=== PATIENT | female | born 1940 | race Hispanic/Latino ===

== ENCOUNTER 2018-09-29 07:53 | Outpatient (CLI) | payer MEDICARE | END 2018-09-29 07:54 | disposition home or self-care (01) | LOC: WOUND 07:53 ==

== ENCOUNTER 2018-10-05 10:15 | Outpatient (CLI) | payer MEDICARE ==
[2018-10-05] MEDS ORDERED: XYLOCAINE TOPICAL 4% TP ONE (10:18)
[2018-10-05] MEDS ORDERED: SILVER NITRATE TP ONE (10:19)
[2018-10-05] MEDS ORDERED: AD OINTMENT TP PRN (10:25)
== END 2018-10-05 10:16 | disposition home or self-care (01) ==
LOC: WOUND 10:15
PROVIDERS: ATTEND Surgery
DX: I70.238 Atherosclerosis of native arteries of right leg with ulceration of other part of lower leg (principal); L97.213 Non-pressure chronic ulcer of right calf with necrosis of muscle; I73.89 Other specified peripheral vascular diseases
CPT/HCPCS: A6250

== ENCOUNTER 2018-10-12 10:36 | Outpatient (CLI) | payer MEDICARE | END 2018-10-12 10:37 | disposition home or self-care (01) | LOC: WOUND 10:36 | CPT/HCPCS: A6250 ==

== ENCOUNTER 2018-10-14 21:00 | Inpatient (IN) | payer MEDICARE ==
[2018-10-14] MEDS ORDERED: NACL 0.9% 1000 ML 1,000 ML IV ONE (21:22)
[2018-10-14 22:13] LABS: Basophils % (Auto) 0.4 % (0.0-1.8); Eosinophils # (Auto) 0.1 K/mm3 (0.0-0.4); Eosinophils % (Auto) 0.6 % (0.0-4.3); Hematocrit 33.1 % (30.3-42.9); Hemoglobin 10.8 gm/dl (10.1-14.3); Lymphocytes # (Auto) 3.3 K/mm3 (1.2-5.4); Lymphocytes % (Auto) 38.6 % (13.4-35.0); Mean Corpuscular HGB Conc 33 % (30-34); Mean Corpuscular Volume 86 fl (79-97); Monocytes # (Auto) 0.7 K/mm3 (0.0-0.8); Monocytes % (Auto) 8.1 % (0.0-7.3); Platelet Count 487 K/mm3 (140-440); Red Blood Count 3.83 M/mm3 (3.65-5.03); Red Cell Distribution Width 17.4 % (13.2-15.2)
[2018-10-14 22:22] LABS: INR 0.99 (0.87-1.13)
[2018-10-14 22:23] LABS: Partial Thromboplastin Time 28.9 Sec. (24.2-36.6)
--- NOTE | 2018-10-14 22:34 | Emergency Department Report ---
ED GI Bleed HPI - General Chief complaint: GI Bleed Stated complaint: INTERNAL BLEEDING BLOOD IN STOOL Time Seen by Provider: 10/14/18 22:31 Source: patient Mode of arrival: Ambulatory Limitations: No Limitations - History of Present Illness Initial comments: Patient is a 77-year-old female that presents emergency room with complaints of weakness and melena. Patient states she's had melena for 2 weeks but for the last 24 hours should been feeling weak. Patient states she's been taking liquids for a DVT diagnosed in August 2018. Patient has not stopped taking L cause even though she's had melena. Patient has not seen her primary for this problem. Patient denies chest pain shortness of breath. MD complaint: melena -: Sudden, week(s) Radiation: none Quality: painless Consistency: constant Improves with: none Worsens with: none Context: blood thinners Associated Symptoms: malaise, weakness. denies: abdominal pain, nausea, vomiting, epistaxis, fever/chills, headaches, loss of appetite, easy bruising, rash, other bleeding, shortness of breath, syncope - Related Data Home Medications Medication Instructions Recorded Confirmed Last Taken Apixaban [Eliquis] 5 mg PO BID 07/06/18 07/06/18 07/06/18 06:00 5mg HYDROcodone/ACETAMINOPHEN 1 tab PO Q4H PRN 07/06/18 07/06/18 07/06/18 07:00 [Hydrocodone-Acetamin 10-325 mg] 1 tab Levothyroxine Sodium [Synthroid] 88 mcg PO DAILY 07/06/18 07/06/18 07/05/18 88mcg Lisinopril [Zestril TAB] 10 mg PO DAILY 07/06/18 07/06/18 07/05/18 10mg Metoprolol [Lopressor TAB] 25 mg PO DAILY 07/06/18 07/06/18 07/06/18 25mg Oxycodone HCl 10 mg PO Q6H PRN 07/06/18 07/06/18 06/28/18 10mg Previous Rx's Medication Instructions Recorded Last Taken Type ALBUTEROL NEB's [Proventil 0.083% 2.5 mg IH Q4HRT PRN nebu 08/04/18 Unknown Rx NEBS] ALBUTEROL NEB's [Proventil 0.083% 2.5 mg IH TIDRT nebu 08/04/18 Unknown Rx NEBS] ALPRAZolam [Xanax TAB] 0.25 mg PO QPM PRN #21 tablet 08/04/18 Unknown Rx Acetaminophen with Codeine 1 each PO Q6HR PRN #30 tablet 08/04/18 Unknown Rx [Tylenol with Codeine #3 Tablet] Amiodarone [Cordarone 200 MG TAB] 200 mg PO DAILY #30 tablet 08/04/18 Unknown Rx Apixaban [Eliquis] 10 mg PO Q12HR #7 tab.ds.pk 08/04/18 Unknown Rx Budesonide [Pulmicort Respules] 0.5 mg IH Q12HRT #60 nebu 08/04/18 Unknown Rx DULoxetine [Cymbalta] 60 mg PO QDAY #30 capsule 08/04/18 Unknown Rx Gabapentin [Neurontin] 100 mg PO Q8HR #90 capsule 08/04/18 Unknown Rx Multivitamin Tab [Multiple Vitamin 1 each PO QDAY tablet 08/04/18 Unknown Rx TAB (Theragran)] Pantoprazole [Protonix TAB] 40 mg PO BID #60 tablet 08/04/18 Unknown Rx Sucralfate [Carafate] 1 gm PO ACHS #1200 ml 08/04/18 Unknown Rx dilTIAZem [Cardizem] 60 mg PO TID #90 tablet 08/04/18 Unknown Rx Allergies Allergy/AdvReac Type Severity Reaction Status Date / Time No Known Allergies Allergy Verified 10/14/18 21:18 ED Review of Systems ROS: Stated complaint: INTERNAL BLEEDING BLOOD IN STOOL Other details as noted in HPI Constitutional: malaise, weakness. denies: chills, fever Eyes: denies: eye pain, eye discharge, vision change ENT: denies: ear pain, throat pain Respiratory: denies: cough, shortness of breath, wheezing Cardiovascular: denies: chest pain, palpitations Endocrine: no symptoms reported Gastrointestinal: denies: abdominal pain, nausea, diarrhea Genitourinary: denies: urgency, dysuria, discharge Musculoskeletal: denies: back pain, joint swelling, arthralgia Skin: denies: rash, lesions Neurological: denies: headache, paresthesias Psychiatric: denies: anxiety, depression Hematological/Lymphatic: denies: easy bleeding, easy bruising ED Past Medical Hx - Past Medical History Previous Medical History?: Yes Hx Hypertension: Yes Hx Deep Vein Thrombosis: Yes Hx GERD: No Hx Asthma: No - Surgical History Past Surgical History?: Yes Hx Pacemaker: No Hx Internal Defibrillator: No Hx Cholecystectomy: Yes - Social History Smoking Status: Never Smoker Substance Use Type: None - Medications Home Medications: Home Medications Medication Instructions Recorded Confirmed Last Taken Type Apixaban [Eliquis] 5 mg PO BID 07/06/18 07/06/18 07/06/18 06:00 History 5mg HYDROcodone/ACETAMINOPHEN 1 tab PO Q4H PRN 07/06/18 07/06/18 07/06/18 07:00 Hi story [Hydrocodone-Acetamin 10-325 mg] 1 tab Levothyroxine Sodium [Synthroid] 88 mcg PO DAILY 07/06/18 07/06/18 07/05/18 History 88mcg Lisinopril [Zestril TAB] 10 mg PO DAILY 07/06/18 07/06/18 07/05/18 History 10mg Metoprolol [Lopressor TAB] 25 mg PO DAILY 07/06/18 07/06/18 07/06/18 History 25mg Oxycodone HCl 10 mg PO Q6H PRN 07/06/18 07/06/18 06/28/18 History 10mg ALBUTEROL NEB's [Proventil 0.083% 2.5 mg IH Q4HRT PRN nebu 08/04/18 Unknown Rx NEBS] ALBUTEROL NEB's [Proventil 0.083% 2.5 mg IH TIDRT nebu 08/04/18 Unknown Rx NEBS] ALPRAZolam [Xanax TAB] 0.25 mg PO QPM PRN #21 tablet 08/04/18 Unknown Rx Acetaminophen with Codeine 1 each PO Q6HR PRN #30 tablet 08/04/18 Unknown Rx [Tylenol with Codeine #3 Tablet] Amiodarone [Cordarone 200 MG TAB] 200 mg PO DAILY #30 tablet 08/04/18 Unknown Rx Apixaban [Eliquis] 10 mg PO Q12HR #7 tab.ds.pk 08/04/18 Unknown Rx Budesonide [Pulmicort Respules] 0.5 mg IH Q12HRT #60 nebu 08/04/18 Unknown Rx DULoxetine [Cymbalta] 60 mg PO QDAY #30 capsule 08/04/18 Unknown Rx Gabapentin [Neurontin] 100 mg PO Q8HR #90 capsule 08/04/18 Unknown Rx Multivitamin Tab [Multiple Vitamin 1 each PO QDAY tablet 08/04/18 Unknown Rx TAB (Theragran)] Pantoprazole [Protonix TAB] 40 mg PO BID #60 tablet 08/04/18 Unknown Rx Sucralfate [Carafate] 1 gm PO ACHS #1200 ml 08/04/18 Unknown Rx dilTIAZem [Cardizem] 60 mg PO TID #90 tablet 08/04/18 Unknown Rx ED Physical Exam - General Limitations: No Limitations General appearance: alert, in no apparent distress - Head Head exam: Present: atraumatic, normocephalic - Eye Eye exam: Present: normal appearance, other (scleral pallor noted) - ENT ENT exam: Present: mucous membranes moist - Neck Neck exam: Present: normal inspection - Respiratory Respiratory exam: Present: normal lung sounds bilaterally. Absent: respiratory distress - Cardiovascular Cardiovascular Exam: Present: regular rate, normal rhythm. Absent: systolic murmur, diastolic murmur, rubs, gallop - GI/Abdominal GI/Abdominal exam: Present: soft, normal bowel sounds - Rectal Rectal exam: Present: heme (+) stool, black stool, hemorrhoids - Extremities Exam Extremities exam: Present: normal inspection - Back Exam Back exam: Present: normal inspection - Neurological Exam Neurological exam: Present: alert, oriented X3 - Psychiatric Psychiatric exam: Present: normal affect, normal mood - Skin Skin exam: Present: warm, dry, intact, normal color. Absent: rash ED Course Vital Signs 10/14/18 10/14/18 10/14/18 21:18 22:34 22:40 Temperature 97.4 F L Pulse Rate 86 79 Respiratory 16 23 Rate Blood Pressure 117/56 153/46 O2 Sat by Pulse 100 100 100 Oximetry 10/14/18 10/14/18 10/14/18 22:51 23:00 23:11 Temperature Pulse Rate 76 83 83 Respiratory 16 17 18 Rate Blood Pressure 140/60 153/46 O2 Sat by Pulse 100 100 97 Oximetry 10/14/18 10/14/18 10/15/18 23:20 23:43 00:05 Temperature Pulse Rate 113 H 87 Respiratory 16 19 26 H Rate Blood Pressure 140/69 140/69 O2 Sat by Pulse 100 100 Oximetry 10/15/18 10/15/18 10/15/18 00:11 00:21 00:31 Temperature Pulse Rate 84 85 86 Respiratory 17 19 18 Rate Blood Pressure 140/69 140/69 140/60 O2 Sat by Pulse 96 99 97 Oximetry 10/15/18 10/15/18 10/15/18 00:41 00:51 01:00 Temperature Pulse Rate 89 89 90 Respiratory 18 20 20 Rate Blood Pressure 140/69 140/69 140/69 O2 Sat by Pulse 96 96 97 Oximetry 10/15/18 10/15/18 10/15/18 01:10 01:20 01:30 Temperature Pulse Rate 85 87 88 Respiratory 18 21 15 Rate Blood Pressure O2 Sat by Pulse 97 96 100 Oximetry 10/15/18 10/15/18 10/15/18 01:40 01:50 02:00 Temperature Pulse Rate 89 90 90 Respiratory 16 19 19 Rate Blood Pressure 158/64 158/64 158/64 O2 Sat by Pulse 97 98 98 Oximetry 10/15/18 02:10 Temperature Pulse Rate 89 Respiratory 19 Rate Blood Pressure 158/64 O2 Sat by Pulse 98 Oximetry - Reevaluation(s) Reevaluation #1: Initial evaluation. Patient will require a guaiac. Patient agrees to have a rectal exam done. 10/14/18 22:34 Guaiac positive. Nurse in room for entire rectal exam 10/14/18 22:45 - Consultations Consultation #1: GI consult. Dr. Pearson wantmahesh patient admitted to the hospitalist service 10/14/18 22:48 Consultation #2: Hospitalist consultation for admission. Hospitalist to admit patient and assume care of patient. 10/14/18 22:48 ED Medical Decision Making - Lab Data Result diagrams: 10/15/18 03:02 10/15/18 03:02 - Medical Decision Making Patient 77-year-old female that presents emergency room with complaints of dark stool and weakness. Patient found to have a GI bleed. Guaiac positive. Patient will be admitted to the hospitalist service for further treatment. GI has been consulted and agrees with admission. - Differential Diagnosis GI bleed.anticoagulation therapy. melena Critical Care Time: Yes Critical care attestation.: If time is entered above; I have spent that time in minutes in the direct care of this critically ill patient, excluding procedure time. Critical Care Time: 35 minutes ED Disposition Clinical Impression: Melena, Anticoagulant effect, On anticoagulant therapy, Malaise and fatigue GI bleed Qualifiers: GI bleed type/associated pathology: melena Qualified Code(s): K92.1 - Melena Disposition: OP ADMIT IP TO THIS HOSP Is pt being admited?: Yes Does the pt Need Aspirin: No Condition: Critical Time of Disposition: 22:47
[2018-10-14 22:44] LABS: Alanine Aminotransferase 7 units/L (7-56); Albumin 3.8 g/dL (3.9-5); BUN/Creatinine Ratio 14; Blood Urea Nitrogen 13 mg/dL (7-17); Calcium 8.8 mg/dL (8.4-10.2); Hemolysis Index 3
--- NOTE | 2018-10-14 23:12 | History and Physical Report ---
History of Present Illness Date of examination: 10/14/18 History of present illness: 77-year-old woman history of hypertension, A. fib, DVT on eliquis, hypothyroidism, GERD, PAD comes emergency room because she's been experiencing melena 2 weeks. She had 3-4 episodes a day, also complaining of generalized weakness. No NSAID use, iron therapy. She states she is also had abdominal pain close to 2 weeks now, started after the melena, intermittent, lasting up to an hour, intensity 5/10, no radiation. She's been taking Pepto-Bismol for the pain Review of systems Constitutional: no weight loss, chills, fever Ears, eyes, nose, mouth and throat: no nasal congestion, no nasal discharge, no sinus pressure, no vision change, no red eye. Neck: No neck pain or rigidity. Cardiovascular: no palpitations, chest pain Respiratory: no cough, shortness of breath Gastrointestinal: no hematochezia, +abdominal pain Genitourinary : no frequency , no hematuria Musculoskeletal: no joint swelling or muscle ache Integumentary: no rash, no pruritis Neurological: no parathesias, no focal weakness Endocrine: no cold or heat intolerance, no polyuria or polydipsia Hematologic/Lymphatic: no easy bruising, no easy bleeding, no gland swelling Allergic/Immunologic: no urticaria, no angioedema. PAST MEDICAL HISTORY: hypertension, A. fib, DVT on eliquis, hypothyroidism, GERD, PAD PAST SURGICAL HISTORY: Cholecystectomy, fasciotomy SOCIAL HISTORY: Denies alcohol, drugs, smokes half pack a day FAMILY HISTORY: Hypertension Medications and Allergies Allergies Allergy/AdvReac Type Severity Reaction Status Date / Time No Known Allergies Allergy Verified 10/14/18 21:18 Home Medications Medication Instructions Recorded Confirmed Last Taken Type Apixaban [Eliquis] 5 mg PO BID 07/06/18 07/06/18 07/06/18 06:00 History 5mg HYDROcodone/ACETAMINOPHEN 1 tab PO Q4H PRN 07/06/18 07/06/18 07/06/18 07:00 History [Hydrocodone-Acetamin 10-325 mg] 1 tab Levothyroxine Sodium [Synthroid] 88 mcg PO DAILY 07/06/18 07/06/18 07/05/18 History 88mcg Lisinopril [Zestril TAB] 10 mg PO DAILY 07/06/18 07/06/18 07/05/18 History 10mg Metoprolol [Lopressor TAB] 25 mg PO DAILY 07/06/18 07/06/18 07/06/18 History 25mg Oxycodone HCl 10 mg PO Q6H PRN 07/06/18 07/06/18 06/28/18 History 10mg ALBUTEROL NEB's [Proventil 0.083% 2.5 mg IH Q4HRT PRN nebu 08/04/18 Unknown Rx NEBS] ALBUTEROL NEB's [Proventil 0.083% 2.5 mg IH TIDRT nebu 08/04/18 Unknown Rx NEBS] ALPRAZolam [Xanax TAB] 0.25 mg PO QPM PRN #21 tablet 08/04/18 Unknown Rx Acetaminophen with Codeine 1 each PO Q6HR PRN #30 tablet 08/04/18 Unknown Rx [Tylenol with Codeine #3 Tablet] Amiodarone [Cordarone 200 MG TAB] 200 mg PO DAILY #30 tablet 08/04/18 Unknown Rx Apixaban [Eliquis] 10 mg PO Q12HR #7 tab.ds.pk 08/04/18 Unknown Rx Budesonide [Pulmicort Respules] 0.5 mg IH Q12HRT #60 nebu 08/04/18 Unknown Rx DULoxetine [Cymbalta] 60 mg PO QDAY #30 capsule 08/04/18 Unknown Rx Gabapentin [Neurontin] 100 mg PO Q8HR #90 capsule 08/04/18 Unknown Rx Multivitamin Tab [Multiple Vitamin 1 each PO QDAY tablet 08/04/18 Unknown Rx TAB (Theragran)] Pantoprazole [Protonix TAB] 40 mg PO BID #60 tablet 08/04/18 Unknown Rx Sucralfate [Carafate] 1 gm PO ACHS #1200 ml 08/04/18 Unknown Rx dilTIAZem [Cardizem] 60 mg PO TID #90 tablet 08/04/18 Unknown Rx Active Meds: Active Medications Sodium Chloride (Nacl 0.9% 1000 Ml) 1,000 mls @ 250 mls/hr IV ONCE ONE Stop: 10/15/18 01:21 Exam - Physical Exam Narrative exam: General Apperance: The patient lying in bed, breathing comfortable HEENT: Normocephalic, atraumatic. Pupils equally round and reactive to light, EOMI, no sclericterus or JVD or thyromegaly or nodule. , no carotid bruit, mucous membranes moist, no exudate or erythema Heart: S1-S2, regular is rhythm Lungs: Clear to auscultation bilaterally, breathing comfortable Abdomen: Positive bowel sounds, soft, nontender, nondistended, no organomegaly Extremities: No edema cyanosis clubbing Skin: no rash, nodule, warm and dry Neuro: cranial nerves 2-12 intact, speech is fluent, motor/sensory intact - Constitutional Vitals: Temp Pulse Resp BP Pulse Ox 97.4 F L 86 16 117/56 100 10/14/18 21:18 10/14/18 21:18 10/14/18 21:18 10/14/18 21:18 10/14/18 21:18 Results - Labs CBC & Chem 7: 10/14/18 21:47 10/14/18 21:47 Labs: Abnormal lab results 10/14/18 10/14/18 Range/Units 21:47 21:47 RDW 17.4 H (13.2-15.2) % Plt Count 487 H (140-440) K/mm3 Lymph % (Auto) 38.6 H (13.4-35.0) % [place] % (Auto) 8.1 H (0.0-7.3) % Sodium 129 L (137-145) mmol/L Chloride 95.4 L (98-107) mmol/L Albumin 3.8 L (3.9-5) g/dL Assessment and Plan Assessment GI bleed/melena Abdominal pain hypertension A. fib DVT hypothyroidism GERD PAD Plan Admit to medicine Start Protonix, check serial hemoglobin consultation GI, GI aware of the patient Hold eliquis, check CT of the abdomen Start IV morphine, IV fluid Continue appropriate outpatient medications DVT prophylaxis
[2018-10-14] MEDS ORDERED: DILAUDID IV ONE (23:20)
[2018-10-14] MEDS ORDERED: SODIUM CHLORIDE FLUSH SYRINGE 10 ML IV PRN (23:43)
[2018-10-14] MEDS ORDERED: TYLENOL PO PRN (23:43)
[2018-10-14] MEDS ORDERED: MORPHINE IV PRN (23:43)
[2018-10-14] MEDS ORDERED: ZOFRAN IV PRN (23:43)
[2018-10-14] MEDS ORDERED: PROTONIX IV NR (23:59)
[2018-10-15 00:18] LABS: Hematocrit 28.4 % (30.3-42.9); Hemoglobin 9.2 gm/dl (10.1-14.3)
--- NOTE | 2018-10-15 00:35 | Cat Scan Report ---
FINAL REPORT PROCEDURE: CT ABDOMEN PELVIS WO CON TECHNIQUE: Computerized axial tomography of the abdomen and pelvis was performed without intravenous contrast. This study is performed without intravascular contrast material and its sensitivity for ab dominal and pelvic pathology, including neoplasms, inflammation, abscess, free fluid, thrombosis, art erial dissection and infarction, is reduced compared with a contrast enhanced study. HISTORY: abd pain COMPARISON: No prior studies are available for comparison. FINDINGS: Visualized lower thorax: No significant abnormality. Liver: Normal size and attenuation. Spleen: Normal size and attenuation. Gallbladder and biliary system: The gallbladder is absent. No dilatation of the biliary ductal system .. Pancreas: Normal. Adrenals: Normal. Kidneys: Slight extrarenal pelvis in both collecting systems. No renal masses or stones.. GI tract: The stomach is normal. Small bowel has a normal caliber. No obstruction is seen. The cecum, appendix and colon are normal.. Lymph nodes and mesentery: Normal. Vasculature: Moderate atherosclerosis of the aorta and branching vessels.. Bladder: Normal. Reproductive organs: Normal. Peritoneum: No free fluid. Musculoskeletal structures: Moderate degenerative changes of the spine. There has been previous right hip arthroplasty. There is been previous fracture of the right pelvic bone.. Other: None. IMPRESSION: There is no evidence of intestinal or urinary tract obstruction. No ileus or enteritis. The appendix is normal. Previous cholecystectomy..
[2018-10-15 03:12] LABS: Basophils % (Auto) 0.5 % (0.0-1.8); Eosinophils # (Auto) 0.1 K/mm3 (0.0-0.4); Eosinophils % (Auto) 1.2 % (0.0-4.3); Hematocrit 29.4 % (30.3-42.9); Hemoglobin 9.7 gm/dl (10.1-14.3); Lymphocytes # (Auto) 3.1 K/mm3 (1.2-5.4); Lymphocytes % (Auto) 40.5 % (13.4-35.0); Mean Corpuscular HGB Conc 33 % (30-34); Mean Corpuscular Volume 87 fl (79-97); Monocytes # (Auto) 0.7 K/mm3 (0.0-0.8); Monocytes % (Auto) 9.5 % (0.0-7.3); Platelet Count 424 K/mm3 (140-440); Red Cell Distribution Width 17.3 % (13.2-15.2)
[2018-10-15 03:27] LABS: BUN/Creatinine Ratio 16; Blood Urea Nitrogen 11 mg/dL (7-17); Calcium 8.3 mg/dL (8.4-10.2); Hemolysis Index 5
[2018-10-15] MEDS: SYNTHROID PO SCH (05:09)
[2018-10-15] MEDS: NEURONTIN PO SCH ×3 (05:09→21:29)
[2018-10-15] MEDS: MORPHINE IV PRN ×4 (05:09→21:29)
[2018-10-15] MEDS: NACL 0.45% 1000 ML 1,000 ML IV SCH ×2 (05:10→15:16)
[2018-10-15 08:24] LABS: Hematocrit 28.3 % (30.3-42.9); Hemoglobin 9.3 gm/dl (10.1-14.3)
[2018-10-15] MEDS: PULMICORT IH SCH ×2 (08:32→19:30)
[2018-10-15] MEDS: CYMBALTA PO SCH (09:22)
[2018-10-15] MEDS: CORDARONE PO SCH (09:22)
[2018-10-15] MEDS: PROTONIX IV SCH (09:22)
[2018-10-15] MEDS: SODIUM CHLORIDE FLUSH SYRINGE 10 ML IV SCH ×2 (09:23→21:29)
[2018-10-15] MEDS ORDERED: SYNTHROID PO SCH (10:00)
[2018-10-15 12:49] LABS: Hematocrit 28.7 % (30.3-42.9); Hemoglobin 9.4 gm/dl (10.1-14.3)
--- NOTE | 2018-10-15 15:57 | Gastroenterology Consultation ---
History of Present Illness - Reason for Consult Consult date: 10/15/18 melena Requesting physician: LAN GARCIA III - History of Present Illness Ms Ashraf is a 77 yo wf who presents with black/dark stools x 2 weeks. Pt with h/o lower extremity blood clots, on anticoagulation; she has had black stools for a couple weeks. she has had generalized abd discomfort for which she has been taking peptobismol. She denies n/v, hematemesis, or brpbr. She was previously taking ibuprofen but not takes tylenol and denies other nsaid's. Mild anemia on admission that has been stable on repeat checks. vital signs also stable on admission. Past History Past Medical History: atrial fib, hypertension, other (DVT) Past Surgical History: cholecystectomy, Other (fasciotomy) Social history: smoking Family history: no significant family history Medications and Allergies Allergies Allergy/AdvReac Type Severity Reaction Status Date / Time No Known Allergies Allergy Verified 10/14/18 21:18 Home Medications Medication Instructions Recorded Confirmed Last Taken Type Apixaban [Eliquis] 5 mg PO BID 07/06/18 07/06/18 07/06/18 06:00 History 5mg HYDROcodone/ACETAMINOPHEN 1 tab PO Q4H PRN 07/06/18 07/06/18 07/06/18 07:00 History [Hydrocodone-Acetamin 10-325 mg] 1 tab Levothyroxine Sodium [Synthroid] 88 mcg PO DAILY 07/06/18 07/06/18 07/05/18 History 88mcg Lisinopril [Zestril TAB] 10 mg PO DAILY 07/06/18 07/06/18 07/05/18 History 10mg Metoprolol [Lopressor TAB] 25 mg PO DAILY 07/06/18 07/06/18 07/06/18 History 25mg Oxycodone HCl 10 mg PO Q6H PRN 07/06/18 07/06/18 06/28/18 History 10mg ALBUTEROL NEB's [Proventil 0.083% 2.5 mg IH Q4HRT PRN nebu 08/04/18 Unknown Rx NEBS] ALBUTEROL NEB's [Proventil 0.083% 2.5 mg IH TIDRT nebu 08/04/18 Unknown Rx NEBS] ALPRAZolam [Xanax TAB] 0.25 mg PO QPM PRN #21 tablet 08/04/18 Unknown Rx Acetaminophen with Codeine 1 each PO Q6HR PRN #30 tablet 08/04/18 Unknown Rx [Tylenol with Codeine #3 Tablet] Amiodarone [Cordarone 200 MG TAB] 200 mg PO DAILY #30 tablet 08/04/18 Unknown Rx Apixaban [Eliquis] 10 mg PO Q12HR #7 tab.ds.pk 08/04/18 Unknown Rx Budesonide [Pulmicort Respules] 0.5 mg IH Q12HRT #60 nebu 08/04/18 Unknown Rx DULoxetine [Cymbalta] 60 mg PO QDAY #30 capsule 08/04/18 Unknown Rx Gabapentin [Neurontin] 100 mg PO Q8HR #90 capsule 08/04/18 Unknown Rx Multivitamin Tab [Multiple Vitamin 1 each PO QDAY tablet 08/04/18 Unknown Rx TAB (Theragran)] Pantoprazole [Protonix TAB] 40 mg PO BID #60 tablet 08/04/18 Unknown Rx Sucralfate [Carafate] 1 gm PO ACHS #1200 ml 08/04/18 Unknown Rx dilTIAZem [Cardizem] 60 mg PO TID #90 tablet 08/04/18 Unknown Rx Active Meds: Active Medications Acetaminophen (Tylenol) 650 mg PO Q4H PRN PRN Reason: Pain MILD(1-3)/Fever >100.5/GONZALES Alprazolam (Xanax) 0.25 mg PO QPM PRN PRN Reason: Anxiety Amiodarone HCl (Cordarone) 200 mg PO DAILY [facility] Last Admin: 10/15/18 09:22 Dose: 200 mg Documented by: Budesonide (Pulmicort) 0.5 mg IH Q12HRT [facility] Last Admin: 10/15/18 08:32 Dose: 0.5 mg Documented by: Duloxetine HCl (Cymbalta) 60 mg PO QDAY [facility] Last Admin: 10/15/18 09:22 Dose: 60 mg Documented by: Gabapentin (Neurontin) 100 mg PO Q8HR [facility] Last Admin: 10/15/18 13:09 Dose: 100 mg Documented by: Sodium Chloride (Nacl 0.45% 1000 Ml) 1,000 mls @ 75 mls/hr IV DIRECT [facility] Last Admin: 10/15/18 15:16 Dose: 75 mls/hr Documented by: Levothyroxine Sodium (Synthroid) 88 mcg PO DAILY@0600 [facility] Last Admin: 10/15/18 05:09 Dose: 88 mcg Documented by: Morphine Sulfate (Morphine) 2 mg IV Q4H PRN PRN Reason: Pain, Moderate (4-6) Ondansetron HCl (Zofran) 4 mg IV Q4H PRN PRN Reason: Nausea And Vomiting Last Admin: 10/15/18 05:24 Dose: 4 mg Documented by: Pantoprazole Sodium (Protonix) 40 mg IV DAILY [facility] Last Admin: 10/15/18 09:22 Dose: 40 mg Documented by: Sodium Chloride (Sodium Chloride Flush Syringe 10 Ml) 10 ml IV BID [facility] Last Admin: 10/15/18 09:23 Dose: 10 ml Documented by: Sodium Chloride (Sodium Chloride Flush Syringe 10 Ml) 10 ml IV PRN PRN PRN Reason: LINE FLUSH Review of Systems - Review of Systems All systems: negative (per HPI) Exam - Constitutional Vital Signs: Temp Pulse Resp BP Pulse Ox 98.5 F 89 20 145/56 95 10/15/18 07:37 10/15/18 11:36 10/15/18 10:00 10/15/18 07:37 10/15/18 10:00 General appearance: no acute distress, well-nourished - EENT Eyes: PERRL, EOM intact - Neck Neck: supple, normal ROM - Respiratory Respiratory effort: normal Respiratory: bilateral: CTA - Cardiovascular Rhythm: regular Heart Sounds: Present: S1 & S2 Extremities: No edema - Gastrointestinal General gastrointestinal: Present: soft, tender (mild generalized ttp), non- distended, normal bowel sounds - Integumentary Integumentary: Present: clear, warm - Musculoskeletal Musculoskeletal: deferred - Neurologic Neurological: alert and oriented x3 - Psychiatric Psychiatric: appropriate mood/affect - Labs CBC & Chem 7: 10/15/18 12:30 10/15/18 03:02 Lab Results: Laboratory Results - last 24 hr 10/14/18 10/14/18 10/14/18 21:47 21:47 21:47 WBC 8.5 RBC 3.83 Hgb 10.8 Hct 33.1 MCV 86 MCH 28 MCHC 33 RDW 17.4 H Plt Count 487 H Lymph % (Auto) 38.6 H [place] % (Auto) 8.1 H Eos % (Auto) 0.6 Baso % (Auto) 0.4 Lymph # 3.3 [place] # 0.7 Eos # 0.1 Baso # 0.0 Seg Neutrophils % 52.3 Seg Neutrophils # 4.4 PT 13.5 INR 0.99 APTT 28.9 Sodium 129 L Potassium 4.4 Chloride 95.4 L Carbon Dioxide 22 Anion Gap 16 BUN 13 Creatinine 0.9 Estimated GFR > 60 BUN/Creatinine Ratio 14 Glucose 82 Calcium 8.8 Total Bilirubin < 0.20 AST 12 ALT 7 Alkaline Phosphatase 69 Total Protein 6.6 Albumin 3.8 L Albumin/Globulin Ratio 1.4 Lipase 59 Blood Type Antibody Screen 10/14/18 10/15/18 10/15/18 21:47 00:10 03:02 WBC 7.7 RBC 3.40 L Hgb 9.2 L 9.7 L Hct 28.4 L 29.4 L MCV 87 MCH 28 MCHC 33 RDW 17.3 H Plt Count 424 Lymph % (Auto) 40.5 H [place] % (Auto) 9.5 H Eos % (Auto) 1.2 Baso % (Auto) 0.5 Lymph # 3.1 [place] # 0.7 Eos # 0.1 Baso # 0.0 Seg Neutrophils % 48.3 Seg Neutrophils # 3.7 PT INR APTT Sodium Potassium Chloride Carbon Dioxide Anion Gap BUN Creatinine Estimated GFR BUN/Creatinine Ratio Glucose Calcium Total Bilirubin AST ALT Alkaline Phosphatase Total Protein Albumin Albumin/Globulin Ratio Lipase Blood Type A POSITIVE Antibody Screen Negative 10/15/18 10/15/18 10/15/18 03:02 07:41 12:30 WBC RBC Hgb 9.3 L 9.4 L Hct 28.3 L 28.7 L MCV MCH MCHC RDW Plt Count Lymph % (Auto) [place] % (Auto) Eos % (Auto) Baso % (Auto) Lymph # [place] # Eos # Baso # Seg Neutrophils % Seg Neutrophils # PT INR APTT Sodium 129 L Potassium 4.6 Chloride 97.4 L Carbon Dioxide 22 Anion Gap 14 BUN 11 Creatinine 0.7 Estimated GFR > 60 BUN/Creatinine Ratio 16 Glucose 93 Calcium 8.3 L Total Bilirubin AST ALT Alkaline Phosphatase Total Protein Albumin Albumin/Globulin Ratio Lipase Blood Type Antibody Screen Assessment and Plan 1. Anemia/? GI bleed - pt with reports of black stools; possibly from peptobismol, but should rule out upper gi source of bleeding with EGD. -will plan for egd tomorrow. okay for clears today. cont PPI. NPO at midnight -further recommendations following procedure.
--- NOTE | 2018-10-15 16:13 | Progress Note ---
Assessment and Plan - Patient Problems (1) GI bleed Current Visit: Yes Status: Acute Qualifiers: GI bleed type/associated pathology: melena Qualified Code(s): K92.1 - Melena Plan to address problem: Patient is currently being evaluated workup for melanotic stool. Has EGD plan per gastroenterology. No further episodes. Anticoagulant currently on hold. Patient hemoglobin and hematocrit has remained stable throughout hospital stay. (2) Melena Current Visit: Yes Status: Acute (3) Paroxysmal atrial fibrillation with RVR Current Visit: No Status: Acute Plan to address problem: Patient actually in sinus rhythm at this particular time. Currently anticoagulation on hold. For possible GI blood loss anemia (4) HTN (hypertension) Current Visit: No Status: Chronic Plan to address problem: Patient continues to have optimal control with metoprolol and lisinopril and continue present medical management. History Interval history: Patient is a 77-year-old female with a history of hypertension, hypothyroidism presents with a 3 day history of what appeared to be melanotic stools. Patient was also taking Pepto-Bismol. Stools were associated with some midepigastric abdominal pain. Present patient's pain is optimally controlled with 1 mg of morphine. No further episodes of bleeding or bloody stools. Hospitalist Physical - Constitutional Vitals: Temp Pulse Resp BP Pulse Ox 98.5 F 89 20 145/56 95 10/15/18 07:37 10/15/18 11:36 10/15/18 10:00 10/15/18 07:37 10/15/18 10:00 General appearance: Present: no acute distress - EENT Eyes: Present: PERRL, EOM intact ENT: hearing intact, clear oral mucosa, dentition normal - Neck Neck: Present: supple, normal ROM - Respiratory Respiratory effort: normal Respiratory: bilateral: CTA - Cardiovascular Rhythm: regular - Extremities Extremities: no ischemia, pulses intact, pulses symmetrical, No edema, normal temperature Peripheral Pulses: within normal limits - Abdominal General gastrointestinal: soft, non-tender, non-distended, normal bowel sounds - Integumentary Integumentary: Present: clear, warm, dry - Psychiatric Psychiatric: appropriate mood/affect - Neurologic Neurologic: CNII-XII intact Results - Labs CBC & Chem 7: 10/15/18 12:30 10/15/18 03:02 Labs: Laboratory Last Values WBC 7.7 K/mm3 (4.5-11.0) 10/15/18 03:02 RBC 3.40 M/mm3 (3.65-5.03) L 10/15/18 03:02 Hgb 9.4 gm/dl (10.1-14.3) L 10/15/18 12:30 Hct 28.7 % (30.3-42.9) L 10/15/18 12:30 MCV 87 fl (79-97) 10/15/18 03:02 MCH 28 pg (28-32) 10/15/18 03:02 MCHC 33 % (30-34) 10/15/18 03:02 RDW 17.3 % (13.2-15.2) H 10/15/18 03:02 Plt Count 424 K/mm3 (140-440) 10/15/18 03:02 Lymph % (Auto) 40.5 % (13.4-35.0) H 10/15/18 03:02 [place] % (Auto) 9.5 % (0.0-7.3) H 10/15/18 03:02 Eos % (Auto) 1.2 % (0.0-4.3) 10/15/18 03:02 Baso % (Auto) 0.5 % (0.0-1.8) 10/15/18 03:02 Lymph # 3.1 K/mm3 (1.2-5.4) 10/15/18 03:02 [place] # 0.7 K/mm3 (0.0-0.8) 10/15/18 03:02 Eos # 0.1 K/mm3 (0.0-0.4) 10/15/18 03:02 Baso # 0.0 K/mm3 (0.0-0.1) 10/15/18 03:02 Seg Neutrophils % 48.3 % (40.0-70.0) 10/15/18 03:02 Seg Neutrophils # 3.7 K/mm3 (1.8-7.7) 10/15/18 03:02 PT 13.5 Sec. (12.2-14.9) 10/14/18 21:47 INR 0.99 (0.87-1.13) 10/14/18 21:47 APTT 28.9 Sec. (24.2-36.6) 10/14/18 21:47 Sodium 129 mmol/L (137-145) L 10/15/18 03:02 Potassium 4.6 mmol/L (3.6-5.0) 10/15/18 03:02 Chloride 97.4 mmol/L (98-107) L 10/15/18 03:02 Carbon Dioxide 22 mmol/L (22-30) 10/15/18 03:02 Anion Gap 14 mmol/L 10/15/18 03:02 BUN 11 mg/dL (7-17) 10/15/18 03:02 Creatinine 0.7 mg/dL (0.7-1.2) 10/15/18 03:02 Estimated GFR > 60 ml/min 10/15/18 03:02 BUN/Creatinine Ratio 16 % 10/15/18 03:02 Glucose 93 mg/dL (65-100) 10/15/18 03:02 Calcium 8.3 mg/dL (8.4-10.2) L 10/15/18 03:02 Total Bilirubin < 0.20 mg/dL (0.1-1.2) 10/14/18 21:47 AST 12 units/L (5-40) 10/14/18 21:47 ALT 7 units/L (7-56) 10/14/18 21:47 Alkaline Phosphatase 69 units/L (35-129) 10/14/18 21:47 Total Protein 6.6 g/dL (6.3-8.2) 10/14/18 21:47 Albumin 3.8 g/dL (3.9-5) L 10/14/18 21:47 Albumin/Globulin Ratio 1.4 % 10/14/18 21:47 Lipase 59 units/L (13-60) 10/14/18 21:47 Blood Type A POSITIVE 10/14/18 21:47 Antibody Screen Negative 10/14/18 21:47
[2018-10-15] MEDS ORDERED: MORPHINE IV PRN (17:00)
[2018-10-16] MEDS: XANAX PO PRN ×2 (00:53→21:56)
[2018-10-16] MEDS: MORPHINE IV PRN ×5 (03:56→23:26)
[2018-10-16] MEDS: NACL 0.45% 1000 ML 1,000 ML IV SCH (03:59)
[2018-10-16] MEDS: SYNTHROID PO SCH (06:24)
[2018-10-16] MEDS: NEURONTIN PO SCH ×3 (06:24→21:56)
--- NOTE | 2018-10-16 06:39 | Progress Note ---
Assessment and Plan Assessment and plan: Patient is a 77-year-old female with a history of hypertension, hypothyroidism presents with a 3 day history of what appeared to be melanotic stools. Patient was also taking Pepto-Bismol. Stools were associated with some midepigastric abdominal pain. Present patient's pain is optimally controlled with 1 mg of morphine. No further episodes of bleeding or bloody stools. Patient is on anticoagulation due to DVT diagnosed in Aug 2018. (1) GI bleed Current Visit: Yes Status: Acute Qualifiers: GI bleed type/associated pathology: melena Qualified Code(s): K92.1 - Melena Plan to address problem: Patient is currently being evaluated workup for melanotic stool. Has EGD plan per gastroenterology today. No further episodes. Anticoagulant currently on hold. Patient hemoglobin and hematocrit has remained stable throughout hospital stay. Baseline hgb, stays around 9-10. Patient has had prolonged hx of anemia and is on High dose PPI outpatient. (2) Melena Current Visit: Yes Status: Acute Guaiac positive Per ED note. (3) Paroxysmal atrial fibrillation with RVR Current Visit: No Status: Acute Plan to address problem: Patient actually in sinus rhythm at this particular time. Currently anticoagulation on hold. For possible GI blood loss anemia (4) HTN (hypertension) Current Visit: No Status: Chronic Plan to address problem: Patient continues to have optimal control with metoprolol and lisinopril and continue present medical management. (5) Hyponatremia- Stable. DVT/GI prophy Plan of care discussed in detail with the patient History Interval history: Patient is a 77-year-old female with a history of hypertension, hypothyroidism presents with a 3 day history of what appeared to be melanotic stools. Patient was also taking Pepto-Bismol. Stools were associated with some midepigastric abdominal pain. Present patient's pain is optimally controlled with 1 mg of morphine. No further episodes of bleeding or bloody stools. Hospitalist Physical - Physical exam Narrative exam: VITAL SIGNS: Reviewed. GENERAL: The patient appeared well nourished and normally developed. Vital signs as documented. HEAD: No signs of head trauma. EYES: Pupils are equal. Extraocular motions intact. EARS: Hearing grossly intact. MOUTH: Oropharynx is normal. NECK: No adenopathy, no JVD. CHEST: Chest with clear breath sounds bilaterally. No wheezes, rales, or rhonchi. CARDIAC: Regular rate and rhythm. S1 and S2, without murmurs, gallops, or rubs. VASCULAR: No Edema. Peripheral pulses normal and equal in all extremities. ABDOMEN: Soft, without detectable tenderness. No sign of distention. No rebound or guarding, and no masses palpated. Bowel Sounds normal. MUSCULOSKELETAL: Good range of motion of all major joints. Extremities without clubbing, cyanosis or edema. NEUROLOGIC EXAM: Alert and oriented x 3. No focal sensory or strength deficits. Speech normal. Follows commands. PSYCHIATRIC: Mood normal. SKIN: No rash or lesions. - Constitutional Vitals: Temp Pulse Resp BP Pulse Ox 98.2 F 78 20 130/56 90 10/16/18 04:40 10/16/18 04:40 10/16/18 04:40 10/16/18 04:40 10/16/18 04:40 General appearance: Present: no acute distress Results - Labs CBC & Chem 7: 10/17/18 04:21 10/15/18 03:02 Labs: Laboratory Last Values WBC 7.7 K/mm3 (4.5-11.0) 10/15/18 03:02 RBC 3.40 M/mm3 (3.65-5.03) L 10/15/18 03:02 Hgb 9.4 gm/dl (10.1-14.3) L 10/15/18 12:30 Hct 28.7 % (30.3-42.9) L 10/15/18 12:30 MCV 87 fl (79-97) 10/15/18 03:02 MCH 28 pg (28-32) 10/15/18 03:02 MCHC 33 % (30-34) 10/15/18 03:02 RDW 17.3 % (13.2-15.2) H 10/15/18 03:02 Plt Count 424 K/mm3 (140-440) 10/15/18 03:02 Lymph % (Auto) 40.5 % (13.4-35.0) H 10/15/18 03:02 [place] % (Auto) 9.5 % (0.0-7.3) H 10/15/18 03:02 Eos % (Auto) 1.2 % (0.0-4.3) 10/15/18 03:02 Baso % (Auto) 0.5 % (0.0-1.8) 10/15/18 03:02 Lymph # 3.1 K/mm3 (1.2-5.4) 10/15/18 03:02 [place] # 0.7 K/mm3 (0.0-0.8) 10/15/18 03:02 Eos # 0.1 K/mm3 (0.0-0.4) 10/15/18 03:02 Baso # 0.0 K/mm3 (0.0-0.1) 10/15/18 03:02 Seg Neutrophils % 48.3 % (40.0-70.0) 10/15/18 03:02 Seg Neutrophils # 3.7 K/mm3 (1.8-7.7) 10/15/18 03:02 PT 13.5 Sec. (12.2-14.9) 10/14/18 21:47 INR 0.99 (0.87-1.13) 10/14/18 21:47 APTT 28.9 Sec. (24.2-36.6) 10/14/18 21:47 Sodium 129 mmol/L (137-145) L 10/15/18 03:02 Potassium 4.6 mmol/L (3.6-5.0) 10/15/18 03:02 Chloride 97.4 mmol/L (98-107) L 10/15/18 03:02 Carbon Dioxide 22 mmol/L (22-30) 10/15/18 03:02 Anion Gap 14 mmol/L 10/15/18 03:02 BUN 11 mg/dL (7-17) 10/15/18 03:02 Creatinine 0.7 mg/dL (0.7-1.2) 10/15/18 03:02 Estimated GFR > 60 ml/min 10/15/18 03:02 BUN/Creatinine Ratio 16 % 10/15/18 03:02 Glucose 93 mg/dL (65-100) 10/15/18 03:02 Calcium 8.3 mg/dL (8.4-10.2) L 10/15/18 03:02 Total Bilirubin < 0.20 mg/dL (0.1-1.2) 10/14/18 21:47 AST 12 units/L (5-40) 10/14/18 21:47 ALT 7 units/L (7-56) 10/14/18 21:47 Alkaline Phosphatase 69 units/L (35-129) 10/14/18 21:47 Total Protein 6.6 g/dL (6.3-8.2) 10/14/18 21:47 Albumin 3.8 g/dL (3.9-5) L 10/14/18 21:47 Albumin/Globulin Ratio 1.4 % 10/14/18 21:47 Lipase 59 units/L (13-60) 10/14/18 21:47 Blood Type A POSITIVE 10/14/18 21:47 Antibody Screen Negative 10/14/18 21:47
[2018-10-16] MEDS: PULMICORT IH SCH ×2 (07:15→20:52)
[2018-10-16 07:51] LABS: Basophils % (Auto) 0.3 % (0.0-1.8); Eosinophils # (Auto) 0.1 K/mm3 (0.0-0.4); Eosinophils % (Auto) 1.1 % (0.0-4.3); Hematocrit 28.2 % (30.3-42.9); Hemoglobin 9.2 gm/dl (10.1-14.3); Lymphocytes # (Auto) 2.5 K/mm3 (1.2-5.4); Lymphocytes % (Auto) 35.2 % (13.4-35.0); Mean Corpuscular HGB Conc 33 % (30-34); Mean Corpuscular Volume 87 fl (79-97); Monocytes # (Auto) 0.6 K/mm3 (0.0-0.8); Monocytes % (Auto) 8.1 % (0.0-7.3); Platelet Count 406 K/mm3 (140-440); Red Blood Count 3.24 M/mm3 (3.65-5.03); Red Cell Distribution Width 16.9 % (13.2-15.2)
[2018-10-16] MEDS: PROTONIX IV SCH (09:22)
[2018-10-16] MEDS: SODIUM CHLORIDE FLUSH SYRINGE 10 ML IV SCH ×2 (09:23→21:58)
[2018-10-16] MEDS ORDERED: NACL 0.9% 1000 ML 1,000 ML ONE (09:56)
[2018-10-16] MEDS ORDERED: WATER FOR IRRIG STERILE ONE (10:05)
[2018-10-16] MEDS ORDERED: WATER FOR IRRIG STERILE IR ONE (10:06)
--- NOTE | 2018-10-16 11:07 | Anesthesia Consultation ---
Anesthesia Consult and Med Hx Date of service: 10/16/18 - Airway Anesthetic Teeth Evaluation: Partials ROM Head & Neck: Adequate Mental/Hyoid Distance: Adequate Mallampati Class: Class III Intubation Access Assessment: Possibly Difficult - Pulmonary Exam CTA: Yes - Cardiac Exam Cardiac Exam: RRR - Pre-Operative Health Status ASA Pre-Surgery Classification: ASA3 Proposed Anesthetic Plan: MAC - Pulmonary Hx Smoking: Yes (former) Hx Respiratory Symptoms: No COPD: Yes (no recent inhaler use) Home Oxygen Therapy: No - Cardiovascular System Hx Hypertension: Yes Hx Heart Attack/AMI: No Hx Percutaneous Transluminal Coronary Angioplasty (PTCA): No Hx Cardia Arrhythmia: Yes (a-fib (apparent sinus rhythm on tele in pre-proceure area)) Hx Pacemaker: No - Central Nervous System Hx Seizures: No CVA: No - Gastrointestinal Hx Gastroesophageal Reflux Disease: Yes - Endocrine Hx Renal Disease: No Hx Liver Disease: No Hx Non-Insulin Dependent Diabetes: No Hx Hypothyroidism: Yes - Hematic Hx Anemia: Yes - Additional Comments Anesthesia Medical History Comments: Hx DVT on Eliquis, held since admission on 10/14/18. No hx anesthetic complications.
--- NOTE | 2018-10-16 11:07 | Anesthesia Day of Surgery ---
Anesthesia Day of Surgery - Day of Surgery Patient Examined: Yes Patient H&P Reviewed: Yes Patient is NPO: Yes
[2018-10-16] MEDS ORDERED: DIPRIVAN 10 MG/ML IV ONE (12:01)
--- NOTE | 2018-10-16 12:15 | Operative Report ---
Operative Report Operative Report: Esophagogastroduodenoscopy Procedure Report with Biopsies Date of procedure: 10/16/2018 Endoscopist: Memo Pearson Pre-op diagnosis/indication: Melena/GI bleed Post-op diagnosis: small gastric ulcer in antrum; large cratered ulcer in pyloric channel MEDICATIONS: MAC COMPLICATIONS: No immediate complications ESTIMATED BLOOD LOSS: minimal DESCRIPTION OF PROCEDURE: After consent was obtained, the patient was placed in the left lateral decubitis position. The upper fujinon endoscope was passed with direct vision through the mouth and advanced to the 2nd portion of the duodenum without difficulty. The mucosal views were good. The patient tolerated the procedure well. The patient's vital signs were monitored continuously throughout the procedure. FINDINGS: The esophagus appeared normal. There was a small, clean based ulcer in the antrum of the stomach. There was inflamed and erythematous mucosa in the antrum of the stomach. Biopsies were obtained from the stomach to rule out H pylori. There was a large (~2 x 2 cm) cratered ulcer beyond the pyloric channel/proximal portion of duodenal bulb. There was a dark heme spot, but no high risk bleeding lesions amenable to treatment. Biopsies were taken from the edge of the ulcer to rule out dysplasia/malignancy. The rest of the duodenum appeared normal and bile was seen through the visualized portion of the duodenum. IMPRESSION: 1. Large pyloric channel/proximal duodenal bulb ulcer without high risk bleeding stigmata. Borders biopsied to rule out dysplasia/malignancy. 2. Clean based gastric ulcer. 3. Gastritis. Biopsied to rule out H pylori. RECOMMENDATIONS: -follow up pathology -PPI BID (po dosing) -will restart full liquid diet today and advance as tolerated -avoid nsaid's -consider repeat EGD in 2 months to assess for healing. patient can be discharged tomorrow from gi stand point if no further signs of bleeding, tolerating po, and labs are stable.
[2018-10-16] MEDS: CYMBALTA PO SCH (13:30)
[2018-10-16] MEDS: CORDARONE PO SCH (13:30)
[2018-10-16] MEDS: NACL 0.9% 1000 ML 1,000 ML IV SCH (13:31)
[2018-10-17 05:52] LABS: Hematocrit 25.3 % (30.3-42.9); Hemoglobin 8.3 gm/dl (10.1-14.3)
[2018-10-17] MEDS: SYNTHROID PO SCH (05:52)
[2018-10-17] MEDS: NEURONTIN PO SCH ×2 (05:52→15:03)
[2018-10-17] MEDS: PULMICORT IH SCH (07:43)
[2018-10-17] MEDS: CORDARONE PO SCH (09:13)
[2018-10-17] MEDS: PROTONIX IV SCH (09:13)
[2018-10-17] MEDS: CYMBALTA PO SCH (09:13)
[2018-10-17] MEDS: SODIUM CHLORIDE FLUSH SYRINGE 10 ML IV SCH (09:13)
[2018-10-17] MEDS: MORPHINE IV PRN ×2 (09:19→15:03)
[2018-10-17] MEDS: NACL 0.9% 1000 ML 1,000 ML IV SCH (09:20)
[2018-10-17 09:30] VITALS: BP 187/67
--- NOTE | 2018-10-17 10:21 | Gastroenterology Progress Note ---
Assessment and Plan 1. Peptic ulcer disease (pyloric channel and gastric ulcer) - no high risk bleeding stigmata but large, cratered distal pyloric channel. Biopsies were obtained to rule out h pylori and malignancy. f/u pathology results -cont PPI BID dosing -avoid nsaid medications -advance diet as tolerated will s/o, please call as needed or with questions. follow-up in GI clinic in 1 month Subjective Date of service: 10/17/18 Principal diagnosis: UGI bleed Interval history: pt seen and examined. denies further gi bleeding episodes. no abd pain. adeel ating po Objective - Constitutional Vitals: Temp Pulse Resp BP Pulse Ox 97.9 F 83 18 187/67 98 10/17/18 07:49 10/17/18 08:20 10/17/18 08:20 10/17/18 07:49 10/17/18 08:02 General appearance: no acute distress - Neck Neck: supple - Respiratory Respiratory effort: normal Respiratory: bilateral: CTA - Cardiovascular Rhythm: regular Heart Sounds: Present: S1 & S2 - Extremities Extremities: No edema - Gastrointestinal General gastrointestinal: Present: soft, non-tender, non-distended - Neurologic Neurological: alert and oriented x3 - Psychiatric Psychiatric: appropriate mood/affect - Labs CBC & Chem 7: 10/17/18 04:21 10/15/18 03:02 Labs: Laboratory Results - last 24 hr 10/17/18 04:21 Hgb 8.3 L Hct 25.3 L
--- NOTE | 2018-10-17 14:04 | Discharge Summary ---
Providers - Providers Date of Admission: 10/14/18 23:22 Attending physician: RADHA DEMPSEY MD 10/14/18 23:19 Consult to Physician [CONS] Routine Comment: Consulting Provider: VIRGINIA BLANCHARD Physician Instructions: Reason For Exam: melena 10/15/18 06:32 Consult to Wound/ET Nurse [CONS] Urgent Reason For Exam: wound eval Primary care physician: ARIN BOLES Hospitalization Reason for admission: GI BLEED Condition: Stable Hospital course: Patient is a 77-year-old female with a history of hypertension, hypothyroidism presents with a 3 day history of what appeared to be melanotic stools. Patient was also taking Pepto-Bismol. Stools were associated with some midepigastric abdominal pain. Present patient's pain is optimally controlled with 1 mg of morphine. No further episodes of bleeding or bloody stools. Patient is on anticoagulation due to DVT diagnosed in Aug 2018. Patient proceeded to have an endoscopy which revealed peptic ulcer disease with no high risk bleeding stigmata large cratered distal pyloric channel was noted. Biopsies were done to rule out H. pylori patient was recommended to stay off NSAIDs and also to continue PPI twice a day dosing until seen by GI outpatient. Hemoglobin stayed relatively stable patient can restart on anticoagulation for that noted DVT but will recommend discontinuing within the 3 months arlene as recommended. Discharge diagnosis Peptic ulcer disease (pyloric channel and gastric ulcer) - GI bleed Paroxysmal atrial fibrillation with RVR HTN (hypertension) Hyponatremia Disposition: TO HOME OR SELFCARE Time spent for discharge: 35 mins Core Measure Documentation - Palliative Care Palliative Care/ Comfort Measures: Not Applicable - Core Measures Any of the following diagnoses?: none Exam - Physical Exam Narrative exam: VITAL SIGNS: Reviewed. GENERAL: The patient appeared well nourished and normally developed. Vital signs as documented. HEAD: No signs of head trauma. EYES: Pupils are equal. Extraocular motions intact. EARS: Hearing grossly intact. MOUTH: Oropharynx is normal. NECK: No adenopathy, no JVD. CHEST: Chest with clear breath sounds bilaterally. No wheezes, rales, or r honchi. CARDIAC: Regular rate and rhythm. S1 and S2, without murmurs, gallops, or rubs. VASCULAR: No Edema. Peripheral pulses normal and equal in all extremities. ABDOMEN: Soft, without detectable tenderness. No sign of distention. No rebound or guarding, and no masses palpated. Bowel Sounds normal. MUSCULOSKELETAL: Good range of motion of all major joints. Extremities without clubbing, cyanosis or edema. NEUROLOGIC EXAM: Alert and oriented x 3. No focal sensory or strength deficits. Speech normal. Follows commands. PSYCHIATRIC: Mood normal. SKIN: No rash or lesions. - Constitutional Vitals: Temp Pulse Resp BP Pulse Ox 97.9 F 77 18 187/67 97 10/17/18 07:49 10/17/18 12:00 10/17/18 10:00 10/17/18 07:49 10/17/18 10:00 Plan Activity: advance as tolerated, fall precautions Diet: regular Special Instructions: record daily BP diary Follow up with: VIRGINIA BLANCHARD MD [Staff Physician] - 7 Days WAYNE GONZALEZ MD [Staff Physician] - 3-5 Days Prescriptions: Pantoprazole [Protonix TAB] 40 mg PO BID #60 tablet
[2018-10-17] MEDS ORDERED: PROTONIX PO SCH (22:00)
== END 2018-10-17 15:55 | disposition home health service (06) | DRG 378 ==
LOC: ED 21:00 → 4A 23:22
PROVIDERS: ADMIT Internal Medicine; ATTEND Internal Medicine
PROC: 0DB78ZX Excision of Stomach, Pylorus, Via Natural or Artificial Opening Endoscopic, Diagnostic (ICD-10-PCS; principal; 2018-10-16)
PROC: 0DB98ZX Excision of Duodenum, Via Natural or Artificial Opening Endoscopic, Diagnostic (ICD-10-PCS; 2018-10-16)
DX: K25.4 Chronic or unspecified gastric ulcer with hemorrhage (principal); E87.1 Hypo-osmolality and hyponatremia; K29.71 Gastritis, unspecified, with bleeding; K26.4 Chronic or unspecified duodenal ulcer with hemorrhage; I73.9 Peripheral vascular disease, unspecified; J44.9 Chronic obstructive pulmonary disease, unspecified; I10 Essential (primary) hypertension; K21.9 Gastro-esophageal reflux disease without esophagitis; E03.9 Hypothyroidism, unspecified; I48.0 Paroxysmal atrial fibrillation; K25.9 Gastric ulcer, unspecified as acute or chronic, without hemorrhage or perforation; K44.9 Diaphragmatic hernia without obstruction or gangrene; Z86.718 Personal history of other venous thrombosis and embolism; Z79.01 Long term (current) use of anticoagulants; Z90.49 Acquired absence of other specified parts of digestive tract; Z82.49 Family history of ischemic heart disease and other diseases of the circulatory system; Z79.899 Other long term (current) drug therapy
CPT/HCPCS: 36415; 74176; 80048; 80053; 83690; 85014; 85018; 85025; 85610; 85730; 86850; 86900; 86901; 88305; 88342; 93005; 93010; 94640; 96361; 96374; G0378; C9113; J1170; J2270; J2405; J2704; J7030

== ENCOUNTER 2018-10-19 10:31 | Outpatient (CLI) | payer MEDICARE ==
[2018-10-19] MEDS ORDERED: SILVER NITRATE TP ONE (11:52)
[2018-10-19] MEDS ORDERED: XYLOCAINE TOPICAL 4% TP ONE (11:55)
== END 2018-10-19 10:32 | disposition home or self-care (01) ==
LOC: WOUND 10:31
PROVIDERS: ATTEND Surgery
DX: I70.232 Atherosclerosis of native arteries of right leg with ulceration of calf (principal); L97.213 Non-pressure chronic ulcer of right calf with necrosis of muscle; I73.89 Other specified peripheral vascular diseases

== ENCOUNTER 2018-11-02 11:11 | Outpatient (CLI) | payer MEDICARE | END 2018-11-02 11:12 | disposition home or self-care (01) | LOC: WOUND 11:11 ==

== ENCOUNTER 2018-11-17 11:01 | Outpatient (CLI) | payer MEDICARE | END 2018-11-17 11:02 | disposition home or self-care (01) | LOC: WOUND 11:01 | PROVIDERS: ATTEND Surgery | DX: I70.232 Atherosclerosis of native arteries of right leg with ulceration of calf (principal); L97.213 Non-pressure chronic ulcer of right calf with necrosis of muscle; M79.A21 Nontraumatic compartment syndrome of right lower extremity; I73.89 Other specified peripheral vascular diseases ==

== ENCOUNTER 2018-12-05 13:04 | Outpatient (CLI) | payer MEDICARE | END 2018-12-05 13:05 | disposition home or self-care (01) | LOC: WOUND 13:04 | PROVIDERS: ATTEND Surgery | DX: I70.232 Atherosclerosis of native arteries of right leg with ulceration of calf (principal); L97.213 Non-pressure chronic ulcer of right calf with necrosis of muscle; M79.A21 Nontraumatic compartment syndrome of right lower extremity; I73.89 Other specified peripheral vascular diseases; L84 Corns and callosities ==

== ENCOUNTER 2019-01-02 12:59 | Outpatient (CLI) | payer MEDICARE ==
[2019-01-02] MEDS ORDERED: XYLOCAINE TOPICAL 4% TP ONE (13:03)
== END 2019-01-02 13:00 | disposition home or self-care (01) ==
LOC: WOUND 12:59
PROVIDERS: ATTEND Surgery
DX: T81.89XD Other complications of procedures, not elsewhere classified, subsequent encounter (principal); I70.238 Atherosclerosis of native arteries of right leg with ulceration of other part of lower leg; L97.213 Non-pressure chronic ulcer of right calf with necrosis of muscle; L84 Corns and callosities; I73.89 Other specified peripheral vascular diseases; M79.A21 Nontraumatic compartment syndrome of right lower extremity; Y83.8 Other surgical procedures as the cause of abnormal reaction of the patient, or of later complication, without mention of misadventure at the time of the procedure

== ENCOUNTER 2019-01-23 13:03 | Outpatient (CLI) | payer MEDICARE ==
[2019-01-23] MEDS ORDERED: XYLOCAINE TOPICAL 4% TP ONE (13:10)
[2019-01-23] MEDS ORDERED: SILVER NITRATE TP ONE (13:10)
== END 2019-01-23 13:04 | disposition home or self-care (01) ==
LOC: WOUND 13:03
PROVIDERS: ATTEND Surgery
DX: T81.89XD Other complications of procedures, not elsewhere classified, subsequent encounter (principal); I70.232 Atherosclerosis of native arteries of right leg with ulceration of calf; L97.213 Non-pressure chronic ulcer of right calf with necrosis of muscle; L84 Corns and callosities; I73.89 Other specified peripheral vascular diseases; M79.A21 Nontraumatic compartment syndrome of right lower extremity; Y83.8 Other surgical procedures as the cause of abnormal reaction of the patient, or of later complication, without mention of misadventure at the time of the procedure

== ENCOUNTER 2019-02-06 12:55 | Outpatient (CLI) | payer MEDICARE | END 2019-02-06 12:56 | disposition home or self-care (01) | LOC: WOUND 12:55 | PROVIDERS: ATTEND Surgery | DX: I70.238 Atherosclerosis of native arteries of right leg with ulceration of other part of lower leg (principal); L97.213 Non-pressure chronic ulcer of right calf with necrosis of muscle; I73.89 Other specified peripheral vascular diseases; M79.A21 Nontraumatic compartment syndrome of right lower extremity ==

== ENCOUNTER 2019-02-27 11:01 | Outpatient (CLI) | payer MEDICARE ==
[2019-02-27] MEDS ORDERED: XYLOCAINE TOPICAL 4% TP ONE (12:00)
== END 2019-02-27 11:02 | disposition home or self-care (01) ==
LOC: WOUND 11:01
PROVIDERS: ATTEND Surgery
DX: I70.238 Atherosclerosis of native arteries of right leg with ulceration of other part of lower leg (principal); L97.213 Non-pressure chronic ulcer of right calf with necrosis of muscle; I73.89 Other specified peripheral vascular diseases; M79.A21 Nontraumatic compartment syndrome of right lower extremity
CPT/HCPCS: 99214; G0463

== ENCOUNTER 2019-02-27 12:22 | Inpatient (IN) | payer MEDICARE ==
--- NOTE | 2019-02-27 12:31 | Emergency Department Report ---
Blank Doc - Documentation Documentation: This is a 78-year-old female that presents with right leg pain. Was sent by PCP to r/o DVT. This initial assessment/diagnostic orders/clinical plan/treatment(s) is/are subject to change based on patient's health status, clinical progression and re- assessment by fellow clinical providers in the ED. Further treatment and workup at subsequent clinical providers discretion. Patient/guardians urged not to elope from the ED as their condition may be serious if not clinically assessed and managed. Initial orders include: 1- Patient sent to [facility] for further evaluation and treatment 2- Doppler test 3- labs
[2019-02-27 13:04] LABS: Basophils % (Auto) 0.3 % (0.0-1.8); Eosinophils # (Auto) 0.1 K/mm3 (0.0-0.4); Eosinophils % (Auto) 0.8 % (0.0-4.3); Hematocrit 31.4 % (30.3-42.9); Hemoglobin 10.8 gm/dl (10.1-14.3); Lymphocytes # (Auto) 2.7 K/mm3 (1.2-5.4); Lymphocytes % (Auto) 30.6 % (13.4-35.0); Mean Corpuscular HGB Conc 35 % (30-34); Mean Corpuscular Volume 94 fl (79-97); Monocytes % (Auto) 11.5 % (0.0-7.3); Platelet Count 357 K/mm3 (140-440); Red Blood Count 3.35 M/mm3 (3.65-5.03); Red Cell Distribution Width 15.3 % (13.2-15.2)
[2019-02-27 13:34] LABS: Calcium 9.6 mg/dL (8.4-10.2)
[2019-02-27] MEDS ORDERED: KIONEX PO ONE (13:47)
--- NOTE | 2019-02-27 13:53 | Emergency Department Report ---
HPI - General Chief Complaint: Extremity Problem,Nontraumatic Time Seen by Provider: 02/27/19 12:30 - HPI HPI: 78-year-old female presents to the emergency department, sent in by Dr Dover at the wound care clinic, with concern for some arterial insufficiency to her right leg. The patient has a history of vascular surgery to the right lower extremity in June of last year, by Dr Parra, secondary to some acute DVTs. She was following up with the wound care clinic today secondary to a chronic distal right leg ulcerated wound that she has. The physician at the wound care clinic had concern for the foot and leg having some swelling, increased redness, feeling that it was cold to touch, and difficulty feeling any palpable pulses. The patient was therefore sent in for further evaluation. She also has a past medical history of hypertension, GI ulcer and has a history of previous cholecystectomy. ED Past Medical Hx - Past Medical History Previous Medical History?: Yes Hx Hypertension: Yes Hx Heart Attack/AMI: No Hx Deep Vein Thrombosis: Yes Hx GERD: No Hx Liver Disease: No Hx Renal Disease: No Hx Seizures: No Hx Asthma: No Hx COPD: Yes (no recent inhaler use) - Surgical History Hx Pacemaker: No Hx Internal Defibrillator: No Hx Cholecystectomy: Yes - Social History Smoking Status: Current Every Day Smoker Substance Use Type: None - Medications Home Medications: Home Medications Medication Instructions Recorded Confirmed Last Taken Type Apixaban [Eliquis] 5 mg PO BID 07/06/18 02/27/19 07/06/18 06:00 History 5mg Levothyroxine Sodium [Synthroid] 88 mcg PO DAILY 07/06/18 02/27/19 07/05/18 History 88mcg Lisinopril [Zestril TAB] 10 mg PO DAILY 07/06/18 02/27/19 07/05/18 History 10mg Metoprolol [Lopressor TAB] 25 mg PO BID 07/06/18 02/27/19 07/06/18 History 25mg Gabapentin [Neurontin] 100 mg PO Q8HR #90 capsule 08/04/18 02/27/19 Unknown Rx Amitriptyline [Elavil] 10 mg PO DAILY 02/27/19 02/27/19 Unknown History Omeprazole 40 mg PO BID 02/27/19 02/27/19 Unknown History Pantoprazole [Protonix] 40 mg PO DAILY 02/27/19 02/27/19 Unknown History Spironolactone [Aldactone] 25 mg PO BID 02/27/19 02/27/19 Unknown History traMADol [Ultram] 50 mg PO Q6HR PRN 02/27/19 02/27/19 Unknown History ED Review of Systems ROS: Stated complaint: ULTRA SOUND ORDERED Other details as noted in HPI Comment: All other systems reviewed and negative Constitutional: denies: chills, fever Eyes: denies: eye pain, vision change ENT: denies: ear pain, throat pain Respiratory: denies: cough, shortness of breath Cardiovascular: denies: chest pain, palpitations Gastrointestinal: denies: abdominal pain, vomiting Genitourinary: denies: dysuria, discharge Musculoskeletal: myalgia Skin: lesions, change in color Neurological: denies: headache, weakness Physical Exam - Physical Exam Vital Signs: Vital Signs 02/27/19 12:30 Temperature 98.5 F Pulse Rate 59 L Respiratory 18 Rate Blood Pressure 118/80 O2 Sat by Pulse 97 Oximetry Physical Exam: GENERAL: The patient is well-developed well-nourished. HENT: Normocephalic. Atraumatic. Patient has moist mucous membranes. EYES: Extraocular motions are intact. NECK: Supple. Trachea is midline. CHEST/LUNGS: Clear to auscultation. There is no respiratory distress noted. HEART/CARDIOVASCULAR: Regular. There is no tachycardia. There is no murmur. ABDOMEN: Abdomen is soft, nontender. Patient has normal bowel sounds. There is no abdominal distention. SKIN: There is a stage III ulcerated wound to the right distal anterior tib-fib. There is some erythema and mottling around the wound. The distal right lower extremity is cool to touch. NEURO: The patient is awake, alert, and oriented. The patient is cooperative. The patient has no focal neurologic deficits. The patient has normal speech. MUSCULOSKELETAL: There is some tenderness to palpation to the distal right lower extremity. No palpable dorsalis pedis pulse. There is no limitation range of motion. ED Course Vital Signs 02/27/19 12:30 Temperature 98.5 F Pulse Rate 59 L Respiratory 18 Rate Blood Pressure 118/80 O2 Sat by Pulse 97 Oximetry - Consultations Consultation #1: I spoke to Jacob Bird, the PA for [facility], about this patient's presentation and imaging results. He is aware of the patient's pending admission. They will see the patient as a consult. 02/27/19 20:05 ED Medical Decision Making - Lab Data Result diagrams: 02/27/19 12:39 02/27/19 12:39 - Radiology Data Radiology results: report reviewed PROCEDURE: VL VENOUS DUPLEX LE RT TECHNIQUE: Grayscale, color flow and spectral waveform images were obtained of right lower extremity. HISTORY: right leg pain COMPARISON: None FINDINGS: There is no deep venous thrombosis seen in the right lower extremity. Flow is demonstrated by color flow and spectral waveform imaging. There is appropriate wall compression and augmentation. There is also no evidence of superficial venous. IMPRESSION: There is no evidence for DVT in right lower extremity. This document is electronically signed by Tiff Mathur MD., February 27 2019 04:17:37 PM ET Transcribed By: CHAPINCITO Dictated By: TIFF MATHUR MD Electronically Authenticated By: TIFF MATHUR MD Signed Date/Time: 02/27/19 1519 PROCEDURE: VL ARTERIAL DUPLEX LE RT TECHNIQUE: Arterial duplex Doppler right lower extremity performed. Grayscale, color flow and spectral waveform imaging. HISTORY: RLE pain COMPARISON: None FINDINGS: There is triphasic flow seen in right common femoral artery. There is biphasic flow in the mid superficial femoral artery. There is elevated flow velocity in proximal superficial femoral artery measured up to 237 cm/s. This may indicate stenosis although stenosis cannot directly visualized. Distal superficial femoral artery and proximal popliteal artery are patent with monophasic flow. There is occlusion of the distal popliteal artery with thrombus. There is partial occlusion of the right posterior tibial artery and occlusion of the anterior tibial artery. Peroneal artery not visualized. IMPRESSION: Thrombus occluding mid to distal popliteal artery and anterior tibial artery. Partial occlusion of right posterior tibial artery. Elevated flow velocity in proximal right superficial femoral artery could indicate area of stenosis. This document is electronically signed by Tiff Mathur MD., February 27 2019 04:40:26 PM ET Transcribed By: CHAPINCITO Dictated By: TIFF MATHUR MD Electronically Authenticated By: TIFF MATHUR MD Signed Date/Time: 02/27/19 1542 - Medical Decision Making This patient was sent in from the Wound Care clinic for evaluation of her right lower extremity which appears normal to touch, mottled and there was concern for arterial insufficiency. The patient had a right lower extremity arterial Doppler that does show a thrombus versus occlusion of the distal popliteal artery as well as an occlusion of the posterior tibial artery. The patient's labs show some hyponatremia, renal insufficiency, hyperkalemia. Vascular surgery was contacted and will see the patient as a consult. The patient was already on Eliquis but was switched to Heparin. Patient was accepted for admission by the hospitalist, Dr. Flowers. - Differential Diagnosis arterial thrombus vs occlusion, cellulitis, venous stasis Critical Care Time: No Critical care attestation.: If time is entered above; I have spent that time in minutes in the direct care of this critically ill patient, excluding procedure time. ED Disposition Clinical Impression: Peripheral artery disease, Arterial occlusive disease, Hyponatremia syndrome, Renal insufficiency, Hyperkalemia Disposition: OP ADMIT IP TO THIS HOSP Is pt being admited?: Yes Condition: Serious Time of Disposition: 20:10
[2019-02-27] MEDS ORDERED: OXYCODONE HCL 10 MG PO PRN (15:05)
--- NOTE | 2019-02-27 15:05 | History and Physical Report ---
History of Present Illness Chief complaint: My leg hurts, and my doctor told me to come in History of present illness: 78 YO Female with HTN, COPD, DVT, Atrial Fib on Therapeutic anticoagulation, Hypothyroidism, GERD, PAD, Nicotine Dependence presents to ED for evaluation. Pt states that she has experienced pain and tenderness to her right leg over the past 1 week. Pt acknowledges rest pain. Pt was seen and evaluated in the wound clinic today and was found to have chronic non healing right leg ulcer as well as increased redness, swelling, and pain to her right foot. Pt was also found to have a cold foot with diminished pulses. Pt instructed to seek further care at [facility]. Pt transported to [facility] via private vehicle. Pt seen and evaluated in ED and found to have RLE Ischemia, as well as ARF. Pt admitted to surgical floor. Vascular surgery consulted in ED. Pt initiated on Heparin drip. Past History Past Medical History: atrial fib, COPD, DVT, GERD, hypertension, hypothyroidism, PVD Past Surgical History: cholecystectomy, Other Social history: , smoking. denies: alcohol abuse, prescription drug abuse Family history: hypertension Medications and Allergies Allergies Allergy/AdvReac Type Severity Reaction Status Date / Time No Known Allergies Allergy Verified 10/14/18 21:18 Home Medications Medication Instructions Recorded Confirmed Last Taken Type Apixaban [Eliquis] 5 mg PO BID 07/06/18 02/27/19 07/06/18 06:00 History 5mg Levothyroxine Sodium [Synthroid] 88 mcg PO DAILY 07/06/18 02/27/19 07/05/18 History 88mcg Lisinopril [Zestril TAB] 10 mg PO DAILY 07/06/18 02/27/19 07/05/18 History 10mg Metoprolol [Lopressor TAB] 25 mg PO BID 07/06/18 02/27/19 07/06/18 History 25mg Gabapentin [Neurontin] 100 mg PO Q8HR #90 capsule 08/04/18 02/27/19 Unknown Rx Amitriptyline [Elavil] 10 mg PO DAILY 02/27/19 02/27/19 Unknown History Omeprazole 40 mg PO BID 02/27/19 02/27/19 Unknown History Pantoprazole [Protonix] 40 mg PO DAILY 02/27/19 02/27/19 Unknown History Spironolactone [Aldactone] 25 mg PO BID 02/27/19 02/27/19 Unknown History traMADol [Ultram] 50 mg PO Q6HR PRN 02/27/19 02/27/19 Unknown History Review of Systems Constitutional: no weight loss, no weight gain Ears, nose, mouth and throat: no ear pain, no ear discharge, no decreased hearing, no nose pain, no nasal congestion, no sinus pressure Breasts: no change in shape, no swelling, no mass Cardiovascular: no chest pain, no orthopnea, no palpitations, no rapid/irregular heart beat Respiratory: no cough, no cough with sputum, no excessive sputum, no dyspnea on exertion Gastrointestinal: no abdominal pain, no nausea, no vomiting, no diarrhea, no change in bowel habits, no melena, no loss of appetite Genitourinary Female: no dysmenorrhea, no flank pain, no menorrhagia, no dysuria, no urinary frequency, no urgency Rectal: no pain, no incontinence, no bleeding Musculoskeletal: no neck stiffness, no neck pain, no shooting arm pain, no arm numbness/tingling, no low back pain, no shooting leg pain Integumentary: no rash, no redness, no wounds, no jaundice, no boils Neurological: no transient paralysis, no paralysis, no weakness, no parathesias, no tingling Psychiatric: no anxiety, no memory loss, no sleep disturbances, no insomnia, no hypersomnia, no change in appetite, no change in libido, no disorientation Endocrine: no cold intolerance, no heat intolerance, no polyphagia, no excessive thirst, no polyuria, no nocturia, no excessive sweating, no flushing Hematologic/Lymphatic: no easy bruising, no easy bleeding Allergic/Immunologic: no urticaria, no allergic rhinitis Exam - Constitutional Vitals: Temp Pulse Resp BP Pulse Ox 97.9 F 80 21 118/80 97 02/27/19 14:58 02/27/19 14:48 02/27/19 14:48 02/27/19 12:30 02/27/19 12:30 General appearance: Present: mild distress - EENT Eyes: Present: PERRL ENT: hearing intact, clear oral mucosa - Neck Neck: Present: supple, normal ROM - Respiratory Respiratory effort: normal Respiratory: bilateral: CTA - Cardiovascular Heart Sounds: Present: S1 & S2. Absent: rub, click - Extremities Extremity abnormal: cyanosis, erythema, cold, pulses diminished, tenderness, other (RLE: pulse 1+) Peripheral Pulses: within normal limits - Abdominal General gastrointestinal: Present: soft, non-tender, non-distended, normal bowel sounds Female genitourinary: Present: normal - Integumentary Integumentary: Present: clear, warm, dry - Musculoskeletal Musculoskeletal: gait normal, strength equal bilaterally - Psychiatric Psychiatric: appropriate mood/affect, intact judgment & insight - Neurologic Neurologic: CNII-XII intact, moves all extremities Results - Labs CBC & Chem 7: 02/28/19 04:33 02/28/19 04:33 Labs: Abnormal lab results 02/27/19 02/27/19 Range/Units 12:39 12:39 RBC 3.35 L (3.65-5.03) M/mm3 MCHC 35 H (30-34) % RDW 15.3 H (13.2-15.2) % [place] % (Auto) 11.5 H (0.0-7.3) % [place] # 1.0 H (0.0-0.8) K/mm3 Sodium 129 L (137-145) mmol/L Potassium 5.7 H (3.6-5.0) mmol/L Chloride 91.8 L (98-107) mmol/L Carbon Dioxide 20 L (22-30) mmol/L BUN 24 H (7-17) mg/dL Creatinine 1.6 H (0.7-1.2) mg/dL Glucose 103 H (65-100) mg/dL Assessment and Plan - Patient Problems (1) Arterial occlusive disease Current Visit: Yes Status: Acute Plan to address problem: Vascular surgery consulted, Angiogram, therapeutic anticoagulation, Pending surgical intervention (2) COPD (chronic obstructive pulmonary disease) Current Visit: Yes Status: Acute Qualifiers: Chronic bronchitis type: mixed simple and mucopurulent Plan to address problem: Supplemental oxygen, nebulizer therapy, NIPPV as clinically indicated, early ambulation, smoking cessation, risk factor reduction. (3) Peripheral artery disease Current Visit: Yes Status: Acute Plan to address problem: Vascular surgery consulted, Angiogram with runoffs as per vascular surgery team, Pending surgical intervention. (4) Acute renal failure Current Visit: No Status: Acute Qualifiers: Acute renal failure type: with acute tubular necrosis Qualified Code(s): N17.0 - Acute kidney failure with tubular necrosis Plan to address problem: IVF resuscitation, monitor uop q shift, bmp to monitor serum creatnine, repeat bmp in am, (5) Paroxysmal atrial fibrillation with RVR Current Visit: No Status: Acute Plan to address problem: Rate control, remote telemetry, therapeutic anticoagulation, supportive care (6) DVT prophylaxis Current Visit: Yes Status: Acute (7) Nicotine dependence Current Visit: Yes Status: Acute Qualifiers: Nicotine product type: cigarettes Plan to address problem: smoking cessation counseling, supportive care. (8) HTN (hypertension) Current Visit: Yes Status: Acute Qualifiers: Hypertension type: essential hypertension Qualified Code(s): I10 - Essential (primary) hypertension Plan to address problem: Monitor bp q shift, continue medical management (9) GERD (gastroesophageal reflux disease) Current Visit: Yes Status: Acute Qualifiers: Esophagitis presence: without esophagitis Qualified Code(s): K21.9 - Gastro -esophageal reflux disease without esophagitis Plan to address problem: ppi therrapy, supportive care. (10) DVT prophylaxis Current Visit: Yes Status: Acute Plan to address problem: SCD to BLE while in bed, therapeutic heparin
--- NOTE | 2019-02-27 15:19 | Vascular Lab Report ---
PROCEDURE: VL VENOUS DUPLEX LE RT TECHNIQUE: Grayscale, color flow and spectral waveform images were obtained of right lower extremity . HISTORY: right leg pain COMPARISON: None FINDINGS: There is no deep venous thrombosis seen in the right lower extremity. Flow is demonstrated by color flow and spectral waveform imaging. There is appropriate wall compression and augmentation. There is also no evidence of superficial venous. IMPRESSION: There is no evidence for DVT in right lower extremity. This document is electronically signed by Tiff Mathur MD., February 27 2019 04:17:37 PM ET
--- NOTE | 2019-02-27 15:42 | Vascular Lab Report ---
PROCEDURE: VL ARTERIAL DUPLEX LE RT TECHNIQUE: Arterial duplex Doppler right lower extremity performed. Grayscale, color flow and spectr al waveform imaging. HISTORY: RLE pain COMPARISON: None FINDINGS: There is triphasic flow seen in right common femoral artery. There is biphasic flow in the mid superf icial femoral artery. There is elevated flow velocity in proximal superficial femoral artery measured up to 237 cm/s. This may indicate stenosis although stenosis cannot directly visualized. Distal superficial femoral artery and proximal popliteal artery are patent with monophasic flow. Ther e is occlusion of the distal popliteal artery with thrombus. There is partial occlusion of the right posterior tibial artery and occlusion of the anterior tibial artery. Peroneal artery not visualized. IMPRESSION: Thrombus occluding mid to distal popliteal artery and anterior tibial artery. Partial occlusion of ri ght posterior tibial artery. Elevated flow velocity in proximal right superficial femoral artery could indicate area of stenosis. This document is electronically signed by Tiff Mathur MD., February 27 2019 04:40:26 PM ET
[2019-02-27] MEDS ORDERED: KIONEX ONE (16:24)
[2019-02-27] MEDS: NORCO 10/325 PO PRN (16:30)
[2019-02-27] MEDS: CARAFATE PO SCH ×2 (16:30→22:22)
[2019-02-27] MEDS ORDERED: SODIUM CHLORIDE FLUSH SYRINGE 10 ML IV PRN (19:09)
[2019-02-27] MEDS ORDERED: TYLENOL PO PRN (19:09)
[2019-02-27] MEDS ORDERED: ZOFRAN IV PRN (19:09)
[2019-02-27] MEDS ORDERED: PROVENTIL IH PRN (19:09)
[2019-02-27 19:59] LABS: Hematocrit 30.9 % (30.3-42.9); Hemoglobin 10.5 gm/dl (10.1-14.3)
[2019-02-27] MEDS ORDERED: HEPARIN/ 0.45% NACL-25,000 UNIT/500 ML 25,000 UNIT/500 ML BAG ONE (19:59)
[2019-02-27] MEDS ORDERED: NACL 0.45% IV SCH (20:00)
[2019-02-27 20:01] LABS: INR 1.04 (0.87-1.13)
[2019-02-27 20:02] LABS: Partial Thromboplastin Time 31.9 Sec. (24.2-36.6)
[2019-02-27] MEDS: HEPARIN/ 0.45% NACL-25,000 UNIT/500 ML 25,000 UNIT/500 ML BAG IV SCH (20:45)
[2019-02-27] MEDS: CARDIZEM PO SCH (21:00)
[2019-02-27] MEDS ORDERED: NON-FORMULARY (Omeprazole [Omeprazole] 40 MG) PO SCH (22:00)
[2019-02-27] MEDS ORDERED: PROTONIX PO SCH (22:00)
[2019-02-27] MEDS ORDERED: CARDIZEM ONE (22:13)
[2019-02-27] MEDS ORDERED: CARAFATE ONE (22:13)
[2019-02-27] MEDS ORDERED: MORPHINE ONE (22:14)
[2019-02-27] MEDS: MORPHINE IV PRN (22:15)
[2019-02-27] MEDS: PROVENTIL IH SCH (22:35)
[2019-02-27] MEDS: PULMICORT IH SCH (22:35)
[2019-02-27] MEDS: NEURONTIN PO SCH (23:37)
[2019-02-27] MEDS: XANAX PO PRN (23:37)
[2019-02-28] MEDS: NORCO 10/325 PO PRN (01:33)
[2019-02-28] MEDS: ALDACTONE PO SCH ×3 (01:35→22:00)
[2019-02-28] MEDS: SODIUM CHLORIDE FLUSH SYRINGE 10 ML IV SCH ×2 (01:36→10:27)
[2019-02-28 04:57] LABS: Hematocrit 30.1 % (30.3-42.9); Hemoglobin 10.3 gm/dl (10.1-14.3); Mean Corpuscular HGB Conc 34 % (30-34); Mean Corpuscular Volume 93 fl (79-97); Platelet Count 318 K/mm3 (140-440); Red Blood Count 3.25 M/mm3 (3.65-5.03); Red Cell Distribution Width 15.2 % (13.2-15.2)
[2019-02-28 05:21] LABS: Alanine Aminotransferase 5 units/L (7-56); Albumin 3.4 g/dL (3.9-5); BUN/Creatinine Ratio 31; Blood Urea Nitrogen 22 mg/dL (7-17); Calcium 8.9 mg/dL (8.4-10.2); Hemolysis Index 1
[2019-02-28] MEDS: MORPHINE IV PRN ×2 (05:26→17:46)
[2019-02-28] MEDS: NEURONTIN PO SCH ×3 (05:26→21:40)
[2019-02-28] MEDS: SYNTHROID PO SCH (05:26)
[2019-02-28] MEDS: CARAFATE PO SCH ×4 (07:30→21:39)
[2019-02-28] MEDS ORDERED: ZESTRIL PO SCH (10:00)
[2019-02-28] MEDS: THERAGRAN Tab PO SCH (10:09)
[2019-02-28] MEDS: CYMBALTA PO SCH (10:10)
[2019-02-28] MEDS: ELAVIL PO SCH (10:10)
[2019-02-28] MEDS: PROVENTIL IH SCH ×3 (10:11→19:48)
[2019-02-28] MEDS: PULMICORT IH SCH ×2 (10:11→19:48)
[2019-02-28] MEDS: PROTONIX PO SCH (10:23)
[2019-02-28] MEDS: ZESTRIL PO SCH (10:23)
[2019-02-28] MEDS: LOPRESSOR PO SCH (10:23)
[2019-02-28] MEDS: CARDIZEM PO SCH ×2 (10:24→13:08)
[2019-02-28] MEDS: CORDARONE PO SCH (10:24)
--- NOTE | 2019-02-28 12:11 | Consultation ---
<TIARA ASTORGA - Last Filed: 02/28/19 11:58> History of Present Illness - Reason for Consult Consult date: 02/28/19 Ischemic RLE Requesting physician: KIM LONG - History of Present Illness This pt is a 78yo female that was admitted via the ER on 02/27/19 due to discoloration to her RLE with concerns of acute ischemia. The pt has a h/o PAD s/p multiple interventions in the past. She had an ischemic RLE in Jun 2018. She was percutaneously revascularized, but subsequently required a 4 compartment fasciotomy. She has residual non-healing wounds for which she is managed in the outpt wound care clinic at [facility]. She followed up for a regularly scheduled appt yesterday. She was noted to have a significantly ruborous right foot. It was recommended she go to the ER for further evaluation. The pt complied. An arterial and venous duplex were completed. The venous duplex was negative, but the arterial duplex revealed: Thrombus occluding mid to distal popliteal artery and anterior tibial artery. Partial occlusion of right posterior tibial artery. Elevated flow velocity in proximal right superficial femoral artery could indicate area of stenosis. A vascular surgery consult was requested to further evaluate. The pt c/o an acute onset of discomfort to her right foot starting ~1 week ago. It was uncomfortable with mild numbness, but she did not seek medical attention at that time. She was previously on Eliquis due to A-fib, but this "was stopped" in Sep-Oct 2018 following a GI bleed. She denies taking Aspirin or Plavix as an outpt at this time. She does complain of dark stools earlier today, but no gautam blood. Past History Past Medical History: atrial fib, COPD, DVT, GERD (h/o Gastric ulcer with GI bleed), hypertension, hypothyroidism, PVD Past Surgical History: cholecystectomy, Other (EGD, Arterial embolization due to a GI bleed, Jetstream atherectomy, 4 compartment fasciotomy, Fluoroscopical assisted open embolectomy) Social history: , smoking. denies: alcohol abuse, prescription drug abuse Family history: hypertension Medications and Allergies Allergies Allergy/AdvReac Type Severity Reaction Status Date / Time No Known Allergies Allergy Verified 10/14/18 21:18 Home Medications Medication Instructions Recorded Confirmed Last Taken Type Apixaban [Eliquis] 5 mg PO BID 07/06/18 02/27/19 07/06/18 06:00 History 5mg Levothyroxine Sodium [Synthroid] 88 mcg PO DAILY 07/06/18 02/27/19 07/05/18 History 88mcg Lisinopril [Zestril TAB] 10 mg PO DAILY 07/06/18 02/27/19 07/05/18 History 10mg Metoprolol [Lopressor TAB] 25 mg PO BID 07/06/18 02/27/19 07/06/18 History 25mg Gabapentin [Neurontin] 100 mg PO Q8HR #90 capsule 08/04/18 02/27/19 Unknown Rx Amitriptyline [Elavil] 10 mg PO DAILY 02/27/19 02/27/19 Unknown History Omeprazole 40 mg PO BID 02/27/19 02/27/19 Unknown History Pantoprazole [Protonix] 40 mg PO DAILY 02/27/19 02/27/19 Unknown History Spironolactone [Aldactone] 25 mg PO BID 02/27/19 02/27/19 Unknown History traMADol [Ultram] 50 mg PO Q6HR PRN 02/27/19 02/27/19 Unknown History Active Meds: Active Medications Acetaminophen (Tylenol) 650 mg PO Q4H PRN PRN Reason: Pain MILD(1-3)/Fever >100.5/GONZALES Acetaminophen/Codeine Phosphate (Tylenol #3) 1 tab PO Q6HR PRN PRN Reason: Pain, Moderate (4-6) Acetaminophen/Hydrocodone Bitart ([place] 10/325) 1 each PO Q4H PRN PRN Reason: Pain, Moderate (4-6) Last Admin: 02/28/19 01:33 Dose: 1 each Documented by: Albuterol (Proventil) 2.5 mg IH TIDRT LKEVER Last Admin: 02/28/19 10:11 Dose: 2.5 mg Documented by: Albuterol (Proventil) 2.5 mg IH Q4HRT PRN PRN Reason: Shortness Of Breath Alprazolam (Xanax) 0.25 mg PO QPM PRN PRN Reason: Anxiety Last Admin: 02/27/19 23:37 Dose: 0.25 mg Documented by: Amiodarone HCl (Cordarone) 200 mg PO DAILY [facility] Last Admin: 02/28/19 10:24 Dose: 200 mg Documented by: Amitriptyline HCl (Elavil) 10 mg PO DAILY [facility] Last Admin: 02/28/19 10:10 Dose: Not Given Documented by: Budesonide (Pulmicort) 0.5 mg IH Q12HRT [facility] Last Admin: 02/28/19 10:11 Dose: 0.5 mg Documented by: Diltiazem HCl (Cardizem) 60 mg PO TID [facility] Last Admin: 02/28/19 10:24 Dose: 60 mg Documented by: Duloxetine HCl (Cymbalta) 60 mg PO QDAY [facility] Last Admin: 02/28/19 10:10 Dose: Not Given Documented by: Gabapentin (Neurontin) 100 mg PO Q8HR [facility] Last Admin: 02/28/19 05:26 Dose: 100 mg Documented by: Hydromorphone HCl (Dilaudid) 0.5 mg IV Q3H PRN PRN Reason: Pain , Severe (7-10) Sodium Chloride (Nacl 0.45% 1000 Ml) 3,000 mls @ 100 mls/hr IV DIRECT [facility] Heparin Sodium/Sodium Chloride (Heparin/ 0.45% Nacl-25,000 Unit/500 Ml) 25,000 unit in 500 mls @ 16 mls/hr IV TITR [facility]; Protocol Last Titration: 02/28/19 05:34 Dose: 950 units/hr, 19 mls/hr Documented by: Levothyroxine Sodium (Synthroid) 88 mcg PO DAILY@0600 [facility] Last Admin: 02/28/19 05:26 Dose: 88 mcg Documented by: Lisinopril (Zestril) 10 mg PO QDAY [facility] Last Admin: 02/28/19 10:23 Dose: 10 mg Documented by: Metoprolol Tartrate (Lopressor) 25 mg PO DAILY [facility] Last Admin: 02/28/19 10:23 Dose: 25 mg Documented by: Morphine Sulfate (Morphine) 2 mg IV Q4H PRN PRN Reason: Pain, Moderate (4-6) Stop: 02/28/19 23:59 Last Admin: 02/28/19 05:26 Dose: 2 mg Documented by: Multivitamins (Theragran Tab) 1 each PO QDAY [facility] Last Admin: 02/28/19 10:09 Dose: Not Given Documented by: Ondansetron HCl (Zofran) 4 mg IV Q8H PRN PRN Reason: Nausea And Vomiting Pantoprazole Sodium (Protonix) 40 mg PO DAILY [facility] Last Admin: 02/28/19 10:23 Dose: 40 mg Documented by: Sodium Chloride (Sodium Chloride Flush Syringe 10 Ml) 10 ml IV BID [facility] Last Admin: 02/28/19 10:27 Dose: Not Given Documented by: Sodium Chloride (Sodium Chloride Flush Syringe 10 Ml) 10 ml IV PRN PRN PRN Reason: LINE FLUSH Spironolactone (Aldactone) 25 mg PO BID [facility] Last Admin: 02/28/19 10:23 Dose: 25 mg Documented by: Sucralfate (Carafate) 1 gm PO ACHS [facility] Last Admin: 02/28/19 07:30 Dose: Not Given Documented by: Review of Systems All systems: negative Exam - Constitutional Vitals: Temp Pulse Resp BP Pulse Ox 98.1 F 67 16 148/94 97 02/28/19 07:20 02/28/19 08:00 02/28/19 08:00 02/28/19 07:20 02/28/19 10:00 General appearance: Present: no acute distress - EENT Eyes: Present: EOM intact ENT: hearing intact - Neck Neck: Present: supple - Respiratory Respiratory effort: normal - Extremities Extremities: abnormal (non-palpable pedal pulses, Right foot was warm but with significant rubor, she has a lateral ulceration to the distal calf from the previous fasciotomy wound base is pink) - Psychiatric Psychiatric: appropriate mood/affect, cooperative - Neurologic Neurologic: other (right foot numbness, with difficulty moving toes, but she can dorsiflex her foot) Results - Labs CBC & Chem 7: 02/28/19 04:33 02/28/19 04:33 Labs: Abnormal lab results 02/27/19 02/27/19 02/28/19 Range/Units 12:39 12:39 03:57 RBC 3.35 L (3.65-5.03) M/mm3 Hct (30.3-42.9) % MCHC 35 H (30-34) % RDW 15.3 H (13.2-15.2) % [place] % (Auto) 11.5 H (0.0-7.3) % [place] # 1.0 H (0.0-0.8) K/mm3 Heparin Anti-Xa Level < 0.10 L (0.3-0.7) U.I./ml Sodium 129 L (137-145) mmol/L Potassium 5.7 H (3.6-5.0) mmol/L Chloride 91.8 L (98-107) mmol/L Carbon Dioxide 20 L (22-30) mmol/L BUN 24 H (7-17) mg/dL Creatinine 1.6 H (0.7-1.2) mg/dL Glucose 103 H (65-100) mg/dL ALT (7-56) units/L Albumin (3.9-5) g/dL 02/28/19 02/28/19 Range/Units 04:33 04:33 RBC 3.25 L (3.65-5.03) M/mm3 Hct 30.1 L (30.3-42.9) % MCHC (30-34) % RDW (13.2-15.2) % [place] % (Auto) (0.0-7.3) % [place] # (0.0-0.8) K/mm3 Heparin Anti-Xa Level (0.3-0.7) U.I./ml Sodium 132 L (137-145) mmol/L Potassium (3.6-5.0) mmol/L Chloride (98-107) mmol/L Carbon Dioxide (22-30) mmol/L BUN 22 H (7-17) mg/dL Creatinine (0.7-1.2) mg/dL Glucose 111 H (65-100) mg/dL ALT 5 L (7-56) units/L Albumin 3.4 L (3.9-5) g/dL Arterial Duplex: FINDINGS: There is triphasic flow seen in right common femoral artery. There is biphasic flow in the mid superficial femoral artery. There is elevated flow velocity in proximal superficial femoral artery measured up to 237 cm/s. This may indicate stenosis although stenosis cannot directly visualized. Distal superficial femoral artery and proximal popliteal artery are patent with monophasic flow. There is occlusion of the distal popliteal artery with thrombus. There is partial occlusion of the right posterior tibial artery and occlusion of the anterior tibial artery. Peroneal artery not visualized. IMPRESSION: Thrombus occluding mid to distal popliteal artery and anterior tibial artery. Partial occlusion of right posterior tibial artery. Elevated flow velocity in proximal right superficial femoral artery could indicate area of stenosis. Assessment and Plan This pt presented to the ER with an ischemic right foot. Her symptoms started approximately 1 week ago. She has underlying A-fib and is currently off anticoagulation. She does not take anti-platelet medications as an outpt. She was hydrated due to mild renal insufficiency, and a CTA was ordered. The images have been reviewed. She appears to have a significant SFA stenosis and occlusion of the pop artery. She has very little tibial flow primarily through her peroneal artery proximally. She is currently on anticoagulation with a Heparin drip. Her hemoglobin is ~10. She reports darkened stools. She will need to be monitored for progressive anemia concerning for a recurrent GI bleed. Repeat H/H is ordered for tomorrow morning. We will make her NPO after midnight for possible arterial intervention tomorrow. - Patient Problems (1) Ischemia of right lower extremity Current Visit: No Status: Acute (2) Peripheral artery disease Current Visit: Yes Status: Acute (3) History of GI bleed Current Visit: Yes Status: Acute (4) COPD (chronic obstructive pulmonary disease) Current Visit: Yes Status: Acute Qualifiers: Chronic bronchitis type: mixed simple and mucopurulent (5) GERD (gastroesophageal reflux disease) Current Visit: Yes Status: Acute Qualifiers: Esophagitis presence: without esophagitis Qualified Code(s): K21.9 - Gastro-esophageal reflux disease without esophagitis (6) HTN (hypertension) Current Visit: Yes Status: Acute Qualifiers: Hypertension type: essential hypertension Qualified Code(s): I10 - Essential (primary) hypertension (7) Nicotine dependence Current Visit: Yes Status: Acute Qualifiers: Nicotine product type: cigarettes <SHIRAZ PERRY - Last Filed: 02/28/19 13:35> Medications and Allergies Active Meds: Active Medications Acetaminophen (Tylenol) 650 mg PO Q4H PRN PRN Reason: Pain MILD(1-3)/Fever >100.5/GONZALES Acetaminophen/Codeine Phosphate (Tylenol #3) 1 tab PO Q6HR PRN PRN Reason: Pain, Moderate (4-6) Acetaminophen/Hydrocodone Bitart ([place] 10/325) 1 each PO Q4H PRN PRN Reason: Pain, Moderate (4-6) Last Admin: 02/28/19 01:33 Dose: 1 each Documented by: Albuterol (Proventil) 2.5 mg IH TIDRT [facility] Last Admin: 02/28/19 10:11 Dose: 2.5 mg Documented by: Albuterol (Proventil) 2.5 mg IH Q4HRT PRN PRN Reason: Shortness Of Breath Alprazolam (Xanax) 0.25 mg PO QPM PRN PRN Reason: Anxiety Last Admin: 02/27/19 23:37 Dose: 0.25 mg Documented by: Amiodarone HCl (Cordarone) 200 mg PO DAILY [facility] Last Admin: 02/28/19 10:24 Dose: 200 mg Documented by: Amitriptyline HCl (Elavil) 10 mg PO DAILY [facility] Last Admin: 02/28/19 10:10 Dose: Not Given Documented by: Budesonide (Pulmicort) 0.5 mg IH Q12HRT [facility] Last Admin: 02/28/19 10:11 Dose: 0.5 mg Documented by: Diltiazem HCl (Cardizem) 60 mg PO TID [facility] Last Admin: 02/28/19 13:08 Dose: Not Given Documented by: Duloxetine HCl (Cymbalta) 60 mg PO QDAY [facility] Last Admin: 02/28/19 10:10 Dose: Not Given Documented by: Gabapentin (Neurontin) 100 mg PO Q8HR [facility] Last Admin: 02/28/19 13:14 Dose: Not Given Documented by: Hydromorphone HCl (Dilaudid) 0.5 mg IV Q3H PRN PRN Reason: Pain , Severe (7-10) Last Admin: 02/28/19 12:45 Dose: 0.5 mg Documented by: Sodium Chloride (Nacl 0.45% 1000 Ml) 3,000 mls @ 100 mls/hr IV DIRECT [facility] Heparin Sodium/Sodium Chloride (Heparin/ 0.45% Nacl-25,000 Unit/500 Ml) 25,000 unit in 500 mls @ 16 mls/hr IV TITR [facility]; Protocol Last Titration: 02/28/19 05:34 Dose: 950 units/hr, 19 mls/hr Documented by: Levothyroxine Sodium (Synthroid) 88 mcg PO DAILY@0600 [facility] Last Admin: 02/28/19 05:26 Dose: 88 mcg Documented by: Lisinopril (Zestril) 10 mg PO QDAY [facility] Last Admin: 02/28/19 10:23 Dose: 10 mg Documented by: Metoprolol Tartrate (Lopressor) 25 mg PO DAILY [facility] Last Admin: 02/28/19 10:23 Dose: 25 mg Documented by: Morphine Sulfate (Morphine) 2 mg IV Q4H PRN PRN Reason: Pain, Moderate (4-6) Stop: 02/28/19 23:59 Last Admin: 02/28/19 05:26 Dose: 2 mg Documented by: Multivitamins (Theragran Tab) 1 each PO QDAY [facility] Last Admin: 02/28/19 10:09 Dose: Not Given Documented by: Ondansetron HCl (Zofran) 4 mg IV Q8H PRN PRN Reason: Nausea And Vomiting Pantoprazole Sodium (Protonix) 40 mg PO DAILY [facility] Last Admin: 02/28/19 10:23 Dose: 40 mg Documented by: Sodium Chloride (Sodium Chloride Flush Syringe 10 Ml) 10 ml IV BID [facility] Last Admin: 02/28/19 10:27 Dose: Not Given Documented by: Sodium Chloride (Sodium Chloride Flush Syringe 10 Ml) 10 ml IV PRN PRN PRN Reason: LINE FLUSH Spironolactone (Aldactone) 25 mg PO BID [facility] Last Admin: 02/28/19 10:23 Dose: 25 mg Documented by: Sucralfate (Carafate) 1 gm PO ACHS [facility] Last Admin: 02/28/19 13:08 Dose: Not Given Documented by: Exam - Constitutional Vitals: Temp Pulse Resp BP Pulse Ox 98.0 F 88 20 122/54 92 02/28/19 11:50 02/28/19 11:50 02/28/19 12:45 02/28/19 11:50 02/28/19 11:50 Results - Labs CBC & Chem 7: 02/28/19 04:33 02/28/19 04:33 Labs: Abnormal lab results 02/27/19 02/28/19 02/28/19 Range/Units 12:39 03:57 04:33 RBC (3.65-5.03) M/mm3 Hct (30.3-42.9) % Heparin Anti-Xa Level < 0.10 L (0.3-0.7) U.I./ml Sodium 129 L 132 L (137-145) mmol/L Potassium 5.7 H (3.6-5.0) mmol/L Chloride 91.8 L (98-107) mmol/L Carbon Dioxide 20 L (22-30) mmol/L BUN 24 H 22 H (7-17) mg/dL Creatinine 1.6 H (0.7-1.2) mg/dL Glucose 103 H 111 H (65-100) mg/dL ALT 5 L (7-56) units/L Albumin 3.4 L (3.9-5) g/dL 02/28/19 Range/Units 04:33 RBC 3.25 L (3.65-5.03) M/mm3 Hct 30.1 L (30.3-42.9) % Heparin Anti-Xa Level (0.3-0.7) U.I./ml Sodium (137-145) mmol/L Potassium (3.6-5.0) mmol/L Chloride (98-107) mmol/L Carbon Dioxide (22-30) mmol/L BUN (7-17) mg/dL Creatinine (0.7-1.2) mg/dL Glucose (65-100) mg/dL ALT (7-56) units/L Albumin (3.9-5) g/dL Assessment and Plan May need intervention again in the right leg. Possible SFA intervention and/or popliteal artery. High risk for limb loss given the poor tibial artery outflow in the right leg.
[2019-02-28] MEDS: DILAUDID IV PRN ×2 (12:45→21:40)
--- NOTE | 2019-02-28 14:13 | Cat Scan Report ---
PROCEDURE: CT ANGIO ABD/FEMORAL ABD AORTA TECHNIQUE: Computerized axial tomographic angiography of the aortoiliac system with bilateral lower extremity runoff was performed after the IV injection of nonionic iodinated contrast including image processing.The image data was postprocessed using 2-dimensional multiplanar reformatted (MPR) and 3-d imensional (MIP and/or volume rendered) techniques. CT DOSE LENGTH PRODUCT: 1340.4 mGycm HISTORY: RLE ischemia COMPARISONS: CT angiogram of the abdomen and pelvis with runoff performed on 10/21/2018 . FINDINGS: Abdominal aorta : Extensive atheromatous plaques and calcifications. No significant aneurysm or disse ction. . Celiac artery/Superior mesenteric artery: Common origin between the celiac axis and superior mesente tania artery, which is mildly dilated, measuring up to 1.2 cm in diameter. There is heavy atheromatous plaque and calcification without significant stenosis. The left gastric artery originates off of the aorta above the common celiac and superior mesenteric origin. LEFT renal artery: Atherosclerotic plaque at the origin without significant stenosis . RIGHT renal artery: Atherosclerotic plaque at the origin without significant stenosis . Inferior mesenteric artery: Atherosclerotic plaque and calcification without significant stenosis . Common iliac arteries: Atherosclerotic plaque and calcification without significant stenosis . External iliac arteries: Scattered atherosclerotic plaque and calcification without significant sten osis. RIGHT lower extremity: Femoral arteries: Atherosclerotic plaque and calcification at the origin of the right common femoral artery without significant stenosis. Intimal thickening and plaque at the origin of the superficial f emoral artery, which narrows the lumen, causing approximately 65-70% stenosis. Scattered atherosclero tic plaque and calcification along the course of the superficial femoral artery . Popliteal arteries: Occlusion of the distal popliteal artery, just above the trifurcation, which is new since the previous study. Trifurcation vessels: There is reconstitution of flow in the peroneal artery to the level of the ank le, with flow to the dorsalis pedis and posterior tibial artery at the level of the foot . There is n o opacification of the anterior and posterior tibial arteries at the level of the calf. LEFT lower extremity: Femoral arteries: Atheromatous calcification and plaque at the origin of the left common femoral monique ry without significant stenosis. Scattered atheromatous plaque and calcification of the superficial f emoral artery with 50-60% stenosis at the adductor canal, similar in appearance to the previous study . Popliteal arteries: Normal . Trifurcation vessels: The trifurcation appears patent. There are multiple calcifications within the vessels of the calf, which demonstrate intermittent flow to the level of the ankle and foot. The dors hayley pedis and posterior tibial arteries appear patent at the level of the ankle and foot . Abdominal and pelvic viscera: Normal liver, spleen, pancreas, adrenal glands, and bilateral kidneys. There are postsurgical changes from prior cholecystectomy. No evidence of bowel obstruction . Bladde r and uterus are normal in appearance. Other: Old fractures of the right hemipelvis. Postsurgical changes involving the right femur includi ng a right hip prosthesis and intramedullary dale, which obscures portions of the soft tissues of the right thigh. Again seen is soft tissue thickening of the right lower calf, ankle, and foot, slightly increased since the previous study with associated overlying dressings over the anterolateral lower l eg . IMPRESSION: Occlusion of the distal right popliteal artery, just above the trifurcation, new since the previous s tudy. Reconstitution of flow of the right peroneal artery via collaterals with patent flow into the r ight dorsalis pedis and posterior tibial artery at the level of the ankle and foot. 65-70% stenosis of the proximal right superficial femoral artery, increased since the previous study. 50-60% stenosis of the left superficial femoral artery at the level of the abductor canal, similar in appearance the previous study. Redemonstration of atherosclerotic disease of the calf vessels of the left lower extremity, with sylvester nt flow to the level of the ankle and foot. Diffuse atherosclerotic disease of the abdominal aorta and its branches without significant stenosis, aneurysm, or dissection. Redemonstration of common origin between the celiac axis and the superior m esenteric artery with the left gastric artery originating directly from the abdominal aorta. Soft tissue thickening of the right anterolateral lower leg and foot, slightly increased since the pr evious study with associated dressings over an area of ulceration. . This document is electronically signed by Zaynab Gannon MD., February 28 2019 02:11:35 PM ET
--- NOTE | 2019-02-28 16:42 | Progress Note ---
Assessment and Plan Assessment and plan: Patient is a 78 yo woman with a history of HTN, COPD, DVT, Atrial Fib on Therapeutic anticoagulation but stopped in Oct 2018 due to GI bleed, Hypothyroidism, GERD, chronic non healing right lower leg ulcer with PAD and Nicotine Dependence who presents with right leg pains even at rest. She follows up for a regularly scheduled wound care appt and was seen and told to go to the ED. She was found to have ARF with CR of 1.6 and concerns of acute limb ischemia. So, Vascular surgery consulted in ED and patient started on IV Heparin drip. -Arterial occlusive disease Current Visit: Yes Status: Acute Plan to address problem: Vascular surgery consulted, Angiogram, therapeutic anticoagulation, Pending surgical intervention -COPD (chronic obstructive pulmonary disease) Current Visit: Yes Status: Acute Qualifiers: Chronic bronchitis type: mixed simple and mucopurulent Plan to address problem: Supplemental oxygen, nebulizer therapy, NIPPV as clinically indicated, early ambulation, smoking cessation, risk factor reduction. -Peripheral artery disease Current Visit: Yes Status: Acute Plan to address problem: Vascular surgery consulted, Angiogram with runoffs as per vascular surgery team, Pending surgical intervention. -Acute renal failure Current Visit: No Status: Acute Qualifiers: Acute renal failure type: with acute tubular necrosis Qualified Code(s): N17.0 - Acute kidney failure with tubular necrosis Plan to address problem: IVF resuscitation, monitor uop q shift, bmp to monitor serum Creatnine, repeat bmp in am, -Paroxysmal atrial fibrillation with RVR Current Visit: No Status: Acute Plan to address problem: Rate control, remote telemetry, therapeutic anticoagulation, supportive care -DVT prophylaxis Current Visit: Yes Status: Acute -Nicotine dependence Current Visit: Yes Status: Acute Qualifiers: Nicotine product type: cigarettes Plan to address problem: smoking cessation counseling, supportive care. -HTN (hypertension) Current Visit: Yes Status: Acute Qualifiers: Hypertension type: essential hypertension Qualified Code(s): I10 - Essential (primary) hypertension Plan to address problem: Monitor bp q shift, continue medical management -GERD (gastroesophageal reflux disease) Current Visit: Yes Status: Acute Qualifiers: Esophagitis presence: without esophagitis Qualified Code(s): K21.9 - Gastro-esophageal reflux disease without esophagitis Plan to address problem: ppi therrapy, supportive care. -DVT prophylaxis Current Visit: Yes Status: Acute Plan to address problem: SCD to BLE while in bed, therapeutic heparin going for PAD intervention tomorrow. History Interval history: Patient was seen and examined. Follow-up on current diagnosis PAD. No overnight events reported to me. Patient denies any chest pain, shortness breath, nausea/vomiting or severe headaches. Imaging, nursing note, chart, labs and old chart reviewed. Discussed with patient. Hospitalist Physical - Physical exam Narrative exam: Gen: WDWN, NAD, Awake, Alert, Orientated HEENT: NCAT, EOMI, PERRL, OP Clear Neck: supple, no adenopathy, no thyromegaly, no JVD CVS/Heart: RRR, normal S1S2, pulses abnormal right foot Chest/Lungs: CTA B, Symmetrical chest exddfpansion, good air entry bilaterally GI/Abdomen: soft, NTND, good bowel sounds, no guarding or rebound /Bladder: no suprapubic tenderness, no CVA or paraspinal tenderness Extermity/Skin: no c/c/e, no obvious rash MSK: FROM x 4 Neuro: CN 2-12 grossly intact, no new focal deficits Psych: calm - Constitutional Vitals: Temp Pulse Resp BP Pulse Ox 98.0 F 80 18 122/54 92 02/28/19 11:50 02/28/19 14:00 02/28/19 14:00 02/28/19 11:50 02/28/19 11:50 General appearance: Present: no acute distress Results - Labs CBC & Chem 7: 02/28/19 04:33 02/28/19 04:33 Labs: Laboratory Last Values WBC 7.1 K/mm3 (4.5-11.0) 02/28/19 04:33 RBC 3.25 M/mm3 (3.65-5.03) L 02/28/19 04:33 Hgb 10.3 gm/dl (10.1-14.3) 02/28/19 04:33 Hct 30.1 % (30.3-42.9) L 02/28/19 04:33 MCV 93 fl (79-97) 02/28/19 04:33 MCH 32 pg (28-32) 02/28/19 04:33 MCHC 34 % (30-34) 02/28/19 04:33 RDW 15.2 % (13.2-15.2) 02/28/19 04:33 Plt Count 318 K/mm3 (140-440) 02/28/19 04:33 Lymph % (Auto) 30.6 % (13.4-35.0) 02/27/19 12:39 [place] % (Auto) 11.5 % (0.0-7.3) H 02/27/19 12:39 Eos % (Auto) 0.8 % (0.0-4.3) 02/27/19 12:39 Baso % (Auto) 0.3 % (0.0-1.8) 02/27/19 12:39 Lymph # 2.7 K/mm3 (1.2-5.4) 02/27/19 12:39 [place] # 1.0 K/mm3 (0.0-0.8) H 02/27/19 12:39 Eos # 0.1 K/mm3 (0.0-0.4) 02/27/19 12:39 Baso # 0.0 K/mm3 (0.0-0.1) 02/27/19 12:39 Seg Neutrophils % 56.8 % (40.0-70.0) 02/27/19 12:39 Seg Neutrophils # 5.1 K/mm3 (1.8-7.7) 02/27/19 12:39 PT 14.2 Sec. (12.2-14.9) 02/27/19 19:28 INR 1.04 (0.87-1.13) 02/27/19 19:28 APTT 31.9 Sec. (24.2-36.6) 02/27/19 19:28 Heparin Anti-Xa Level < 0.10 U.I./ml (0.3-0.7) L 02/28/19 13:11 Sodium 132 mmol/L (137-145) L 02/28/19 04:33 Potassium 4.4 mmol/L (3.6-5.0) D 02/28/19 04:33 Chloride 98.3 mmol/L (98-107) 02/28/19 04:33 Carbon Dioxide 24 mmol/L (22-30) 02/28/19 04:33 14 mmol/L 02/28/19 04:33 BUN 22 mg/dL (7-17) H 02/28/19 04:33 0.7 mg/dL (0.7-1.2) D 02/28/19 04:33 Estimated GFR > 60 ml/min 02/28/19 04:33 31 % 02/28/19 04:33 Glucose 111 mg/dL (65-100) H 02/28/19 04:33 Calcium 8.9 mg/dL (8.4-10.2) 02/28/19 04:33 0.30 mg/dL (0.1-1.2) 02/28/19 04:33 AST 10 units/L (5-40) 02/28/19 04:33 ALT 5 units/L (7-56) L 02/28/19 04:33 77 units/L (35-129) 02/28/19 04:33 6.4 g/dL (6.3-8.2) 02/28/19 04:33 3.4 g/dL (3.9-5) L 02/28/19 04:33 1.1 % 02/28/19 04:33 Active Medications - Current Medications Current Medications: Generic Name Dose Route Start Last Admin Trade Name Freq PRN Reason Stop Dose Admin Acetaminophen 650 mg 02/27/19 19:09 Tylenol PO Q4H PRN Pain MILD(1-3)/Fever >100.5/GONZALES Acetaminophen/Codeine Phosphate 1 tab 02/27/19 15:05 Tylenol #3 PO Q6HR PRN Pain, Moderate (4-6) Acetaminophen/Hydrocodone Bitart 1 each 02/27/19 15:05 02/28/19 01:33 [place] 10/325 PO 1 each Q4H PRN Administration Pain, Moderate (4-6) Albuterol 2.5 mg 02/27/19 20:00 02/28/19 15:03 Proventil IH 2.5 mg TIDRT KLEVER Administration Albuterol 2.5 mg 02/27/19 19:09 Proventil IH Q4HRT PRN Shortness Of Breath Alprazolam 0.25 mg 02/27/19 15:05 02/27/19 23:37 Xanax PO 0.25 mg QPM PRN Administration Anxiety Amiodarone HCl 200 mg 02/28/19 10:00 02/28/19 10:24 Cordarone PO 200 mg DAILY K[facility]VER Administration Amitriptyline HCl 10 mg 02/28/19 10:00 02/28/19 10:10 Elavil PO Not Given DAILY [facility] Budesonide 0.5 mg 02/27/19 20:00 02/28/19 10:11 Pulmicort IH 0.5 mg Q12HRT KLEVER Administration Diltiazem HCl 60 mg 02/27/19 20:00 02/28/19 13:08 Cardizem PO Not Given TID [facility] Duloxetine HCl 60 mg 02/28/19 10:00 02/28/19 10:10 Cymbalta PO Not Given QDAY [facility] Gabapentin 100 mg 02/27/19 22:00 02/28/19 13:14 Neurontin PO Not Given Q8HR [facility] Hydromorphone HCl 0.5 mg 02/27/19 20:50 02/28/19 12:45 Dilaudid IV 0.5 mg Q3H PRN Administration Pain , Severe (7-10) Sodium Chloride 3,000 mls @ 100 mls/hr 02/27/19 20:00 Nacl 0.45% 1000 Ml IV DIRECT KLEVER Heparin Sodium/Sodium Chloride 25,000 unit in 500 mls @ 16 mls/hr 02/27/19 20:00 02/28/19 16:08 Heparin/ 0.45% Nacl-25,000 Unit/500 Ml IV 1,100 units/hr TITR KLEVER 22 mls/hr Titration Protocol 800 UNITS/HR Levothyroxine Sodium 88 mcg 02/28/19 06:00 02/28/19 05:26 Synthroid PO 88 mcg DAILY@0600 [facility] Administration Lisinopril 10 mg 02/28/19 10:00 02/28/19 10:23 Zestril PO 10 mg QDAY [facility] Administration Metoprolol Tartrate 25 mg 02/28/19 10:00 02/28/19 10:23 Lopressor PO 25 mg DAILY [facility] Administration Morphine Sulfate 2 mg 02/27/19 20:50 02/28/19 05:26 Morphine IV 02/28/19 23:59 2 mg Q4H PRN Administration Pain, Moderate (4-6) Multivitamins 1 each 02/28/19 10:00 02/28/19 10:09 Theragran Tab PO Not Given QDAY [facility] Ondansetron HCl 4 mg 02/27/19 19:09 Zofran IV Q8H PRN Nausea And Vomiting Pantoprazole Sodium 40 mg 02/28/19 10:00 02/28/19 10:23 Protonix PO 40 mg DAILY [facility] Administration Sodium Chloride 10 ml 02/27/19 22:00 02/28/19 10:27 Sodium Chloride Flush Syringe 10 Ml IV Not Given BID KLEVER Sodium Chloride 10 ml 02/27/19 19:09 Sodium Chloride Flush Syringe 10 Ml IV PRN PRN LINE FLUSH Spironolactone 25 mg 02/27/19 22:00 02/28/19 10:23 Aldactone PO 25 mg BID [facility]VER Administration Sucralfate 1 gm 02/27/19 16:30 02/28/19 13:08 Carafate PO Not Given ACHS [facility]
[2019-03-01] MEDS: CARDIZEM PO SCH ×4 (01:32→22:23)
[2019-03-01] MEDS: HEPARIN/ 0.45% NACL-25,000 UNIT/500 ML 25,000 UNIT/500 ML BAG IV SCH (01:33)
[2019-03-01] MEDS: XANAX PO PRN ×2 (01:33→22:30)
[2019-03-01] MEDS: DILAUDID IV PRN (02:47)
[2019-03-01] MEDS: SODIUM CHLORIDE FLUSH SYRINGE 10 ML IV SCH ×3 (05:34→22:24)
[2019-03-01] MEDS: SYNTHROID PO SCH ×2 (05:40→09:28)
[2019-03-01] MEDS: NEURONTIN PO SCH ×4 (05:40→22:24)
[2019-03-01] MEDS: CARAFATE PO SCH ×4 (07:36→22:24)
[2019-03-01] MEDS: PROVENTIL IH SCH ×3 (09:11→21:22)
[2019-03-01] MEDS: PULMICORT IH SCH ×2 (09:11→21:22)
[2019-03-01] MEDS: NORCO 10/325 PO PRN ×2 (09:27→16:00)
[2019-03-01] MEDS: LOPRESSOR PO SCH (09:30)
[2019-03-01] MEDS: PROTONIX PO SCH (09:33)
[2019-03-01] MEDS: ELAVIL PO SCH (09:35)
[2019-03-01] MEDS: CORDARONE PO SCH (09:36)
[2019-03-01] MEDS: CYMBALTA PO SCH (10:38)
[2019-03-01] MEDS: ALDACTONE PO SCH ×2 (10:38→22:23)
[2019-03-01] MEDS: THERAGRAN Tab PO SCH (10:39)
[2019-03-01 13:13] LABS: Hematocrit 31.8 % (30.3-42.9); Hemoglobin 10.8 gm/dl (10.1-14.3)
--- NOTE | 2019-03-01 15:31 | Progress Note ---
Assessment and Plan Assessment and plan: Patient is a 78 yo woman with a history of HTN, COPD, DVT, Atrial Fib on Therapeutic anticoagulation but stopped in Oct 2018 due to GI bleed, Hypothyroidism, GERD, chronic non healing right lower leg ulcer with PAD and Nicotine Dependence who presents with right leg pains even at rest. She follows up for a regularly scheduled wound care appt and was seen and told to go to the ED. She was found to have ARF with CR of 1.6 and concerns of acute limb ischemia. So, Vascular surgery consulted in ED and patient started on IV Heparin drip. -Arterial occlusive disease Current Visit: Yes Status: Acute Plan to address problem: Vascular surgery consulted, Angiogram, therapeutic anticoagulation, Pending surgical intervention -COPD (chronic obstructive pulmonary disease) Current Visit: Yes Status: Acute Qualifiers: Chronic bronchitis type: mixed simple and mucopurulent Plan to address problem: Supplemental oxygen, nebulizer therapy, NIPPV as clinically indicated, early ambulation, smoking cessation, risk factor reduction. -Peripheral artery disease Current Visit: Yes Status: Acute Plan to address problem: Vascular surgery consulted, Angiogram with runoffs as per vascular surgery team, Pending surgical intervention. -Acute renal failure Current Visit: No Status: Acute Qualifiers: Acute renal failure type: with acute tubular necrosis Qualified Code(s): N17.0 - Acute kidney failure with tubular necrosis Plan to address problem: IVF resuscitation, monitor uop q shift, bmp to monitor serum Creatnine, repeat bmp in am, -Paroxysmal atrial fibrillation with RVR Current Visit: No Status: Acute Plan to address problem: Rate control, remote telemetry, therapeutic anticoagulation, supportive care -DVT prophylaxis Current Visit: Yes Status: Acute -Nicotine dependence Current Visit: Yes Status: Acute Qualifiers: Nicotine product type: cigarettes Plan to address problem: smoking cessation counseling, supportive care. -HTN (hypertension) Current Visit: Yes Status: Acute Qualifiers: Hypertension type: essential hypertension Qualified Code(s): I10 - Essential (primary) hypertension Plan to address problem: Monitor bp q shift, continue medical management -GERD (gastroesophageal reflux disease) Current Visit: Yes Status: Acute Qualifiers: Esophagitis presence: without esophagitis Qualified Code(s): K21.9 - Gastro-esophageal reflux disease without esophagitis Plan to address problem: ppi therrapy, supportive care. -DVT prophylaxis Current Visit: Yes Status: Acute Plan to address problem: SCD to BLE while in bed, therapeutic heparin going for PAD intervention pending, h/h stable History Interval history: Patient was seen and examined. Follow-up on current diagnosis PAD. No overnight events reported to me. Patient denies any chest pain, shortness breath, nausea/vomiting or severe headaches. Imaging, nursing note, chart, labs and old chart reviewed. Discussed with patient. Hospitalist Physical - Physical exam Narrative exam: Gen: WDWN, NAD, Awake, Alert, Orientated HEENT: NCAT, EOMI, PERRL, OP Clear Neck: supple, no adenopathy, no thyromegaly, no JVD CVS/Heart: RRR, normal S1S2, pulses abnormal right foot Chest/Lungs: CTA B, Symmetrical chest exddfpansion, good air entry bilaterally GI/Abdomen: soft, NTND, good bowel sounds, no guarding or rebound /Bladder: no suprapubic tenderness, no CVA or paraspinal tenderness Extermity/Skin: no c/c/e, no obvious rash MSK: FROM x 4 Neuro: CN 2-12 grossly intact, no new focal deficits Psych: calm - Constitutional Vitals: Temp Pulse Resp BP Pulse Ox 97.5 F L 50 L 16 156/68 91 03/01/19 06:55 03/01/19 14:15 03/01/19 14:15 03/01/19 06:55 03/01/19 09:00 General appearance: Present: no acute distress Results - Labs CBC & Chem 7: 03/01/19 09:25 02/28/19 04:33 Labs: Laboratory Last Values WBC 7.1 K/mm3 (4.5-11.0) 02/28/19 04:33 RBC 3.25 M/mm3 (3.65-5.03) L 02/28/19 04:33 Hgb 10.8 gm/dl (10.1-14.3) 03/01/19 09:25 Hct 31.8 % (30.3-42.9) 03/01/19 09:25 MCV 93 fl (79-97) 02/28/19 04:33 MCH 32 pg (28-32) 02/28/19 04:33 MCHC 34 % (30-34) 02/28/19 04:33 RDW 15.2 % (13.2-15.2) 02/28/19 04:33 Plt Count 348 K/mm3 (140-440) 03/01/19 09:25 Lymph % (Auto) 30.6 % (13.4-35.0) 02/27/19 12:39 [place] % (Auto) 11.5 % (0.0-7.3) H 02/27/19 12:39 Eos % (Auto) 0.8 % (0.0-4.3) 02/27/19 12:39 Baso % (Auto) 0.3 % (0.0-1.8) 02/27/19 12:39 Lymph # 2.7 K/mm3 (1.2-5.4) 02/27/19 12:39 [place] # 1.0 K/mm3 (0.0-0.8) H 02/27/19 12:39 Eos # 0.1 K/mm3 (0.0-0.4) 02/27/19 12:39 Baso # 0.0 K/mm3 (0.0-0.1) 02/27/19 12:39 Seg Neutrophils % 56.8 % (40.0-70.0) 02/27/19 12:39 Seg Neutrophils # 5.1 K/mm3 (1.8-7.7) 02/27/19 12:39 PT 14.2 Sec. (12.2-14.9) 02/27/19 19:28 INR 1.04 (0.87-1.13) 02/27/19 19:28 APTT 31.9 Sec. (24.2-36.6) 02/27/19 19:28 Heparin Anti-Xa Level 0.29 U.I./ml (0.3-0.7) L 03/01/19 09:25 Sodium 132 mmol/L (137-145) L 02/28/19 04:33 Potassium 4.4 mmol/L (3.6-5.0) D 02/28/19 04:33 Chloride 98.3 mmol/L (98-107) 02/28/19 04:33 Carbon Dioxide 24 mmol/L (22-30) 02/28/19 04:33 14 mmol/L 02/28/19 04:33 BUN 22 mg/dL (7-17) H 02/28/19 04:33 0.7 mg/dL (0.7-1.2) D 02/28/19 04:33 Estimated GFR > 60 ml/min 02/28/19 04:33 31 % 02/28/19 04:33 Glucose 111 mg/dL (65-100) H 02/28/19 04:33 Calcium 8.9 mg/dL (8.4-10.2) 02/28/19 04:33 0.30 mg/dL (0.1-1.2) 02/28/19 04:33 AST 10 units/L (5-40) 02/28/19 04:33 ALT 5 units/L (7-56) L 02/28/19 04:33 77 units/L (35-129) 02/28/19 04:33 6.4 g/dL (6.3-8.2) 02/28/19 04:33 3.4 g/dL (3.9-5) L 02/28/19 04:33 1.1 % 02/28/19 04:33 Active Medications - Current Medications Current Medications: Generic Name Dose Route Start Last Admin Trade Name Freq PRN Reason Stop Dose Admin Acetaminophen 650 mg 02/27/19 19:09 Tylenol PO Q4H PRN Pain MILD(1-3)/Fever >100.5/GONZALES Acetaminophen/Codeine Phosphate 1 tab 02/27/19 15:05 Tylenol #3 PO Q6HR PRN Pain, Moderate (4-6) Acetaminophen/Hydrocodone Bitart 1 each 02/27/19 15:05 03/01/19 09:27 [place] 10/325 PO 1 each Q4H PRN Administration Pain, Moderate (4-6) Albuterol 2.5 mg 02/27/19 20:00 03/01/19 14:07 Proventil IH 2.5 mg TIDRT [facility] Administration Albuterol 2.5 mg 02/27/19 19:09 Proventil IH Q4HRT PRN Shortness Of Breath Alprazolam 0.25 mg 02/27/19 15:05 03/01/19 01:33 Xanax PO 0.25 mg QPM PRN Administration Anxiety Amiodarone HCl 200 mg 02/28/19 10:00 03/01/19 09:36 Cordarone PO 200 mg DAILY [facility] Administration Amitriptyline HCl 10 mg 02/28/19 10:00 03/01/19 09:35 Elavil PO 10 mg DAILY [facility] Administration Budesonide 0.5 mg 02/27/19 20:00 03/01/19 09:11 Pulmicort IH 0.5 mg Q12HRT [facility] Administration Diltiazem HCl 60 mg 02/27/19 20:00 03/01/19 09:32 Cardizem PO 60 mg TID [facility] Administration Duloxetine HCl 60 mg 02/28/19 10:00 02/28/19 10:10 Cymbalta PO Not Given QDAY [facility] Gabapentin 100 mg 02/27/19 22:00 03/01/19 09:27 Neurontin PO 100 mg Q8HR [facility] Administration Sodium Chloride 3,000 mls @ 100 mls/hr 02/27/19 20:00 Nacl 0.45% 1000 Ml IV DIRECT K[facility]RE Heparin Sodium/Sodium Chloride 25,000 unit in 500 mls @ 16 mls/hr 02/27/19 20:00 03/01/19 01:33 Heparin/ 0.45% Nacl-25,000 Unit/500 Ml IV 1,150 units/hr TITR [facility]LEVER 23 mls/hr Administration Protocol 800 UNITS/HR Levothyroxine Sodium 88 mcg 02/28/19 06:00 03/01/19 09:28 Synthroid PO 88 mcg DAILY@0600 [facility] Administration Lisinopril 10 mg 02/28/19 10:00 02/28/19 10:23 Zestril PO 10 mg QDAY [facility] Administration Metoprolol Tartrate 25 mg 02/28/19 10:00 03/01/19 09:30 Lopressor PO 25 mg DAILY [facility] Administration Multivitamins 1 each 02/28/19 10:00 02/28/19 10:09 Theragran Tab PO Not Given QDAY [facility] Ondansetron HCl 4 mg 02/27/19 19:09 Zofran IV Q8H PRN Nausea And Vomiting Pantoprazole Sodium 40 mg 02/28/19 10:00 03/01/19 09:33 Protonix PO 40 mg DAILY [facility] Administration Sodium Chloride 10 ml 02/27/19 22:00 03/01/19 05:34 Sodium Chloride Flush Syringe 10 Ml IV 10 ml BID [facility]LEVER Administration Sodium Chloride 10 ml 02/27/19 19:09 Sodium Chloride Flush Syringe 10 Ml IV PRN PRN LINE FLUSH Spironolactone 25 mg 02/27/19 22:00 02/28/19 22:00 Aldactone PO Not Given BID [facility] Sucralfate 1 gm 02/27/19 16:30 02/28/19 21:39 Carafate PO 1 gm ACHS KLEVER Administration
[2019-03-01] MEDS: ZESTRIL PO SCH (17:41)
[2019-03-01] MEDS ORDERED: NACL 0.9% 1000 ML 1,000 ML ONE (17:56)
[2019-03-01] MEDS ORDERED: HEPARIN/NS 5000 UNIT/500ML(CATH LAB) 1,500 ML IR ONE (18:05)
[2019-03-01] MEDS ORDERED: ANCEF/STERILE WATER 2 GM/20 ML 2 GM/20 ML SYRINGE IV ONE (18:06)
[2019-03-01] MEDS ORDERED: BENADRYL ONE (18:06)
[2019-03-01] MEDS ORDERED: XYLOCAINE 2% INFILTRATI ONE (18:06)
[2019-03-01] MEDS ORDERED: HEPARIN 10,000 UNITS/10 ML ONE (18:40)
[2019-03-01] MEDS: SUBLIMAZE ONE ×6 (18:48→19:29)
[2019-03-01] MEDS: VERSED ONE ×6 (18:48→19:28)
[2019-03-01] MEDS ORDERED: HEPARIN/NS 5000 UNIT/500ML(CATH LAB) 500 ML IR ONE (19:08)
[2019-03-01] MEDS ORDERED: WATER FOR INJ Sterile (PF) 0 ML ONE (19:08)
--- NOTE | 2019-03-01 19:51 | Post Operative Note ---
Pre-op diagnosis: PVD with rest pain Post-op diagnosis: same Findings: Occluded below knee popliteal artery with intermittent opacification of a 1 mm peroneal artery which terminated in the distal calf. No named blood vessels below the proximal calf. Unable to recannulate the popliteal artery or successfully revascularized the right leg. No blood vessels or bypassable. Limb loss is inevitable Procedure: Insertion of catheter distal right popliteal artery with single leg runoff. Previous CT angiography did not adequately delineate the severity of the tibial disease plus requiring repeat angiography. Unsuccessful attempt at revascularization was terminated due to lack of progress. Anesthesia: other (moderate sedation [id number] total sedation time 44 minutes) Surgeon: SANTIAGO BURNETT Estimated blood loss: minimal Pathology: none Condition: stable Disposition: floor
[2019-03-01] MEDS: TYLENOL #3 PO PRN (22:30)
[2019-03-02] MEDS: NORCO 10/325 PO PRN ×4 (02:42→22:55)
[2019-03-02 05:22] LABS: Hematocrit 29.9 % (30.3-42.9); Hemoglobin 10.1 gm/dl (10.1-14.3); Mean Corpuscular HGB Conc 34 % (30-34); Mean Corpuscular Volume 94 fl (79-97); Platelet Count 328 K/mm3 (140-440); Red Blood Count 3.18 M/mm3 (3.65-5.03)
[2019-03-02] MEDS: NEURONTIN PO SCH ×3 (05:27→21:39)
[2019-03-02] MEDS: SYNTHROID PO SCH (05:27)
[2019-03-02] MEDS: HEPARIN/ 0.45% NACL-25,000 UNIT/500 ML 25,000 UNIT/500 ML BAG IV SCH (05:29)
[2019-03-02 05:44] LABS: BUN/Creatinine Ratio 16; Blood Urea Nitrogen 14 mg/dL (7-17); Calcium 9.4 mg/dL (8.4-10.2); Hemolysis Index 2
[2019-03-02] MEDS: TYLENOL #3 PO PRN (06:47)
[2019-03-02] MEDS: ZESTRIL PO SCH (10:15)
[2019-03-02] MEDS: CORDARONE PO SCH (10:24)
[2019-03-02] MEDS: THERAGRAN Tab PO SCH (10:24)
[2019-03-02] MEDS: CARDIZEM PO SCH ×3 (10:25→21:43)
[2019-03-02] MEDS: CYMBALTA PO SCH (10:26)
[2019-03-02] MEDS: ELAVIL PO SCH (10:26)
[2019-03-02] MEDS: ALDACTONE PO SCH ×2 (10:26→21:42)
[2019-03-02] MEDS: PROTONIX PO SCH (10:26)
[2019-03-02] MEDS: LOPRESSOR PO SCH (10:27)
[2019-03-02] MEDS: SODIUM CHLORIDE FLUSH SYRINGE 10 ML IV SCH ×2 (10:28→21:43)
[2019-03-02] MEDS: CARAFATE PO SCH ×4 (10:28→21:39)
--- NOTE | 2019-03-02 11:15 | Operative Report ---
Operative Report Operative Report: Date of procedure: 03/01/2019 Pre-operative diagnosis: Peripheral vascular disease with resting ischemia right leg Post-operative diagnosis: Same Procedure name(s): Insertion of catheter right popliteal artery from left groin approach #2 single leg runoff with new views of the tibial arteries not previously present on prior angiogram #3 ultrasound guided cannulation left common femoral artery Surgeon: Jordon Parra MD [employer]: None Anesthesia: Moderate sedation EBL: Minimal Specimen(s): None Complications: None Findings: Chronically occluded popliteal artery with reconstitution of heavily diseased 1 mm peroneal artery with limited runoff into the foot. Previous posterior tibial artery not visualized. Unable to successfully cross the occluded popliteal artery into the tibioperoneal trunk. Limb loss a foregone conclusion Procedure: Patient in the supine position after adequate levels of moderate sedation was obtained both groins were prepped and draped in standard sterile technique. Ultrasound identified a patent left common femoral vein and using ultrasound guidance through anesthetized skin micropuncture needle was successfully advanced into the common femoral artery avoiding several areas of calcific plaque formation. Mark wire and sheath were advanced and I upsized to a 5 [place] introducer. Using advantage wire and catheter access was obtained to the contralateral iliac system advance the rim catheter into the distal external iliac artery on the right. Patient maintained under anticoagulation using intravenous heparin. Contrast was injected down the right leg which showed several areas of modest stenosis in the superficial femoral but these were more proximal and were not considered flow-limiting lesions. At the level of the knee joint the pop to artery catheter would not advance further and contrast was injected showing an abrupt occlusion of the popliteal artery just above the joint. Collateral formation around the joint was sparse there was faint opacification of the tibioperoneal trunk both the proximal posterior tibial and peroneal artery. The posterior tibial artery occluded and the peroneal artery appeared intermittently distally down the leg as a 1 mm blood vessel at most. I exchange catheters and placed a sheath up and over into the right leg and then using a V 18 wire and guide catheter traversed the occluded popliteal segment to within 1 or 2 cm of the tibioperoneal trunk. This point however the wire went subintimal and I was never able to cannulate the more distal tibial vessels. Contrast did extravasate some distal small perforation but there was no hematoma. Multiple attempts at redirecting the wire was undertaken but were considered unsuccessful. I also did not feel that the artery was particularly bypassable with the outlook of any significant patency especially in the face of the patient's continued tobacco use. At this point the procedure was terminated by removing all guidewires and catheters. Hemostasis was obtained in the left groin using counterpressure. Patient was returned to the recovery area in stable condition.
--- NOTE | 2019-03-02 11:55 | Progress Note ---
Assessment and Plan Acute on chronic limb ischemia She continues to complain of significant right lower extremity discomfort and has poor non-healing wound to the right lateral lower leg. Attempt at revascularization was unsuccessful. A right BKA is her best option for pain control since revascularization was unsuccessful. Discussed all in detail with her. Risks of nonoperative treatment discussed including higher limb amputation, infection, continued pain, . She would like to think about the surgery and leg amputation and is not ready to consent at this time. Subjective Date of service: 03/02/19 Interval history: Awake alert continued complaints of pain right lower extremity. Objective - Constitutional Vitals: Vital Signs - 12hr 03/02/19 01:57 Temperature 97.9 F Pulse Rate 63 Respiratory 18 Rate Blood Pressure 123/48 O2 Sat by Pulse 90 Oximetry General appearance: Present: no acute distress, well-nourished - EENT ENT: hearing intact, clear oral mucosa - Neck Neck: supple, normal ROM - Respiratory Respiratory effort: other (nonlabored at rest) Extremity abnormal: other (Ischemic changes present right lower extremity. Foot cool to touch. Wound present right lateral lower leg, dressing dry intact. Left lower extremity nonpalpable pedal pulses warm to touch) - Integumentary Integumentary: warm, dry, normal turgor - Neurologic Neurologic: no focal deficits - Psychiatric Psychiatric: intact judgment & insight, cooperative - Labs CBC & Chem 7: 03/02/19 04:30 03/02/19 04:30 Labs: Abnormal lab results 03/01/19 03/02/19 03/02/19 Range/Units 09:25 04:30 04:30 RBC 3.18 L (3.65-5.03) M/mm3 Hct 29.9 L (30.3-42.9) % Heparin Anti-Xa Level 0.29 L (0.3-0.7) U.I./ml Sodium 135 L (137-145) mmol/L Glucose 112 H (65-100) mg/dL Medications & Allergies - Medications Allergies/Adverse Reactions: Allergies No Known Allergies Allergy (Verified 10/14/18 21:18) Home Medications: Home Medications Medication Instructions Recorded Confirmed Last Taken Type Apixaban [Eliquis] 5 mg PO BID 07/06/18 02/27/19 07/06/18 06:00 History 5mg Levothyroxine Sodium [Synthroid] 88 mcg PO DAILY 07/06/18 02/27/19 07/05/18 History 88mcg Lisinopril [Zestril TAB] 10 mg PO DAILY 07/06/18 02/27/19 07/05/18 History 10mg Metoprolol [Lopressor TAB] 25 mg PO BID 07/06/18 02/27/19 07/06/18 History 25mg Gabapentin [Neurontin] 100 mg PO Q8HR #90 capsule 08/04/18 02/27/19 Unknown Rx Amitriptyline [Elavil] 10 mg PO DAILY 02/27/19 02/27/19 Unknown History Omeprazole 40 mg PO BID 02/27/19 02/27/19 Unknown History Pantoprazole [Protonix] 40 mg PO DAILY 02/27/19 02/27/19 Unknown History Spironolactone [Aldactone] 25 mg PO BID 02/27/19 02/27/19 Unknown History traMADol [Ultram] 50 mg PO Q6HR PRN 02/27/19 02/27/19 Unknown History Active Medications: Generic Name Dose Route Start Last Admin Trade Name Freq PRN Reason Stop Dose Admin Acetaminophen 650 mg 02/27/19 19:09 Tylenol PO Q4H PRN Pain MILD(1-3)/Fever >100.5/GONZALES Acetaminophen/Codeine Phosphate 1 tab 02/27/19 15:05 03/02/19 06:47 Tylenol #3 PO 1 tab Q6HR PRN Administration Pain, Moderate (4-6) Acetaminophen/Hydrocodone Bitart 1 each 02/27/19 15:05 03/02/19 10:24 [place] 10/325 PO 1 each Q4H PRN Administration Pain, Moderate (4-6) Albuterol 2.5 mg 02/27/19 20:00 03/01/19 21:22 Proventil IH Not Given TIDRT KLEVER Albuterol 2.5 mg 02/27/19 19:09 Proventil IH Q4HRT PRN Shortness Of Breath Alprazolam 0.25 mg 02/27/19 15:05 03/01/19 22:30 Xanax PO 0.25 mg QPM PRN Administration Anxiety Amiodarone HCl 200 mg 02/28/19 10:00 03/02/19 10:24 Cordarone PO 200 mg DAILY KLEVER Administration Amitriptyline HCl 10 mg 02/28/19 10:00 03/02/19 10:26 Elavil PO 10 mg DAILY KLEVER Administration Budesonide 0.5 mg 02/27/19 20:00 03/01/19 21:22 Pulmicort IH Not Given Q12HRT KLEVER Diltiazem HCl 60 mg 02/27/19 20:00 03/02/19 10:25 Cardizem PO 60 mg TID KLEVER Administration Duloxetine HCl 60 mg 02/28/19 10:00 03/02/19 10:26 Cymbalta PO 60 mg QDAY KLEVER Administration Gabapentin 100 mg 02/27/19 22:00 03/02/19 05:27 Neurontin PO 100 mg Q8HR KLEVER Administration Sodium Chloride 3,000 mls @ 100 mls/hr 02/27/19 20:00 Nacl 0.45% 1000 Ml IV DIRECT KLEVER Heparin Sodium/Sodium Chloride 25,000 unit in 500 mls @ 16 mls/hr 02/27/19 20:00 03/02/19 05:29 Heparin/ 0.45% Nacl-25,000 Unit/500 Ml IV 1,200 units/hr TITR KLEVER 24 mls/hr Administration Protocol 800 UNITS/HR Levothyroxine Sodium 88 mcg 02/28/19 06:00 03/02/19 05:27 Synthroid PO 88 mcg DAILY@0600 KLEVER Administration Lisinopril 10 mg 02/28/19 10:00 03/01/19 17:41 Zestril PO Not Given QDAY [facility] Metoprolol Tartrate 25 mg 02/28/19 10:00 03/02/19 10:27 Lopressor PO 25 mg DAILY KLEVER Administration Multivitamins 1 each 02/28/19 10:00 03/02/19 10:24 Theragran Tab PO 1 each QDAY KLEVER Administration Ondansetron HCl 4 mg 02/27/19 19:09 Zofran IV Q8H PRN Nausea And Vomiting Pantoprazole Sodium 40 mg 02/28/19 10:00 03/02/19 10:26 Protonix PO 40 mg DAILY KLEVER Administration Sodium Chloride 10 ml 02/27/19 22:00 03/02/19 10:28 Sodium Chloride Flush Syringe 10 Ml IV 10 ml BID KLEVER Administration Sodium Chloride 10 ml 02/27/19 19:09 Sodium Chloride Flush Syringe 10 Ml IV PRN PRN LINE FLUSH Spironolactone 25 mg 02/27/19 22:00 03/02/19 10:26 Aldactone PO 25 mg BID KLEVER Administration Sucralfate 1 gm 02/27/19 16:30 03/02/19 10:28 Carafate PO 1 gm ACHS KLEVER Administration
[2019-03-02] MEDS: PULMICORT IH SCH ×2 (14:58→19:41)
[2019-03-02] MEDS: PROVENTIL IH SCH ×3 (15:00→19:41)
--- NOTE | 2019-03-02 16:11 | Progress Note ---
Assessment and Plan Assessment and plan: Patient is a 78 yo woman with a history of HTN, COPD, DVT, Atrial Fib on Therapeutic anticoagulation but stopped a/c in Oct 2018 due to GI bleed, Hypothyroidism, GERD, chronic non healing right lower leg ulcer with PAD and Nicotine Dependence who presented with right leg pains even at rest. She follows up for a regularly scheduled wound care appt and was seen and told to go to the ED. She was found to have ARF with CR of 1.6 and concerns of acute limb ischemia. So, Vascular surgery consulted in ED and patient started on IV Heparin drip. Date of procedure: 03/01/2019 Pre-operative diagnosis: Peripheral vascular disease with resting ischemia right leg Post-operative diagnosis: Same Procedure name(s): Insertion of catheter right popliteal artery from left groin approach #2 single leg runoff with new views of the tibial arteries not previously present on prior angiogram #3 ultrasound guided cannulation left common femoral artery She continues to complain of significant right lower extremity discomfort and has poor non-healing wound to the right lateral lower leg. Attempt at revascularization was unsuccessful. A right BKA is her best option for pain control since revascularization was unsuccessful. Discussed all in detail with her. Risks of nonoperative treatment discussed including higher limb amputation, infection, continued pain, . She would like to think about the surgery and leg amputation and is not ready to consent at this time. -Peripheral Arterial occlusive disease, right leg rest pains s/p unsuccessful revascularization on 03/01/19: Vascular Surgeon recommended amputation, pt will consider -Ischemic Right leg: treat with IV heparin drip with close monitoring of h/h and plt counts/cbc -COPD (chronic obstructive pulmonary disease): Supplemental oxygen, nebulizer therapy, NIPPV as clinically indicated, early ambulation, smoking cessation, risk factor reduction. -Acute renal failure, ATN, poa: resolved, monitor bmp closely -Paroxysmal atrial fibrillation with RVR: Rate control, remote telemetry, therapeutic anticoagulation, supportive care -DVT prophylaxis: on iv heparin drip -Nicotine dependence: smoking cessation counseling, supportive care. -HTN (hypertension): Monitor bp q shift, continue medical management -GERD (gastroesophageal reflux disease): ppi therrapy, supportive care. History Interval history: Patient was seen and examined. Follow-up on current diagnosis PAD, still with right leg pains. No overnight events reported to me. Patient denies any chest pain, shortness breath, nausea/vomiting or severe headaches. Imaging, nursing note, chart, labs and old chart reviewed. Discussed with patient. Hospitalist Physical - Physical exam Narrative exam: Gen: WDWN, NAD, Awake, Alert, Orientated HEENT: NCAT, EOMI, PERRL, OP Clear Neck: supple, no adenopathy, no thyromegaly, no JVD CVS/Heart: RRR, normal S1S2, pulses abnormal right foot Chest/Lungs: CTA B, Symmetrical chest exddfpansion, good air entry bilaterally GI/Abdomen: soft, NTND, good bowel sounds, no guarding or rebound /Bladder: no suprapubic tenderness, no CVA or paraspinal tenderness Extermity/Skin: Ischemic changes present right lower extremity. Foot cool to touch. Wound present right lateral lower leg, dressing dry intact. Left lower extremity nonpalpable pedal pulses warm to touch MSK: FROM x 4 Neuro: CN 2-12 grossly intact, no new focal deficits Psych: calm - Constitutional Vitals: Temp Pulse Resp BP Pulse Ox 97.9 F 54 L 17 123/48 98 03/02/19 01:57 03/02/19 15:09 03/02/19 15:09 03/02/19 01:57 03/02/19 15:06 General appearance: Present: no acute distress, well-nourished Results - Labs CBC & Chem 7: 03/02/19 04:30 03/02/19 04:30 Labs: Laboratory Last Values WBC 6.0 K/mm3 (4.5-11.0) 03/02/19 04:30 RBC 3.18 M/mm3 (3.65-5.03) L 03/02/19 04:30 Hgb 10.1 gm/dl (10.1-14.3) 03/02/19 04:30 Hct 29.9 % (30.3-42.9) L 03/02/19 04:30 MCV 94 fl (79-97) 03/02/19 04:30 MCH 32 pg (28-32) 03/02/19 04:30 MCHC 34 % (30-34) 03/02/19 04:30 RDW 15.0 % (13.2-15.2) 03/02/19 04:30 Plt Count 328 K/mm3 (140-440) 03/02/19 04:30 Lymph % (Auto) 30.6 % (13.4-35.0) 02/27/19 12:39 [place] % (Auto) 11.5 % (0.0-7.3) H 02/27/19 12:39 Eos % (Auto) 0.8 % (0.0-4.3) 02/27/19 12:39 Baso % (Auto) 0.3 % (0.0-1.8) 02/27/19 12:39 Lymph # 2.7 K/mm3 (1.2-5.4) 02/27/19 12:39 [place] # 1.0 K/mm3 (0.0-0.8) H 02/27/19 12:39 Eos # 0.1 K/mm3 (0.0-0.4) 02/27/19 12:39 Baso # 0.0 K/mm3 (0.0-0.1) 02/27/19 12:39 Seg Neutrophils % 56.8 % (40.0-70.0) 02/27/19 12:39 Seg Neutrophils # 5.1 K/mm3 (1.8-7.7) 02/27/19 12:39 PT 14.2 Sec. (12.2-14.9) 02/27/19 19:28 INR 1.04 (0.87-1.13) 02/27/19 19:28 APTT 31.9 Sec. (24.2-36.6) 02/27/19 19:28 Heparin Anti-Xa Level 0.29 U.I./ml (0.3-0.7) L 03/01/19 09:25 Sodium 135 mmol/L (137-145) L 03/02/19 04:30 Potassium 4.2 mmol/L (3.6-5.0) 03/02/19 04:30 Chloride 99.3 mmol/L (98-107) 03/02/19 04:30 Carbon Dioxide 25 mmol/L (22-30) 03/02/19 04:30 15 mmol/L 03/02/19 04:30 BUN 14 mg/dL (7-17) 03/02/19 04:30 0.9 mg/dL (0.7-1.2) 03/02/19 04:30 Estimated GFR > 60 ml/min 03/02/19 04:30 16 % 03/02/19 04:30 Glucose 112 mg/dL (65-100) H 03/02/19 04:30 Calcium 9.4 mg/dL (8.4-10.2) 03/02/19 04:30 0.30 mg/dL (0.1-1.2) 02/28/19 04:33 AST 10 units/L (5-40) 02/28/19 04:33 ALT 5 units/L (7-56) L 02/28/19 04:33 77 units/L (35-129) 02/28/19 04:33 6.4 g/dL (6.3-8.2) 02/28/19 04:33 3.4 g/dL (3.9-5) L 02/28/19 04:33 1.1 % 02/28/19 04:33 Active Medications - Current Medications Current Medications: Generic Name Dose Route Start Last Admin Trade Name Freq PRN Reason Stop Dose Admin Acetaminophen 650 mg 02/27/19 19:09 Tylenol PO Q4H PRN Pain MILD(1-3)/Fever >100.5/GONZALES Acetaminophen/Codeine Phosphate 1 tab 02/27/19 15:05 03/02/19 06:47 Tylenol #3 PO 1 tab Q6HR PRN Administration Pain, Moderate (4-6) Acetaminophen/Hydrocodone Bitart 1 each 02/27/19 15:05 03/02/19 15:54 [place] 10/325 PO 1 each Q4H PRN Administration Pain, Moderate (4-6) Albuterol 2.5 mg 02/27/19 20:00 03/02/19 15:00 Proventil IH 2.5 mg TIDRT KLEVER Administration Albuterol 2.5 mg 02/27/19 19:09 Proventil IH Q4HRT PRN Shortness Of Breath Alprazolam 0.25 mg 02/27/19 15:05 03/01/19 22:30 Xanax PO 0.25 mg QPM PRN Administration Anxiety Amiodarone HCl 200 mg 02/28/19 10:00 03/02/19 10:24 Cordarone PO 200 mg DAILY KLEVER Administration Amitriptyline HCl 10 mg 02/28/19 10:00 03/02/19 10:26 Elavil PO 10 mg DAILY KLEVER Administration Budesonide 0.5 mg 02/27/19 20:00 03/02/19 14:58 Pulmicort IH Not Given Q12HRT KLEVER Diltiazem HCl 60 mg 02/27/19 20:00 03/02/19 15:58 Cardizem PO 60 mg TID KLEVER Administration Duloxetine HCl 60 mg 02/28/19 10:00 03/02/19 10:26 Cymbalta PO 60 mg QDAY KLEVER Administration Gabapentin 100 mg 02/27/19 22:00 03/02/19 15:55 Neurontin PO 100 mg Q8HR KLEVER Administration Sodium Chloride 3,000 mls @ 100 mls/hr 02/27/19 20:00 Nacl 0.45% 1000 Ml IV DIRECT KLEVER Heparin Sodium/Sodium Chloride 25,000 unit in 500 mls @ 16 mls/hr 02/27/19 20:00 03/02/19 05:29 Heparin/ 0.45% Nacl-25,000 Unit/500 Ml IV 1,200 units/hr TITR KLEVER 24 mls/hr Administration Protocol 800 UNITS/HR Levothyroxine Sodium 88 mcg 02/28/19 06:00 03/02/19 05:27 Synthroid PO 88 mcg DAILY@0600 KLEVER Administration Lisinopril 10 mg 02/28/19 10:00 03/01/19 17:41 Zestril PO Not Given QDAY [facility] Metoprolol Tartrate 25 mg 02/28/19 10:00 03/02/19 10:27 Lopressor PO 25 mg DAILY KLEVER Administration Multivitamins 1 each 02/28/19 10:00 03/02/19 10:24 Theragran Tab PO 1 each QDAY [facility] Administration Ondansetron HCl 4 mg 02/27/19 19:09 Zofran IV Q8H PRN Nausea And Vomiting Pantoprazole Sodium 40 mg 02/28/19 10:00 03/02/19 10:26 Protonix PO 40 mg DAILY KLEVER Administration Sodium Chloride 10 ml 02/27/19 22:00 03/02/19 10:28 Sodium Chloride Flush Syringe 10 Ml IV 10 ml BID KLEVER Administration Sodium Chloride 10 ml 02/27/19 19:09 Sodium Chloride Flush Syringe 10 Ml IV PRN PRN LINE FLUSH Spironolactone 25 mg 02/27/19 22:00 03/02/19 10:26 Aldactone PO 25 mg BID KLEVER Administration Sucralfate 1 gm 02/27/19 16:30 03/02/19 13:00 Carafate PO 1 gm ACHS KLEVER Administration
[2019-03-02] MEDS: XANAX PO PRN (21:39)
[2019-03-03] MEDS: NORCO 10/325 PO PRN ×5 (03:30→21:34)
[2019-03-03] MEDS: HEPARIN/ 0.45% NACL-25,000 UNIT/500 ML 25,000 UNIT/500 ML BAG IV SCH (04:15)
[2019-03-03] MEDS: SYNTHROID PO SCH (05:24)
[2019-03-03] MEDS: NEURONTIN PO SCH ×3 (05:24→21:30)
[2019-03-03 06:09] LABS: Hematocrit 28.8 % (30.3-42.9); Hemoglobin 9.6 gm/dl (10.1-14.3); Mean Corpuscular HGB Conc 33 % (30-34); Mean Corpuscular Volume 94 fl (79-97); Platelet Count 294 K/mm3 (140-440); Red Blood Count 3.07 M/mm3 (3.65-5.03); Red Cell Distribution Width 15.1 % (13.2-15.2)
[2019-03-03 06:24] LABS: Calcium 8.6 mg/dL (8.4-10.2)
[2019-03-03] MEDS: PULMICORT IH SCH ×2 (07:59→19:11)
[2019-03-03] MEDS: PROVENTIL IH SCH ×3 (07:59→19:11)
[2019-03-03] MEDS: CARAFATE PO SCH ×4 (08:18→21:30)
[2019-03-03] MEDS: PROTONIX PO SCH (09:32)
[2019-03-03] MEDS: CARDIZEM PO SCH ×3 (09:32→21:30)
[2019-03-03] MEDS: ELAVIL PO SCH (09:32)
[2019-03-03] MEDS: LOPRESSOR PO SCH (09:32)
[2019-03-03] MEDS: ZESTRIL PO SCH (09:32)
[2019-03-03] MEDS: THERAGRAN Tab PO SCH (09:32)
[2019-03-03] MEDS: CYMBALTA PO SCH (09:32)
[2019-03-03] MEDS: CORDARONE PO SCH (09:33)
[2019-03-03] MEDS: ALDACTONE PO SCH ×2 (09:33→21:30)
[2019-03-03] MEDS: SODIUM CHLORIDE FLUSH SYRINGE 10 ML IV SCH ×2 (09:34→21:36)
--- NOTE | 2019-03-03 10:58 | Progress Note ---
Assessment and Plan This pt presented with an ischemic right lower ext. Unfortunately, this is a recurrent issue, and attempts at revascularization were unsuccessful. I had a very long conversation with the pt discussing her options: 1. Amputation - given her arterial supply we would attempt a BKA. This is not garenteed to heal, but would make learning to ambulate with an artificial limb much easier. If this did not heal it would result in the need for an AKA. 2. Attempts at pain control, and discharge. Her leg would likely further deteriorate. She certainly is at risk of wound infection, sepsis, and potentially . Pain control would likely become less and less effective (with prolonged narcotic use). Poor pain control could result in her becoming less ambulatory, and subsequently bedridden. This would result in further deconditioning. Making rehab much more difficult should she later decide to proceed with an amputation. I answered all questions. I left giving her time to consider her options. I later followed up. She has decided to proceed with an amputation. I will review the schedule for early next week. - Patient Problems (1) Ischemia of right lower extremity Current Visit: No Status: Acute (2) Peripheral artery disease Current Visit: Yes Status: Acute (3) History of GI bleed Current Visit: Yes Status: Acute (4) COPD (chronic obstructive pulmonary disease) Current Visit: Yes Status: Acute Qualifiers: Chronic bronchitis type: mixed simple and mucopurulent (5) GERD (gastroesophageal reflux disease) Current Visit: Yes Status: Acute Qualifiers: Esophagitis presence: without esophagitis Qualified Code(s): K21.9 - Gastro-esophageal reflux disease without esophagitis (6) HTN (hypertension) Current Visit: Yes Status: Acute Qualifiers: Hypertension type: essential hypertension Qualified Code(s): I10 - Essential (primary) hypertension (7) Nicotine dependence Current Visit: Yes Status: Acute Qualifiers: Nicotine product type: cigarettes Subjective Date of service: 03/03/19 Interval history: Pt awake and alert. She's without new complaint at present. Objective - Constitutional Vitals: Vital Signs - 12hr 03/02/19 03/02/19 03/02/19 22:55 23:51 23:55 Temperature 98.0 F Pulse Rate 58 L Pulse Rate [ Throughout] Respiratory 17 18 17 Rate Respiratory Rate [ Throughout] Blood Pressure 125/51 O2 Sat by Pulse 90 Oximetry 03/03/19 03/03/19 03/03/19 03:30 04:16 04:30 Temperature 97.5 F L Pulse Rate 61 Pulse Rate [ Throughout] Respiratory 17 20 17 Rate Respiratory Rate [ Throughout] Blood Pressure 136/45 O2 Sat by Pulse 92 Oximetry 03/03/19 03/03/19 03/03/19 07:56 07:59 08:02 Temperature 98.5 F Pulse Rate 60 Pulse Rate [ 61 Throughout] Respiratory 18 Rate Respiratory 18 Rate [ Throughout] Blood Pressure 133/41 O2 Sat by Pulse 95 99 Oximetry 03/03/19 08:10 Temperature Pulse Rate Pulse Rate [ 66 Throughout] Respiratory Rate Respiratory 16 Rate [ Throughout] Blood Pressure O2 Sat by Pulse Oximetry General appearance: Present: no acute distress - EENT Eyes: EOM intact ENT: hearing intact - Respiratory Respiratory effort: normal Extremity abnormal: other (ischemic rubor to the right foot. Non-healing wound to the distal right calf.) - Neurologic Neurologic: no focal deficits - Psychiatric Psychiatric: appropriate mood/affect, intact judgment & insight, cooperative - Labs CBC & Chem 7: 03/03/19 05:38 03/03/19 05:38 Labs: Abnormal lab results 03/03/19 03/03/19 Range/Units 05:38 05:38 RBC 3.07 L (3.65-5.03) M/mm3 Hgb 9.6 L (10.1-14.3) gm/dl Hct 28.8 L (30.3-42.9) % Sodium 132 L (137-145) mmol/L Chloride 96.5 L (98-107) mmol/L Glucose 105 H (65-100) mg/dL Medications & Allergies - Medications Allergies/Adverse Reactions: Allergies No Known Allergies Allergy (Verified 10/14/18 21:18) Home Medications: Home Medications Medication Instructions Recorded Confirmed Last Taken Type Apixaban [Eliquis] 5 mg PO BID 07/06/18 02/27/19 07/06/18 06:00 History 5mg Levothyroxine Sodium [Synthroid] 88 mcg PO DAILY 07/06/18 02/27/19 07/05/18 History 88mcg Lisinopril [Zestril TAB] 10 mg PO DAILY 07/06/18 02/27/19 07/05/18 History 10mg Metoprolol [Lopressor TAB] 25 mg PO BID 07/06/18 02/27/19 07/06/18 History 25mg Gabapentin [Neurontin] 100 mg PO Q8HR #90 capsule 08/04/18 02/27/19 Unknown Rx Amitriptyline [Elavil] 10 mg PO DAILY 02/27/19 02/27/19 Unknown History Omeprazole 40 mg PO BID 02/27/19 02/27/19 Unknown History Pantoprazole [Protonix] 40 mg PO DAILY 02/27/19 02/27/19 Unknown History Spironolactone [Aldactone] 25 mg PO BID 02/27/19 02/27/19 Unknown History traMADol [Ultram] 50 mg PO Q6HR PRN 02/27/19 02/27/19 Unknown History Active Medications: Generic Name Dose Route Start Last Admin Trade Name Freq PRN Reason Stop Dose Admin Acetaminophen 650 mg 02/27/19 19:09 Tylenol PO Q4H PRN Pain MILD(1-3)/Fever >100.5/GONZALES Acetaminophen/Codeine Phosphate 1 tab 02/27/19 15:05 03/02/19 06:47 Tylenol #3 PO 1 tab Q6HR PRN Administration Pain, Moderate (4-6) Acetaminophen/Hydrocodone Bitart 1 each 02/27/19 15:05 03/03/19 08:18 [place] 10/325 PO 1 each Q4H PRN Administration Pain, Moderate (4-6) Albuterol 2.5 mg 02/27/19 20:00 03/03/19 07:59 Proventil IH 2.5 mg TIDRT KLEVER Administration Albuterol 2.5 mg 02/27/19 19:09 Proventil IH Q4HRT PRN Shortness Of Breath Alprazolam 0.25 mg 02/27/19 15:05 03/02/19 21:39 Xanax PO 0.25 mg QPM PRN Administration Anxiety Amiodarone HCl 200 mg 02/28/19 10:00 03/03/19 09:33 Cordarone PO 200 mg DAILY KLEVER Administration Amitriptyline HCl 10 mg 02/28/19 10:00 03/03/19 09:32 Elavil PO 10 mg DAILY KLEVER Administration Budesonide 0.5 mg 02/27/19 20:00 03/03/19 07:59 Pulmicort IH 0.5 mg Q12HRT KLEVER Administration Diltiazem HCl 60 mg 02/27/19 20:00 03/03/19 09:32 Cardizem PO 60 mg TID KLEVER Administration Duloxetine HCl 60 mg 02/28/19 10:00 03/03/19 09:32 Cymbalta PO 60 mg QDAY KLEVER Administration Gabapentin 100 mg 02/27/19 22:00 03/03/19 05:24 Neurontin PO 100 mg Q8HR KLEVER Administration Sodium Chloride 3,000 mls @ 100 mls/hr 02/27/19 20:00 Nacl 0.45% 1000 Ml IV DIRECT KLEVER Heparin Sodium/Sodium Chloride 25,000 unit in 500 mls @ 16 mls/hr 02/27/19 20:00 03/03/19 04:15 Heparin/ 0.45% Nacl-25,000 Unit/500 Ml IV 1,200 units/hr TITR KLEVER 24 mls/hr Administration Protocol 800 UNITS/HR Levothyroxine Sodium 88 mcg 02/28/19 06:00 03/03/19 05:24 Synthroid PO 88 mcg DAILY@0600 KLEVER Administration Lisinopril 10 mg 02/28/19 10:00 03/03/19 09:32 Zestril PO 10 mg QDAY KLEVER Administration Metoprolol Tartrate 25 mg 02/28/19 10:00 03/03/19 09:32 Lopressor PO 25 mg DAILY KLEVER Administration Multivitamins 1 each 02/28/19 10:00 03/03/19 09:32 Theragran Tab PO 1 each QDAY KLEVER Administration Ondansetron HCl 4 mg 02/27/19 19:09 Zofran IV Q8H PRN Nausea And Vomiting Pantoprazole Sodium 40 mg 02/28/19 10:00 03/03/19 09:32 Protonix PO 40 mg DAILY KLEVER Administration Sodium Chloride 10 ml 02/27/19 22:00 03/03/19 09:34 Sodium Chloride Flush Syringe 10 Ml IV 10 ml BID KLEVER Administration Sodium Chloride 10 ml 02/27/19 19:09 Sodium Chloride Flush Syringe 10 Ml IV PRN PRN LINE FLUSH Spironolactone 25 mg 02/27/19 22:00 03/03/19 09:33 Aldactone PO 25 mg BID KLEVER Administration Sucralfate 1 gm 02/27/19 16:30 03/03/19 08:18 Carafate PO 1 gm ACHS KLEVER Administration
--- NOTE | 2019-03-03 14:15 | Progress Note ---
Assessment and Plan Assessment and plan: Patient is a 78 yo woman with a history of HTN, COPD, DVT, Atrial Fib on Therapeutic anticoagulation but stopped a/c in Oct 2018 due to GI bleed, Hypothyroidism, GERD, chronic non healing right lower leg ulcer with PAD and Nicotine Dependence who presented with right leg pains even at rest. She follows up for a regularly scheduled wound care appt and was seen and told to go to the ED. She was found to have ARF with CR of 1.6 and concerns of acute limb ischemia. So, Vascular surgery consulted in ED and patient started on IV Heparin drip. Date of procedure: 03/01/2019 Pre-operative diagnosis: Peripheral vascular disease with resting ischemia right leg Post-operative diagnosis: Same Procedure name(s): Insertion of catheter right popliteal artery from left groin approach #2 single leg runoff with new views of the tibial arteries not previously present on prior angiogram #3 ultrasound guided cannulation left common femoral artery She continues to complain of significant right lower extremity discomfort and has poor non-healing wound to the right lateral lower leg. Attempt at revascularization was unsuccessful. A right BKA is her best option for pain control since revascularization was unsuccessful. Discussed all in detail with her. Risks of nonoperative treatment discussed including higher limb amputation, infection, continued pain, . She would like to think about the surgery and leg amputation and is not ready to consent at this time. -Peripheral Arterial occlusive disease, right leg rest pains s/p unsuccessful revascularization on 03/01/19: Vascular Surgeon recommended amputation, pt will consider -Ischemic Right leg: treat with IV heparin drip with close monitoring of h/h and plt counts/cbc -COPD (chronic obstructive pulmonary disease): Supplemental oxygen, nebulizer therapy, NIPPV as clinically indicated, early ambulation, smoking cessation, risk factor reduction. -Acute renal failure, ATN, poa: resolved, monitor bmp closely -Paroxysmal atrial fibrillation with RVR: Rate control, remote telemetry, th erapeutic anticoagulation, supportive care -DVT prophylaxis: on iv heparin drip -Nicotine dependence: smoking cessation counseling, supportive care. -HTN (hypertension): Monitor bp q shift, continue medical management -GERD (gastroesophageal reflux disease): ppi therapy, supportive care. Disposition: continue inpatient care, iv heparin drip, anticipated Right leg BKA on Wednesday, d/w Vascular History Interval history: Patient was seen and examined. Follow-up on current diagnosis PAD, still with right leg pains. No overnight events reported to me. Patient denies any chest pain, shortness breath, nausea/vomiting or severe headaches. Imaging, nursing note, chart, labs and old chart reviewed. Discussed with patient. Hospitalist Physical - Physical exam Narrative exam: Gen: WDWN, NAD, Awake, Alert, Orientated HEENT: NCAT, EOMI, PERRL, OP Clear Neck: supple, no adenopathy, no thyromegaly, no JVD CVS/Heart: RRR, normal S1S2, pulses abnormal right foot Chest/Lungs: CTA B, Symmetrical chest expansion, good air entry bilaterally GI/Abdomen: soft, NTND, good bowel sounds, no guarding or rebound /Bladder: no suprapubic tenderness, no CVA or paraspinal tenderness Breast: left breast has hardened implant Extermity/Skin: Ischemic changes present right lower extremity. Foot cool to touch. Wound present right lateral lower leg, dressing dry intact. Left lower extremity nonpalpable pedal pulses warm to touch MSK: FROM x 4 Neuro: CN 2-12 grossly intact, no new focal deficits Psych: calm - Constitutional Vitals: Temp Pulse Resp BP Pulse Ox 97.8 F 64 16 133/46 92 03/03/19 12:15 03/03/19 14:01 03/03/19 14:01 03/03/19 12:15 03/03/19 12:15 General appearance: Present: no acute distress Results - Labs CBC & Chem 7: 03/03/19 05:38 03/03/19 05:38 Labs: Laboratory Last Values WBC 7.0 K/mm3 (4.5-11.0) 03/03/19 05:38 RBC 3.07 M/mm3 (3.65-5.03) L 03/03/19 05:38 Hgb 9.6 gm/dl (10.1-14.3) L 03/03/19 05:38 Hct 28.8 % (30.3-42.9) L 03/03/19 05:38 MCV 94 fl (79-97) 03/03/19 05:38 MCH 31 pg (28-32) 03/03/19 05:38 MCHC 33 % (30-34) 03/03/19 05:38 RDW 15.1 % (13.2-15.2) 03/03/19 05:38 Plt Count 294 K/mm3 (140-440) 03/03/19 05:38 Lymph % (Auto) 30.6 % (13.4-35.0) 02/27/19 12:39 [place] % (Auto) 11.5 % (0.0-7.3) H 02/27/19 12:39 Eos % (Auto) 0.8 % (0.0-4.3) 02/27/19 12:39 Baso % (Auto) 0.3 % (0.0-1.8) 02/27/19 12:39 Lymph # 2.7 K/mm3 (1.2-5.4) 02/27/19 12:39 [place] # 1.0 K/mm3 (0.0-0.8) H 02/27/19 12:39 Eos # 0.1 K/mm3 (0.0-0.4) 02/27/19 12:39 Baso # 0.0 K/mm3 (0.0-0.1) 02/27/19 12:39 Seg Neutrophils % 56.8 % (40.0-70.0) 02/27/19 12:39 Seg Neutrophils # 5.1 K/mm3 (1.8-7.7) 02/27/19 12:39 PT 14.2 Sec. (12.2-14.9) 02/27/19 19:28 INR 1.04 (0.87-1.13) 02/27/19 19:28 APTT 31.9 Sec. (24.2-36.6) 02/27/19 19:28 Heparin Anti-Xa Level 0.32 U.I./ml (0.3-0.7) 03/02/19 17:10 Sodium 132 mmol/L (137-145) L 03/03/19 05:38 Potassium 4.6 mmol/L (3.6-5.0) 03/03/19 05:38 Chloride 96.5 mmol/L (98-107) L 03/03/19 05:38 Carbon Dioxide 24 mmol/L (22-30) 03/03/19 05:38 16 mmol/L 03/03/19 05:38 BUN 16 mg/dL (7-17) 03/03/19 05:38 1.1 mg/dL (0.7-1.2) 03/03/19 05:38 Estimated GFR 48 ml/min 03/03/19 05:38 15 % 03/03/19 05:38 Glucose 105 mg/dL (65-100) H 03/03/19 05:38 POC Glucose 98 (70-105) 03/03/19 08:03 Calcium 8.6 mg/dL (8.4-10.2) 03/03/19 05:38 0.30 mg/dL (0.1-1.2) 02/28/19 04:33 AST 10 units/L (5-40) 02/28/19 04:33 ALT 5 units/L (7-56) L 02/28/19 04:33 77 units/L (35-129) 02/28/19 04:33 6.4 g/dL (6.3-8.2) 02/28/19 04:33 3.4 g/dL (3.9-5) L 02/28/19 04:33 1.1 % 02/28/19 04:33 Active Medications - Current Medications Current Medications: Generic Name Dose Route Start Last Admin Trade Name Freq PRN Reason Stop Dose Admin Acetaminophen 650 mg 02/27/19 19:09 Tylenol PO Q4H PRN Pain MILD(1-3)/Fever >100.5/GONZALES Acetaminophen/Codeine Phosphate 1 tab 02/27/19 15:05 03/02/19 06:47 Tylenol #3 PO 1 tab Q6HR PRN Administration Pain, Moderate (4-6) Acetaminophen/Hydrocodone Bitart 1 each 02/27/19 15:05 03/03/19 11:49 [place] 10/325 PO 1 each Q4H PRN Administration Pain, Moderate (4-6) Albuterol 2.5 mg 02/27/19 20:00 03/03/19 13:52 Proventil IH 2.5 mg TIDRT KLEVER Administration Albuterol 2.5 mg 02/27/19 19:09 Proventil IH Q4HRT PRN Shortness Of Breath Alprazolam 0.25 mg 02/27/19 15:05 03/02/19 21:39 Xanax PO 0.25 mg QPM PRN Administration Anxiety Amiodarone HCl 200 mg 02/28/19 10:00 03/03/19 09:33 Cordarone PO 200 mg DAILY KLEVER Administration Amitriptyline HCl 10 mg 02/28/19 10:00 03/03/19 09:32 Elavil PO 10 mg DAILY KLEVER Administration Budesonide 0.5 mg 02/27/19 20:00 03/03/19 07:59 Pulmicort IH 0.5 mg Q12HRT KLEVER Administration Diltiazem HCl 60 mg 02/27/19 20:00 03/03/19 09:32 Cardizem PO 60 mg TID KLEVER Administration Duloxetine HCl 60 mg 02/28/19 10:00 03/03/19 09:32 Cymbalta PO 60 mg QDAY KLEVER Administration Gabapentin 100 mg 02/27/19 22:00 03/03/19 05:24 Neurontin PO 100 mg Q8HR KLEVER Administration Sodium Chloride 3,000 mls @ 100 mls/hr 02/27/19 20:00 Nacl 0.45% 1000 Ml IV DIRECT KLEVER Heparin Sodium/Sodium Chloride 25,000 unit in 500 mls @ 16 mls/hr 02/27/19 20:00 03/03/19 04:15 Heparin/ 0.45% Nacl-25,000 Unit/500 Ml IV 1,200 units/hr TITR KLEVER 24 mls/hr Administration Protocol 800 UNITS/HR Levothyroxine Sodium 88 mcg 02/28/19 06:00 03/03/19 05:24 Synthroid PO 88 mcg DAILY@0600 KLEVER Administration Lisinopril 10 mg 02/28/19 10:00 03/03/19 09:32 Zestril PO 10 mg QDAY KLEVER Administration Metoprolol Tartrate 25 mg 02/28/19 10:00 03/03/19 09:32 Lopressor PO 25 mg DAILY KLEVER Administration Multivitamins 1 each 02/28/19 10:00 03/03/19 09:32 Theragran Tab PO 1 each QDAY KLEVER Administration Ondansetron HCl 4 mg 02/27/19 19:09 Zofran IV Q8H PRN Nausea And Vomiting Pantoprazole Sodium 40 mg 02/28/19 10:00 03/03/19 09:32 Protonix PO 40 mg DAILY KLEVER Administration Sodium Chloride 10 ml 02/27/19 22:00 03/03/19 09:34 Sodium Chloride Flush Syringe 10 Ml IV 10 ml BID KLEVER Administration Sodium Chloride 10 ml 02/27/19 19:09 Sodium Chloride Flush Syringe 10 Ml IV PRN PRN LINE FLUSH Spironolactone 25 mg 02/27/19 22:00 03/03/19 09:33 Aldactone PO 25 mg BID KLEVER Administration Sucralfate 1 gm 02/27/19 16:30 03/03/19 11:43 Carafate PO 1 gm ACHS KLEVER Administration
[2019-03-03] MEDS: XANAX PO PRN (21:33)
[2019-03-04] MEDS: TYLENOL #3 PO PRN ×2 (01:17→22:59)
[2019-03-04] MEDS: HEPARIN/ 0.45% NACL-25,000 UNIT/500 ML 25,000 UNIT/500 ML BAG IV SCH (01:18)
[2019-03-04] MEDS: NORCO 10/325 PO PRN ×4 (05:15→19:46)
[2019-03-04] MEDS: NEURONTIN PO SCH ×3 (05:16→22:31)
[2019-03-04] MEDS: SYNTHROID PO SCH (05:16)
[2019-03-04] MEDS: CARDIZEM PO SCH ×3 (09:20→19:55)
[2019-03-04] MEDS: CORDARONE PO SCH (09:22)
[2019-03-04] MEDS: PROTONIX PO SCH (09:22)
[2019-03-04] MEDS: ZESTRIL PO SCH (09:22)
[2019-03-04] MEDS: LOPRESSOR PO SCH (09:22)
[2019-03-04] MEDS: ALDACTONE PO SCH ×2 (09:22→22:00)
[2019-03-04] MEDS: ELAVIL PO SCH (09:22)
[2019-03-04] MEDS: THERAGRAN Tab PO SCH (09:22)
[2019-03-04] MEDS: CARAFATE PO SCH ×4 (09:22→22:31)
[2019-03-04] MEDS: CYMBALTA PO SCH (09:22)
[2019-03-04] MEDS: SODIUM CHLORIDE FLUSH SYRINGE 10 ML IV SCH ×2 (09:26→22:00)
[2019-03-04] MEDS: PROVENTIL IH SCH ×3 (10:26→21:25)
[2019-03-04] MEDS: PULMICORT IH SCH ×2 (10:26→21:25)
--- NOTE | 2019-03-04 13:06 | Progress Note ---
Assessment and Plan Assessment and plan: Patient is a 78 yo woman with a history of HTN, COPD, DVT, Atrial Fib on Therapeutic anticoagulation but stopped a/c in Oct 2018 due to GI bleed, Hypothyroidism, GERD, chronic non healing right lower leg ulcer with PAD and Nicotine Dependence who presented with right leg pains even at rest. She follows up for a regularly scheduled wound care appt and was seen and told to go to the ED. She was found to have ARF with CR of 1.6 and concerns of acute limb ischemia. So, Vascular surgery consulted in ED and patient started on IV Heparin drip. Date of procedure: 03/01/2019 Pre-operative diagnosis: Peripheral vascular disease with resting ischemia right leg Post-operative diagnosis: Same Procedure name(s): Insertion of catheter right popliteal artery from left groin approach #2 single leg runoff with new views of the tibial arteries not previously present on prior angiogram #3 ultrasound guided cannulation left common femoral artery She continues to complain of significant right lower extremity discomfort and has poor non-healing wound to the right lateral lower leg. Attempt at revascularization was unsuccessful. A right BKA is her best option for pain control since revascularization was unsuccessful. Discussed all in detail with her. Risks of nonoperative treatment discussed including higher limb amputation, infection, continued pain, . She would like to think about the surgery and leg amputation and is not ready to consent at this time. -Peripheral Arterial occlusive disease, right leg rest pains s/p unsuccessful revascularization on 03/01/19: Vascular Surgeon recommended amputation, pt will consider -Ischemic Right leg: treat with IV heparin drip with close monitoring of h/h and plt counts/cbc -COPD (chronic obstructive pulmonary disease): Supplemental oxygen, nebulizer therapy, NIPPV as clinically indicated, early ambulation, smoking cessation, risk factor reduction. -Acute renal failure, ATN, poa: resolved, monitor bmp closely -Paroxysmal atrial fibrillation with RVR: Rate control, remote telemetry, th erapeutic anticoagulation, supportive care -DVT prophylaxis: on iv heparin drip -Nicotine dependence: smoking cessation counseling, supportive care. -HTN (hypertension): Monitor bp q shift, continue medical management -GERD (gastroesophageal reflux disease): ppi therapy, supportive care. Disposition: continue inpatient care, iv heparin drip, anticipated Right leg BKA on Wednesday, d/w Vascular History Interval history: Patient was seen and examined. Follow-up on current diagnosis PAD, still with right leg pains. No overnight events reported to me. Patient denies any chest pain, shortness breath, nausea/vomiting or severe headaches. Imaging, nursing no te, chart, labs and old chart reviewed. Discussed with patient. Hospitalist Physical - Physical exam Narrative exam: Gen: WDWN, NAD, Awake, Alert, Orientated HEENT: NCAT, EOMI, PERRL, OP Clear Neck: supple, no adenopathy, no thyromegaly, no JVD CVS/Heart: RRR, normal S1S2, pulses abnormal right foot Chest/Lungs: CTA B, Symmetrical chest expansion, good air entry bilaterally GI/Abdomen: soft, NTND, good bowel sounds, no guarding or rebound /Bladder: no suprapubic tenderness, no CVA or paraspinal tenderness Breast: left breast has hardened implant Extermity/Skin: Ischemic changes present right lower extremity. Foot cool to touch. Wound present right lateral lower leg, dressing dry intact. Left lower extremity nonpalpable pedal pulses warm to touch MSK: FROM x 4 Neuro: CN 2-12 grossly intact, no new focal deficits Psych: calm - Constitutional Vitals: Temp Pulse Resp BP Pulse Ox 97.7 F 49 L 14 111/38 91 03/04/19 08:00 03/04/19 10:35 03/04/19 10:35 03/04/19 12:11 03/04/19 08:00 General appearance: Present: no acute distress Results - Labs CBC & Chem 7: 03/03/19 05:38 03/03/19 05:38 Labs: Laboratory Last Values WBC 7.0 K/mm3 (4.5-11.0) 03/03/19 05:38 RBC 3.07 M/mm3 (3.65-5.03) L 03/03/19 05:38 Hgb 9.6 gm/dl (10.1-14.3) L 03/03/19 05:38 Hct 28.8 % (30.3-42.9) L 03/03/19 05:38 MCV 94 fl (79-97) 03/03/19 05:38 MCH 31 pg (28-32) 03/03/19 05:38 MCHC 33 % (30-34) 03/03/19 05:38 RDW 15.1 % (13.2-15.2) 03/03/19 05:38 Plt Count 294 K/mm3 (140-440) 03/03/19 05:38 Lymph % (Auto) 30.6 % (13.4-35.0) 02/27/19 12:39 [place] % (Auto) 11.5 % (0.0-7.3) H 02/27/19 12:39 Eos % (Auto) 0.8 % (0.0-4.3) 02/27/19 12:39 Baso % (Auto) 0.3 % (0.0-1.8) 02/27/19 12:39 Lymph # 2.7 K/mm3 (1.2-5.4) 02/27/19 12:39 [place] # 1.0 K/mm3 (0.0-0.8) H 02/27/19 12:39 Eos # 0.1 K/mm3 (0.0-0.4) 02/27/19 12:39 Baso # 0.0 K/mm3 (0.0-0.1) 02/27/19 12:39 Seg Neutrophils % 56.8 % (40.0-70.0) 02/27/19 12:39 Seg Neutrophils # 5.1 K/mm3 (1.8-7.7) 02/27/19 12:39 PT 14.2 Sec. (12.2-14.9) 02/27/19 19:28 INR 1.04 (0.87-1.13) 02/27/19 19:28 APTT 31.9 Sec. (24.2-36.6) 02/27/19 19:28 Heparin Anti-Xa Level 0.31 U.I./ml (0.3-0.7) 03/03/19 17:32 Sodium 132 mmol/L (137-145) L 03/03/19 05:38 Potassium 4.6 mmol/L (3.6-5.0) 03/03/19 05:38 Chloride 96.5 mmol/L (98-107) L 03/03/19 05:38 Carbon Dioxide 24 mmol/L (22-30) 03/03/19 05:38 16 mmol/L 03/03/19 05:38 BUN 16 mg/dL (7-17) 03/03/19 05:38 1.1 mg/dL (0.7-1.2) 03/03/19 05:38 Estimated GFR 48 ml/min 03/03/19 05:38 15 % 03/03/19 05:38 Glucose 105 mg/dL (65-100) H 03/03/19 05:38 POC Glucose 98 (70-105) 03/03/19 08:03 Calcium 8.6 mg/dL (8.4-10.2) 03/03/19 05:38 0.30 mg/dL (0.1-1.2) 02/28/19 04:33 AST 10 units/L (5-40) 02/28/19 04:33 ALT 5 units/L (7-56) L 02/28/19 04:33 77 units/L (35-129) 02/28/19 04:33 6.4 g/dL (6.3-8.2) 02/28/19 04:33 3.4 g/dL (3.9-5) L 02/28/19 04:33 1.1 % 02/28/19 04:33 Active Medications - Current Medications Current Medications: Generic Name Dose Route Start Last Admin Trade Name Freq PRN Reason Stop Dose Admin Acetaminophen 650 mg 02/27/19 19:09 Tylenol PO Q4H PRN Pain MILD(1-3)/Fever >100.5/GONZALES Acetaminophen/Codeine Phosphate 1 tab 02/27/19 15:05 03/04/19 01:17 Tylenol #3 PO 1 tab Q6HR PRN Administration Pain, Moderate (4-6) Acetaminophen/Hydrocodone Bitart 1 each 02/27/19 15:05 03/04/19 09:21 [place] 10/325 PO 1 each Q4H PRN Administration Pain, Moderate (4-6) Albuterol 2.5 mg 02/27/19 20:00 03/04/19 10:26 Proventil IH 2.5 mg TIDRT KLEVER Administration Albuterol 2.5 mg 02/27/19 19:09 Proventil IH Q4HRT PRN Shortness Of Breath Alprazolam 0.25 mg 02/27/19 15:05 03/03/19 21:33 Xanax PO 0.25 mg QPM PRN Administration Anxiety Amiodarone HCl 200 mg 02/28/19 10:00 03/04/19 09:22 Cordarone PO 200 mg DAILY KLEVER Administration Amitriptyline HCl 10 mg 02/28/19 10:00 03/04/19 09:22 Elavil PO 10 mg DAILY KLEVER Administration Budesonide 0.5 mg 02/27/19 20:00 03/04/19 10:26 Pulmicort IH 0.5 mg Q12HRT KLEVER Administration Diltiazem HCl 60 mg 02/27/19 20:00 03/04/19 09:20 Cardizem PO 60 mg TID KLEVER Administration Duloxetine HCl 60 mg 02/28/19 10:00 03/04/19 09:22 Cymbalta PO 60 mg QDAY KLEVER Administration Gabapentin 100 mg 02/27/19 22:00 03/04/19 05:16 Neurontin PO 100 mg Q8HR KLEVER Administration Sodium Chloride 3,000 mls @ 100 mls/hr 02/27/19 20:00 Nacl 0.45% 1000 Ml IV DIRECT KLEVER Heparin Sodium/Sodium Chloride 25,000 unit in 500 mls @ 16 mls/hr 02/27/19 20:00 03/04/19 01:18 Heparin/ 0.45% Nacl-25,000 Unit/500 Ml IV 1,200 units/hr TITR KLEVER 24 mls/hr Administration Protocol 800 UNITS/HR Levothyroxine Sodium 88 mcg 02/28/19 06:00 03/04/19 05:16 Synthroid PO 88 mcg DAILY@0600 KLEVER Administration Lisinopril 10 mg 02/28/19 10:00 03/04/19 09:22 Zestril PO 10 mg QDAY KLEVER Administration Metoprolol Tartrate 25 mg 02/28/19 10:00 03/04/19 09:22 Lopressor PO 25 mg DAILY KLEVER Administration Multivitamins 1 each 02/28/19 10:00 03/04/19 09:22 Theragran Tab PO 1 each QDAY KLEVER Administration Ondansetron HCl 4 mg 02/27/19 19:09 Zofran IV Q8H PRN Nausea And Vomiting Pantoprazole Sodium 40 mg 02/28/19 10:00 03/04/19 09:22 Protonix PO 40 mg DAILY KLEVER Administration Sodium Chloride 10 ml 02/27/19 22:00 03/04/19 09:26 Sodium Chloride Flush Syringe 10 Ml IV 10 ml BID KLEVER Administration Sodium Chloride 10 ml 02/27/19 19:09 Sodium Chloride Flush Syringe 10 Ml IV PRN PRN LINE FLUSH Spironolactone 25 mg 02/27/19 22:00 03/04/19 09:22 Aldactone PO 25 mg BID KLEVER Administration Sucralfate 1 gm 02/27/19 16:30 03/04/19 12:33 Carafate PO 1 gm ACHS KLEVER Administration
[2019-03-04] MEDS: XANAX PO PRN (22:31)
[2019-03-05] MEDS: NORCO 10/325 PO PRN ×3 (01:50→16:32)
[2019-03-05 04:50] LABS: Hematocrit 28.8 % (30.3-42.9); Hemoglobin 9.8 gm/dl (10.1-14.3)
[2019-03-05] MEDS: TYLENOL #3 PO PRN ×2 (05:17→13:23)
[2019-03-05] MEDS: SYNTHROID PO SCH (06:34)
[2019-03-05] MEDS: NEURONTIN PO SCH ×3 (06:34→21:56)
[2019-03-05] MEDS: CYMBALTA PO SCH (09:23)
[2019-03-05] MEDS: CARAFATE PO SCH ×4 (09:23→21:56)
[2019-03-05] MEDS: ALDACTONE PO SCH ×2 (09:23→22:43)
[2019-03-05] MEDS: THERAGRAN Tab PO SCH (09:23)
[2019-03-05] MEDS: CORDARONE PO SCH (09:24)
[2019-03-05] MEDS: LOPRESSOR PO SCH (09:24)
[2019-03-05] MEDS: PROTONIX PO SCH (09:24)
[2019-03-05] MEDS: ZESTRIL PO SCH (09:26)
[2019-03-05] MEDS: ELAVIL PO SCH (09:26)
[2019-03-05] MEDS: SODIUM CHLORIDE FLUSH SYRINGE 10 ML IV SCH ×2 (09:27→21:44)
[2019-03-05] MEDS: CARDIZEM PO SCH ×3 (09:41→22:41)
[2019-03-05] MEDS: PULMICORT IH SCH ×2 (11:07→20:06)
[2019-03-05] MEDS: PROVENTIL IH SCH (11:07)
--- NOTE | 2019-03-05 12:00 | Progress Note ---
Assessment and Plan Assessment and plan: Patient is a 78 yo woman with a history of HTN, COPD, DVT, Atrial Fib on Therapeutic anticoagulation but stopped a/c in Oct 2018 due to GI bleed, Hypothyroidism, GERD, chronic non healing right lower leg ulcer with PAD and Nicotine Dependence who presented with right leg pains even at rest. She follows up for a regularly scheduled wound care appt and was seen and told to go to the ED. She was found to have ARF with CR of 1.6 and concerns of acute limb ischemia. So, Vascular surgery consulted in ED and patient started on IV Heparin drip. Date of procedure: 03/01/2019 Pre-operative diagnosis: Peripheral vascular disease with resting ischemia right leg Post-operative diagnosis: Same Procedure name(s): Insertion of catheter right popliteal artery from left groin approach #2 single leg runoff with new views of the tibial arteries not previously present on prior angiogram #3 ultrasound guided cannulation left common femoral artery She continues to complain of significant right lower extremity discomfort and has poor non-healing wound to the right lateral lower leg. Attempt at revascularization was unsuccessful. A right BKA is her best option for pain control since revascularization was unsuccessful. Discussed all in detail with her. Risks of nonoperative treatment discussed including higher limb amputation, infection, continued pain, . She would like to think about the surgery and leg amputation and is not ready to consent at this time. -Peripheral Arterial occlusive disease, right leg rest pains s/p unsuccessful revascularization on 03/01/19: Vascular Surgeon recommended amputation, pt will consider -Ischemic Right leg: treat with IV heparin drip with close monitoring of h/h and plt counts/cbc -COPD (chronic obstructive pulmonary disease): Supplemental oxygen, nebulizer therapy, NIPPV as clinically indicated, early ambulation, smoking cessation, risk factor reduction. -Acute renal failure, ATN, poa: resolved, monitor bmp closely -Paroxysmal atrial fibrillation with RVR: Rate control, remote telemetry, th erapeutic anticoagulation, supportive care -DVT prophylaxis: on iv heparin drip -Nicotine dependence: smoking cessation counseling, supportive care. -HTN (hypertension): Monitor bp q shift, continue medical management -GERD (gastroesophageal reflux disease): ppi therapy, supportive care. Disposition: continue inpatient care, iv heparin drip, anticipated Right leg BKA on Wednesday, d/w Vascular History Interval history: Patient was seen and examined. Follow-up on current diagnosis PAD, still with right leg pains. No overnight events reported to me. Patient denies any chest pain, shortness breath, nausea/vomiting or severe headaches. Imaging, nursing no te, chart, labs and old chart reviewed. Discussed with patient. Hospitalist Physical - Physical exam Narrative exam: Gen: WDWN, NAD, Awake, Alert, Orientated HEENT: NCAT, EOMI, PERRL, OP Clear Neck: supple, no adenopathy, no thyromegaly, no JVD CVS/Heart: RRR, normal S1S2, pulses abnormal right foot Chest/Lungs: CTA B, Symmetrical chest expansion, good air entry bilaterally GI/Abdomen: soft, NTND, good bowel sounds, no guarding or rebound /Bladder: no suprapubic tenderness, no CVA or paraspinal tenderness Breast: left breast has hardened implant Extermity/Skin: Ischemic changes present right lower extremity. Foot cool to touch. Wound present right lateral lower leg, dressing dry intact. Left lower extremity nonpalpable pedal pulses warm to touch MSK: FROM x 4 Neuro: CN 2-12 grossly intact, no new focal deficits Psych: calm - Constitutional Vitals: Temp Pulse Resp BP Pulse Ox 98.5 F 94 H 15 125/62 96 03/05/19 08:30 03/05/19 11:14 03/05/19 11:14 03/05/19 08:30 03/05/19 10:00 General appearance: Present: no acute distress Results - Labs CBC & Chem 7: 03/05/19 04:36 03/03/19 05:38 Labs: Laboratory Last Values WBC 7.0 K/mm3 (4.5-11.0) 03/03/19 05:38 RBC 3.07 M/mm3 (3.65-5.03) L 03/03/19 05:38 Hgb 9.8 gm/dl (10.1-14.3) L 03/05/19 04:36 Hct 28.8 % (30.3-42.9) L 03/05/19 04:36 MCV 94 fl (79-97) 03/03/19 05:38 MCH 31 pg (28-32) 03/03/19 05:38 MCHC 33 % (30-34) 03/03/19 05:38 RDW 15.1 % (13.2-15.2) 03/03/19 05:38 Plt Count 293 K/mm3 (140-440) 03/05/19 04:36 Lymph % (Auto) 30.6 % (13.4-35.0) 02/27/19 12:39 [place] % (Auto) 11.5 % (0.0-7.3) H 02/27/19 12:39 Eos % (Auto) 0.8 % (0.0-4.3) 02/27/19 12:39 Baso % (Auto) 0.3 % (0.0-1.8) 02/27/19 12:39 Lymph # 2.7 K/mm3 (1.2-5.4) 02/27/19 12:39 [place] # 1.0 K/mm3 (0.0-0.8) H 02/27/19 12:39 Eos # 0.1 K/mm3 (0.0-0.4) 02/27/19 12:39 Baso # 0.0 K/mm3 (0.0-0.1) 02/27/19 12:39 Seg Neutrophils % 56.8 % (40.0-70.0) 02/27/19 12:39 Seg Neutrophils # 5.1 K/mm3 (1.8-7.7) 02/27/19 12:39 PT 14.2 Sec. (12.2-14.9) 02/27/19 19:28 INR 1.04 (0.87-1.13) 02/27/19 19:28 APTT 31.9 Sec. (24.2-36.6) 02/27/19 19:28 Heparin Anti-Xa Level 0.38 U.I./ml (0.3-0.7) 03/05/19 08:44 Sodium 132 mmol/L (137-145) L 03/03/19 05:38 Potassium 4.6 mmol/L (3.6-5.0) 03/03/19 05:38 Chloride 96.5 mmol/L (98-107) L 03/03/19 05:38 Carbon Dioxide 24 mmol/L (22-30) 03/03/19 05:38 16 mmol/L 03/03/19 05:38 BUN 16 mg/dL (7-17) 03/03/19 05:38 1.1 mg/dL (0.7-1.2) 03/03/19 05:38 Estimated GFR 48 ml/min 03/03/19 05:38 15 % 03/03/19 05:38 Glucose 105 mg/dL (65-100) H 03/03/19 05:38 POC Glucose 98 (70-105) 03/03/19 08:03 Calcium 8.6 mg/dL (8.4-10.2) 03/03/19 05:38 0.30 mg/dL (0.1-1.2) 02/28/19 04:33 AST 10 units/L (5-40) 02/28/19 04:33 ALT 5 units/L (7-56) L 02/28/19 04:33 77 units/L (35-129) 02/28/19 04:33 6.4 g/dL (6.3-8.2) 02/28/19 04:33 3.4 g/dL (3.9-5) L 02/28/19 04:33 1.1 % 02/28/19 04:33 Active Medications - Current Medications Current Medications: Generic Name Dose Route Start Last Admin Trade Name Freq PRN Reason Stop Dose Admin Acetaminophen 650 mg 02/27/19 19:09 Tylenol PO Q4H PRN Pain MILD(1-3)/Fever >100.5/GONZALES Acetaminophen/Codeine Phosphate 1 tab 02/27/19 15:05 03/05/19 05:17 Tylenol #3 PO 1 tab Q6HR PRN Administration Pain, Moderate (4-6) Acetaminophen/Hydrocodone Bitart 1 each 02/27/19 15:05 03/05/19 09:32 Jal 10/325 PO 1 each Q4H PRN Administration Pain, Moderate (4-6) Albuterol 2.5 mg 02/27/19 19:09 Proventil IH Q4HRT PRN Shortness Of Breath Alprazolam 0.25 mg 02/27/19 15:05 03/04/19 22:31 Xanax PO 0.25 mg QPM PRN Administration Anxiety Amiodarone HCl 200 mg 02/28/19 10:00 03/05/19 09:24 Cordarone PO 200 mg DAILY KLEVER Administration Amitriptyline HCl 10 mg 02/28/19 10:00 03/05/19 09:26 Elavil PO 10 mg DAILY KLEVER Administration Arformoterol Tartrate 15 mcg 03/05/19 20:00 Brovana Nebu IH Q12HRT KLEVER Budesonide 0.5 mg 02/27/19 20:00 03/05/19 11:07 Pulmicort IH 0.5 mg Q12HRT KLEVER Administration Diltiazem HCl 60 mg 02/27/19 20:00 03/05/19 09:41 Cardizem PO Not Given TID KLEVER Duloxetine HCl 60 mg 02/28/19 10:00 03/05/19 09:23 Cymbalta PO 60 mg QDAY KLEVER Administration Gabapentin 100 mg 02/27/19 22:00 03/05/19 06:34 Neurontin PO 100 mg Q8HR KLEVER Administration Sodium Chloride 3,000 mls @ 100 mls/hr 02/27/19 20:00 Nacl 0.45% 1000 Ml IV DIRECT KLEVER Heparin Sodium/Sodium Chloride 25,000 unit in 500 mls @ 16 mls/hr 02/27/19 20:00 03/05/19 01:57 Heparin/ 0.45% Nacl-25,000 Unit/500 Ml IV Infused TITR KLEVER Titration Protocol 800 UNITS/HR Levothyroxine Sodium 88 mcg 02/28/19 06:00 03/05/19 06:34 Synthroid PO 88 mcg DAILY@0600 KLEVER Administration Lisinopril 10 mg 02/28/19 10:00 03/05/19 09:26 Zestril PO 10 mg QDAY KLEVER Administration Metoprolol Tartrate 25 mg 02/28/19 10:00 03/05/19 09:24 Lopressor PO 25 mg DAILY KLEVER Administration Multivitamins 1 each 02/28/19 10:00 03/05/19 09:23 Theragran Tab PO 1 each QDAY KLEVER Administration Ondansetron HCl 4 mg 02/27/19 19:09 Zofran IV Q8H PRN Nausea And Vomiting Pantoprazole Sodium 40 mg 02/28/19 10:00 03/05/19 09:24 Protonix PO 40 mg DAILY KLEVER Administration Sodium Chloride 10 ml 02/27/19 22:00 03/05/19 09:27 Sodium Chloride Flush Syringe 10 Ml IV 10 ml BID KLEVER Administration Sodium Chloride 10 ml 02/27/19 19:09 Sodium Chloride Flush Syringe 10 Ml IV PRN PRN LINE FLUSH Spironolactone 25 mg 02/27/19 22:00 03/05/19 09:23 Aldactone PO 25 mg BID KLEVER Administration Sucralfate 1 gm 02/27/19 16:30 03/05/19 09:23 Carafate PO 1 gm ACHS KLEVER Administration
[2019-03-05] MEDS: HEPARIN/ 0.45% NACL-25,000 UNIT/500 ML 25,000 UNIT/500 ML BAG IV SCH (16:31)
[2019-03-05] MEDS: BROVANA NEBU IH SCH (20:06)
[2019-03-05 23:21] LABS: Basophils % (Auto) 0.2 % (0.0-1.8); Eosinophils # (Auto) 0.1 K/mm3 (0.0-0.4); Eosinophils % (Auto) 1.1 % (0.0-4.3); Hematocrit 28.8 % (30.3-42.9); Hemoglobin 9.8 gm/dl (10.1-14.3); Lymphocytes # (Auto) 1.9 K/mm3 (1.2-5.4); Lymphocytes % (Auto) 29.6 % (13.4-35.0); Mean Corpuscular HGB Conc 34 % (30-34); Mean Corpuscular Volume 95 fl (79-97); Monocytes # (Auto) 0.7 K/mm3 (0.0-0.8); Platelet Count 325 K/mm3 (140-440); Red Blood Count 3.04 M/mm3 (3.65-5.03); Red Cell Distribution Width 15.4 % (13.2-15.2)
[2019-03-06] MEDS: NORCO 10/325 PO PRN ×2 (02:29→06:59)
[2019-03-06] MEDS: SYNTHROID PO SCH (05:28)
[2019-03-06] MEDS: NEURONTIN PO SCH ×3 (05:29→21:49)
[2019-03-06] MEDS: PULMICORT IH SCH ×2 (08:24→20:33)
[2019-03-06] MEDS: BROVANA NEBU IH SCH ×2 (08:24→20:33)
[2019-03-06] MEDS: CARAFATE PO SCH ×4 (08:40→21:50)
[2019-03-06] MEDS: CARDIZEM PO SCH ×3 (08:48→21:49)
[2019-03-06] MEDS: TYLENOL #3 PO PRN (09:52)
[2019-03-06] MEDS: CYMBALTA PO SCH (10:59)
[2019-03-06] MEDS: CORDARONE PO SCH (10:59)
[2019-03-06] MEDS: ELAVIL PO SCH (10:59)
[2019-03-06] MEDS: LOPRESSOR PO SCH (10:59)
[2019-03-06] MEDS: ALDACTONE PO SCH ×2 (11:04→21:49)
[2019-03-06] MEDS: PROTONIX PO SCH (11:05)
[2019-03-06] MEDS: SODIUM CHLORIDE FLUSH SYRINGE 10 ML IV SCH (11:05)
[2019-03-06] MEDS: THERAGRAN Tab PO SCH (11:06)
[2019-03-06] MEDS: ZESTRIL PO SCH (11:06)
--- NOTE | 2019-03-06 12:33 | Progress Note ---
Assessment and Plan Assessment and plan: Patient is a 78 yo woman with a history of HTN, COPD, DVT, Atrial Fib on Therapeutic anticoagulation but stopped a/c in Oct 2018 due to GI bleed, Hypothyroidism, GERD, chronic non healing right lower leg ulcer with PAD and Nicotine Dependence who presented with right leg pains even at rest. She follows up for a regularly scheduled wound care appt and was seen and told to go to the ED. She was found to have ARF with CR of 1.6 and concerns of acute limb ischemia. So, Vascular surgery consulted in ED and patient started on IV Heparin drip. Date of procedure: 03/01/2019 Pre-operative diagnosis: Peripheral vascular disease with resting ischemia right leg Post-operative diagnosis: Same Procedure name(s): Insertion of catheter right popliteal artery from left groin approach #2 single leg runoff with new views of the tibial arteries not previously present on prior angiogram #3 ultrasound guided cannulation left common femoral artery She continues to complain of significant right lower extremity discomfort and has poor non-healing wound to the right lateral lower leg. Attempt at revascularization was unsuccessful. A right BKA is her best option for pain control since revascularization was unsuccessful. Discussed all in detail with her. Risks of nonoperative treatment discussed including higher limb amputation, infection, continued pain, . She would like to think about the surgery and leg amputation and is not ready to consent at this time. -Peripheral Arterial occlusive disease, right leg rest pains s/p unsuccessful revascularization on 03/01/19: Vascular Surgeon recommended amputation, pt will consider -Ischemic Right leg: treat with IV heparin drip with close monitoring of h/h and plt counts/cbc -COPD (chronic obstructive pulmonary disease): Supplemental oxygen, nebulizer therapy, NIPPV as clinically indicated, early ambulation, smoking cessation, risk factor reduction. -Acute renal failure, ATN, poa: resolved, monitor bmp closely -Paroxysmal atrial fibrillation with RVR: Rate control, remote telemetry, erapeutic anticoagulation, supportive care -DVT prophylaxis: on iv heparin drip -Nicotine dependence: smoking cessation counseling, supportive care. -HTN (hypertension): Monitor bp q shift, continue medical management -GERD (gastroesophageal reflux disease): ppi therapy, supportive care. Disposition: continue inpatient care, iv heparin drip, anticipated Right leg BKA on Wednesday, d/w Vascular on Wednesday ?Amputation today History Interval history: Patient was seen and examined. Follow-up on current diagnosis PAD, still with right leg pains. No overnight events reported to me. Patient denies any chest pain, shortness breath, nausea/vomiting or severe headaches. Imaging, nursing note, chart, labs and old chart reviewed. Discussed with patient. Hospitalist Physical - Physical exam Narrative exam: Gen: WDWN, NAD, Awake, Alert, Orientated HEENT: NCAT, EOMI, PERRL, OP Clear Neck: supple, no adenopathy, no thyromegaly, no JVD CVS/Heart: RRR, normal S1S2, pulses abnormal right foot Chest/Lungs: CTA B, Symmetrical chest expansion, good air entry bilaterally GI/Abdomen: soft, NTND, good bowel sounds, no guarding or rebound /Bladder: no suprapubic tenderness, no CVA or paraspinal tenderness Breast: left breast has hardened implant Extermity/Skin: Ischemic changes present right lower extremity. Foot cool to touch. Wound present right lateral lower leg, dressing dry intact. Left lower extremity nonpalpable pedal pulses warm to touch MSK: FROM x 4 Neuro: CN 2-12 grossly intact, no new focal deficits Psych: calm - Constitutional Vitals: Temp Pulse Resp BP Pulse Ox 98.3 F 87 16 189/83 96 03/06/19 12:16 03/06/19 12:16 03/06/19 12:16 03/06/19 12:16 03/06/19 12:16 General appearance: Present: no acute distress Results - Labs CBC & Chem 7: 03/05/19 22:57 03/03/19 05:38 Labs: Laboratory Last Values WBC 6.5 K/mm3 (4.5-11.0) 03/05/19 22:57 RBC 3.04 M/mm3 (3.65-5.03) L 03/05/19 22:57 Hgb 9.8 gm/dl (10.1-14.3) L 03/05/19 22:57 Hct 28.8 % (30.3-42.9) L 03/05/19 22:57 MCV 95 fl (79-97) 03/05/19 22:57 MCH 32 pg (28-32) 03/05/19 22:57 MCHC 34 % (30-34) 03/05/19 22:57 RDW 15.4 % (13.2-15.2) H 03/05/19 22:57 Plt Count 325 K/mm3 (140-440) 03/05/19 22:57 Lymph % (Auto) 29.6 % (13.4-35.0) 03/05/19 22:57 [place] % (Auto) 11.0 % (0.0-7.3) H 03/05/19 22:57 Eos % (Auto) 1.1 % (0.0-4.3) 03/05/19 22:57 Baso % (Auto) 0.2 % (0.0-1.8) 03/05/19 22:57 Lymph # 1.9 K/mm3 (1.2-5.4) 03/05/19 22:57 [place] # 0.7 K/mm3 (0.0-0.8) 03/05/19 22:57 Eos # 0.1 K/mm3 (0.0-0.4) 03/05/19 22:57 Baso # 0.0 K/mm3 (0.0-0.1) 03/05/19 22:57 Seg Neutrophils % 58.1 % (40.0-70.0) 03/05/19 22:57 Seg Neutrophils # 3.7 K/mm3 (1.8-7.7) 03/05/19 22:57 PT 14.2 Sec. (12.2-14.9) 02/27/19 19:28 INR 1.04 (0.87-1.13) 02/27/19 19:28 APTT 31.9 Sec. (24.2-36.6) 02/27/19 19:28 Heparin Anti-Xa Level 0.27 U.I./ml (0.3-0.7) L 03/06/19 09:56 Sodium 132 mmol/L (137-145) L 03/03/19 05:38 Potassium 4.6 mmol/L (3.6-5.0) 03/03/19 05:38 Chloride 96.5 mmol/L (98-107) L 03/03/19 05:38 Carbon Dioxide 24 mmol/L (22-30) 03/03/19 05:38 16 mmol/L 03/03/19 05:38 BUN 16 mg/dL (7-17) 03/03/19 05:38 1.1 mg/dL (0.7-1.2) 03/03/19 05:38 Estimated GFR 48 ml/min 03/03/19 05:38 15 % 03/03/19 05:38 Glucose 105 mg/dL (65-100) H 03/03/19 05:38 POC Glucose 98 (70-105) 03/03/19 08:03 Lactic Acid 0.90 mmol/L (0.7-2.0) 03/05/19 22:57 Calcium 8.6 mg/dL (8.4-10.2) 03/03/19 05:38 0.30 mg/dL (0.1-1.2) 02/28/19 04:33 AST 10 units/L (5-40) 02/28/19 04:33 ALT 5 units/L (7-56) L 02/28/19 04:33 77 units/L (35-129) 02/28/19 04:33 6.4 g/dL (6.3-8.2) 02/28/19 04:33 3.4 g/dL (3.9-5) L 02/28/19 04:33 1.1 % 02/28/19 04:33 Active Medications - Current Medications Current Medications: Generic Name Dose Route Start Last Admin Trade Name Freq PRN Reason Stop Dose Admin Acetaminophen 650 mg 02/27/19 19:09 03/05/19 23:08 Tylenol PO 650 mg Q4H PRN Administration Pain MILD(1-3)/Fever >100.5/GONZALES Acetaminophen/Codeine Phosphate 1 tab 02/27/19 15:05 03/06/19 09:52 Tylenol #3 PO 1 tab Q6HR PRN Administration Pain, Moderate (4-6) Acetaminophen/Hydrocodone Bitart 1 each 02/27/19 15:05 03/06/19 06:59 [place] 10/325 PO 1 each Q4H PRN Administration Pain, Moderate (4-6) Albuterol 2.5 mg 02/27/19 19:09 Proventil IH Q4HRT PRN Shortness Of Breath Alprazolam 0.25 mg 02/27/19 15:05 03/04/19 22:31 Xanax PO 0.25 mg QPM PRN Administration Anxiety Amiodarone HCl 200 mg 02/28/19 10:00 03/06/19 10:59 Cordarone PO 200 mg DAILY KLEVER Administration Amitriptyline HCl 10 mg 02/28/19 10:00 03/06/19 10:59 Elavil PO 10 mg DAILY KLEVER Administration Arformoterol Tartrate 15 mcg 03/05/19 20:00 03/06/19 08:24 Brovana Nebu IH 15 mcg Q12HRT KLEVER Administration Budesonide 0.5 mg 02/27/19 20:00 03/06/19 08:24 Pulmicort IH 0.5 mg Q12HRT KLEVER Administration Diltiazem HCl 60 mg 02/27/19 20:00 03/06/19 08:48 Cardizem PO Not Given TID KLEVER Duloxetine HCl 60 mg 02/28/19 10:00 03/06/19 10:59 Cymbalta PO 60 mg QDAY KLEVER Administration Gabapentin 100 mg 02/27/19 22:00 03/06/19 05:29 Neurontin PO 100 mg Q8HR KLEVER Administration Sodium Chloride 3,000 mls @ 100 mls/hr 02/27/19 20:00 Nacl 0.45% 1000 Ml IV DIRECT KLEVER Heparin Sodium/Sodium Chloride 25,000 unit in 500 mls @ 16 mls/hr 02/27/19 20:00 03/05/19 16:31 Heparin/ 0.45% Nacl-25,000 Unit/500 Ml IV 1,300 units/hr TITR KLEVER 26 mls/hr Administration Protocol 800 UNITS/HR Levothyroxine Sodium 88 mcg 02/28/19 06:00 03/06/19 05:28 Synthroid PO 88 mcg DAILY@0600 KLEVER Administration Lisinopril 10 mg 02/28/19 10:00 03/06/19 11:06 Zestril PO Not Given QDAY KLEVER Metoprolol Tartrate 25 mg 02/28/19 10:00 03/06/19 10:59 Lopressor PO 25 mg DAILY KLEVER Administration Multivitamins 1 each 02/28/19 10:00 03/06/19 11:06 Theragran Tab PO 1 each QDAY KLEVER Administration Ondansetron HCl 4 mg 02/27/19 19:09 Zofran IV Q8H PRN Nausea And Vomiting Pantoprazole Sodium 40 mg 02/28/19 10:00 03/06/19 11:05 Protonix PO Not Given DAILY KLEVER Sodium Chloride 10 ml 02/27/19 22:00 03/06/19 11:05 Sodium Chloride Flush Syringe 10 Ml IV 10 ml BID KLEVER Administration Sodium Chloride 10 ml 02/27/19 19:09 Sodium Chloride Flush Syringe 10 Ml IV PRN PRN LINE FLUSH Spironolactone 25 mg 02/27/19 22:00 03/06/19 11:04 Aldactone PO Not Given BID KLEVER Sucralfate 1 gm 02/27/19 16:30 03/06/19 11:08 Carafate PO Not Given ACHS KLEVER
--- NOTE | 2019-03-06 12:39 | Event Note ---
Date: 03/06/19 Discussed situation w patient in holding area. She continues to have unrelenting pain in the right leg. Discussed the risks and benefits of amputation below the knee. Patient agrees to proceed.
[2019-03-06] MEDS ORDERED: SUBLIMAZE IV ONE (12:50)
[2019-03-06] MEDS ORDERED: ANCEF/STERILE WATER 2 GM/20 ML IV NR (12:53)
--- NOTE | 2019-03-06 12:57 | Anesthesia Consultation ---
Anesthesia Consult and Med Hx Date of service: 03/06/19 - Airway Anesthetic Teeth Evaluation: Poor ROM Head & Neck: Adequate Mental/Hyoid Distance: Adequate Mallampati Class: Class III Intubation Access Assessment: Possibly Difficult - Pulmonary Exam CTA: Yes - Cardiac Exam Cardiac Exam: RRR - Pre-Operative Health Status ASA Pre-Surgery Classification: ASA3 Proposed Anesthetic Plan: General - Pulmonary Hx Smoking: Yes (current smoker 1/2 PPD) Hx Asthma: No COPD: Yes Home Oxygen Therapy: No ([place] while inpatient) Hx Sleep Apnea: No - Cardiovascular System Hx Hypertension: Yes Hx Coronary Artery Disease: No Hx Heart Attack/AMI: No (>4mets exercise tolerance previously now limited by leg pain) Hx Angina: No Hx Percutaneous Transluminal Coronary Angioplasty (PTCA): No Hx Cardia Arrhythmia: Yes (a-fib) Hx Pacemaker: No Hx Internal Defibrillator: No Hx Peripheral Vascular Disease: Yes (PAD with unsuccessful revascularization procedure) - Central Nervous System CVA: No Hx Psychiatric Problems: No - Gastrointestinal Hx Gastroesophageal Reflux Disease: Yes (controlled) - Endocrine Hx Renal Disease: No Hx Liver Disease: No Hx Insulin Dependent Diabetes: No Hx Non-Insulin Dependent Diabetes: No Hx Thyroid Disease: No - Hematic Hx Anemia: Yes - Other Systems Hx Alcohol Use: No Hx Substance Use: No Hx Obesity: No - Additional Comments Anesthesia Medical History Comments: No hx anesthetic complications.
--- NOTE | 2019-03-06 12:57 | Anesthesia Day of Surgery ---
Anesthesia Day of Surgery - Day of Surgery Patient Examined: Yes Patient H&P Reviewed: Yes Patient is NPO: Yes Beta Blockers: Yes
[2019-03-06] MEDS ORDERED: LACTATED RINGERS 1,000 ML ONE (12:59)
[2019-03-06] MEDS: LACTATED RINGERS 1,000 ML IV SCH ×2 (13:00→20:15)
[2019-03-06] MEDS ORDERED: MARCAINE 0.5% INFILTRATI ONE ×2 (13:10→14:12)
[2019-03-06] MEDS ORDERED: XYLOCAINE CARDIAC IV ONE (13:55)
[2019-03-06] MEDS ORDERED: NACL 0.9% IR ONE (14:12)
[2019-03-06] MEDS ORDERED: SUBLIMAZE ONE (14:16)
[2019-03-06] MEDS ORDERED: DIPRIVAN 10 MG/ML IV ONE (14:17)
[2019-03-06] MEDS ORDERED: ZOFRAN ONE (14:56)
[2019-03-06] MEDS ORDERED: ROBINUL ONE (14:56)
[2019-03-06] MEDS ORDERED: NEO SYNEPHRINE/NS Syringe(OR USE) IV ONE (14:56)
[2019-03-06] MEDS ORDERED: DECADRON ONE (14:56)
[2019-03-06] MEDS ORDERED: BREVIBLOC IV ONE (14:56)
[2019-03-06] MEDS ORDERED: NARCAN 0.4 MG/1 ML IV PRN (15:56)
[2019-03-06] MEDS: DILAUDID IV PRN ×2 (15:57→16:10)
[2019-03-06] MEDS ORDERED: MORPHINE PCA 30MG/30ML IV SCH (16:00)
[2019-03-06] MEDS ORDERED: NACL 0.9% 1000 ML 1,000 ML IV SCH (16:00)
--- NOTE | 2019-03-06 16:02 | Operative Report ---
Operative Report Operative Report: Right below Knee Amputation Date of procedure: 03/06/2019 Pre-operative diagnosis: Ischemic rest pain and ulceration right lower extremity Post-operative diagnosis: Same Procedure name(s): Right below knee amputation Surgeon: Carson Molina MD, FSVS [employer] Attendant: BEBE Lyon and Lainey Mcconnell NP Anesthesia: Gen. with local supplementation EBL: Less than Than 100 mL Operative indication: Patient is a 78-year-old woman with severe peripheral arterial disease. She has rest pain and ischemia and nonhealing ulcers. She has constant pain in the right lower extremity. She has no reconstruction options involving the right lower extremity as she has no tibial artery runoff. Findings: Viable tissue at the margins. Procedure: She was placed on the table in supine position and given appropriate anesthesia. The area over the right leg was prepped with ChloraPrep solution and draped in the usual sterile fashion. The leg was exsanguinated using an Esmarch bandage. The tourniquet was inflated to 250 mmHg. An incision was made over the anterior quiroz of the right lower extremity. This was placed approximately one hand's breath below the tibial tubercle. Dissection was carried out circumferentially creating a posterior flap for closure. The tissue responded to stimulation with the Bovie. All soft tissue was divided. The fibula was divided proximally. The tibia was divided with an anterior bevel. The lower portion of the leg was then removed from the field. A rasp was used to smooth the bone edges. The wound was irrigated with saline solution. The tourniquet was deflated. Meticulous hemostasis was obtained by using suture ligation of bleeding points. The sciatic nerve was identified and suture ligated proximally. Closure was done in an anterior posterior fashion using interrupted 2-0 Vicryl. Skin madelin were used to close the skin. Sponge, needle, and instrument counts were reported as correct. The patient tolerated the procedure well. Sterile dressings and a knee immobilizer were placed at the end of the case. She was taken from the operating room to the recovery room in stable condition.
[2019-03-06] MEDS ORDERED: APRESOLINE IV ONE (16:15)
[2019-03-06] MEDS ORDERED: APRESOLINE IV PRN (16:19)
--- NOTE | 2019-03-06 17:56 | Post Anesthesia Evaluation ---
- Post Anesthesia Evaluation Patient Participated: Yes Airway Patent: Yes Stable Respiratory Function: Yes Nausea/Vomiting: No Temp > 96.8F: Yes Pain Manageable: Yes Adequeate Hydration: Yes Anesthesia Complications: No
[2019-03-07] MEDS: XANAX PO PRN (01:22)
[2019-03-07] MEDS: TYLENOL #3 PO PRN (01:23)
[2019-03-07] MEDS ORDERED: NITROSTAT SL ONE (03:26)
[2019-03-07] MEDS: SODIUM CHLORIDE FLUSH SYRINGE 10 ML IV SCH ×2 (04:19→11:42)
[2019-03-07 04:22] LABS: Hematocrit 30.6 % (30.3-42.9); Hemoglobin 10.3 gm/dl (10.1-14.3)
[2019-03-07] MEDS ORDERED: MORPHINE IV ONE (04:37)
[2019-03-07 04:47] LABS: BUN/Creatinine Ratio 21; Blood Urea Nitrogen 15 mg/dL (7-17); Calcium 9.8 mg/dL (8.4-10.2); Hemolysis Index 2
[2019-03-07 04:49] LABS: Creatine Kinase MB 9.5 ng/mL (0.0-4.0)
[2019-03-07] MEDS: NEURONTIN PO SCH ×2 (05:36→16:43)
[2019-03-07] MEDS: SYNTHROID PO SCH (05:36)
[2019-03-07] MEDS: LACTATED RINGERS 1,000 ML IV SCH (07:31)
[2019-03-07] MEDS: PULMICORT IH SCH ×2 (09:26→20:15)
[2019-03-07] MEDS: BROVANA NEBU IH SCH ×2 (09:27→20:15)
[2019-03-07] MEDS: CARAFATE PO SCH ×3 (09:34→17:42)
[2019-03-07] MEDS: ZESTRIL PO SCH (09:34)
[2019-03-07] MEDS: LOPRESSOR PO SCH (09:34)
[2019-03-07] MEDS: THERAGRAN Tab PO SCH (09:34)
[2019-03-07] MEDS: PROTONIX PO SCH (09:35)
[2019-03-07] MEDS: ALDACTONE PO SCH (09:35)
[2019-03-07] MEDS: NORCO 10/325 PO PRN ×2 (09:35→18:43)
[2019-03-07] MEDS: CARDIZEM PO SCH ×2 (09:41→14:47)
[2019-03-07] MEDS: CORDARONE PO SCH (09:41)
[2019-03-07] MEDS: ELAVIL PO SCH (09:41)
--- NOTE | 2019-03-07 10:23 | Progress Note ---
Assessment and Plan Pt s/p RLE BKA POD 1. C/o CP earlier today. Improved spontaneously, but worse with inspiration. 1st set of Troponins negative EKG pending She has c/o cough which started prior to surgery. Will check a CXR. Encouraged pt to use oral analgesics as primary pain control. 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 Will check wounds in the next 24-48 hrs. If CP deemed to be non-cardiac in origin then encouraged pt to increase ac tivity. PT/OT consulted. Discussed plans for post-hospital rehab with pt. She understands and agrees. - Patient Problems (1) Ischemia of right lower extremity Current Visit: No Status: Acute (2) Peripheral artery disease Current Visit: Yes Status: Acute (3) History of GI bleed Current Visit: Yes Status: Acute (4) COPD (chronic obstructive pulmonary disease) Current Visit: Yes Status: Acute Qualifiers: Chronic bronchitis type: mixed simple and mucopurulent (5) GERD (gastroesophageal reflux disease) Current Visit: Yes Status: Acute Qualifiers: Esophagitis presence: without esophagitis Qualified Code(s): K21.9 - Gastro-esophageal reflux disease without esophagitis (6) HTN (hypertension) Current Visit: Yes Status: Acute Qualifiers: Hypertension type: essential hypertension Qualified Code(s): I10 - Essential (primary) hypertension (7) Nicotine dependence Current Visit: Yes Status: Acute Qualifiers: Nicotine product type: cigarettes Subjective Date of service: 03/07/19 Interval history: Pt is awake and alert. She c/o mild to moderate incisional discomfort. Improved with analgesics. C/o chest pain earlier this am. Worse with deep inspiration. Improved spontaneously prior to sublingual nitroglycerin. O/w without complaint at this time. Objective - Constitutional Vitals: Vital Signs - 12hr 03/06/19 03/07/19 03/07/19 22:44 00:44 01:52 Temperature 98 F Pulse Rate 95 H Pulse Rate [ Anterior Bilateral Upper Lobe] Pulse Rate [ Throughout] Respiratory 17 17 18 Rate Respiratory Rate [Anterior Bilateral Upper Lobe] Respiratory Rate [ Throughout] Blood Pressure Blood Pressure 157/69 [Right] O2 Sat by Pulse 92 Oximetry 03/07/19 03/07/19 03/07/19 02:44 04:16 04:22 Temperature 98.4 F Pulse Rate 96 H 96 H Pulse Rate [ Anterior Bilateral Upper Lobe] Pulse Rate [ Throughout] Respiratory 18 18 Rate Respiratory Rate [Anterior Bilateral Upper Lobe] Respiratory Rate [ Throughout] Blood Pressure 164/70 Blood Pressure 164/70 [Right] O2 Sat by Pulse 100 Oximetry 03/07/19 03/07/19 03/07/19 04:44 06:44 09:28 Temperature Pulse Rate Pulse Rate [ Anterior Bilateral Upper Lobe] Pulse Rate [ Throughout] Respiratory 18 18 Rate Respiratory Rate [Anterior Bilateral Upper Lobe] Respiratory Rate [ Throughout] Blood Pressure Blood Pressure [Right] O2 Sat by Pulse 98 Oximetry 03/07/19 09:29 Temperature Pulse Rate Pulse Rate [ 58 L Anterior Bilateral Upper Lobe] Pulse Rate [ 64 Throughout] Respiratory Rate Respiratory 18 Rate [Anterior Bilateral Upper Lobe] Respiratory 18 Rate [ Throughout] Blood Pressure Blood Pressure [Right] O2 Sat by Pulse Oximetry General appearance: Present: no acute distress - EENT Eyes: EOM intact ENT: hearing intact - Neck Neck: supple - Respiratory Respiratory effort: normal (at rest on 2.5liters per min of supplemental oxygen by NC) Extremities: abnormal (RLE knee immobilizer in place, bandages CDI) - Neurologic Neurologic: no focal deficits - Labs CBC & Chem 7: 03/07/19 04:09 03/07/19 04:09 Labs: Abnormal lab results 03/06/19 03/07/19 03/07/19 Range/Units 09:56 04:09 04:09 Heparin Anti-Xa Level 0.27 L (0.3-0.7) U.I./ml Sodium 133 L (137-145) mmol/L Chloride 97.3 L (98-107) mmol/L Glucose 166 H (65-100) mg/dL Total Creatine Kinase 615 H (30-135) units/L CK-MB (CK-2) 9.5 H (0.0-4.0) ng/mL Medications & Allergies - Medications Allergies/Adverse Reactions: Allergies No Known Allergies Allergy (Verified 10/14/18 21:18) Home Medications: Home Medications Medication Instructions Recorded Confirmed Last Taken Type Apixaban [Eliquis] 5 mg PO BID 07/06/18 02/27/19 07/06/18 06:00 History 5mg Levothyroxine Sodium [Synthroid] 88 mcg PO DAILY 10/10/18 06/03/19 10/09/18 History 88mcg Lisinopril [Zestril TAB] 10 mg PO DAILY 07/06/18 02/27/19 07/05/18 History 10mg Metoprolol [Lopressor TAB] 25 mg PO BID 07/06/18 02/27/19 07/06/18 History 25mg Gabapentin [Neurontin] 100 mg PO Q8HR #90 capsule 08/04/18 02/27/19 Unknown Rx Amitriptyline [Elavil] 10 mg PO DAILY 02/27/19 02/27/19 Unknown History Omeprazole 40 mg PO BID 02/27/19 02/27/19 Unknown History Pantoprazole [Protonix] 40 mg PO DAILY 02/27/19 02/27/19 Unknown History Spironolactone [Aldactone] 25 mg PO BID 02/27/19 02/27/19 Unknown History traMADol [Ultram] 50 mg PO Q6HR PRN 02/27/19 02/27/19 Unknown History Active Medications: Generic Name Dose Route Start Last Admin Trade Name Freq PRN Reason Stop Dose Admin Acetaminophen 650 mg 02/27/19 19:09 03/05/19 23:08 Tylenol PO 650 mg Q4H PRN Administration Pain MILD(1-3)/Fever >100.5/GONZALES Acetaminophen/Codeine Phosphate 1 tab 02/27/19 15:05 03/07/19 01:23 Tylenol #3 PO 1 tab Q6HR PRN Administration Pain, Moderate (4-6) Acetaminophen/Hydrocodone Bitart 1 each 02/27/19 15:05 03/07/19 09:35 [place] 10/325 PO 1 each Q4H PRN Administration Pain, Moderate (4-6) Albuterol 2.5 mg 02/27/19 19:09 Proventil IH Q4HRT PRN Shortness Of Breath Alprazolam 0.25 mg 02/27/19 15:05 03/07/19 01:22 Xanax PO 0.25 mg QPM PRN Administration Anxiety Amiodarone HCl 200 mg 02/28/19 10:00 03/07/19 09:41 Cordarone PO 200 mg DAILY KLEVER Administration Amitriptyline HCl 10 mg 02/28/19 10:00 03/07/19 09:41 Elavil PO 10 mg DAILY KLEVER Administration Arformoterol Tartrate 15 mcg 03/05/19 20:00 03/07/19 09:27 Brovana Nebu IH 15 mcg Q12HRT KLEVER Administration Budesonide 0.5 mg 02/27/19 20:00 03/07/19 09:26 Pulmicort IH 0.5 mg Q12HRT KLEVER Administration Diltiazem HCl 60 mg 02/27/19 20:00 03/07/19 09:41 Cardizem PO 60 mg TID KLEVER Administration Duloxetine HCl 60 mg 02/28/19 10:00 03/06/19 10:59 Cymbalta PO 60 mg QDAY KLEVER Administration Gabapentin 100 mg 02/27/19 22:00 03/07/19 05:36 Neurontin PO 100 mg Q8HR KLEVER Administration Heparin Sodium (Porcine) 5,000 unit 03/07/19 14:00 Heparin SUB-Q Q8HR KLEVER Sodium Chloride 3,000 mls @ 100 mls/hr 02/27/19 20:00 Nacl 0.45% 1000 Ml IV DIRECT KLEVER Lactated Ringer's 1,000 mls @ 75 mls/hr 03/06/19 13:00 03/07/19 07:31 Lactated Ringers IV 75 mls/hr DIRECT KLEVER Administration Sodium Chloride 1,000 mls @ 42 mls/hr 03/06/19 16:00 Nacl 0.9% 1000 Ml IV DIRECT KLEVER Levothyroxine Sodium 88 mcg 02/28/19 06:00 03/07/19 05:36 Synthroid PO 88 mcg DAILY@0600 KLEVER Administration Lisinopril 10 mg 02/28/19 10:00 03/07/19 09:34 Zestril PO 10 mg QDAY KLEVER Administration Metoprolol Tartrate 25 mg 02/28/19 10:00 03/07/19 09:34 Lopressor PO 25 mg DAILY KLEVER Administration Morphine Sulfate 0 mg 03/06/19 16:00 03/06/19 16:44 Morphine Clay Caster 30mg/30ml IV 1 cartstart DIRECT KLEVER Administration Protocol Multivitamins 1 each 02/28/19 10:00 03/07/19 09:34 Theragran Tab PO 1 each QDAY KLEVER Administration Naloxone HCl 0.1 mg 03/06/19 15:56 Narcan 0.4 Mg/1 Ml IV Q2MIN PRN Res Rate </= 8 or 02 SAT < 92% Ondansetron HCl 4 mg 02/27/19 19:09 Zofran IV Q8H PRN Nausea And Vomiting Pantoprazole Sodium 40 mg 02/28/19 10:00 03/07/19 09:35 Protonix PO 40 mg DAILY KLEVER Administration Sodium Chloride 10 ml 02/27/19 22:00 03/07/19 04:19 Sodium Chloride Flush Syringe 10 Ml IV 10 ml BID KLEVER Administration Sodium Chloride 10 ml 02/27/19 19:09 Sodium Chloride Flush Syringe 10 Ml IV PRN PRN LINE FLUSH Spironolactone 25 mg 02/27/19 22:00 03/07/19 09:35 Aldactone PO 25 mg BID KLEVER Administration Sucralfate 1 gm 02/27/19 16:30 03/07/19 09:34 Carafate PO 1 gm ACHS KLEVER Administration
[2019-03-07 10:49] LABS: Creatine Kinase MB 12.8 ng/mL (0.0-4.0)
[2019-03-07] MEDS: CYMBALTA PO SCH (10:56)
--- NOTE | 2019-03-07 12:57 | Progress Note ---
Assessment and Plan Assessment and plan: Patient is a 78 yo woman with a history of HTN, COPD, DVT, Atrial Fib on Therapeutic anticoagulation but stopped a/c in Oct 2018 due to GI bleed, Hypothyroidism, GERD, chronic non healing right lower leg ulcer with PAD and Nicotine Dependence who presented with right leg pains even at rest. She follows up for a regularly scheduled wound care appt and was seen and told to go to the ED. She was found to have ARF with CR of 1.6 and concerns of acute limb ischemia. So, Vascular surgery consulted in ED and patient started on IV Heparin drip. Date of procedure: 03/01/2019 Pre-operative diagnosis: Peripheral vascular disease with resting ischemia right leg Post-operative diagnosis: Same Procedure name(s): Insertion of catheter right popliteal artery from left groin approach #2 single leg runoff with new views of the tibial arteries not previously present on prior angiogram #3 ultrasound guided cannulation left common femoral artery She continues to complain of significant right lower extremity discomfort and has poor non-healing wound to the right lateral lower leg. Attempt at revascularization was unsuccessful. A right BKA is her best option for pain control since revascularization was unsuccessful. Discussed all in detail with her. Risks of nonoperative treatment discussed including higher limb amputation, infection, continued pain, . She would like to think about the surgery and leg amputation and is not ready to consent at this time. Operative Report: Right below Knee Amputation Date of procedure: 03/06/2019 Pre-operative diagnosis: Ischemic rest pain and ulceration right lower extremity Post-operative diagnosis: Same Procedure name(s): Right below knee amputation Surgeon: Carson Molina MD, FSVS -s/p Right Leg BKA, Peripheral Arterial occlusive disease, right leg rest pains s/p unsuccessful revascularization on 03/01/19: PT/rehab -Ischemic Right leg: treat with IV heparin drip with close monitoring of h/h and plt counts/cbc -COPD (chronic obstructive pulmonary disease): Supplemental oxygen, nebulizer therapy, NIPPV as clinically indicated, early ambulation, smoking cessation, risk factor reduction. -Acute renal failure, ATN, poa: resolved, monitor bmp closely -Paroxysmal atrial fibrillation with RVR: Rate control, remote telemetry, therapeutic anticoagulation, supportive care -DVT prophylaxis: on iv heparin drip -Nicotine dependence: smoking cessation counseling, supportive care. -HTN (hypertension): Monitor bp q shift, continue medical management -GERD (gastroesophageal reflux disease): ppi therapy, supportive care. Disposition: continue inpatient care, iv heparin drip, anticipated Right leg BKA on Wednesday, d/w Vascular on Wednesday New issue of chest pains: ekg and troponin unrevealing, consult Cardiology, trained her on Incentive spirometry History Interval history: Patient was seen and examined. Follow-up on current diagnosis PAD, still with right leg pains. No overnight events reported to me but c/o left sided chest pains. I reviewed EKG and it was unrevealing. Patient denies any nausea/vomiting or severe headaches. Imaging, nursing note, chart, labs and old chart reviewed. Discussed with patient. Hospitalist Physical - Physical exam Narrative exam: Gen: WDWN, NAD, Awake, Alert, Orientated HEENT: NCAT, EOMI, PERRL, OP Clear Neck: supple, no adenopathy, no thyromegaly, no JVD CVS/Heart: RRR, normal S1S2, pulses abnormal right foot Chest/Lungs: CTA B, Symmetrical chest expansion, good air entry bilaterally, reproducible left chest wall tenderness GI/Abdomen: soft, NTND, good bowel sounds, no guarding or rebound /Bladder: no suprapubic tenderness, no CVA or paraspinal tenderness Breast: left breast has hardened implant Extermity/Skin: Ischemic changes present right lower extremity. Foot cool to touch. Wound present right lateral lower leg, dressing dry intact. Left lower extremity nonpalpable pedal pulses warm to touch MSK: FROM x 4 Neuro: CN 2-12 grossly intact, no new focal deficits Psych: calm - Constitutional Vitals: Temp Pulse Resp BP Pulse Ox 98.4 F 64 18 164/70 98 03/07/19 04:22 03/07/19 09:29 03/07/19 09:29 03/07/19 04:22 03/07/19 09:28 General appearance: Present: no acute distress Results - Labs CBC & Chem 7: 03/07/19 04:09 03/07/19 04:09 Labs: Laboratory Last Values WBC 6.5 K/mm3 (4.5-11.0) 03/05/19 22:57 RBC 3.04 M/mm3 (3.65-5.03) L 03/05/19 22:57 Hgb 10.3 gm/dl (10.1-14.3) 03/07/19 04:09 Hct 30.6 % (30.3-42.9) 03/07/19 04:09 MCV 95 fl (79-97) 03/05/19 22:57 MCH 32 pg (28-32) 03/05/19 22:57 MCHC 34 % (30-34) 03/05/19 22:57 RDW 15.4 % (13.2-15.2) H 03/05/19 22:57 Plt Count 326 K/mm3 (140-440) 03/07/19 04:09 Lymph % (Auto) 29.6 % (13.4-35.0) 03/05/19 22:57 [place] % (Auto) 11.0 % (0.0-7.3) H 03/05/19 22:57 Eos % (Auto) 1.1 % (0.0-4.3) 03/05/19 22:57 Baso % (Auto) 0.2 % (0.0-1.8) 03/05/19 22:57 Lymph # 1.9 K/mm3 (1.2-5.4) 03/05/19 22:57 [place] # 0.7 K/mm3 (0.0-0.8) 03/05/19 22:57 Eos # 0.1 K/mm3 (0.0-0.4) 03/05/19 22:57 Baso # 0.0 K/mm3 (0.0-0.1) 03/05/19 22:57 Seg Neutrophils % 58.1 % (40.0-70.0) 03/05/19 22:57 Seg Neutrophils # 3.7 K/mm3 (1.8-7.7) 03/05/19 22:57 PT 14.2 Sec. (12.2-14.9) 02/27/19 19:28 INR 1.04 (0.87-1.13) 02/27/19 19:28 APTT 31.9 Sec. (24.2-36.6) 02/27/19 19:28 Heparin Anti-Xa Level 0.27 U.I./ml (0.3-0.7) L 03/06/19 09:56 Sodium 133 mmol/L (137-145) L 03/07/19 04:09 Potassium 4.6 mmol/L (3.6-5.0) 03/07/19 04:09 Chloride 97.3 mmol/L (98-107) L 03/07/19 04:09 Carbon Dioxide 23 mmol/L (22-30) 03/07/19 04:09 17 mmol/L 03/07/19 04:09 BUN 15 mg/dL (7-17) 03/07/19 04:09 0.7 mg/dL (0.7-1.2) 03/07/19 04:09 Estimated GFR > 60 ml/min 03/07/19 04:09 21 % 03/07/19 04:09 Glucose 166 mg/dL (65-100) H 03/07/19 04:09 POC Glucose 98 (70-105) 03/03/19 08:03 Lactic Acid 0.90 mmol/L (0.7-2.0) 03/05/19 22:57 Calcium 9.8 mg/dL (8.4-10.2) 03/07/19 04:09 0.30 mg/dL (0.1-1.2) 02/28/19 04:33 AST 10 units/L (5-40) 02/28/19 04:33 ALT 5 units/L (7-56) L 02/28/19 04:33 77 units/L (35-129) 02/28/19 04:33 875 units/L (30-135) H 03/07/19 10:01 CK-MB (CK-2) 12.8 ng/mL (0.0-4.0) H 03/07/19 10:01 CK-MB (CK-2) Rel Index 1.4 (0-4) 03/07/19 10:01 < 0.010 ng/mL (0.00-0.029) 03/07/19 04:09 6.4 g/dL (6.3-8.2) 02/28/19 04:33 3.4 g/dL (3.9-5) L 02/28/19 04:33 1.1 % 02/28/19 04:33 Blood Type A POSITIVE 03/06/19 12:55 Antibody Screen Negative 03/06/19 12:55 Active Medications - Current Medications Current Medications: Generic Name Dose Route Start Last Admin Trade Name Freq PRN Reason Stop Dose Admin Acetaminophen 650 mg 02/27/19 19:09 03/05/19 23:08 Tylenol PO 650 mg Q4H PRN Administration Pain MILD(1-3)/Fever >100.5/GONZALES Acetaminophen/Codeine Phosphate 1 tab 02/27/19 15:05 03/07/19 01:23 Tylenol #3 PO 1 tab Q6HR PRN Administration Pain, Moderate (4-6) Acetaminophen/Hydrocodone Bitart 1 each 02/27/19 15:05 03/07/19 09:35 [place] 10/325 PO 1 each Q4H PRN Administration Pain, Moderate (4-6) Albuterol 2.5 mg 02/27/19 19:09 Proventil IH Q4HRT PRN Shortness Of Breath Alprazolam 0.25 mg 02/27/19 15:05 03/07/19 01:22 Xanax PO 0.25 mg QPM PRN Administration Anxiety Amiodarone HCl 200 mg 02/28/19 10:00 03/07/19 09:41 Cordarone PO 200 mg DAILY KLEVER Administration Amitriptyline HCl 10 mg 02/28/19 10:00 03/07/19 09:41 Elavil PO 10 mg DAILY KLEVER Administration Arformoterol Tartrate 15 mcg 03/05/19 20:00 03/07/19 09:27 Brovana Nebu IH 15 mcg Q12HRT KLEVER Administration Budesonide 0.5 mg 02/27/19 20:00 03/07/19 09:26 Pulmicort IH 0.5 mg Q12HRT KLEVER Administration Diltiazem HCl 60 mg 02/27/19 20:00 03/07/19 09:41 Cardizem PO 60 mg TID KLEVER Administration Duloxetine HCl 60 mg 02/28/19 10:00 03/07/19 10:56 Cymbalta PO 60 mg QDAY KLEVER Administration Gabapentin 100 mg 02/27/19 22:00 03/07/19 05:36 Neurontin PO 100 mg Q8HR KLEVER Administration Heparin Sodium (Porcine) 5,000 unit 03/07/19 14:00 Heparin SUB-Q Q8HR KLEVER Sodium Chloride 3,000 mls @ 100 mls/hr 02/27/19 20:00 Nacl 0.45% 1000 Ml IV DIRECT KLEVER Lactated Ringer's 1,000 mls @ 75 mls/hr 03/06/19 13:00 03/07/19 07:31 Lactated Ringers IV 75 mls/hr DIRECT KLEVER Administration Sodium Chloride 1,000 mls @ 42 mls/hr 03/06/19 16:00 Nacl 0.9% 1000 Ml IV DIRECT KLEVER Levothyroxine Sodium 88 mcg 02/28/19 06:00 03/07/19 05:36 Synthroid PO 88 mcg DAILY@0600 KLEVER Administration Lisinopril 10 mg 02/28/19 10:00 03/07/19 09:34 Zestril PO 10 mg QDAY KLEVER Administration Metoprolol Tartrate 25 mg 02/28/19 10:00 03/07/19 09:34 Lopressor PO 25 mg DAILY KLEVER Administration Morphine Sulfate 0 mg 03/06/19 16:00 03/06/19 16:44 Morphine Heavy Equipment Operator 30mg/30ml IV 1 cartstart DIRECT KLEVER Administration Protocol Multivitamins 1 each 02/28/19 10:00 03/07/19 09:34 Theragran Tab PO 1 each QDAY KLEVER Administration Naloxone HCl 0.1 mg 03/06/19 15:56 Narcan 0.4 Mg/1 Ml IV Q2MIN PRN Res Rate </= 8 or 02 SAT < 92% Ondansetron HCl 4 mg 02/27/19 19:09 Zofran IV Q8H PRN Nausea And Vomiting Pantoprazole Sodium 40 mg 02/28/19 10:00 03/07/19 09:35 Protonix PO 40 mg DAILY KLEVER Administration Sodium Chloride 10 ml 02/27/19 22:00 03/07/19 04:19 Sodium Chloride Flush Syringe 10 Ml IV 10 ml BID KLEVER Administration Sodium Chloride 10 ml 02/27/19 19:09 Sodium Chloride Flush Syringe 10 Ml IV PRN PRN LINE FLUSH Spironolactone 25 mg 02/27/19 22:00 03/07/19 09:35 Aldactone PO 25 mg BID KLEVER Administration Sucralfate 1 gm 02/27/19 16:30 03/07/19 09:34 Carafate PO 1 gm ACHS KLEVER Administration Nutrition/Malnutrition Assess - Dietary Evaluation Nutrition/Malnutrition Findings: Nutrition Notes Start: 03/06/19 12:44 Freq: Status: Active Protocol: Document 03/06/19 12:44 ALEJOANANTH (Rec: 03/06/19 12:49 DAYRON [email or web address]) Nutrition Notes Need for Assessment generated from: LOS Initial or Follow up Assessment Current Diagnosis COPD,Hypertension Other Pertinent Diagnosis RLE ischemia, Peripheral arterial occlusive dz Current Diet NPO Labs/Tests No new available Pertinent Medications Heparin gtt, MVI Height 5 ft 4 in Weight 58.5 kg [place] Body Weight (kg) 54.54 BMI 22.1 Weight Status Appropriate Subjective/Other Information Pt screened for LOS. Scheduled for BKA today. Burn Absent Trauma Absent #1 Nutrition Diagnosis Inadequate oral intake Etiology scheduled surgery As Evidenced by Signs and Symptoms pt NPO Is patient on ventilator? No Is Patient Ambulatory and/or Out of Bed No REE-([place]-[facility]. Jeor-confined to bed) 1278.600 Kcal/Kg value to use for calculation 28 Approximate Energy Requirements Using 1638 kcal/Kg Calculation Used for Recommendations Kcal/kg Additional Notes Pro needs 1.25-1.5g/k-88g /day Fluid needs 1ml/kcal Nutrition Intervention Change Diet Order: Advance diet when medically feasible Goal #1 Diet advancement to meet nutrient needs Anticipated Discharge Needs: Unable to identify at this time Follow-Up By: 03/07/19 Additional Comments F/U: diet advancement, intakes , need for ONS
--- NOTE | 2019-03-07 13:17 | XRay Report ---
AP CHEST: HISTORY: chest pain AP view of the chest demonstrates a normal mediastinal and cardiac contour with clear lungs and normal bony and soft tissue structures. IMPRESSION: Unremarkable AP chest. Bilateral pulmonary edema or infiltrates are resolved since 07/31/18.
--- NOTE | 2019-03-07 13:43 | Consultation ---
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 She has been seen by our practice on prior hospitalization but has adm ittedly not followed up in our office. She presented on 02/27/2019 with c/o RLE pain with nonhealing RLE ulcer, was found to have RLE ischemia and and subsequently underwent RLE BKA yesterday. This morning, she had a bout of chest pain and thus cardiology has been consulted. Pt states she was resting in bed when she suddenly developed left-sided aching pain which lasted for several minutes. The pain has since resolved. ECG with NAF, Carmella negative for AMI. Pt denies any known history of CAD, AMI or HF. No ischemic evaluation in records. Echo done 06/2018 showed EF 60-65%, mild MR, mild to mod TR, pulm HTN RVSP 54mmHg. Past History Past Medical History: atrial fib, COPD, DVT, GERD (h/o Gastric ulcer with GI bleed), hypertension, hypothyroidism, PVD Past Surgical History: cholecystectomy, Other (EGD, Arterial embolization due to a GI bleed, Jetstream atherectomy, 4 compartment fasciotomy, Fluoroscopical assisted open embolectomy) Social history: , smoking. denies: alcohol abuse, prescription drug abuse Family history: hypertension Medications and Allergies Allergies Allergy/AdvReac Type Severity Reaction Status Date / Time No Known Allergies Allergy Verified 10/14/18 21:18 Home Medications Medication Instructions Recorded Confirmed Last Taken Type Apixaban [Eliquis] 5 mg PO BID 07/06/18 02/27/19 07/06/18 06:00 History 5mg Levothyroxine Sodium [Synthroid] 88 mcg PO DAILY 07/06/18 02/27/19 07/05/18 History 88mcg Lisinopril [Zestril TAB] 10 mg PO DAILY 07/06/18 02/27/19 07/05/18 History 10mg Metoprolol [Lopressor TAB] 25 mg PO BID 07/06/18 02/27/19 07/06/18 History 25mg Gabapentin [Neurontin] 100 mg PO Q8HR #90 capsule 08/04/18 02/27/19 Unknown Rx Amitriptyline [Elavil] 10 mg PO DAILY 02/27/19 02/27/19 Unknown History Omeprazole 40 mg PO BID 02/27/19 02/27/19 Unknown History Pantoprazole [Protonix] 40 mg PO DAILY 02/27/19 02/27/19 Unknown History Spironolactone [Aldactone] 25 mg PO BID 02/27/19 02/27/19 Unknown History traMADol [Ultram] 50 mg PO Q6HR PRN 02/27/19 02/27/19 Unknown History Active Meds: Active Medications Acetaminophen (Tylenol) 650 mg PO Q4H PRN PRN Reason: Pain MILD(1-3)/Fever >100.5/GONZALES Last Admin: 03/05/19 23:08 Dose: 650 mg Documented by: Acetaminophen/Codeine Phosphate (Tylenol #3) 1 tab PO Q6HR PRN PRN Reason: Pain, Moderate (4-6) Last Admin: 03/07/19 01:23 Dose: 1 tab Documented by: Acetaminophen/Hydrocodone Bitart (Rogers 10/325) 1 each PO Q4H PRN PRN Reason: Pain, Moderate (4-6) Last Admin: 03/07/19 09:35 Dose: 1 each Documented by: Albuterol (Proventil) 2.5 mg IH Q4HRT PRN PRN Reason: Shortness Of Breath Alprazolam (Xanax) 0.25 mg PO QPM PRN PRN Reason: Anxiety Last Admin: 03/07/19 01:22 Dose: 0.25 mg Documented by: Amiodarone HCl (Cordarone) 200 mg PO DAILY [facility] Last Admin: 03/07/19 09:41 Dose: 200 mg Documented by: Amitriptyline HCl (Elavil) 10 mg PO DAILY [facility] Last Admin: 03/07/19 09:41 Dose: 10 mg Documented by: Arformoterol Tartrate (Brovana Nebu) 15 mcg IH Q12HRT [facility] Last Admin: 03/07/19 09:27 Dose: 15 mcg Documented by: Budesonide (Pulmicort) 0.5 mg IH Q12HRT [facility] Last Admin: 03/07/19 09:26 Dose: 0.5 mg Documented by: Diltiazem HCl (Cardizem) 60 mg PO TID [facility] Last Admin: 03/07/19 09:41 Dose: 60 mg Documented by: Duloxetine HCl (Cymbalta) 60 mg PO QDAY [facility] Last Admin: 03/07/19 10:56 Dose: 60 mg Documented by: Gabapentin (Neurontin) 100 mg PO Q8HR [facility] Last Admin: 03/07/19 05:36 Dose: 100 mg Documented by: Heparin Sodium (Porcine) (Heparin) 5,000 unit SUB-Q Q8HR [facility] Sodium Chloride (Nacl 0.45% 1000 Ml) 3,000 mls @ 100 mls/hr IV DIRECT [facility] Lactated Ringer's (Lactated Ringers) 1,000 mls @ 75 mls/hr IV DIRECT [facility] Last Admin: 03/07/19 07:31 Dose: 75 mls/hr Documented by: Sodium Chloride (Nacl 0.9% 1000 Ml) 1,000 mls @ 42 mls/hr IV DIRECT [facility] Levothyroxine Sodium (Synthroid) 88 mcg PO DAILY@0600 [facility] Last Admin: 03/07/19 05:36 Dose: 88 mcg Documented by: Lisinopril (Zestril) 10 mg PO QDAY [facility] Last Admin: 03/07/19 09:34 Dose: 10 mg Documented by: Metoprolol Tartrate (Lopressor) 25 mg PO DAILY [facility] Last Admin: 03/07/19 09:34 Dose: 25 mg Documented by: Morphine Sulfate (Morphine Change Director 30mg/30ml) 0 mg IV DIRECT [facility]; Protocol Last Admin: 03/06/19 16:44 Dose: 1 cartstart Documented by: Multivitamins (Theragran Tab) 1 each PO QDAY [facility] Last Admin: 03/07/19 09:34 Dose: 1 each Documented by: Naloxone HCl (Narcan 0.4 Mg/1 Ml) 0.1 mg IV Q2MIN PRN PRN Reason: Res Rate </= 8 or 02 SAT < 92% Ondansetron HCl (Zofran) 4 mg IV Q8H PRN PRN Reason: Nausea And Vomiting Pantoprazole Sodium (Protonix) 40 mg PO DAILY [facility] Last Admin: 03/07/19 09:35 Dose: 40 mg Documented by: Sodium Chloride (Sodium Chloride Flush Syringe 10 Ml) 10 ml IV BID [facility] Last Admin: 03/07/19 04:19 Dose: 10 ml Documented by: Sodium Chloride (Sodium Chloride Flush Syringe 10 Ml) 10 ml IV PRN PRN PRN Reason: LINE FLUSH Spironolactone (Aldactone) 25 mg PO BID [facility] Last Admin: 03/07/19 09:35 Dose: 25 mg Documented by: Sucralfate (Carafate) 1 gm PO ACHS [facility] Last Admin: 03/07/19 09:34 Dose: 1 gm Documented by: Review of Systems Constitutional: no weight loss, no weight gain, no fever, no chills, no sweats Ears, nose, mouth and throat: no ear pain, no nose pain, no sinus pressure, no sinus pain Cardiovascular: chest pain, no shortness of breath, no dyspnea on exertion Respiratory: no shortness of breath, no dyspnea on exertion Gastrointestinal: no abdominal pain, no nausea, no vomiting, no diarrhea, no constipation, no change in bowel habits Musculoskeletal: other (right BKA pain), no neck stiffness, no neck pain, no shooting arm pain, no arm numbness/tingling, no low back pain Integumentary: no rash, no pruritis, no redness, no sores Neurological: no head injury, no paralysis, no weakness, no parathesias, no num bness, no tingling, no seizures, no syncope Endocrine: no cold intolerance, no heat intolerance Hematologic/Lymphatic: no easy bruising, no easy bleeding Allergic/Immunologic: no urticaria Physical Examination Vital Signs Temp Pulse Resp BP Pulse Ox 98.5 F 59 L 18 118/80 97 02/27/19 12:30 02/27/19 12:30 02/27/19 12:30 02/27/19 12:30 02/27/19 12:30 General appearance: no acute distress HEENT: Positive: PERRL, Normocephaly, Mucus Membranes Moist Cardiac: Positive: Reg Rate and Rhythm, S1/S2 Lungs: Positive: Decreased Breath Sounds Neuro: Positive: Grossly Intact Abdomen: Positive: Soft. Negative: Tender Skin: Negative: Rash Musculoskeletal: other (s/p right BKA) Extremities: Present: Other (s/p right BKA). Absent: edema Results 03/07/19 04:09 03/07/19 04:09 Cardiac Enzymes 03/07/19 03/07/19 Range/Units 04:09 10:01 CK-MB (CK-2) 9.5 H 12.8 H (0.0-4.0) ng/mL CBC 03/07/19 Range/Units 04:09 Hgb 10.3 (10.1-14.3) gm/dl Hct 30.6 (30.3-42.9) % Plt Count 326 (140-440) K/mm3 Comprehensive Metabolic Panel 03/07/19 Range/Units 04:09 Sodium 133 L (137-145) mmol/L Potassium 4.6 (3.6-5.0) mmol/L Chloride 97.3 L (98-107) mmol/L Carbon Dioxide 23 (22-30) mmol/L BUN 15 (7-17) mg/dL Creatinine 0.7 (0.7-1.2) mg/dL Glucose 166 H (65-100) mg/dL Calcium 9.8 (8.4-10.2) mg/dL - Imaging and Cardiology Echo: report reviewed (06/2018 showed EF 60-65%, mild MR, mild to mod TR, pulm HTN RVSP 54mmHg.) EKG: report reviewed, image reviewed EKG interpretations - Telemetry EKG Rhythm: Sinus Rhythm - EKG Sinus rhythms and dysrhythmias: sinus rhythm Assessment and Plan Plan for lexiscan MPI stress test in AM. NPO after MN. Initiate remote telemetry. Ultimately, systemic anticoagulation in regards to paroxysmal atrial fibrillation should be resumed if/when okay per vascular team. Pt is s/p RLE BKA yesterday. The patient has been seen in conjunction with Dr. Roldan who agrees with the assessment and plan of care. - Patient Problems (1) Chest pain Current Visit: Yes Status: Acute (2) Peripheral artery disease Current Visit: Yes Status: Chronic (3) Status post below knee amputation of right lower extremity Current Visit: Yes Status: Chronic (4) HTN (hypertension) Current Visit: Yes Status: Chronic (5) Paroxysmal atrial fibrillation Current Visit: Yes Status: Chronic (6) History of DVT (deep vein thrombosis) Current Visit: Yes Status: Chronic (7) History of GI bleed Current Visit: Yes Status: Chronic (8) Renal insufficiency Current Visit: Yes Status: Acute (9) Tobacco use Current Visit: Yes Status: Chronic
[2019-03-07] MEDS: HEPARIN SUB-Q SCH (17:00)
[2019-03-08] MEDS: ALDACTONE PO SCH ×3 (02:15→22:04)
[2019-03-08] MEDS: CARDIZEM PO SCH ×4 (02:15→21:55)
[2019-03-08] MEDS: HEPARIN SUB-Q SCH ×4 (06:00→21:55)
[2019-03-08] MEDS: CARAFATE PO SCH ×5 (06:52→21:55)
[2019-03-08] MEDS: SYNTHROID PO SCH (06:52)
[2019-03-08] MEDS: NEURONTIN PO SCH ×3 (06:56→21:55)
[2019-03-08] MEDS: SODIUM CHLORIDE FLUSH SYRINGE 10 ML IV SCH ×2 (06:57→23:52)
[2019-03-08] MEDS: BROVANA NEBU IH SCH ×2 (07:59→20:10)
[2019-03-08] MEDS: PULMICORT IH SCH ×2 (07:59→20:10)
[2019-03-08] MEDS ORDERED: LEXISCAN IV ONE ×2 (09:54→09:56)
--- NOTE | 2019-03-08 11:27 | Progress Note ---
Assessment and Plan S/p lexiscan MPI stress test this morning which was negative. Currently stable cardiac status. Pt reports resolution of chest pain. Nothing further to add from cardiology standpoint. Will sign off. Ultimately, systemic anticoagulation in regards to paroxysmal atrial fibrillation should be resumed if/when okay per vascular team. Pt is s/p RLE BKA this admission. Recommend follow up in our office with Dr. Roldan within 1-2 weeks of hospital discharge ([phone]). The patient has been seen in conjunction with Dr. Roldan who agrees with the assessment and plan of care. - Patient Problems (1) Chest pain Current Visit: Yes Status: Resolved (2) Peripheral artery disease Current Visit: Yes Status: Chronic (3) Status post below knee amputation of right lower extremity Current Visit: Yes Status: Chronic (4) HTN (hypertension) Current Visit: Yes Status: Chronic (5) Paroxysmal atrial fibrillation Current Visit: Yes Status: Chronic (6) History of DVT (deep vein thrombosis) Current Visit: Yes Status: Chronic (7) History of GI bleed Current Visit: Yes Status: Chronic (8) Renal insufficiency Current Visit: Yes Status: Acute (9) Tobacco use Current Visit: Yes Status: Chronic Subjective Date of service: 03/08/19 Principal diagnosis: cp Interval history: pt for stress test, no current cardiac complaints. Objective Last Vital Signs Temp 98 F 03/08/19 08:00 Pulse 84 03/08/19 08:00 Resp 18 03/08/19 08:00 BP 157/68 03/08/19 08:00 Pulse Ox 2 L 03/08/19 08:00 - Physical Examination General: No Apparent Distress HEENT: Positive: PERRL, Normocephaly, Mucus Membranes Moist Cardiac: Positive: Reg Rate and Rhythm, S1/S2 Lungs: Positive: Decreased Breath Sounds Neuro: Positive: Grossly Intact Abdomen: Positive: Soft. Negative: Tender Skin: Negative: Rash Musculoskeletal: other (s/p right BKA) Extremities: Present: Other (s/p right BKA). Absent: edema - Imaging and Cardiology EKG: report reviewed, image reviewed Echo: report reviewed (06/2018 showed EF 60-65%, mild MR, mild to mod TR, pulm HTN RVSP 54mmHg.) - EKG Sinus rhythms and dysrhythmias: sinus rhythm
[2019-03-08] MEDS: CORDARONE PO SCH (12:49)
[2019-03-08] MEDS: ELAVIL PO SCH (12:51)
[2019-03-08] MEDS: LOPRESSOR PO SCH (14:05)
[2019-03-08] MEDS: THERAGRAN Tab PO SCH (14:08)
[2019-03-08] MEDS: CYMBALTA PO SCH (14:08)
[2019-03-08] MEDS: PROTONIX PO SCH (14:08)
[2019-03-08] MEDS: ZESTRIL PO SCH (14:08)
--- NOTE | 2019-03-08 17:31 | Progress Note ---
Assessment and Plan - Patient Problems (1) Arterial occlusive disease Current Visit: Yes Status: Acute Plan to address problem: Patient seems to be headed in the right direction pain is controlled. Much better after surgical correction. (2) COPD (chronic obstructive pulmonary disease) Current Visit: Yes Status: Acute Qualifiers: Chronic bronchitis type: mixed simple and mucopurulent Plan to address problem: Patient is stable with O2 when necessary emboli 0. Has not had to use them. cont Proventil Brovana Pulmicort (3) GERD (gastroesophageal reflux disease) Current Visit: Yes Status: Acute Qualifiers: Esophagitis presence: without esophagitis Qualified Code(s): K21.9 - Gastro-esophageal reflux disease without esophagitis Plan to address problem: Stable proton pump inhibitor. No nausea or vomiting. (4) HTN (hypertension) Current Visit: Yes Status: Acute Qualifiers: Hypertension type: essential hypertension Qualified Code(s): I10 - Essential (primary) hypertension Plan to address problem: Fair control of blood pressure. Has some incidence of pain most likely sympathetic outflow. Would titrate antihypertensives accordingly. (5) Renal insufficiency Current Visit: Yes Status: Acute Plan to address problem: Resolving. (6) HTN (hypertension) Current Visit: Yes Status: Chronic History Interval history: Patient with PVD status post BKA failed revascularization. Pain much better controlled. Patient states she is able to sleep but not too long. Follow-up to [facility] was negative. Set down and relate patient information understands. Hospitalist Physical - Constitutional Vitals: Temp Pulse Resp BP Pulse Ox 98 F 62 18 137/55 2 L 03/08/19 16:00 03/08/19 16:00 03/08/19 16:00 03/08/19 16:00 03/08/19 16:00 General appearance: Present: no acute distress - EENT Eyes: Present: PERRL, EOM intact ENT: hearing intact, clear oral mucosa, dentition normal - Neck Neck: Present: supple, normal ROM - Respiratory Respiratory: bilateral: diminished, wheezing - Cardiovascular Rhythm: regular Heart Sounds: Present: S1 & S2 - Extremities Extremities: abnormal Extremity abnormal: other (BKA bandaged.) Peripheral Pulses: abnormal - Abdominal General gastrointestinal: soft, non-tender, non-distended, normal bowel sounds - Integumentary Integumentary: Present: clear, warm, dry - Psychiatric Psychiatric: appropriate mood/affect, intact judgment & insight, memory intact - Neurologic Neurologic: CNII-XII intact, moves all extremities Results - Labs CBC & Chem 7: 03/07/19 04:09 03/07/19 04:09 Labs: Laboratory Last Values WBC 6.5 K/mm3 (4.5-11.0) 03/05/19 22:57 RBC 3.04 M/mm3 (3.65-5.03) L 03/05/19 22:57 Hgb 10.3 gm/dl (10.1-14.3) 03/07/19 04:09 Hct 30.6 % (30.3-42.9) 03/07/19 04:09 MCV 95 fl (79-97) 03/05/19 22:57 MCH 32 pg (28-32) 03/05/19 22:57 MCHC 34 % (30-34) 03/05/19 22:57 RDW 15.4 % (13.2-15.2) H 03/05/19 22:57 Plt Count 326 K/mm3 (140-440) 03/07/19 04:09 Lymph % (Auto) 29.6 % (13.4-35.0) 03/05/19 22:57 [place] % (Auto) 11.0 % (0.0-7.3) H 03/05/19 22:57 Eos % (Auto) 1.1 % (0.0-4.3) 03/05/19 22:57 Baso % (Auto) 0.2 % (0.0-1.8) 03/05/19 22:57 Lymph # 1.9 K/mm3 (1.2-5.4) 03/05/19 22:57 [place] # 0.7 K/mm3 (0.0-0.8) 03/05/19 22:57 Eos # 0.1 K/mm3 (0.0-0.4) 03/05/19 22:57 Baso # 0.0 K/mm3 (0.0-0.1) 03/05/19 22:57 Seg Neutrophils % 58.1 % (40.0-70.0) 03/05/19 22:57 Seg Neutrophils # 3.7 K/mm3 (1.8-7.7) 03/05/19 22:57 PT 14.2 Sec. (12.2-14.9) 02/27/19 19:28 INR 1.04 (0.87-1.13) 02/27/19 19:28 APTT 31.9 Sec. (24.2-36.6) 02/27/19 19:28 Heparin Anti-Xa Level 0.27 U.I./ml (0.3-0.7) L 03/06/19 09:56 Sodium 133 mmol/L (137-145) L 03/07/19 04:09 Potassium 4.6 mmol/L (3.6-5.0) 03/07/19 04:09 Chloride 97.3 mmol/L (98-107) L 03/07/19 04:09 Carbon Dioxide 23 mmol/L (22-30) 03/07/19 04:09 17 mmol/L 03/07/19 04:09 BUN 15 mg/dL (7-17) 03/07/19 04:09 0.7 mg/dL (0.7-1.2) 03/07/19 04:09 Estimated GFR > 60 ml/min 03/07/19 04:09 21 % 03/07/19 04:09 Glucose 166 mg/dL (65-100) H 03/07/19 04:09 POC Glucose 98 (70-105) 03/03/19 08:03 Lactic Acid 0.90 mmol/L (0.7-2.0) 03/05/19 22:57 Calcium 9.8 mg/dL (8.4-10.2) 03/07/19 04:09 0.30 mg/dL (0.1-1.2) 02/28/19 04:33 AST 10 units/L (5-40) 02/28/19 04:33 ALT 5 units/L (7-56) L 02/28/19 04:33 77 units/L (35-129) 02/28/19 04:33 875 units/L (30-135) H 03/07/19 10:01 CK-MB (CK-2) 12.8 ng/mL (0.0-4.0) H 03/07/19 10:01 CK-MB (CK-2) Rel Index 1.4 (0-4) 03/07/19 10:01 < 0.010 ng/mL (0.00-0.029) 03/07/19 04:09 6.4 g/dL (6.3-8.2) 02/28/19 04:33 3.4 g/dL (3.9-5) L 02/28/19 04:33 1.1 % 02/28/19 04:33 Blood Type A POSITIVE 03/06/19 12:55 Antibody Screen Negative 03/06/19 12:55 Active Medications - Current Medications Current Medications: Generic Name Dose Route Start Last Admin Trade Name Freq PRN Reason Stop Dose Admin Acetaminophen 650 mg 02/27/19 19:09 03/05/19 23:08 Tylenol PO 650 mg Q4H PRN Administration Pain MILD(1-3)/Fever >100.5/GONZALES Acetaminophen/Codeine Phosphate 1 tab 02/27/19 15:05 03/07/19 01:23 Tylenol #3 PO 1 tab Q6HR PRN Administration Pain, Moderate (4-6) Acetaminophen/Hydrocodone Bitart 1 each 02/27/19 15:05 03/07/19 18:43 Coleman 10/325 PO 1 each Q4H PRN Administration Pain, Moderate (4-6) Albuterol 2.5 mg 02/27/19 19:09 Proventil IH Q4HRT PRN Shortness Of Breath Alprazolam 0.25 mg 02/27/19 15:05 03/07/19 01:22 Xanax PO 0.25 mg QPM PRN Administration Anxiety Amiodarone HCl 200 mg 02/28/19 10:00 03/08/19 12:49 Cordarone PO 200 mg DAILY [facility] Administration Amitriptyline HCl 10 mg 02/28/19 10:00 03/08/19 12:51 Elavil PO 10 mg DAILY [facility] Administration Arformoterol Tartrate 15 mcg 03/05/19 20:00 03/08/19 07:59 Brovana Nebu IH 15 mcg Q12HRT [facility] Administration Budesonide 0.5 mg 02/27/19 20:00 03/08/19 07:59 Pulmicort IH 0.5 mg Q12HRT [facility] Administration Diltiazem HCl 60 mg 02/27/19 20:00 03/08/19 14:07 Cardizem PO 60 mg TID [facility] Administration Duloxetine HCl 60 mg 02/28/19 10:00 03/08/19 14:08 Cymbalta PO 60 mg QDAY [facility] Administration Gabapentin 100 mg 02/27/19 22:00 03/08/19 06:56 Neurontin PO Not Given Q8HR [facility] Heparin Sodium (Porcine) 5,000 unit 03/07/19 14:00 03/08/19 14:08 Heparin SUB-Q 5,000 unit Q8HR [facility] Administration Sodium Chloride 3,000 mls @ 100 mls/hr 02/27/19 20:00 Nacl 0.45% 1000 Ml IV DIRECT [facility] Lactated Ringer's 1,000 mls @ 75 mls/hr 03/06/19 13:00 03/07/19 07:31 Lactated Ringers IV 75 mls/hr DIRECT [facility] Administration Sodium Chloride 1,000 mls @ 42 mls/hr 03/06/19 16:00 Nacl 0.9% 1000 Ml IV DIRECT [facility] Levothyroxine Sodium 88 mcg 02/28/19 06:00 03/08/19 06:52 Synthroid PO Not Given DAILY@0600 [facility] Lisinopril 10 mg 02/28/19 10:00 03/08/19 14:08 Zestril PO 10 mg QDAY [facility] Administration Metoprolol Tartrate 25 mg 02/28/19 10:00 03/08/19 14:05 Lopressor PO 25 mg DAILY [facility] Administration Morphine Sulfate 0 mg 03/06/19 16:00 03/06/19 16:44 Morphine Inspector Automatic Typewriter 30mg/30ml IV 1 cartstart DIRECT [facility] Administration Protocol Multivitamins 1 each 02/28/19 10:00 03/08/19 14:08 Theragran Tab PO 1 each QDAY [facility] Administration Naloxone HCl 0.1 mg 03/06/19 15:56 Narcan 0.4 Mg/1 Ml IV Q2MIN PRN Res Rate </= 8 or 02 SAT < 92% Ondansetron HCl 4 mg 02/27/19 19:09 Zofran IV Q8H PRN Nausea And Vomiting Pantoprazole Sodium 40 mg 02/28/19 10:00 03/08/19 14:08 Protonix PO 40 mg DAILY [facility] Administration Sodium Chloride 10 ml 02/27/19 22:00 03/08/19 06:57 Sodium Chloride Flush Syringe 10 Ml IV 10 ml BID [facility] Administration Sodium Chloride 10 ml 02/27/19 19:09 Sodium Chloride Flush Syringe 10 Ml IV PRN PRN LINE FLUSH Spironolactone 25 mg 02/27/19 22:00 03/08/19 02:15 Aldactone PO 25 mg BID [facility] Administration Sucralfate 1 gm 02/27/19 16:30 03/08/19 12:51 Carafate PO 1 gm ACHS [facility] Administration Nutrition/Malnutrition Assess - Dietary Evaluation Nutrition/Malnutrition Findings: Nutrition Notes Start: 03/06/19 12:44 Freq: Status: Active Protocol: Document 03/07/19 17:09 [facility] (Rec: 03/07/19 17:13 [facility] SRW- [id number]) Nutrition Notes Initial or Follow up Brief Note Current Diet Regular Height 5 ft 4 in Weight 61.2 kg Tiger Body Weight (kg) 54.54 BMI 23.1 Weight change and time frame Adj Wt for BKA: 62.2kg Adj BMI: 23.4 Subjective/Other Information s/p BKA. Pt reports fair appetite; amenable to ONS. Nutrition Intervention Add Supplement/Snack (indicate name/kcal Ensure Enlive BID (vanilla) /protein ) Provides kCal: 700 Provides Protein (gm) 40 Follow-Up By: 03/09/19 Additional Comments F/U: intakes (meals/ONS)
[2019-03-09] MEDS: SYNTHROID PO SCH (05:56)
[2019-03-09] MEDS: NEURONTIN PO SCH ×2 (05:56→13:39)
[2019-03-09] MEDS: HEPARIN SUB-Q SCH (05:57)
[2019-03-09] MEDS: SODIUM CHLORIDE FLUSH SYRINGE 10 ML IV SCH ×2 (05:57→10:53)
[2019-03-09] MEDS: PULMICORT IH SCH (07:52)
[2019-03-09] MEDS: BROVANA NEBU IH SCH (07:52)
[2019-03-09 10:10] VITALS: BP 139/56
--- NOTE | 2019-03-09 10:36 | Progress Note ---
Assessment and Plan Pt is doing well from a post-operative stand point. Her incision looks good. Okay to change bandages daily. Stressed the importance of the knee immobilizer to prevent knee contracture. Encouraged pt to use only oral analgesics for pain control. Will d/c STAFF WRITER. Encouraged pt to work with therapy. D/c planning in progress for acute rehab at [facility]. Will consult KAPIL Lam for prosthetics counseling. Pt will f/u in our office as an outpt in 4-6 weeks for staple removal in 6-8 weeks. Will see sooner as needed. I had a long discussion with the pt about short bouts of depression following amputation is normal and usually self limited. However, if this should occur and is affecting her significantly she should let her medical team know. There are treatment options No objections to ancticoagulation from a vascular stand point, but the pt was taken off anticoagulation earlier this year due to a significant GI bleed per report. Recommend risk benefit stratification to anticoagulation with this in mind. Discussed with the Hospitalist. Check room air pulse ox, if greater then 92% then okay to stop oxygen supplementation from a vascular stand point. Discussed with her nurse. - Patient Problems (1) Ischemia of right lower extremity Current Visit: No Status: Acute (2) Peripheral artery disease Current Visit: Yes Status: Chronic (3) History of GI bleed Current Visit: Yes Status: Chronic (4) COPD (chronic obstructive pulmonary disease) Current Visit: Yes Status: Acute Qualifiers: Chronic bronchitis type: mixed simple and mucopurulent (5) GERD (gastroesophageal reflux disease) Current Visit: Yes Status: Acute Qualifiers: Esophagitis presence: without esophagitis Qualified Code(s): K21.9 - Gastro-esophageal reflux disease without esophagitis (6) HTN (hypertension) Current Visit: Yes Status: Acute Qualifiers: Hypertension type: essential hypertension Qualified Code(s): I10 - Essential (primary) hypertension (7) Nicotine dependence Current Visit: Yes Status: Acute Qualifiers: Nicotine product type: cigarettes Subjective Date of service: 03/09/19 Principal diagnosis: cp Interval history: Pt awake and alert. Pain control improving. Working with Physical therapy. Objective - Constitutional Vitals: Vital Signs - 12hr 03/08/19 03/09/19 03/09/19 22:44 00:29 00:44 Temperature 98.7 F Pulse Rate 75 Pulse Rate [ Anterior Bilateral Upper Lobe] Respiratory 17 20 17 Rate Respiratory Rate [Anterior Bilateral Upper Lobe] Blood Pressure 149/57 O2 Sat by Pulse 98 Oximetry 03/09/19 03/09/19 03/09/19 02:44 04:41 04:44 Temperature 98.5 F Pulse Rate 66 Pulse Rate [ Anterior Bilateral Upper Lobe] Respiratory 17 20 17 Rate Respiratory Rate [Anterior Bilateral Upper Lobe] Blood Pressure 139/55 O2 Sat by Pulse 91 Oximetry 03/09/19 03/09/19 03/09/19 07:50 07:58 08:10 Temperature 97.7 F Pulse Rate 62 Pulse Rate [ 68 68 Anterior Bilateral Upper Lobe] Respiratory 18 Rate Respiratory 18 18 Rate [Anterior Bilateral Upper Lobe] Blood Pressure 139/56 O2 Sat by Pulse 99 Oximetry 03/09/19 08:16 Temperature Pulse Rate Pulse Rate [ Anterior Bilateral Upper Lobe] Respiratory Rate Respiratory Rate [Anterior Bilateral Upper Lobe] Blood Pressure O2 Sat by Pulse 93 Oximetry General appearance: Present: no acute distress - EENT Eyes: EOM intact ENT: hearing intact - Neck Neck: supple - Respiratory Respiratory effort: normal Extremities: abnormal (knee immobilizer removed, and bandages replaced. RLE BKA intact, madelin in place, no erythema, discolored skin, or active drainage appreciated.) - Neurologic Neurologic: no focal deficits - Psychiatric Psychiatric: appropriate mood/affect, intact judgment & insight, cooperative - Labs CBC & Chem 7: 03/07/19 04:09 03/07/19 04:09 Medications & Allergies - Medications Allergies/Adverse Reactions: Allergies No Known Allergies Allergy (Verified 10/14/18 21:18) Home Medications: Home Medications Medication Instructions Recorded Confirmed Last Taken Type Apixaban [Eliquis] 5 mg PO BID 07/06/18 02/27/19 07/06/18 06:00 History 5mg Levothyroxine Sodium [Synthroid] 88 mcg PO DAILY 07/06/18 02/27/19 07/05/18 History 88mcg Lisinopril [Zestril TAB] 10 mg PO DAILY 07/06/18 02/27/19 07/05/18 History 10mg Metoprolol [Lopressor TAB] 25 mg PO BID 07/06/18 02/27/19 07/06/18 History 25mg Gabapentin [Neurontin] 100 mg PO Q8HR #90 capsule 08/04/18 02/27/19 Unknown Rx Amitriptyline [Elavil] 10 mg PO DAILY 02/27/19 02/27/19 Unknown History Omeprazole 40 mg PO BID 02/27/19 02/27/19 Unknown History Pantoprazole [Protonix] 40 mg PO DAILY 02/27/19 02/27/19 Unknown History Spironolactone [Aldactone] 25 mg PO BID 02/27/19 02/27/19 Unknown History traMADol [Ultram] 50 mg PO Q6HR PRN 02/27/19 02/27/19 Unknown History Active Medications: Generic Name Dose Route Start Last Admin Trade Name Freq PRN Reason Stop Dose Admin Acetaminophen 650 mg 02/27/19 19:09 03/05/19 23:08 Tylenol PO 650 mg Q4H PRN Administration Pain MILD(1-3)/Fever >100.5/GONZALES Acetaminophen/Codeine Phosphate 1 tab 02/27/19 15:05 03/07/19 01:23 Tylenol #3 PO 1 tab Q6HR PRN Administration Pain, Moderate (4-6) Acetaminophen/Hydrocodone Bitart 1 each 02/27/19 15:05 03/07/19 18:43 [place] 10/325 PO 1 each Q4H PRN Administration Pain, Moderate (4-6) Albuterol 2.5 mg 02/27/19 19:09 Proventil IH Q4HRT PRN Shortness Of Breath Alprazolam 0.25 mg 02/27/19 15:05 03/07/19 01:22 Xanax PO 0.25 mg QPM PRN Administration Anxiety Amiodarone HCl 200 mg 02/28/19 10:00 03/08/19 12:49 Cordarone PO 200 mg DAILY KLEVER Administration Amitriptyline HCl 10 mg 02/28/19 10:00 03/08/19 12:51 Elavil PO 10 mg DAILY KLEVER Administration Arformoterol Tartrate 15 mcg 03/05/19 20:00 03/09/19 07:52 Brovana Nebu IH 15 mcg Q12HRT KLEVER Administration Budesonide 0.5 mg 02/27/19 20:00 03/09/19 07:52 Pulmicort IH 0.5 mg Q12HRT KLEVER Administration Diltiazem HCl 60 mg 02/27/19 20:00 03/08/19 21:55 Cardizem PO 60 mg TID KLEVER Administration Duloxetine HCl 60 mg 02/28/19 10:00 03/08/19 14:08 Cymbalta PO 60 mg QDAY KLEVER Administration Gabapentin 100 mg 02/27/19 22:00 03/09/19 05:56 Neurontin PO 100 mg Q8HR KLEVER Administration Heparin Sodium (Porcine) 5,000 unit 03/07/19 14:00 03/09/19 05:57 Heparin SUB-Q 5,000 unit Q8HR KLEVER Administration Sodium Chloride 3,000 mls @ 100 mls/hr 02/27/19 20:00 Nacl 0.45% 1000 Ml IV DIRECT KLEVER Lactated Ringer's 1,000 mls @ 75 mls/hr 03/06/19 13:00 03/08/19 21:05 Lactated Ringers IV Infused DIRECT KLEVER Infusion Sodium Chloride 1,000 mls @ 42 mls/hr 03/06/19 16:00 Nacl 0.9% 1000 Ml IV DIRECT KLEVER Levothyroxine Sodium 88 mcg 02/28/19 06:00 03/09/19 05:56 Synthroid PO 88 mcg DAILY@0600 KLEVER Administration Lisinopril 10 mg 02/28/19 10:00 03/08/19 14:08 Zestril PO 10 mg QDAY KLEVER Administration Metoprolol Tartrate 25 mg 02/28/19 10:00 03/08/19 14:05 Lopressor PO 25 mg DAILY KLEVER Administration Morphine Sulfate 0 mg 03/06/19 16:00 03/06/19 16:44 Morphine Nursing Education Specialist 30mg/30ml IV 1 cartstart DIRECT KLEVER Administration Protocol Multivitamins 1 each 02/28/19 10:00 03/08/19 14:08 Theragran Tab PO 1 each QDAY KLEVER Administration Naloxone HCl 0.1 mg 03/06/19 15:56 Narcan 0.4 Mg/1 Ml IV Q2MIN PRN Res Rate </= 8 or 02 SAT < 92% Ondansetron HCl 4 mg 02/27/19 19:09 Zofran IV Q8H PRN Nausea And Vomiting Pantoprazole Sodium 40 mg 02/28/19 10:00 03/08/19 14:08 Protonix PO 40 mg DAILY KLEVER Administration Sodium Chloride 10 ml 02/27/19 22:00 03/09/19 05:57 Sodium Chloride Flush Syringe 10 Ml IV 10 ml BID KLEVER Administration Sodium Chloride 10 ml 02/27/19 19:09 Sodium Chloride Flush Syringe 10 Ml IV PRN PRN LINE FLUSH Spironolactone 25 mg 02/27/19 22:00 03/08/19 22:04 Aldactone PO 25 mg BID KLEVER Administration Sucralfate 1 gm 02/27/19 16:30 03/08/19 21:55 Carafate PO 1 gm ACHS KLEVER Administration
[2019-03-09] MEDS: CARAFATE PO SCH ×2 (10:47→13:19)
[2019-03-09] MEDS: ALDACTONE PO SCH (10:48)
[2019-03-09] MEDS: PROTONIX PO SCH (10:49)
[2019-03-09] MEDS: CARDIZEM PO SCH (10:49)
[2019-03-09] MEDS: CORDARONE PO SCH (10:50)
[2019-03-09] MEDS: ELAVIL PO SCH (10:50)
[2019-03-09] MEDS: LOPRESSOR PO SCH (10:51)
[2019-03-09] MEDS: NORCO 10/325 PO PRN ×2 (10:52→15:07)
[2019-03-09] MEDS: ZESTRIL PO SCH (10:52)
[2019-03-09] MEDS: CYMBALTA PO SCH (10:53)
[2019-03-09] MEDS: THERAGRAN Tab PO SCH (10:53)
[2019-03-09] MEDS ORDERED: MORPHINE IV PRN (10:59)
--- NOTE | 2019-03-09 14:14 | Discharge Summary ---
Providers - Providers Date of Admission: 02/27/19 19:09 Date of discharge: 03/09/19 Attending physician: MYRA AGUILAR 02/27/19 14:35 Consult to Physician [CONS] Routine Comment: COMPLETED Consulting Provider: SANTIAGO BURNETT Physician Instructions: Reason For Exam: arterial vascular occlusion vs thrombus 03/01/19 09:13 Consult to Wound/ET Nurse [CONS] Routine Reason For Exam: wound eval 03/06/19 Consult to Case Management [CONS] Routine Services Needed at Discharge: Other Notified:: cm notified Additional Physician Instructions: Rehab eval Occupational Therapy Evaluate and Treat [CONS] Routine Comment: Reason For Exam: s/p amputation Physical Therapy Evaluation and Treat [CONS] Routine Comment: Reason For Exam: s/p amputation 03/07/19 13:00 Consult to Physician [CONS] Routine Comment: Consulting Provider: MATA BRAVO Physician Instructions: Reason For Exam: chest pains postop right bka 03/09/19 10:47 Consult to Fiber Glass Worker [CONS] Routine Reason For Exam: s/p RLE BKA, prosthetics conuseling [facility] Reason for admission: ischemic right lower extremity Condition: Stable Procedures: Right below-knee amputation Hospital course: This pt is a 78yo female that was admitted via the ER on 02/27/19 due to discoloration to her RLE with concerns of acute ischemia. The pt has a h/o PAD s/p multiple interventions in the past. She had an ischemic RLE in Jun 2018. She was percutaneously revascularized, but subsequently required a 4 compartment fasciotomy. She has residual non-healing wounds for which she is managed in the outpt wound care clinic at [facility]. She followed up for a regularly scheduled appt yesterday. She was noted to have a significantly ruborous right foot. It was recommended she go to the ER for further evaluation. The pt complied. An arterial and venous duplex were completed. The venous duplex was negative, but the arterial duplex revealed: Thrombus occluding mid to distal popliteal artery and anterior tibial artery. Partial occlusion of right posterior tibial artery. Vascular surgery was consulted and patient subsequently had cardiology consult for medical clearance and the stress test was performed which was negative. S ubsequently patient underwent right below-knee amputation. Vascular surgery will contact [facility] prosthetics for right knee prosthesis Patient is being discharged to acute rehabilitation and she'll follow up with vascular surgery in 4 weeks. She is medically stable for discharge Disposition: [id number] INPT REHAB FACILITY - Discharge Diagnoses (1) Arterial occlusive disease Status: Acute Comment: Status post right BKA (2) COPD (chronic obstructive pulmonary disease) Status: Chronic Qualifiers: Chronic bronchitis type: mixed simple and mucopurulent Comment: Respiratory green she is stable (3) GERD (gastroesophageal reflux disease) Status: Chronic Qualifiers: Esophagitis presence: without esophagitis Qualified Code(s): K21.9 - Gastro-esophageal reflux disease without esophagitis Comment: Continue PPI (4) HTN (hypertension) Status: Acute Qualifiers: Hypertension type: essential hypertension Qualified Code(s): I10 - Essential (primary) hypertension Comment: Continue home medications (5) History of DVT (deep vein thrombosis) Status: Chronic Comment: Eliquis was stopped by a vascular in October of this year after patient developed GI bleed (6) Paroxysmal atrial fibrillation Status: Chronic Comment: Patient is in sinus rhythm Core Measure Documentation - Palliative Care Palliative Care/ Comfort Measures: Not Applicable - Core Measures Any of the following diagnoses?: none Exam - Constitutional Vitals: Temp Pulse Resp BP Pulse Ox 97.7 F 62 18 139/56 93 03/09/19 07:58 03/09/19 10:52 03/09/19 08:10 03/09/19 10:52 03/09/19 08:16 General appearance: Present: no acute distress - EENT Eyes: Present: PERRL, EOM intact ENT: hearing intact, clear oral mucosa - Neck Neck: Present: supple, normal ROM - Respiratory Respiratory effort: normal Respiratory: bilateral: CTA - Cardiovascular Rhythm: regular Heart Sounds: Present: S1 & S2 - Extremities Extremities: No edema Extremity abnormal: other (right below-knee amputation with a dressing over the stump) - Abdominal General gastrointestinal: Present: soft, non-tender. Absent: hepatomegaly, splenomegaly - Rectal Rectal Exam: deferred - Integumentary Integumentary: Present: clear - Musculoskeletal Musculoskeletal: strength equal bilaterally - Psychiatric Psychiatric: appropriate mood/affect Plan Activity: up only with assistance, other (fall precautions) Weight Bearing Status: Partial Weight Bearing Diet: regular, low fat, low cholesterol, low salt Wound: keep clean and dry, change dressing, per wound nurse instructions Follow up with: SHIRAZ PERRY MD [Staff Physician] - 14 Days KEITH SAWYER MD [Staff Physician] - 7 Days [place] BRICE GARAY MD [Primary Care Provider] - 7 Days Prescriptions: dilTIAZem [Cardizem] 60 mg PO TID #90 tablet DULoxetine [Cymbalta] 60 mg PO QDAY #30 capsule Gabapentin [Neurontin] 100 mg PO Q8HR #90 capsule HYDROcodone/APAP 10-325 [[place] 10-325 mg TAB] 1 each PO Q4H PRN #30 tablet PRN Reason: Pain, Moderate (4-6)
--- NOTE | 2019-03-10 00:49 | Treadmill Report ---
IV LEXISCAN MYOCARDIAL PERFUSION IMAGING REPORT One-day protocol was followed with rest/stress. Perfusion imaging was performed with technetium pyrophosphate sestamibi with gated imaging performed post-stress. Resting and post-stress images were reviewed and perfusion was found to be normal. Transient ischemic dilation ratio was found to be 1.7. Calculated ejection fraction post-stress gated images were calculated was found to be 77% with normal size left ventricle. FINAL IMPRESSION: 1. Normal perfusion. 2. Normal sized left ventricle with normal wall motion and ejection fraction 77%. 3. This is prognostically low risk study. JOB# [id number] ELENA/FABIAN
== END 2019-03-09 16:20 | DRG 239 ==
LOC: ED 12:22 → 3B-SURG 19:09
PROVIDERS: ADMIT Internal Medicine; ATTEND Internal Medicine
PROC: 04JY3ZZ Inspection of Lower Artery, Percutaneous Approach (ICD-10-PCS; 2019-03-01)
PROC: 0Y6H0Z3 Detachment at Right Lower Leg, Low, Open Approach (ICD-10-PCS; principal; 2019-03-06)
DX: I70.238 Atherosclerosis of native arteries of right leg with ulceration of other part of lower leg (principal); N17.0 Acute kidney failure with tubular necrosis; I74.3 Embolism and thrombosis of arteries of the lower extremities; E87.1 Hypo-osmolality and hyponatremia; L97.818 Non-pressure chronic ulcer of other part of right lower leg with other specified severity; I99.8 Other disorder of circulatory system; E87.5 Hyperkalemia; K21.9 Gastro-esophageal reflux disease without esophagitis; I10 Essential (primary) hypertension; E03.9 Hypothyroidism, unspecified; F17.210 Nicotine dependence, cigarettes, uncomplicated; I48.0 Paroxysmal atrial fibrillation; J44.9 Chronic obstructive pulmonary disease, unspecified; Z90.49 Acquired absence of other specified parts of digestive tract; Z86.718 Personal history of other venous thrombosis and embolism; Z79.01 Long term (current) use of anticoagulants
CPT/HCPCS: 36247; 36415; 71045; 75635; 75710; 76937; 78452; 80048; 80053; 82140; 82550; 82553; 82962; 84484; 85014; 85018; 85025; 85027; 85049; 85520; 85610; 85730; 86850; 86900; 86901; 88307; 88311; 93005; 93010; 93017; 94640; 94760; 99214; G0378; A9502; C1725; C1769; C1887; G0463; J0360; J0690; J1100; J1170; J1200; J1644; J2001; J2250; J2270; J2370; J2405; J2704; J2785; J3010; J7030; J7120; Q9967

== ENCOUNTER 2019-03-09 14:02 | Inpatient (IN) | payer MEDICARE ==
[2019-03-09] MEDS ORDERED: ALUM-MAG HYDROX-SIMETH 200-200-20MG/5ML PO PRN (15:37)
[2019-03-09] MEDS ORDERED: MILK OF MAGNESIA PO PRN (15:37)
[2019-03-09] MEDS ORDERED: TYLENOL PO PRN (15:37)
[2019-03-09] MEDS ORDERED: DULCOLAX PR PRN (15:37)
[2019-03-09] MEDS ORDERED: PROVENTIL IH PRN (15:49)
[2019-03-09] MEDS ORDERED: ZOFRAN IV PRN (15:49)
[2019-03-09] MEDS ORDERED: TYLENOL #3 PO PRN (15:49)
--- NOTE | 2019-03-09 20:09 | History and Physical Report ---
History of Present Illness Date: 03/09/19 Date of admission: 03/09/19 16:42 Chief Complaint: R BKA History of present illness: 78 yo female admitted with worsening RLE ischemia. Hx of PAD and multiple past interventions. Attempt made to salvage the limb but was unsuccessful. 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 Pain has been fairly controlled. She is experiencing some phantom sensation and phantom pain. She has AFib and is currently rate controlled but is off her OAC due to previous GIB. [employer] has seen her and she has a residual limb protector on. She states increased pain with dressing changes - which was done earlier today. I will view her wound on another day with her scheduled dressing change. Patient has recommendation from cardiology to resume oral anticoagulation as soon as possible from a surgical standpoint. I contacted surgery today and they are okay with her resuming this however they state their understanding was that she was taking off of anticoagulation by GI due to the GI bleed in September 2018. I will contact Dr. Memo Pearson for his opinion considering the GI bleed was 5 months ago. Currently she is rate controlled on multiple agents. After the patient was medically stabilized they were transferred for further rehabilitation. All available medical records have been reviewed but there are limited records from the acute care hospital. Plan of care was discussed with patient and family. Past History Past Medical History: atrial fib, COPD, GERD, hypertension, hypothyroidism, PVD, other (GI Bleed) Past Surgical History: cholecystectomy, Other (Fasciotomy) Social history: lives with family, smoking, full code. denies: alcohol abuse, prescription drug abuse, IV drug use Family history: hypertension Medications and Allergies Allergies Allergy/AdvReac Type Severity Reaction Status Date / Time No Known Allergies Allergy Verified 10/14/18 21:18 Home Medications Medication Instructions Recorded Confirmed Last Taken Type Levothyroxine Sodium [Synthroid] 88 mcg PO DAILY 07/06/18 02/27/19 07/05/18 History 88mcg Amitriptyline [Elavil] 10 mg PO DAILY 02/27/19 02/27/19 Unknown History Pantoprazole [Protonix TAB] 40 mg PO DAILY 02/27/19 02/27/19 Unknown History Amiodarone [Cordarone 200 MG TAB] 200 mg PO DAILY tablet 03/09/19 Unknown Rx DULoxetine [Cymbalta] 60 mg PO QDAY #30 capsule 03/09/19 Unknown Rx Gabapentin [Neurontin] 100 mg PO Q8HR #90 capsule 03/09/19 Unknown Rx HYDROcodone/APAP 10-325 [[place] 1 each PO Q4H PRN #30 tablet 03/09/19 Unknown Rx 10-325 mg TAB] Lisinopril [Zestril TAB] 10 mg PO QDAY tablet 03/09/19 Unknown Rx Metoprolol [Lopressor TAB] 25 mg PO DAILY tablet 03/09/19 Unknown Rx Multivitamin Tab [Multiple Vitamin 1 each PO QDAY tablet 03/09/19 Unknown Rx TAB (Theragran)] dilTIAZem [Cardizem] 60 mg PO TID #90 tablet 03/09/19 Unknown Rx Active Meds: Active Medications Acetaminophen (Tylenol) 650 mg PO Q4H PRN PRN Reason: Pain MILD(1-3)/Fever >100.5/GONZALES Acetaminophen/Codeine Phosphate (Tylenol #3) 1 tab PO Q6H PRN PRN Reason: Pain, Moderate (4-6) Acetaminophen/Hydrocodone Bitart ([place] 10/325) 1 each PO Q4H PRN PRN Reason: Pain, Moderate (4-6) Al Hydrox/Mg Hydrox/Simethicone (Alum-Mag Hydrox-Simeth [id number]/5ml) 30 ml PO Q4H PRN PRN Reason: Indigestion Albuterol (Proventil) 2.5 mg IH Q4HRT PRN PRN Reason: Shortness Of Breath Alprazolam (Xanax) 0.25 mg PO QPM PRN PRN Reason: Anxiety Amiodarone HCl (Cordarone) 200 mg PO DAILY [facility] Amitriptyline HCl (Elavil) 10 mg PO QHS [facility] Arformoterol Tartrate (Brovana Nebu) 15 mcg IH Q12HRT [facility] Bisacodyl (Dulcolax) 10 mg [place] QDAY PRN PRN Reason: Constipation unrelieved by MOM Budesonide (Pulmicort) 0.5 mg IH Q12HRT [facility] Diltiazem HCl (Cardizem) 60 mg PO TID [facility] Duloxetine HCl (Cymbalta) 60 mg PO QDAY [facility] Gabapentin (Neurontin) 100 mg PO Q8HR [facility] Heparin Sodium (Porcine) (Heparin) 5,000 unit SUB-Q Q8HR [facility] Levothyroxine Sodium (Synthroid) 88 mcg PO DAILY@0600 [facility] Lisinopril (Zestril) 10 mg PO QDAY [facility] Magnesium Hydroxide (Milk Of Magnesia) 30 ml PO Q4H PRN PRN Reason: Constipation Metoprolol Tartrate (Lopressor) 25 mg PO DAILY [facility] Multivitamins (Theragran Tab) 1 each PO QDAY [facility] Ondansetron HCl (Zofran) 4 mg IV Q8H PRN PRN Reason: Nausea And Vomiting Pantoprazole Sodium (Protonix) 40 mg PO QDAY [facility] Spironolactone (Aldactone) 25 mg PO BID [facility] Sucralfate (Carafate) 1 gm PO ACHS [facility] Review of Systems All systems: negative Constitutional: weakness Ears, nose, mouth and throat: no decreased hearing Cardiovascular: high blood pressure, no chest pain, no palpitations, no rapid/irregular heart beat, no edema, no dyspnea on exertion Respiratory: no shortness of breath Gastrointestinal: no nausea, no vomiting, no diarrhea, no constipation, no BRBPR, no melena Musculoskeletal: leg numbness/tingling, gait dysfunction, prior amputations Integumentary: wounds, no rash Neurological: parathesias, burning pain, no headaches Psychiatric: no change in sleep habits Exam - Exam Narrative exam: MUSCULOSKELETAL SPECIALTY EXAM CONSTITUTIONAL: Well developed, well nourished, appropriately groomed LYMPHATIC: No appreciable abnormalities palpable in neck EENT: Visual wiley full to confrontation. EOMI. Oropharynx clear. Hearing intact to soft voice RESPIRATORY: Clear to auscultation bilaterally, distant, no increased work of breathing CARDIOVASCULAR: Regular Rate/ Rhythm, no swelling, edema or tenderness in BUE or BLE. Pulses palpable in all extremities. All extremities warm. GI: + bowel sounds, soft, NTTP, nondistended. INTEGUMENTARY: Normal, no lesion, rash, masses or bruising noted in extremities except for surgical wound on R BKA. MUSCULOSKELETAL: BUE and BLE normal without defect, crepitus, subluxation, effusion, arthritic changes or TTP except for R BKA BUE 4+/5, good ROM, with normal tone. BLE 4+/5 good ROM, with normal tone NEURO: CN 2-12 grossly intact. Sensation intact in all extremities. Reflexes 2+ bilaterally at biceps, brachioradialis and L patella. No clonus at ankle. Coordination intact in BUE. No tremor noted in 4 extremities. POSTURE and GAIT: Sitting posture good. Balance and Gait deferred until seen with therapy. PSYCH: Alert, orientated x3, affect appears normal. Insight appears intact. - Labs CBC & Chem 7: 03/10/19 04:48 03/10/19 04:48 Assessment and Plan Assessment and plan: Patient was assessed and evaluated for Acute Inpatient Rehab Unit. Due to the patients above-mentioned medical complexity, along with decreased functional mobility and self care, this patient continues to require and be appropriate for a comprehensive, multidisciplinary [id number] rehabilitation program. These needs cannot be met in an outpatient or other less intensive setting. The patient would continue to benefit from skilled therapy intervention for at least 3 hours per day, five days a week, with techniques specific to the needs of the patient to improve function, activities of daily living, and reintegration into the community. The patient continues to require: -- OT to improve ROM, self-care, and learn use of adaptive equipment -- PT to improve strength and balance, functional transfers, and ambulation with energy conservation techniques to improve functional mobility -- SENIOR FUND ACCOUNTANT to address cognitive deficits and swallowing ability -- 24 hour RN to ensure and prevent skin breakdown, promote progressive independence while ensuring safety, ensure education regarding medications, and incorporation of the rehabilitation at the bedside -- 24 hour Marketing Research Analyst to coordinate this interdisciplinary program, and to manage/prevent complications as a result of the patients medical comorbidities. -Plan of care by day 4 -Weekly team conferences With such a program, there is a reasonable certainty that the goals individu alized for this patient can be achieved within the specified length of stay. Right BKA: Monitor the wound closely for any signs of infection. We'll maintain stump protector and wrapping in order shape residual limb for proper prosthesis fit. [employer]'s are revisited the patient given her information on prosthesis. One the patient not to get up out of bed in the middle the night due to concerns for fall. Will address fall recovery prior to discharge. Phantom sensation and phantom pain: Continue neuropathic pain control, residual limb to remain in stump protector, will start desensitization as soon as able. Atrial fibrillation: Continue regular control monitor for any symptoms. Discuss with GI about possibility of returning to oral anticoagulation. Hypothyroidism: Continue medication Hypertension: Continue medications and adjust for normotension GI bleed with peptic ulcer: Continue Protonix and Carafate. COPD: Continue nebulizers, supplemental O2 Z73.6 ADL dysfunction: OT will work on improving ability to perform ADLs (including assistive devices) to increase independence and decrease caregiver burden and improve functional transfers and mobility training. R26.2 Difficulty walking: PT will work on gait training and proper use of assistive devices and advance as appropriate to use of stairs and outside ambulation on uneven surfaces. R26.81 Unsteadiness on feet: PT will work on improving static and dynamic sitting and standing balance as well as proper use of assistive devices to decrease risk of falls. R26.89 Abnormality of gait: PT will work to improve safety and efficiency of gait through neuromotor training and gait training along with instruction on pro per use of assistive devices. M62.81 Muscle weakness: PT & OT will work on strengthening exercises to improve functional strength including mixture of closed and open kinetic chain exercises. R53.81 Debility: PT & OT will work on improving overall functional status to improve participation with ADLs, mobility and social involvement. R53.83 Fatigue: PT & OT will work on improving endurance through aerobic exercises and therapeutic activity while monitoring patients tolerance for activity and vital signs as needed. DVT ppx:Heparin Pain: Continue physical modalities in therapy and pain medications as needed to achieve functional pain control. Sleep: Monitor and address as needed. Bowel: Monitor and address as needed. Appetite: Monitor and address as needed. Discharge planning: Pending therapy progress and care plan meeting. Will continue discussion with therapy team, SW, patient and family. Restrictions/ Precautions: Falls WB status: NWB on RLE Functional Hx: ADLs: Independent Cognition: Independent Mobility: No AD Barriers to Discharge: Decreased mobility and ability to perform self care, balance deficits, weakness Estimated Length of Stay: 14-18 days Discharge Destination: Home with family POST ADMISSION PHYSICIAN EVALUATION I have examined the patient and find that functional status, medical condition and appropriateness for IRF admission are essentially unchanged from those described in the preadmission screening. Will monitor for worsening phantom pain, surgical site infection, DVT/PE, bowel and bladder complications and complications due to COPD, HTN, bleeding and electrolyte abnormalities. Will attempt to avoid occurrence of these issues or treat them if they present themselves.
[2019-03-09] MEDS: PULMICORT IH SCH (20:14)
[2019-03-09] MEDS: BROVANA NEBU IH SCH (20:14)
[2019-03-09] MEDS: NORCO 10/325 PO PRN (20:36)
[2019-03-09] MEDS: NEURONTIN PO SCH (22:21)
[2019-03-09] MEDS: CARAFATE PO SCH (22:21)
[2019-03-09] MEDS: ELAVIL PO SCH (22:22)
[2019-03-09] MEDS: ALDACTONE PO SCH (22:23)
[2019-03-09] MEDS: CARDIZEM PO SCH (22:23)
[2019-03-09] MEDS: HEPARIN SUB-Q SCH (22:24)
[2019-03-10] MEDS: NORCO 10/325 PO PRN ×5 (00:59→23:00)
[2019-03-10 05:04] LABS: Basophils % (Auto) 0.4 % (0.0-1.8); Eosinophils # (Auto) 0.1 K/mm3 (0.0-0.4); Eosinophils % (Auto) 1.1 % (0.0-4.3); Hematocrit 30.2 % (30.3-42.9); Hemoglobin 10.2 gm/dl (10.1-14.3); Lymphocytes % (Auto) 29.4 % (13.4-35.0); Mean Corpuscular HGB Conc 34 % (30-34); Mean Corpuscular Volume 94 fl (79-97); Monocytes # (Auto) 0.8 K/mm3 (0.0-0.8); Monocytes % (Auto) 12.3 % (0.0-7.3); Platelet Count 313 K/mm3 (140-440); Red Blood Count 3.22 M/mm3 (3.65-5.03)
[2019-03-10] MEDS: NEURONTIN PO SCH ×3 (05:17→21:27)
[2019-03-10] MEDS: HEPARIN SUB-Q SCH ×3 (05:17→21:28)
[2019-03-10 05:29] LABS: Albumin 3.5 g/dL (3.9-5); Calcium 10.4 mg/dL (8.4-10.2)
[2019-03-10] MEDS ORDERED: SYNTHROID PO SCH (06:00)
[2019-03-10] MEDS: CARAFATE PO SCH ×4 (07:36→21:24)
[2019-03-10] MEDS: ALDACTONE PO SCH ×2 (08:37→21:27)
[2019-03-10] MEDS: THERAGRAN Tab PO SCH (08:37)
[2019-03-10] MEDS: PULMICORT IH SCH ×2 (10:26→20:51)
[2019-03-10] MEDS: BROVANA NEBU IH SCH ×2 (10:26→20:51)
[2019-03-10] MEDS: CYMBALTA PO SCH (10:36)
[2019-03-10] MEDS: CARDIZEM PO SCH ×3 (10:38→21:24)
[2019-03-10] MEDS: CORDARONE PO SCH (10:38)
[2019-03-10] MEDS: ZESTRIL PO SCH (10:38)
[2019-03-10] MEDS: PROTONIX PO SCH (10:38)
[2019-03-10] MEDS: LOPRESSOR PO SCH (10:39)
--- NOTE | 2019-03-10 13:38 | Gastroenterology Consultation ---
<AMANDA FISCHER - Last Filed: 03/10/19 14:09> History of Present Illness - Reason for Consult Consult date: 03/10/19 opinion on restarting anticoagulation; hx of PUD Requesting physician: LYNETTE ARMSTRONG III - History of Present Illness Patient is a 78 y/o female with PMH of Afib, COPD, GERD, HTN, hypothyroidism, PUD, and PVD who was admitted with worsening RLE ischemia and underwent a R BKA after failed revascularization. GI has been consulted for evaluation of resuming anticoagulation given hx of GIB 2/2 PUD in September of this year. She underwent an EGD on 10/16/[address] Pearson for melena/GIB that showed a large pyloric channel/proximal duodenal bulb ulcer, clean based gastric ulcer, and gastritis but no high risk stigmata. This afternoon, patient was participating in PT w/o acute distress. She denies any recent active signs of bleeding such as hematemesis, melena, or hematochezia. Last BM with brown stool per patient repor t. Has been compliant with taking PPI at home. Is currently w/o GI complaints such as abdominal pain or N/V. Tolerating diet. Past History Past Medical History: other (as per HPI) Past Surgical History: cholecystectomy, Other (Fasciotomy, R BKA) Social history: lives with family, smoking, full code. denies: alcohol abuse, prescription drug abuse, IV drug use Family history: hypertension Medications and Allergies Allergies Allergy/AdvReac Type Severity Reaction Status Date / Time No Known Allergies Allergy Verified 10/14/18 21:18 Home Medications Medication Instructions Recorded Confirmed Last Taken Type Levothyroxine Sodium [Synthroid] 88 mcg PO DAILY 07/06/18 02/27/19 07/05/18 History 88mcg Amitriptyline [Elavil] 10 mg PO DAILY 02/27/19 02/27/19 Unknown History Pantoprazole [Protonix TAB] 40 mg PO DAILY 02/27/19 02/27/19 Unknown History Amiodarone [Cordarone 200 MG TAB] 200 mg PO DAILY tablet 03/09/19 Unknown Rx DULoxetine [Cymbalta] 60 mg PO QDAY #30 capsule 03/09/19 Unknown Rx Gabapentin [Neurontin] 100 mg PO Q8HR #90 capsule 03/09/19 Unknown Rx HYDROcodone/APAP 10-325 [[place] 1 each PO Q4H PRN #30 tablet 03/09/19 Unknown Rx 10-325 mg TAB] Lisinopril [Zestril TAB] 10 mg PO QDAY tablet 03/09/19 Unknown Rx Metoprolol [Lopressor TAB] 25 mg PO DAILY tablet 03/09/19 Unknown Rx Multivitamin Tab [Multiple Vitamin 1 each PO QDAY tablet 03/09/19 Unknown Rx TAB (Theragran)] dilTIAZem [Cardizem] 60 mg PO TID #90 tablet 03/09/19 Unknown Rx Active Meds: Active Medications Acetaminophen (Tylenol) 650 mg PO Q4H PRN PRN Reason: Pain MILD(1-3)/Fever >100.5/G[place]ES Acetaminophen/Codeine Phosphate (Tylenol #3) 1 tab PO Q6H PRN PRN Reason: Pain, Moderate (4-6) Last Admin: 03/10/19 13:29 Dose: 1 tab Documented by: Acetaminophen/Hydrocodone Bitart ([place] 10/325) 1 each PO Q4H PRN PRN Reason: Pain, Moderate (4-6) Last Admin: 03/10/19 10:39 Dose: 1 each Documented by: Al Hydrox/Mg Hydrox/Simethicone (Alum-Mag Hydrox-Simeth [id number]/5ml) 30 ml PO Q4H PRN PRN Reason: Indigestion Albuterol (Proventil) 2.5 mg IH Q4HRT PRN PRN Reason: Shortness Of Breath Alprazolam (Xanax) 0.25 mg PO QPM PRN PRN Reason: Anxiety Amiodarone HCl (Cordarone) 200 mg PO DAILY [facility] Last Admin: 03/10/19 10:38 Dose: 200 mg Documented by: Amitriptyline HCl (Elavil) 10 mg PO QHS [facility] Last Admin: 03/09/19 22:22 Dose: 10 mg Documented by: Arformoterol Tartrate (Brovana Nebu) 15 mcg IH Q12HRT [facility] Last Admin: 03/10/19 10:26 Dose: 15 mcg Documented by: Bisacodyl (Dulcolax) 10 mg [place] QDAY PRN PRN Reason: Constipation unrelieved by MOM Budesonide (Pulmicort) 0.5 mg IH Q12HRT [facility] Last Admin: 03/10/19 10:26 Dose: 0.5 mg Documented by: Diltiazem HCl (Cardizem) 60 mg PO TID [facility] Last Admin: 03/10/19 13:20 Dose: 60 mg Documented by: Duloxetine HCl (Cymbalta) 60 mg PO QDAY [facility] Last Admin: 03/10/19 10:36 Dose: 60 mg Documented by: Gabapentin (Neurontin) 100 mg PO Q8HR [facility] Last Admin: 03/10/19 13:19 Dose: 100 mg Documented by: Heparin Sodium (Porcine) (Heparin) 5,000 unit SUB-Q Q8HR [facility] Last Admin: 03/10/19 13:19 Dose: 5,000 unit Documented by: Levothyroxine Sodium (Synthroid) 88 mcg PO DAILY@0600 [facility] Last Admin: 03/10/19 05:17 Dose: 88 mcg Documented by: Lisinopril (Zestril) 10 mg PO QDAY [facility] Last Admin: 03/10/19 10:38 Dose: 10 mg Documented by: Magnesium Hydroxide (Milk Of Magnesia) 30 ml PO Q4H PRN PRN Reason: Constipation Metoprolol Tartrate (Lopressor) 25 mg PO DAILY [facility] Last Admin: 03/10/19 10:39 Dose: 25 mg Documented by: Multivitamins (Theragran Tab) 1 each PO QDAY [facility] Last Admin: 03/10/19 08:37 Dose: 1 each Documented by: Ondansetron HCl (Zofran) 4 mg IV Q8H PRN PRN Reason: Nausea And Vomiting Pantoprazole Sodium (Protonix) 40 mg PO QDAY [facility] Last Admin: 03/10/19 10:38 Dose: 40 mg Documented by: Spironolactone (Aldactone) 25 mg PO BID [facility] Last Admin: 03/10/19 08:37 Dose: 25 mg Documented by: Sucralfate (Carafate) 1 gm PO ACHS [facility] Last Admin: 03/10/19 13:19 Dose: 1 gm Documented by: medications reviewed/updated as required Review of Systems - Review of Systems All systems: negative Gastrointestinal: no abdominal pain, no nausea, no vomiting, no hematemesis, no melena, no hematochezia Exam - Constitutional Vital Signs: Temp Pulse Resp BP Pulse Ox 98.0 F 69 16 183/77 98 03/10/19 08:00 03/10/19 10:32 03/10/19 10:32 03/10/19 08:00 03/10/19 10:33 General appearance: no acute distress - EENT Eyes: PERRL, EOM intact ENT: hearing intact - Respiratory Respiratory effort: normal - Cardiovascular Rhythm: regular - Gastrointestinal General gastrointestinal: Present: soft, non-tender, non-distended, normal bowel sounds - Musculoskeletal Musculoskeletal: other (R BKA) - Neurologic Neurological: alert and oriented x3 - Labs CBC & Chem 7: 03/10/19 04:48 03/10/19 04:48 Lab Results: Laboratory Results - last 24 hr 03/10/19 03/10/19 04:48 04:48 WBC 6.9 RBC 3.22 L Hgb 10.2 Hct 30.2 L MCV 94 MCH 32 MCHC 34 RDW 15.0 Plt Count 313 Lymph % (Auto) 29.4 [place] % (Auto) 12.3 H Eos % (Auto) 1.1 Baso % (Auto) 0.4 Lymph # 2.0 [place] # 0.8 Eos # 0.1 Baso # 0.0 Seg Neutrophils % 56.8 Seg Neutrophils # 3.9 Sodium 136 L Potassium 4.7 Chloride 99.7 Carbon Dioxide 25 Anion Gap 16 BUN 24 H Creatinine 1.0 Estimated GFR 54 BUN/Creatinine Ratio 24 Glucose 105 H Calcium 10.4 H Total Bilirubin 0.40 AST 21 ALT 10 Alkaline Phosphatase 76 Total Protein 6.7 Albumin 3.5 L Albumin/Globulin Ratio 1.1 Assessment and Plan 1.s/p R BKA 2.H/o PUD -H/H 10.2/30.2-stable -s/p EGD 10/16/18 that showed a large pyloric channel/proximal duodenal bulb ulcer, clean based gastric ulcer, and gastritis but no high risk stigmata -clinical, patient is stable with no current GI complaints or active signs of bleeding. -okay to resume anticoagulation as needed per GI standpoint- monitor and hold for active signs of bleeding -continue daily PPI -continue supportive care -no further recommendations at this time per GI -will sign off, please call if needed <LUÍS SHORT R - Last Filed: 03/11/19 12:44> Medications and Allergies Active Meds: Active Medications Acetaminophen (Tylenol) 650 mg PO Q4H PRN PRN Reason: Pain MILD(1-3)/Fever >100.5/GONZALES Acetaminophen/Hydrocodone Bitart ([place] 10/325) 1 each PO Q4H PRN PRN Reason: Pain, Moderate (4-6) Last Admin: 03/11/19 08:59 Dose: 1 each Documented by: Al Hydrox/Mg Hydrox/Simethicone (Alum-Mag Hydrox-Simeth [id number]/5ml) 30 ml PO Q4H PRN PRN Reason: Indigestion Albuterol (Proventil) 2.5 mg IH Q4HRT PRN PRN Reason: Shortness Of Breath Alprazolam (Xanax) 0.25 mg PO QPM PRN PRN Reason: Anxiety Last Admin: 03/10/19 23:01 Dose: 0.25 mg Documented by: Amiodarone HCl (Cordarone) 200 mg PO DAILY [facility] Last Admin: 03/11/19 10:36 Dose: Not Given Documented by: Amitriptyline HCl (Elavil) 10 mg PO QHS [facility] Last Admin: 03/10/19 21:24 Dose: 10 mg Documented by: Apixaban (Eliquis) 5 mg PO Q12HR [facility]; Protocol Last Admin: 03/11/19 10:43 Dose: Not Given Documented by: Arformoterol Tartrate (Brovana Nebu) 15 mcg IH Q12HRT [facility] Last Admin: 03/11/19 07:49 Dose: 15 mcg Documented by: Bisacodyl (Dulcolax) 10 mg [place] QDAY PRN PRN Reason: Constipation unrelieved by MOM Budesonide (Pulmicort) 0.5 mg IH Q12HRT [facility] Last Admin: 03/11/19 07:49 Dose: 0.5 mg Documented by: Diltiazem HCl (Cardizem) 60 mg PO TID [facility] Last Admin: 03/11/19 08:41 Dose: 60 mg Documented by: Duloxetine HCl (Cymbalta) 60 mg PO QDAY [facility] Last Admin: 03/11/19 08:41 Dose: 60 mg Documented by: Gabapentin (Neurontin) 100 mg PO Q8HR [facility] Last Admin: 03/11/19 06:21 Dose: 100 mg Documented by: Gabapentin (Neurontin) 300 mg PO Q8HR [facility] Levothyroxine Sodium (Synthroid) 88 mcg PO DAILY@0600 [facility] Last Admin: 03/11/19 06:20 Dose: 88 mcg Documented by: Lisinopril (Zestril) 10 mg PO QDAY [facility] Last Admin: 03/11/19 08:41 Dose: 10 mg Documented by: Magnesium Hydroxide (Milk Of Magnesia) 30 ml PO Q4H PRN PRN Reason: Constipation Metoprolol Tartrate (Lopressor) 25 mg PO DAILY [facility] Last Admin: 03/10/19 10:39 Dose: 25 mg Documented by: Multivitamins (Theragran Tab) 1 each PO QDAY [facility] Last Admin: 03/11/19 08:42 Dose: 1 each Documented by: Ondansetron HCl (Zofran) 4 mg IV Q8H PRN PRN Reason: Nausea And Vomiting Pantoprazole Sodium (Protonix) 40 mg PO QDAY [facility] Last Admin: 03/11/19 08:42 Dose: 40 mg Documented by: Spironolactone (Aldactone) 25 mg PO BID [facility] Last Admin: 03/11/19 08:41 Dose: 25 mg Documented by: Sucralfate (Carafate) 1 gm PO ACHS [facility] Last Admin: 03/11/19 08:41 Dose: 1 gm Documented by: Exam - Constitutional Vital Signs: Temp Pulse Resp BP Pulse Ox 98.0 F 78 18 142/48 98 03/11/19 07:52 03/11/19 07:56 03/11/19 07:56 03/11/19 07:52 03/11/19 07:52 - Labs CBC & Chem 7: 03/10/19 04:48 03/10/19 04:48 Assessment and Plan Pt seen and examined. Plan as noted. Needs to be on chronic PPI as long as on anticoagulation. Should f/u with GI as outpatient.
[2019-03-10] MEDS: ELAVIL PO SCH (21:24)
--- NOTE | 2019-03-10 22:40 | Consultation ---
History of Present Illness - Reason for Consult Consult date: 03/10/19 Medical management Requesting physician: KEE ARMSTRONG - History of Present Illness 78 YO Female with Atrial Fib, COPD, HTN, Hypothyroidism, PUD, PVD admitted to IRU S/P Right BKA. Consult placed by Dr. Armstrong for medical management. Pt seen and evaluated in her room. Pt resting comfortably. No reported nursing events. Pt denies fever, chills, CP, palpitations, NVD, Trauma, Productive cough, skin rash, or recent ill contacts. Past History Past Medical History: other (as per HPI) Past Surgical History: cholecystectomy, Other (Fasciotomy, R BKA) Social history: lives with family, smoking, full code. denies: alcohol abuse, prescription drug abuse, IV drug use Family history: hypertension Medications and Allergies Allergies Allergy/AdvReac Type Severity Reaction Status Date / Time No Known Allergies Allergy Verified 10/14/18 21:18 Home Medications Medication Instructions Recorded Confirmed Last Taken Type Levothyroxine Sodium [Synthroid] 88 mcg PO DAILY 07/06/18 02/27/19 07/05/18 Hi story 88mcg Amitriptyline [Elavil] 10 mg PO DAILY 02/27/19 02/27/19 Unknown History Pantoprazole [Protonix TAB] 40 mg PO DAILY 02/27/19 02/27/19 Unknown History Amiodarone [Cordarone 200 MG TAB] 200 mg PO DAILY tablet 03/09/19 Unknown Rx DULoxetine [Cymbalta] 60 mg PO QDAY #30 capsule 03/09/19 Unknown Rx Gabapentin [Neurontin] 100 mg PO Q8HR #90 capsule 03/09/19 Unknown Rx HYDROcodone/APAP 10-325 [[place]comb 1 each PO Q4H PRN #30 tablet 03/09/19 Unknown Rx 10-325 mg TAB] Lisinopril [Zestril TAB] 10 mg PO QDAY tablet 03/09/19 Unknown Rx Metoprolol [Lopressor TAB] 25 mg PO DAILY tablet 03/09/19 Unknown Rx Multivitamin Tab [Multiple Vitamin 1 each PO QDAY tablet 03/09/19 Unknown Rx TAB (Theragran)] dilTIAZem [Cardizem] 60 mg PO TID #90 tablet 03/09/19 Unknown Rx Active Meds: Active Medications Acetaminophen (Tylenol) 650 mg PO Q4H PRN PRN Reason: Pain MILD(1-3)/Fever >100.5/GONZALES Acetaminophen/Codeine Phosphate (Tylenol #3) 1 tab PO Q6H PRN PRN Reason: Pain, Moderate (4-6) Last Admin: 03/10/19 13:29 Dose: 1 tab Documented by: Acetaminophen/Hydrocodone Bitart ([place]comb 10/325) 1 each PO Q4H PRN PRN Reason: Pain, Moderate (4-6) Last Admin: 03/10/19 18:52 Dose: 1 each Documented by: Al Hydrox/Mg Hydrox/Simethicone (Alum-Mag Hydrox-Simeth [phone]/5ml) 30 ml PO Q4H PRN PRN Reason: Indigestion Albuterol (Proventil) 2.5 mg IH Q4HRT PRN PRN Reason: Shortness Of Breath Alprazolam (Xanax) 0.25 mg PO QPM PRN PRN Reason: Anxiety Amiodarone HCl (Cordarone) 200 mg PO DAILY [facility] Last Admin: 03/10/19 10:38 Dose: 200 mg Documented by: Amitriptyline HCl (Elavil) 10 mg PO QHS [facility] Last Admin: 03/10/19 21:24 Dose: 10 mg Documented by: Apixaban (Eliquis) 5 mg PO Q12HR [facility]; Protocol Arformoterol Tartrate (Brovana Nebu) 15 mcg IH Q12HRT [facility] Last Admin: 03/10/19 20:51 Dose: 15 mcg Documented by: Bisacodyl (Dulcolax) 10 mg MA QDAY PRN PRN Reason: Constipation unrelieved by MOM Budesonide (Pulmicort) 0.5 mg IH Q12HRT [facility] Last Admin: 03/10/19 20:51 Dose: 0.5 mg Documented by: Diltiazem HCl (Cardizem) 60 mg PO TID [facility] Last Admin: 03/10/19 21:24 Dose: 60 mg Documented by: Duloxetine HCl (Cymbalta) 60 mg PO QDAY [facility] Last Admin: 03/10/19 10:36 Dose: 60 mg Documented by: Gabapentin (Neurontin) 100 mg PO Q8HR [facility] Last Admin: 03/10/19 21:27 Dose: 100 mg Documented by: Heparin Sodium (Porcine) (Heparin) 5,000 unit SUB-Q Q8HR [facility] Stop: 03/11/19 05:00 Last Admin: 03/10/19 21:28 Dose: 5,000 unit Documented by: Levothyroxine Sodium (Synthroid) 88 mcg PO DAILY@0600 [facility] Last Admin: 03/10/19 05:17 Dose: 88 mcg Documented by: Lisinopril (Zestril) 10 mg PO QDAY [facility] Last Admin: 03/10/19 10:38 Dose: 10 mg Documented by: Magnesium Hydroxide (Milk Of Magnesia) 30 ml PO Q4H PRN PRN Reason: Constipation Metoprolol Tartrate (Lopressor) 25 mg PO DAILY [facility] Last Admin: 03/10/19 10:39 Dose: 25 mg Documented by: Multivitamins (Theragran Tab) 1 each PO QDAY [facility] Last Admin: 03/10/19 08:37 Dose: 1 each Documented by: Ondansetron HCl (Zofran) 4 mg IV Q8H PRN PRN Reason: Nausea And Vomiting Pantoprazole Sodium (Protonix) 40 mg PO QDAY [facility] Last Admin: 03/10/19 10:38 Dose: 40 mg Documented by: Spironolactone (Aldactone) 25 mg PO BID [facility] Last Admin: 03/10/19 21:27 Dose: 25 mg Documented by: Sucralfate (Carafate) 1 gm PO [facility] Last Admin: 03/10/19 21:24 Dose: 1 gm Documented by: Review of Systems Constitutional: no weight loss, no weight gain, no fever, no chills Ears, nose, mouth and throat: no ear pain, no ear discharge, no tinnitis, no decreased hearing, no nose pain Breasts: no change in shape, no mass Cardiovascular: no chest pain, no orthopnea, no palpitations, no rapid/irregular heart beat Respiratory: no cough, no excessive sputum, no hemoptysis, no dyspnea on exertion Gastrointestinal: no abdominal pain, no nausea, no diarrhea, no constipation, no hematemesis Genitourinary Female: no pelvic pain, no flank pain, no menorrhagia, no dysuria Rectal: no pain, no incontinence, no bleeding Musculoskeletal: no neck stiffness, no neck pain Integumentary: no rash, no pruritis, no sores, no wounds, no jaundice, no boils Neurological: no transient paralysis, no paralysis, no weakness, no seizures, no tremors, no ataxia Psychiatric: no anxiety, no memory loss, no change in sleep habits, no change in appetite, no change in libido, no suicidal ideation, no disorientation Endocrine: no cold intolerance, no heat intolerance, no polyphagia, no excessive thirst Hematologic/Lymphatic: no easy bruising, no easy bleeding, no lymphadenopathy, no lymphedema Allergic/Immunologic: no urticaria, no persistent infections, no anaphylaxis, no angioedema Exam - Constitutional Vitals: Temp Pulse Resp BP Pulse Ox 97.9 F 77 16 107/47 97 03/10/19 16:23 03/10/19 21:27 03/10/19 21:09 03/10/19 21:27 03/10/19 20:52 General appearance: Present: mild distress - EENT Eyes: Present: PERRL ENT: hearing intact, clear oral mucosa - Neck Neck: Present: supple, normal ROM - Respiratory Respiratory effort: normal Respiratory: bilateral: CTA - Cardiovascular Heart Sounds: Present: S1 & S2. Absent: rub, click - Extremities Extremities: pulses symmetrical, No edema, abnormal (Right BKA) Peripheral Pulses: within normal limits - Abdominal General gastrointestinal: Present: soft, non-tender, non-distended, normal bowel sounds Female genitourinary: Present: normal - Integumentary Integumentary: Present: clear, warm, dry - Musculoskeletal Musculoskeletal: gait normal, strength equal bilaterally - Psychiatric Psychiatric: appropriate mood/affect, intact judgment & insight - Neurologic Neurologic: CNII-XII intact, moves all extremities Results - Labs CBC & Chem 7: 03/10/19 04:48 03/10/19 04:48 Labs: Abnormal lab results 03/10/19 03/10/19 Range/Units 04:48 04:48 RBC 3.22 L (3.65-5.03) M/mm3 Hct 30.2 L (30.3-42.9) % [place] % (Auto) 12.3 H (0.0-7.3) % Sodium 136 L (137-145) mmol/L BUN 24 H (7-17) mg/dL Glucose 105 H (65-100) mg/dL Calcium 10.4 H (8.4-10.2) mg/dL Albumin 3.5 L (3.9-5) g/dL Assessment and Plan - Patient Problems (1) HTN (hypertension) Current Visit: Yes Status: Acute Qualifiers: Hypertension type: essential hypertension Qualified Code(s): I10 - Essential (primary) hypertension Plan to address problem: Pt hypotensive at this time. Hold antihypertensive therapy for now. will reassess daily. (2) COPD (chronic obstructive pulmonary disease) Current Visit: Yes Status: Acute Plan to address problem: Supplemental oxygen, nebulizer therapy, NIPPV as clinically indicated, incentive spirometry (3) Hypothyroid Current Visit: Yes Status: Acute Qualifiers: Hypothyroidism type: unspecified Qualified Code(s): E03.9 - Hypothyroidism, unspecified Plan to address problem: continue synthroid therapy.
[2019-03-10] MEDS: XANAX PO PRN (23:01)
[2019-03-11] MEDS: NORCO 10/325 PO PRN ×5 (04:22→22:32)
[2019-03-11] MEDS ORDERED: SYNTHROID PO SCH (06:00)
[2019-03-11] MEDS: NEURONTIN PO SCH ×4 (06:21→22:33)
[2019-03-11] MEDS: BROVANA NEBU IH SCH ×2 (07:49→21:25)
[2019-03-11] MEDS: PULMICORT IH SCH ×2 (07:49→21:25)
[2019-03-11] MEDS: ZESTRIL PO SCH (08:41)
[2019-03-11] MEDS: CARDIZEM PO SCH ×3 (08:41→22:40)
[2019-03-11] MEDS: ALDACTONE PO SCH ×2 (08:41→22:43)
[2019-03-11] MEDS: CARAFATE PO SCH ×4 (08:41→22:33)
[2019-03-11] MEDS: ELIQUIS PO SCH ×3 (08:41→22:33)
[2019-03-11] MEDS: CYMBALTA PO SCH (08:41)
[2019-03-11] MEDS: THERAGRAN Tab PO SCH (08:42)
[2019-03-11] MEDS: PROTONIX PO SCH (08:42)
[2019-03-11] MEDS: CORDARONE PO SCH ×2 (08:53→10:36)
--- NOTE | 2019-03-11 09:16 | Progress Note ---
Subjective Date of service: 03/11/19 Principal diagnosis: R BKA Interval history: 78 yo female admitted with worsening RLE ischemia. Hx of PAD and multiple past interventions. Attempt made to salvage the limb but was unsuccessful. 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 Pain has been fairly controlled. She is experiencing some phantom sensation and phantom pain. She has AFib and is currently rate controlled but is off her OAC due to previous GIB. Associate Director Of Nursing prosthetics has seen her and she has a residual limb protector on. She states increased pain with dressing changes - which was done earlier today. I will view her wound on another day with her scheduled dressing change. Patient has recommendation from cardiology to resume oral anticoagulation as soon as possible from a surgical standpoint. I contacted surgery today and they are okay with her resuming this however they state their understanding was that she was taking off of anticoagulation by GI due to the GI bleed in September 2018. GI consulted and is OK with restarting Eliquis. Discussed with patient. Will monitor closely for any signs of GIB. Patient is participating in therapy and making reasonable progress. Taking rest breaks as needed. +BM. Denies palpitations, dyspnea, cough, N/V, weakness, or joint pain. Continues to have right leg pain. Describes the pain as neuropathic in nature including numbness tingling and shocks. Doesn't sound like it's so much incisional pain as it is neuropathic referred pain as a goes up the leg into the knee area and higher. She does still have some phantom sensation and occasional phantom pain. Will continue to monitor the pain level and adjust neuropathic pain agents as needed. Heart rate has been decreased at times into the 50s. She is asymptomatic at this rate and is on multiple agents for rate control due to the A. fib. We'll continue to monitor heart rate and if needed can decrease metoprolol, no adjustments for now. Dressing changed on surgical site, madelin intact, scant drainage just along staple line, slight redness at the distal tibial area, appeared more pressure than infection. All records, vitals, labs and medications were reviewed. No other issues per patient, nursing or therapy. Objective - Exam Narrative Exam: MUSCULOSKELETAL SPECIALTY EXAM CONSTITUTIONAL: Well developed, well nourished, appropriately groomed EENT: EOMI Hearing intact to soft voice RESPIRATORY: Clear to auscultation bilaterally, distant, no increased work of breathing CARDIOVASCULAR: Regular Rate/ Rhythm, no swelling, edema or tenderness in BUE or BLE. All extremities warm. GI: + bowel sounds, soft, NTTP, nondistended. INTEGUMENTARY: Normal, no lesion, rash, masses or bruising noted in extremities except for surgical wound on R BKA, healing well no signs of infection. MUSCULOSKELETAL: BUE and BLE normal without defect, crepitus, subluxation, effusion, arthritic changes or TTP except for R BKA which has small appropriate amount of tenderness to palpation BUE 4+/5, good ROM, with normal tone. BLE 4+/5 good ROM, with normal tone NEURO: CN 2-12 grossly intact. Sensation intact in all extremities. No tremor noted in 4 extremities. POSTURE and GAIT: Sitting posture good. Balance and Gait deferred until seen with therapy. PSYCH: Alert, orientated x3, affect appears normal. Insight appears intact. - Constitutional Vitals: Vital Signs - 12hr 03/10/19 03/10/19 03/10/19 21:09 21:24 21:27 Temperature Pulse Rate 77 77 Pulse Rate [ 71 Bilateral Throughout] Respiratory Rate Respiratory 16 Rate [Bilateral Throughout] Blood Pressure 107/47 107/47 Blood Pressure [Right] O2 Sat by Pulse Oximetry 03/10/19 03/11/19 03/11/19 23:40 04:36 07:51 Temperature 36.6 C 36.4 C L Pulse Rate 68 74 Pulse Rate [ 75 Bilateral Throughout] Respiratory 18 17 Rate Respiratory 18 Rate [Bilateral Throughout] Blood Pressure 113/41 121/53 Blood Pressure [Right] O2 Sat by Pulse 93 94 95 Oximetry 03/11/19 03/11/19 07:52 07:56 Temperature 36.7 C Pulse Rate 58 L Pulse Rate [ 78 Bilateral Throughout] Respiratory 17 Rate Respiratory 18 Rate [Bilateral Throughout] Blood Pressure Blood Pressure 142/48 [Right] O2 Sat by Pulse 98 Oximetry - Allied health notes Allied health notes reviewed: nursing, PT, OT FIMS assessment as documented by PT/OT/ST: Grooming Patient cleans teeth/dentures: Yes Patient ahmadi/brushes hair: Yes Patient washes, rinses and Yes dries face: Patient washes, rinses and Yes dries hands: Patient applies make-up: Yes Patient performs (w/ make-up/ 5/5 (100%) shaving): Grooming FIM Score 5. Supervision (Mccoll applies toothpaste or opens containers.) Toileting Toileting Device Grab Bar Patient able to: Adjust clothes before,Clean self,Adjust clothes after Patient able to perform: 3/3 (100%) Toileting FIM Score 4. Minimal Assistance (Patient = 75% or more. Needs touching.) Social interaction/Memory/Problem solving Social Interaction FIM Score 6. Mod. [place] (Mostly appropriate. May need meds. No supv.) Memory FIM Score 5. Supervision (Needs cueing <10%, stressful/ unfamiliar situations.) Problem Solving FIM Score 6. Mod. [place] (Mild difficulty or needs more time w/ complex.) Transfers Mode of Locomotion: Wheelchair Bed/Chair/Wheelchair Transfers 3. Moderate Assistance (Patient = 50% or more. FIM Score Some lifting.) Toilet Transfers FIM Score 3. Moderate Assistance (Patient = 50% or more. Some lifting.) Patient transferred to: Shower Shower Transfers FIM Score 3. Moderate Assistance (Patient = 50% or more. Some lifting.) Locomotion- walk/wheelchair Most Frequent Mode of Wheelchair Locomotion: Ambulation Distance 41 Walking FIM Score 1. Total Assistance (Pt. < 25%, 2 or more person assist, or <50 ft.) Wheelchair Propulsion Distance 178 Wheelchair FIM Score 4. Minimal Assistance (Patient = 75% or more. Minimum of 150 ft.) Eating Eating FIM Score 6. Modified [place] (Special consistency or uses device.) Dressing-Upper body Upper Body Dressing Device Button Hook Patient retrieves clothing No items: Patient applies/removes UE n/a prosthesis or orthosis: Upper Body Dressing FIM Score 5. Supv./Set-Up (Mccoll sets out clothes or applies pros./orth.) Dressing-lower body Patient retrieves clothing Yes items: Patient applies/removes LE knee immobilizer in place prosthesis or orthosis: Lower Body Dressing FIM Score 4. Minimal Assistance (Patient = 75% or more. Needs touching.) - Labs CBC & Chem 7: 03/10/19 04:48 03/10/19 04:48 Labs: Laboratory Results - last 72 hr 03/10/19 03/10/19 04:48 04:48 WBC 6.9 RBC 3.22 L Hgb 10.2 Hct 30.2 L MCV 94 MCH 32 MCHC 34 RDW 15.0 Plt Count 313 Lymph % (Auto) 29.4 [place] % (Auto) 12.3 H Eos % (Auto) 1.1 Baso % (Auto) 0.4 Lymph # 2.0 [place] # 0.8 Eos # 0.1 Baso # 0.0 Seg Neutrophils % 56.8 Seg Neutrophils # 3.9 Sodium 136 L Potassium 4.7 Chloride 99.7 Carbon Dioxide 25 Anion Gap 16 BUN 24 H Creatinine 1.0 Estimated GFR 54 BUN/Creatinine Ratio 24 Glucose 105 H Calcium 10.4 H Total Bilirubin 0.40 AST 21 ALT 10 Alkaline Phosphatase 76 Total Protein 6.7 Albumin 3.5 L Albumin/Globulin Ratio 1.1 Assessment and Plan Right BKA: Monitor the wound closely for any signs of infection. We'll maintain stump protector and wrapping in order shape residual limb for proper prosthesis fit. Associate Director Of Nursing prosthetics's are revisited the patient given her information on prosthesis. Discussed with the patient to not to get up out of bed in the middle the night due to concerns for fall. Will address fall recovery prior to discharge. Continue to work on balance and mobility skills with walker. Once we are able to use a signal maintenance technician will work on independence of care for right BKA. Discussed with patient need for maintaining her cardiovascular conditioning due to increased demand of energy with BKA. Discussed range of motion maintenance. Will moved to independence with all maintenance and therapeutic interventions prior to discharge. She will need follow-up with therapy after being fitted with prosthesis. Phantom sensation and phantom pain: Continue neuropathic pain control, residual limb to remain in stump protector, will start desensitization as soon as able. Increase gabapentin. Atrial fibrillation: Continue regular control monitor for any symptoms. Restart Eliquis per cardiology rec. Discussed with surgeon and GI. Hypothyroidism: Continue medication Hypertension: Continue medications and adjust for normotension GI bleed with peptic ulcer: Continue Protonix and Carafate. COPD: Continue nebulizers, supplemental O2 Z73.6 ADL dysfunction: OT will work on improving ability to perform ADLs (including assistive devices) to increase independence and decrease caregiver burden and improve functional transfers and mobility training. R26.2 Difficulty walking: PT will work on gait training and proper use of assistive devices and advance as appropriate to use of stairs and outside ambulation on uneven surfaces. R26.81 Unsteadiness on feet: PT will work on improving static and dynamic sitting and standing balance as well as proper use of assistive devices to decrease risk of falls. R26.89 Abnormality of gait: PT will work to improve safety and efficiency of gait through neuromotor training and gait training along with instruction on proper use of assistive devices. M62.81 Muscle weakness: PT & OT will work on strengthening exercises to improve functional strength including mixture of closed and open kinetic chain exercises. R53.81 Debility: PT & OT will work on improving overall functional status to improve participation with ADLs, mobility and social involvement. R53.83 Fatigue: PT & OT will work on improving endurance through aerobic exercises and therapeutic activity while monitoring patients tolerance for activity and vital signs as needed. DVT ppx: Eliquis Pain: Continue physical modalities in therapy and pain medications as needed to achieve functional pain control. Sleep: Monitor and address as needed. Bowel: Monitor and address as needed. Appetite: Monitor and address as needed. Discharge planning: Pending therapy progress and care plan meeting. Will continue discussion with therapy team, SW, patient and family. Restrictions/ Precautions: Falls WB status: NWB on RLE Functional Hx: ADLs: Independent Cognition: Independent Mobility: No AD Barriers to Discharge: Decreased mobility and ability to perform self care, balance deficits, weakness Estimated Length of Stay: 14-18 days Discharge Destination: Home with family
--- NOTE | 2019-03-11 12:53 | Progress Note ---
Assessment and Plan Assessment and plan: - History of Present Illness 78 YO Female with Atrial Fib, COPD, HTN, Hypothyroidism, PUD, PVD admitted to IRU S/P Right BKA. Consult placed by Dr. Ring for medical management. Pt seen and evaluated in her room. Pt resting comfortably. No reported nursing events. Pt denies fever, chills, CP, palpitations, NVD, Trauma, Productive cough, skin rash, or recent ill contacts. HTN (hypertension) Pt hypotensive at this time. Hold antihypertensive therapy for now. will reassess daily. COPD (chronic obstructive pulmonary disease) Supplemental oxygen, nebulizer therapy, NIPPV as clinically indicated, incentive spirometry Hypothyroid continue synthroid therapy. History Interval history: s/p right BKA no headache Hospitalist Physical - Physical exam Narrative exam: Gen: Not in acute distress, lying in bed, HEENT: Normocephalic, atraumatic Neck: supple, no JVD Heart: S1 and S2 reg, no murmurs, rubs or gallop Lungs: Clear, no crackles, no wheeze Abd: soft, non tender, non distended, normal BS Ext: s/p right BKA Neuro: Awake,alert, oriented x 3, moves all ext, non focal Psych:Normal mood Hospitalist Physical - Constitutional Vitals: Temp Pulse Resp BP Pulse Ox 98.0 F 78 18 142/48 98 03/11/19 07:52 03/11/19 07:56 03/11/19 07:56 03/11/19 07:52 03/11/19 07:52 General appearance: Present: mild distress Results - Labs CBC & Chem 7: 03/31/19 08:07 03/31/19 08:07 Labs: Laboratory Last Values WBC 6.9 K/mm3 (4.5-11.0) 03/10/19 04:48 RBC 3.22 M/mm3 (3.65-5.03) L 03/10/19 04:48 Hgb 10.2 gm/dl (10.1-14.3) 03/10/19 04:48 Hct 30.2 % (30.3-42.9) L 03/10/19 04:48 MCV 94 fl (79-97) 03/10/19 04:48 MCH 32 pg (28-32) 03/10/19 04:48 MCHC 34 % (30-34) 03/10/19 04:48 RDW 15.0 % (13.2-15.2) 03/10/19 04:48 Plt Count 313 K/mm3 (140-440) 03/10/19 04:48 Lymph % (Auto) 29.4 % (13.4-35.0) 03/10/19 04:48 [place] % (Auto) 12.3 % (0.0-7.3) H 03/10/19 04:48 Eos % (Auto) 1.1 % (0.0-4.3) 03/10/19 04:48 Baso % (Auto) 0.4 % (0.0-1.8) 03/10/19 04:48 Lymph # 2.0 K/mm3 (1.2-5.4) 03/10/19 04:48 [place] # 0.8 K/mm3 (0.0-0.8) 03/10/19 04:48 Eos # 0.1 K/mm3 (0.0-0.4) 03/10/19 04:48 Baso # 0.0 K/mm3 (0.0-0.1) 03/10/19 04:48 Seg Neutrophils % 56.8 % (40.0-70.0) 03/10/19 04:48 Seg Neutrophils # 3.9 K/mm3 (1.8-7.7) 03/10/19 04:48 Sodium 136 mmol/L (137-145) L 03/10/19 04:48 Potassium 4.7 mmol/L (3.6-5.0) 03/10/19 04:48 Chloride 99.7 mmol/L (98-107) 03/10/19 04:48 Carbon Dioxide 25 mmol/L (22-30) 03/10/19 04:48 16 mmol/L 03/10/19 04:48 BUN 24 mg/dL (7-17) H 03/10/19 04:48 1.0 mg/dL (0.7-1.2) 03/10/19 04:48 Estimated GFR 54 ml/min 03/10/19 04:48 24 % 03/10/19 04:48 Glucose 105 mg/dL (65-100) H 03/10/19 04:48 Calcium 10.4 mg/dL (8.4-10.2) H 03/10/19 04:48 0.40 mg/dL (0.1-1.2) 03/10/19 04:48 AST 21 units/L (5-40) 03/10/19 04:48 ALT 10 units/L (7-56) 03/10/19 04:48 76 units/L (35-129) 03/10/19 04:48 6.7 g/dL (6.3-8.2) 03/10/19 04:48 3.5 g/dL (3.9-5) L 03/10/19 04:48 1.1 % 03/10/19 04:48 Active Medications - Current Medications Current Medications: Generic Name Dose Route Start Last Admin Trade Name Freq PRN Reason Stop Dose Admin Acetaminophen 650 mg 03/09/19 15:37 Tylenol PO Q4H PRN Pain MILD(1-3)/Fever >100.5/GONZALES Acetaminophen/Hydrocodone Bitart 1 each 03/09/19 15:49 03/11/19 08:59 [place] 10/325 PO 1 each Q4H PRN Administration Pain, Moderate (4-6) Al Hydrox/Mg Hydrox/Simethicone 30 ml 03/09/19 15:37 Alum-Mag Hydrox-Simeth [phone]/5ml PO Q4H PRN Indigestion Albuterol 2.5 mg 03/09/19 15:49 Proventil IH Q4HRT PRN Shortness Of Breath Alprazolam 0.25 mg 03/09/19 15:49 03/10/19 23:01 Xanax PO 0.25 mg QPM PRN Administration Anxiety Amiodarone HCl 200 mg 03/10/19 10:00 03/11/19 10:36 Cordarone PO Not Given DAILY [facility] Amitriptyline HCl 10 mg 03/09/19 21:00 03/10/19 21:24 Elavil PO 10 mg QHS [facility] Administration Apixaban 5 mg 03/11/19 08:00 03/11/19 10:43 Eliquis PO Not Given Q12HR [facility] Protocol Arformoterol Tartrate 15 mcg 03/09/19 20:00 03/11/19 07:49 Brovana Nebu IH 15 mcg Q12HRT [facility] Administration Bisacodyl 10 mg 03/09/19 15:37 Dulcolax [place] QDAY PRN Constipation unrelieved by MOM Budesonide 0.5 mg 03/09/19 20:00 03/11/19 07:49 Pulmicort IH 0.5 mg Q12HRT [facility] Administration Diltiazem HCl 60 mg 03/09/19 20:00 03/11/19 08:41 Cardizem PO 60 mg TID [facility] Administration Duloxetine HCl 60 mg 03/10/19 08:00 03/11/19 08:41 Cymbalta PO 60 mg QDAY [facility] Administration Gabapentin 100 mg 03/09/19 22:00 03/11/19 06:21 Neurontin PO 100 mg Q8HR [facility] Administration Gabapentin 300 mg 03/11/19 14:00 Neurontin PO Q8HR [facility] Levothyroxine Sodium 88 mcg 03/11/19 06:00 03/11/19 06:20 Synthroid PO 88 mcg DAILY@0600 [facility] Administration Lisinopril 10 mg 03/10/19 08:00 03/11/19 08:41 Zestril PO 10 mg QDAY [facility] Administration Magnesium Hydroxide 30 ml 03/09/19 15:37 Milk Of Magnesia PO Q4H PRN Constipation Metoprolol Tartrate 25 mg 03/10/19 10:00 03/10/19 10:39 Lopressor PO 25 mg DAILY [facility] Administration Multivitamins 1 each 03/10/19 08:00 03/11/19 08:42 Theragran Tab PO 1 each QDAY [facility] Administration Ondansetron HCl 4 mg 03/09/19 15:49 Zofran IV Q8H PRN Nausea And Vomiting Pantoprazole Sodium 40 mg 03/10/19 08:00 03/11/19 08:42 Protonix PO 40 mg QDAY [facility] Administration Spironolactone 25 mg 03/09/19 22:00 03/11/19 08:41 Aldactone PO 25 mg BID [facility] Administration Sucralfate 1 gm 03/09/19 22:00 03/11/19 08:41 Carafate PO 1 gm ACHS [facility] Administration
[2019-03-11] MEDS: LOPRESSOR PO SCH (12:58)
[2019-03-11] MEDS: ELAVIL PO SCH (22:32)
[2019-03-11] MEDS: XANAX PO PRN (22:33)
[2019-03-12] MEDS: NORCO 10/325 PO PRN ×5 (02:18→21:18)
[2019-03-12] MEDS: NEURONTIN PO SCH ×3 (05:45→21:09)
[2019-03-12] MEDS: SYNTHROID IV SCH (05:45)
[2019-03-12] MEDS: CARDIZEM PO SCH ×3 (08:25→21:14)
[2019-03-12] MEDS: LOPRESSOR PO SCH (10:33)
--- NOTE | 2019-03-12 11:03 | Progress Note ---
Assessment and Plan Assessment and plan: - History of Present Illness 78 YO Female with Atrial Fib, COPD, HTN, Hypothyroidism, PUD, PVD admitted to IRU S/P Right BKA. Consult placed by Dr. Ring for medical management. Pt seen and evaluated in her room. Pt resting comfortably. No reported nursing events. Pt denies fever, chills, CP, palpitations, NVD, Trauma, Productive cough, skin rash, or recent ill contacts. HTN (hypertension) Pt hypotensive at this time. Hold antihypertensive therapy for now. will reassess daily. COPD (chronic obstructive pulmonary disease) Supplemental oxygen, nebulizer therapy, NIPPV as clinically indicated, incentive spirometry Hypothyroid continue synthroid therapy. History Interval history: s/p right BKA no headache Hospitalist Physical - Physical exam Narrative exam: Gen: Not in acute distress, lying in bed, HEENT: Normocephalic, atraumatic Neck: supple, no JVD Heart: S1 and S2 reg, no murmurs, rubs or gallop Lungs: Clear, no crackles, no wheeze Abd: soft, non tender, non distended, normal BS Ext: s/p right BKA Neuro: Awake,alert, oriented x 3, moves all ext, non focal Psych:Normal mood Hospitalist Physical - Constitutional Vitals: Temp Pulse Resp BP Pulse Ox 97.3 F L 74 20 116/51 95 03/11/19 19:01 03/11/19 21:36 03/11/19 21:36 03/11/19 22:40 03/11/19 19:01 General appearance: Present: mild distress Results - Labs CBC & Chem 7: 03/31/19 08:07 03/31/19 08:07 Labs: Laboratory Last Values WBC 6.9 K/mm3 (4.5-11.0) 03/10/19 04:48 RBC 3.22 M/mm3 (3.65-5.03) L 03/10/19 04:48 Hgb 10.2 gm/dl (10.1-14.3) 03/10/19 04:48 Hct 30.2 % (30.3-42.9) L 03/10/19 04:48 MCV 94 fl (79-97) 03/10/19 04:48 MCH 32 pg (28-32) 03/10/19 04:48 MCHC 34 % (30-34) 03/10/19 04:48 RDW 15.0 % (13.2-15.2) 03/10/19 04:48 Plt Count 313 K/mm3 (140-440) 03/10/19 04:48 Lymph % (Auto) 29.4 % (13.4-35.0) 03/10/19 04:48 [place] % (Auto) 12.3 % (0.0-7.3) H 03/10/19 04:48 Eos % (Auto) 1.1 % (0.0-4.3) 03/10/19 04:48 Baso % (Auto) 0.4 % (0.0-1.8) 03/10/19 04:48 Lymph # 2.0 K/mm3 (1.2-5.4) 03/10/19 04:48 Ward # 0.8 K/mm3 (0.0-0.8) 03/10/19 04:48 Eos # 0.1 K/mm3 (0.0-0.4) 03/10/19 04:48 Baso # 0.0 K/mm3 (0.0-0.1) 03/10/19 04:48 Seg Neutrophils % 56.8 % (40.0-70.0) 03/10/19 04:48 Seg Neutrophils # 3.9 K/mm3 (1.8-7.7) 03/10/19 04:48 Sodium 136 mmol/L (137-145) L 03/10/19 04:48 Potassium 4.7 mmol/L (3.6-5.0) 03/10/19 04:48 Chloride 99.7 mmol/L (98-107) 03/10/19 04:48 Carbon Dioxide 25 mmol/L (22-30) 03/10/19 04:48 16 mmol/L 03/10/19 04:48 BUN 24 mg/dL (7-17) H 03/10/19 04:48 1.0 mg/dL (0.7-1.2) 03/10/19 04:48 Estimated GFR 54 ml/min 03/10/19 04:48 24 % 03/10/19 04:48 Glucose 105 mg/dL (65-100) H 03/10/19 04:48 Calcium 10.4 mg/dL (8.4-10.2) H 03/10/19 04:48 0.40 mg/dL (0.1-1.2) 03/10/19 04:48 AST 21 units/L (5-40) 03/10/19 04:48 ALT 10 units/L (7-56) 03/10/19 04:48 76 units/L (35-129) 03/10/19 04:48 6.7 g/dL (6.3-8.2) 03/10/19 04:48 3.5 g/dL (3.9-5) L 03/10/19 04:48 1.1 % 03/10/19 04:48 TSH 8.500 mlU/mL (0.270-4.200) H 03/11/19 13:27 Free T4 1.21 ng/dL (0.76-1.46) 03/11/19 13:27 7.0 ug/dL (4.0-12.0) 03/11/19 13:27 Active Medications - Current Medications Current Medications: Generic Name Dose Route Start Last Admin Trade Name Freq PRN Reason Stop Dose Admin Acetaminophen 650 mg 03/09/19 15:37 Tylenol PO Q4H PRN Pain MILD(1-3)/Fever >100.5/GONZALES Acetaminophen/Hydrocodone Bitart 1 each 03/09/19 15:49 03/12/19 09:13 [place] 10/325 PO 1 each Q4H PRN Administration Pain, Moderate (4-6) Al Hydrox/Mg Hydrox/Simethicone 30 ml 03/09/19 15:37 Alum-Mag Hydrox-Simeth 552-835-64jm/5ml PO Q4H PRN Indigestion Albuterol 2.5 mg 03/09/19 15:49 Proventil IH Q4HRT PRN Shortness Of Breath Alprazolam 0.25 mg 03/09/19 15:49 03/11/19 22:33 Xanax PO 0.25 mg QPM PRN Administration Anxiety Amiodarone HCl 200 mg 03/10/19 10:00 03/11/19 10:36 Cordarone PO Not Given DAILY KLEVER Amitriptyline HCl 10 mg 03/09/19 21:00 03/11/19 22:32 Elavil PO 10 mg QHS K[facility] Administration Apixaban 5 mg 03/11/19 08:00 03/11/19 22:33 Eliquis PO 5 mg Q12HR KLEVER Administration Protocol Arformoterol Tartrate 15 mcg 03/09/19 20:00 03/11/19 21:25 Tory Johnsonu IH 15 mcg Q12HRT KLEVER Administration Bisacodyl 10 mg 03/09/19 15:37 Dulcolax [place] QDAY PRN Constipation unrelieved by MOM Budesonide 0.5 mg 03/09/19 20:00 03/11/19 21:25 Pulmicort IH 0.5 mg Q12HRT KLEVER Administration Diltiazem HCl 60 mg 03/09/19 20:00 03/11/19 22:40 Cardizem PO 60 mg TID KLEVER Administration Duloxetine HCl 60 mg 03/10/19 08:00 03/11/19 08:41 Cymbalta PO 60 mg QDAY [facility] Administration Gabapentin 300 mg 03/11/19 14:00 03/12/19 05:45 Neurontin PO 300 mg Q8HR [facility] Administration Levothyroxine Sodium 100 mcg 03/12/19 06:00 03/12/19 05:45 Synthroid IV 100 mcg DAILY@0600 [facility] Administration Lisinopril 10 mg 03/10/19 08:00 03/11/19 08:41 Zestril PO 10 mg QDAY [facility] Administration Magnesium Hydroxide 30 ml 03/09/19 15:37 Milk Of Magnesia PO Q4H PRN Constipation Metoprolol Tartrate 25 mg 03/10/19 10:00 03/11/19 12:58 Lopressor PO 25 mg DAILY [facility] Administration Multivitamins 1 each 03/10/19 08:00 03/11/19 08:42 Theragran Tab PO 1 each QDAY [facility] Administration Ondansetron HCl 4 mg 03/09/19 15:49 Zofran IV Q8H PRN Nausea And Vomiting Pantoprazole Sodium 40 mg 03/10/19 08:00 03/11/19 08:42 Protonix PO 40 mg QDAY [facility] Administration Spironolactone 25 mg 03/09/19 22:00 03/11/19 22:43 Aldactone PO Not Given BID [facility] Sucralfate 1 gm 03/09/19 22:00 03/11/19 22:33 Carafate PO 1 gm ACHS KLEVER Administration
[2019-03-12] MEDS: ELIQUIS PO SCH ×2 (11:12→21:09)
[2019-03-12] MEDS: CARAFATE PO SCH ×4 (11:12→21:09)
[2019-03-12] MEDS: CYMBALTA PO SCH (11:12)
[2019-03-12] MEDS: THERAGRAN Tab PO SCH (11:13)
[2019-03-12] MEDS: PROTONIX PO SCH (11:13)
[2019-03-12] MEDS: ZESTRIL PO SCH (12:00)
[2019-03-12] MEDS: ALDACTONE PO SCH ×2 (12:00→21:13)
[2019-03-12] MEDS: CORDARONE PO SCH (13:59)
[2019-03-12] MEDS: BROVANA NEBU IH SCH ×2 (20:14→22:00)
[2019-03-12] MEDS: PULMICORT IH SCH ×2 (20:14→22:00)
[2019-03-12] MEDS: ELAVIL PO SCH (21:09)
--- NOTE | 2019-03-12 22:26 | IRU Plan of Care ---
Interdisciplinary Plan of Care - IP IRU INTERDISCIPLINARY PLAN: [facility] Inpatient Rehab Unit Plan of Care IRU Interdisciplinary Care Plan Start: 03/09/19 17:28 Freq: Admission then PRN Status: Active Protocol: Document 03/12/19 08:11 TH (Rec: 03/12/19 08:16 TH [id number]) Interdisciplinary Problem List Interdisciplinary Problem List Interdisciplinary Problem List Impaired Bathing/Grooming, Query Text:Answers will Trigger Problems Impaired Dressing,Impaired and Outcomes on Worklist. Mobility,Impaired Transfers, Impaired Toileting,Pain Management,Impaired Skin/ Tissue Integrity,Impaired Home Management,Impaired Safety IRU Interdisciplinary Care Plan Therapy Services Therapy Services Will Include: Physical Therapy,Occupational Query Text:Patient will be seen for a Therapy minimum of 3 hours of daily therapy 5 out of 7 days a week. Therapy intensity may be adjusted within a 7 consecutive day period to effectively serve the individual needs of the patient. Treatment Frequency/Intensity/Duration Treatment Frequency 5 days per week Treatment Intensity 3 hours per day Treatment Duration 14-21 days Problem Area: Eating/Swallowing Eating/Swallowing Outcomes Eating/Swallowing Interventions Problem Area: Bathing/Grooming Bathing/Grooming Outcomes Improve Brooks w/ Grooming,Improve Brooks w/ Bathing Bathing/Grooming Interventions Therapeutic Exercise, Therapeutic Activity,Balance Work,Activity Tolerance Work, Patient/Caregiver Education Problem Area: Dressing Dressing Outcomes Improve Brooks w/ UB Dressing,Improve Brooks w/ LB Dressing Dressing Interventions ADL Training,Use of Assistive Devices,Therapeutic Exercise, Balance Work,Patient/Caregiver Education Problem Area: Mobility Mobility Outcomes Improve Brooks w/ Bed Mobility,Improve Brooks w/ Ambulation,Improve Brooks w/ Stairs/Curb, Improve Brooks w/ Wheelchair Mobility Interventions Therapeutic Exercise, Neuromuscular Re-Ed.,Activity Tolerance Work,Use of Assistive Devices,Patient/ Caregiver Education,Bed Mobility Work,Gait Training,W/ C Mobility Work Problem Area: Transfers Transfers Outcomes Improve Brooks w/ Toilet Transfers,Improve Brooks w/ Tub/Shower Transfers Transfers Interventions Transfer Training,Therapeutic Exercise,Activity Tolerance Work,Use of Assistive Devices, Patient/Caregiver Education Problem Area: Bowel/Bladder Managment Bowel/Bladder Outcomes Bowel/Bladder Interventions Problem Area: Toileting Toileting Outcomes Improve Brooks w/ Toileting Toileting Interventions ADL Training,Balance Work,Use of Assistive Devices,Patient/ Caregiver Education Problem Area: Nutrition Nutrition Outcomes Nutrition Interventions Problem Area: Comprehension Comprehension Outcomes Comprehension Interventions Problem Area: Expression Expression Outcomes Expression Interventions Problem Area: Problem Solving Problem Solving Outcomes Problem Solving Interventions Problem Area: Memory Memory Outcomes Memory Interventions Problem Area: Pain Management Pain Management Outcomes Pain Management Interventions Problem Area: Knowledge Deficits Knowledge Deficits Outcomes Knowledge Deficits Interventions Problem Area: Skin/Tissue Integrity Skin/Tissue Integrity Outcomes Skin/Tissue Integrity Interventions Problem Area: Social Interaction Social Interaction Outcomes Social Interaction Interventions Problem Area: Adjustment to Disability Adjustment to Disability Outcomes Adjustment to Disability Interventions Problem Area: Discharge Concerns Discharge Concerns Outcomes Discharge w/ Necessary Equipment,Have Home Health/ Outpatient Services Discharge Concerns Interventions Discharge Planning,Family/ Caregiver Conference,Family/ Caregiver Training Problem Area: Community Reintegration Community Reintegration Outcomes Community Reintegration Interventions Problem Area: Home Management Home Management Outcomes Improve Brooks w/ Home Management Home Management Interventions Clothing Care,Activity Tolerance Work,Patient/ Caregiver Education Problem Area: Safety Safety Outcomes Provide Safe Environment, Perform Selfcare Safely, Demonstrate Good Safety w/ Transfers/Mobility Safety Interventions Identify Fall Risk,[place] Pt. to Environment,Reduce Environmental Hazards Problem Area: Medication Education Medication Education Outcomes Patient/Caregiver will Verbalize Understanding of Medications Medication Education Interventions Explain Administration/Side Effects/Interactions Problem Area: Diabetes Education Diabetes Education Outcomes Diabetes Education Interventions Problem Area: Oxygenation Oxygenation Outcomes Oxygenation Interventions Problem Area: Cardiovascular Cardiovascular Outcomes Cardiovascular Interventions Physician Only Medical Prognosis and Rehabilitation Fair prognosis. Restart OAC after consulting with surgeon, GI and cardiology. Prosthetics has been initiated. Good rehab potential. Pain difficult to control thus far. Potential (Completed by Physician) This plan of care has been developed based on the findings from the pre- admission assessment, post admission physician evaluation, information gathered from the assessments from all therapy disciplines and other pertinent clinicians. The plan of care has been reviewed and discussed in collaboration with the interdisciplinary team. The plan of care will be reviewed and updated at least weekly.
[2019-03-13] MEDS: NORCO 10/325 PO PRN ×5 (02:10→19:02)
[2019-03-13] MEDS: NEURONTIN PO SCH ×3 (05:57→21:53)
[2019-03-13] MEDS: SYNTHROID IV SCH (05:58)
[2019-03-13] MEDS: PULMICORT IH SCH ×2 (08:01→21:36)
[2019-03-13] MEDS: BROVANA NEBU IH SCH ×2 (08:01→21:36)
[2019-03-13] MEDS: ALDACTONE PO SCH ×2 (08:05→21:57)
[2019-03-13] MEDS: CARDIZEM PO SCH ×3 (08:21→21:53)
[2019-03-13] MEDS: ZESTRIL PO SCH (08:21)
[2019-03-13] MEDS: THERAGRAN Tab PO SCH (09:07)
[2019-03-13] MEDS: CYMBALTA PO SCH (09:07)
[2019-03-13] MEDS: CARAFATE PO SCH ×4 (09:07→21:53)
[2019-03-13] MEDS: PROTONIX PO SCH (09:08)
[2019-03-13] MEDS: ELIQUIS PO SCH ×2 (09:09→21:57)
[2019-03-13] MEDS: CORDARONE PO SCH (09:20)
--- NOTE | 2019-03-13 12:43 | Progress Note ---
Assessment and Plan Assessment and plan: - History of Present Illness 78 YO Female with Atrial Fib, COPD, HTN, Hypothyroidism, PUD, PVD admitted to IRU S/P Right BKA. Consult placed by Dr. Ring for medical management. Pt seen and evaluated in her room. Pt resting comfortably. No reported nursing events. Pt denies fever, chills, CP, palpitations, NVD, Trauma, Productive cough, skin rash, or recent ill contacts. HTN (hypertension) cont BP meds. COPD (chronic obstructive pulmonary disease) stable, not in exacerbation Hypothyroid TSH elevated, increased synthroid dose History Interval history: s/p right BKA no headache Hospitalist Physical - Physical exam Narrative exam: Gen: Not in acute distress, lying in bed, HEENT: Normocephalic, atraumatic Neck: supple, no JVD Heart: S1 and S2 reg, no murmurs, rubs or gallop Lungs: Clear, no crackles, no wheeze Abd: soft, non tender, non distended, normal BS Ext: s/p right BKA Neuro: Awake,alert, oriented x 3, moves all ext, non focal Psych:Normal mood Hospitalist Physical - Constitutional Vitals: Temp Pulse Resp BP Pulse Ox 98.1 F 76 20 119/49 97 03/13/19 08:02 03/13/19 08:17 03/13/19 10:42 03/13/19 08:02 03/13/19 08:02 General appearance: Present: mild distress Results - Labs CBC & Chem 7: 03/31/19 08:07 03/31/19 08:07 Labs: Laboratory Last Values WBC 6.9 K/mm3 (4.5-11.0) 03/10/19 04:48 RBC 3.22 M/mm3 (3.65-5.03) L 03/10/19 04:48 Hgb 10.2 gm/dl (10.1-14.3) 03/10/19 04:48 Hct 30.2 % (30.3-42.9) L 03/10/19 04:48 MCV 94 fl (79-97) 03/10/19 04:48 MCH 32 pg (28-32) 03/10/19 04:48 MCHC 34 % (30-34) 03/10/19 04:48 RDW 15.0 % (13.2-15.2) 03/10/19 04:48 Plt Count 313 K/mm3 (140-440) 03/10/19 04:48 Lymph % (Auto) 29.4 % (13.4-35.0) 03/10/19 04:48 [place] % (Auto) 12.3 % (0.0-7.3) H 03/10/19 04:48 Eos % (Auto) 1.1 % (0.0-4.3) 03/10/19 04:48 Baso % (Auto) 0.4 % (0.0-1.8) 03/10/19 04:48 Lymph # 2.0 K/mm3 (1.2-5.4) 03/10/19 04:48 [place] # 0.8 K/mm3 (0.0-0.8) 03/10/19 04:48 Eos # 0.1 K/mm3 (0.0-0.4) 03/10/19 04:48 Baso # 0.0 K/mm3 (0.0-0.1) 03/10/19 04:48 Seg Neutrophils % 56.8 % (40.0-70.0) 03/10/19 04:48 Seg Neutrophils # 3.9 K/mm3 (1.8-7.7) 03/10/19 04:48 Sodium 136 mmol/L (137-145) L 03/10/19 04:48 Potassium 4.7 mmol/L (3.6-5.0) 03/10/19 04:48 Chloride 99.7 mmol/L (98-107) 03/10/19 04:48 Carbon Dioxide 25 mmol/L (22-30) 03/10/19 04:48 16 mmol/L 03/10/19 04:48 BUN 24 mg/dL (7-17) H 03/10/19 04:48 1.0 mg/dL (0.7-1.2) 03/10/19 04:48 Estimated GFR 54 ml/min 03/10/19 04:48 24 % 03/10/19 04:48 Glucose 105 mg/dL (65-100) H 03/10/19 04:48 Calcium 10.4 mg/dL (8.4-10.2) H 03/10/19 04:48 0.40 mg/dL (0.1-1.2) 03/10/19 04:48 AST 21 units/L (5-40) 03/10/19 04:48 ALT 10 units/L (7-56) 03/10/19 04:48 76 units/L (35-129) 03/10/19 04:48 6.7 g/dL (6.3-8.2) 03/10/19 04:48 3.5 g/dL (3.9-5) L 03/10/19 04:48 1.1 % 03/10/19 04:48 TSH 8.500 mlU/mL (0.270-4.200) H 03/11/19 13:27 Free T4 1.21 ng/dL (0.76-1.46) 03/11/19 13:27 7.0 ug/dL (4.0-12.0) 03/11/19 13:27 Active Medications - Current Medications Current Medications: Generic Name Dose Route Start Last Admin Trade Name Freq PRN Reason Stop Dose Admin Acetaminophen 650 mg 03/09/19 15:37 Tylenol PO Q4H PRN Pain MILD(1-3)/Fever >100.5/GONZALES Acetaminophen/Hydrocodone Bitart 1 each 03/09/19 15:49 03/13/19 10:42 [place] 10/325 PO 1 each Q4H PRN Administration Pain, Moderate (4-6) Al Hydrox/Mg Hydrox/Simethicone 30 ml 03/09/19 15:37 Alum-Mag Hydrox-Simeth [id number]/5ml PO Q4H PRN Indigestion Albuterol 2.5 mg 03/09/19 15:49 Proventil IH Q4HRT PRN Shortness Of Breath Alprazolam 0.25 mg 03/09/19 15:49 03/11/19 22:33 Xanax PO 0.25 mg QPM PRN Administration Anxiety Amiodarone HCl 200 mg 03/10/19 10:00 03/13/19 09:20 Cordarone PO 200 mg DAILY KLEVER Administration Amitriptyline HCl 10 mg 03/09/19 21:00 03/12/19 21:09 Elavil PO 10 mg QHS KLEVER Administration Apixaban 5 mg 03/11/19 08:00 03/13/19 09:09 Eliquis PO 5 mg Q12HR KLEVER Administration Protocol Arformoterol Tartrate 15 mcg 03/09/19 20:00 03/13/19 08:01 Brovana Nebu IH 15 mcg Q12HRT KLEVER Administration Bisacodyl 10 mg 03/09/19 15:37 Dulcolax [place] QDAY PRN Constipation unrelieved by MOM Budesonide 0.5 mg 03/09/19 20:00 03/13/19 08:01 Pulmicort IH 0.5 mg Q12HRT KLEVER Administration Diltiazem HCl 60 mg 03/09/19 20:00 03/13/19 08:21 Cardizem PO Not Given TID KLEVER Duloxetine HCl 60 mg 03/10/19 08:00 03/13/19 09:07 Cymbalta PO 60 mg QDAY [facility] Administration Gabapentin 300 mg 03/11/19 14:00 03/13/19 05:57 Neurontin PO 300 mg Q8HR KLEVER Administration Levothyroxine Sodium 100 mcg 03/12/19 06:00 03/13/19 05:58 Synthroid IV 100 mcg DAILY@0600 [facility] Administration Lisinopril 10 mg 03/10/19 08:00 03/13/19 08:21 Zestril PO Not Given QDAY [facility] Magnesium Hydroxide 30 ml 03/09/19 15:37 Milk Of Magnesia PO Q4H PRN Constipation Metoprolol Tartrate 25 mg 03/10/19 10:00 03/12/19 10:33 Lopressor PO Not Given DAILY [facility] Multivitamins 1 each 03/10/19 08:00 03/13/19 09:07 Theragran Tab PO 1 each QDAY [facility] Administration Ondansetron HCl 4 mg 03/09/19 15:49 Zofran IV Q8H PRN Nausea And Vomiting Pantoprazole Sodium 40 mg 03/10/19 08:00 03/13/19 09:08 Protonix PO 40 mg QDAY [facility] Administration Spironolactone 25 mg 03/09/19 22:00 03/12/19 21:13 Aldactone PO Not Given BID [facility] Sucralfate 1 gm 03/09/19 22:00 03/13/19 09:07 Carafate PO 1 gm ACHS [facility]LEVER Administration
[2019-03-13] MEDS: LOPRESSOR PO SCH (14:53)
[2019-03-13] MEDS: ELAVIL PO SCH (21:59)
[2019-03-13] MEDS: XANAX PO PRN (22:08)
[2019-03-14] MEDS: NORCO 10/325 PO PRN ×5 (05:40→21:25)
[2019-03-14] MEDS: NEURONTIN PO SCH ×2 (05:40→21:27)
[2019-03-14] MEDS: SYNTHROID IV SCH (05:41)
[2019-03-14] MEDS: PULMICORT IH SCH ×2 (08:02→20:36)
[2019-03-14] MEDS: BROVANA NEBU IH SCH ×2 (08:02→20:36)
[2019-03-14] MEDS: CARDIZEM PO SCH ×2 (08:28→13:01)
[2019-03-14] MEDS: LOPRESSOR PO SCH ×2 (08:28→11:08)
[2019-03-14] MEDS: ELIQUIS PO SCH ×3 (08:28→21:26)
[2019-03-14] MEDS: ALDACTONE PO SCH (08:28)
[2019-03-14] MEDS: ZESTRIL PO SCH (08:28)
[2019-03-14] MEDS: CYMBALTA PO SCH (08:28)
[2019-03-14] MEDS: PROTONIX PO SCH (08:28)
[2019-03-14] MEDS: THERAGRAN Tab PO SCH (08:28)
[2019-03-14] MEDS: CARAFATE PO SCH ×4 (08:29→21:26)
--- NOTE | 2019-03-14 11:29 | Progress Note ---
Subjective Date of service: 03/14/19 Principal diagnosis: R BKA Interval history: 78 yo female admitted with worsening RLE ischemia. Hx of PAD and multiple past interventions. Attempt made to salvage the limb but was unsuccessful. 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 Pain has been fairly controlled. She is experiencing some phantom sensation and phantom pain. She has AFib and is currently rate controlled but is off her OAC due to previous GIB. [facility] [employer] has seen her and she has a residual limb protector on. She states increased pain with dressing changes - which was done earlier today. I will view her wound on another day with her scheduled dressing change. Patient has recommendation from cardiology to resume oral anticoagulation as soon as possible from a surgical standpoint. I contacted surgery today and they are okay with her resuming this however they state their understanding was that she was taking off of anticoagulation by GI due to the GI bleed in September 2018. GI consulted and is OK with restarting Eliquis. Discussed with patient. Will monitor closely for any signs of GIB. Patient is participating in therapy and making reasonable progress. Taking rest breaks as needed. +BM. Denies palpitations, dyspnea, cough, N/V, weakness, or joint pain. Continues to have right leg pain. Describes the pain as neuropathic in nature including numbness tingling and shocks. Doesn't sound like it's so much incisional pain as it is neuropathic referred pain as a goes up the leg into the knee area and higher. She does still have some phantom sensation and occasional phantom pain. Adjust gabapentin nighttime dose. Initially adjusted all 3 doses however found out during team conference the patient was having issues with drowsiness. Heart rate has improved however she is having some lower diastolic pressure. Surgical wound looks good. Patient was discussed in team conference today. Making pretty good progress in walking with rolling walker and assistance. PT will call about [place] [employer]. Pain is limiting factor for the patient however on increased dose of gabapentin she is starting to get more more drowsy. Should hope to see this resolve in the next few days. I did increase the nighttime dose to 600 mg for a total of 300/300/600 mg throughout the day. Hopefully this will improve her neuropathic pain. We'll continue with therapy as above in plan to discharge earlier in the week of March 30. All records, vitals, labs and medications were reviewed. No other issues per patient, nursing or therapy. Objective - Exam Narrative Exam: MUSCULOSKELETAL SPECIALTY EXAM CONSTITUTIONAL: Well developed, well nourished, appropriately groomed EENT: EOMI Hearing intact to soft voice RESPIRATORY: Clear to auscultation bilaterally, distant, no increased work of breathing CARDIOVASCULAR: Regular Rate/ Rhythm, no swelling, edema or tenderness in BUE or BLE. All extremities warm. GI: + bowel sounds, soft, NTTP, nondistended. INTEGUMENTARY: Normal, no lesion, rash, masses or bruising noted in extremities except for surgical wound on R BKA, healing well no signs of infection. MUSCULOSKELETAL: BUE and BLE normal without defect, crepitus, subluxation, effusion, arthritic changes or TTP except for R BKA which has small appropriate amount of tenderness to palpation BUE 4+/5, good ROM, with normal tone. BLE 4+/5 good ROM, with normal tone NEURO: CN 2-12 grossly intact. Sensation intact in all extremities. No tremor noted in 4 extremities. POSTURE and GAIT: Sitting posture good. Balance and Gait deferred until seen with therapy. PSYCH: Drowsy, orientated x3, affect appears normal. Insight appears intact. - Constitutional Vitals: Vital Signs - 12hr 03/14/19 03/14/19 03/14/19 04:47 07:18 08:02 Temperature 37.0 C 36.8 C Pulse Rate 63 77 Pulse Rate [ 74 Bilateral Throughout] Respiratory 18 20 Rate Respiratory 18 Rate [Bilateral Throughout] Blood Pressure 166/59 185/63 O2 Sat by Pulse 96 97 Oximetry 03/14/19 08:15 Temperature Pulse Rate Pulse Rate [ 68 Bilateral Throughout] Respiratory Rate Respiratory 18 Rate [Bilateral Throughout] Blood Pressure O2 Sat by Pulse Oximetry - Allied health notes Allied health notes reviewed: nursing, PT, OT FIMS assessment as documented by PT/OT/ST: Grooming Patient cleans teeth/dentures: Yes Patient ahmadi/brushes hair: Yes Patient washes, rinses and Yes dries face: Patient washes, rinses and Yes dries hands: Patient shaves: No Patient applies make-up: No Patient performs (no make-up/ 4/4 (100%) shaving): Patient performs (w/ make-up/ 5/5 (100%) shaving): Grooming FIM Score 5. Supervision ([place] applies toothpaste or opens containers.) Toileting Toileting Device Grab Bar Patient able to: Adjust clothes before,Clean self,Adjust clothes after Patient able to perform: 3/3 (100%) Toileting FIM Score 4. Minimal Assistance (Patient = 75% or more. Needs touching.) Social interaction/Memory/Problem solving Social Interaction FIM Score 5. Supervision (Needs supv. <10%. Needs encouragement to participate.) Memory FIM Score 4. Minimal Assistance (Recognizes and remembers 75-90%.) Problem Solving FIM Score 4. Minimal Assistance (Solves routine problems 75-90%.) Transfers Mode of Locomotion: Wheelchair Bed/Chair/Wheelchair Transfers 4. Minimal Assistance (Patient = 75% or more. FIM Score Needs touching.) Toilet Transfers FIM Score 3. Moderate Assistance (Patient = 50% or more. Some lifting.) Patient transferred to: Shower Shower Transfers FIM Score 3. Moderate Assistance (Patient = 50% or more. Some lifting.) Locomotion- Stairs Device used on Stairs Handrail/s Number of Stairs Ascended/ 4 Descended Patient used handrail/support: Yes Stairs FIM Score 2. Maximal Assistance (Patient = 25% or more, 4- 6 stairs.) Locomotion- walk/wheelchair Most Frequent Mode of Wheelchair Locomotion: Ambulation Distance 68 Walking FIM Score 2. Maximal Assistance (Patient = 25% or more. Minimum of 50 ft.) Wheelchair Propulsion Distance 218 Wheelchair FIM Score 5. Supervision (Minimum 150 ft. supv./cues or 50 ft. independently.) Eating Eating FIM Score 5. Supervision/Set-Up (Needs help w/ containers, cutting meat, etc.) Dressing-Upper body Upper Body Dressing Device Button Hook Patient retrieves clothing No items: Patient applies/removes UE n/a prosthesis or orthosis: Upper Body Dressing FIM Score 5. Supv./Set-Up ([place] sets out clothes or applies pros./orth.) Dressing-lower body Patient retrieves clothing No items: Patient applies/removes LE No prosthesis or orthosis: Lower Body Dressing FIM Score 3. Moderate Assistance (Patient = 50% or more) - Labs CBC & Chem 7: 03/10/19 04:48 03/10/19 04:48 Labs: Laboratory Results - last 72 hr 03/11/19 03/11/1903/11/19 13:27 13:27 13:27 TSH 8.500 H Free T4 1.21 Thyroxine (T4) 7.0 Assessment and Plan Right BKA: Monitor the wound closely for any signs of infection. We'll maintain stump protector and wrapping in order shape residual limb for proper prosthesis fit. [employer]'s are revisited the patient given her information on prosthesis. Discussed with the patient to not to get up out of bed in the middle the night due to concerns for fall. Will address fall recovery prior to discharge. Continue to work on balance and mobility skills with walker. Once we are able to use a rehabilitation specialist will work on independence of care for right BKA. Discussed with patient need for maintaining her cardiovascular conditioning due to increased demand of energy with BKA. Discussed range of motion maintenance. Will moved to independence with all maintenance and therapeutic interventions prior to discharge. She will need follow-up with therapy after being fitted with prosthesis. Phantom sensation and phantom pain: Continue neuropathic pain control, residual limb to remain in stump protector, will start desensitization as soon as able. Increase gabapentin nighttime dose. Atrial fibrillation: Continue regular control monitor for any symptoms. Restart Eliquis per cardiology rec. Discussed with surgeon and GI. Hypothyroidism: Continue medication Hypertension: Continue medications and adjust for normotension GI bleed with peptic ulcer: Continue Protonix and Carafate. COPD: Continue nebulizers, supplemental O2 Z73.6 ADL dysfunction: OT will work on improving ability to perform ADLs (including assistive devices) to increase independence and decrease caregiver burden and improve functional transfers and mobility training. R26.2 Difficulty walking: PT will work on gait training and proper use of assistive devices and advance as appropriate to use of stairs and outside ambulation on uneven surfaces. R26.81 Unsteadiness on feet: PT will work on improving static and dynamic sitting and standing balance as well as proper use of assistive devices to decrease risk of falls. R26.89 Abnormality of gait: PT will work to improve safety and efficiency of gait through neuromotor training and gait training along with instruction on proper use of assistive devices. M62.81 Muscle weakness: PT & OT will work on strengthening exercises to improve functional strength including mixture of closed and open kinetic chain exer cises. R53.81 Debility: PT & OT will work on improving overall functional status to improve participation with ADLs, mobility and social involvement. R53.83 Fatigue: PT & OT will work on improving endurance through aerobic exercises and therapeutic activity while monitoring patients tolerance for a ctivity and vital signs as needed. DVT ppx: Eliquis Pain: Continue physical modalities in therapy and pain medications as needed to achieve functional pain control. Sleep: Monitor and address as needed. Bowel: Monitor and address as needed. Appetite: Monitor and address as needed. Discharge planning: Tentative discharge plan for the first part of the week of March 30. Will continue discussion with therapy team, SW, patient and family. Restrictions/ Precautions: Falls WB status: NWB on RLE Functional Hx: ADLs: Independent Cognition: Independent Mobility: No AD Barriers to Discharge: Decreased mobility and ability to perform self care, balance deficits, weakness Estimated Length of Stay: 14-18 days Discharge Destination: Home with family
[2019-03-14] MEDS ORDERED: NEURONTIN PO SCH ×3 (14:00→18:00)
--- NOTE | 2019-03-14 14:46 | Progress Note ---
Assessment and Plan Assessment and plan: s/p Right BKA Patient in Rehab Unit PT ongoing Hyperkalemia kayexalate Insulin, 50%Dextrose recheck in am Hypertension Monitor BP Hypothyroidism Cont Levothyroxine History Interval history: s/p right BKA no headache Hospitalist Physical - Physical exam Narrative exam: Gen: Not in acute distress, lying in bed, HEENT: Normocephalic, atraumatic Neck: supple, no JVD Heart: S1 and S2 reg, no murmurs, rubs or gallop Lungs: Clear, no crackles, no wheeze Abd: soft, non tender, non distended, normal BS Ext: s/p right BKA Neuro: Awake,alert, oriented x 3, moves all ext, non focal Psych:Normal mood - Constitutional Vitals: Temp Pulse Resp BP Pulse Ox 97.9 F 58 L 20 123/47 90 03/14/19 12:36 03/14/19 12:36 03/14/19 12:36 03/14/19 12:36 03/14/19 12:36 Results - Labs CBC & Chem 7: 03/14/19 14:36 03/15/19 10:30 Labs: Laboratory Last Values WBC 6.9 K/mm3 (4.5-11.0) 03/10/19 04:48 RBC 3.22 M/mm3 (3.65-5.03) L 03/10/19 04:48 Hgb 10.2 gm/dl (10.1-14.3) 03/10/19 04:48 Hct 30.2 % (30.3-42.9) L 03/10/19 04:48 MCV 94 fl (79-97) 03/10/19 04:48 MCH 32 pg (28-32) 03/10/19 04:48 MCHC 34 % (30-34) 03/10/19 04:48 RDW 15.0 % (13.2-15.2) 03/10/19 04:48 Plt Count 313 K/mm3 (140-440) 03/10/19 04:48 Lymph % (Auto) 29.4 % (13.4-35.0) 03/10/19 04:48 [place] % (Auto) 12.3 % (0.0-7.3) H 03/10/19 04:48 Eos % (Auto) 1.1 % (0.0-4.3) 03/10/19 04:48 Baso % (Auto) 0.4 % (0.0-1.8) 03/10/19 04:48 Lymph # 2.0 K/mm3 (1.2-5.4) 03/10/19 04:48 [place] # 0.8 K/mm3 (0.0-0.8) 03/10/19 04:48 Eos # 0.1 K/mm3 (0.0-0.4) 03/10/19 04:48 Baso # 0.0 K/mm3 (0.0-0.1) 03/10/19 04:48 Seg Neutrophils % 56.8 % (40.0-70.0) 03/10/19 04:48 Seg Neutrophils # 3.9 K/mm3 (1.8-7.7) 03/10/19 04:48 Sodium 136 mmol/L (137-145) L 03/10/19 04:48 Potassium 4.7 mmol/L (3.6-5.0) 03/10/19 04:48 Chloride 99.7 mmol/L (98-107) 03/10/19 04:48 Carbon Dioxide 25 mmol/L (22-30) 03/10/19 04:48 16 mmol/L 03/10/19 04:48 BUN 24 mg/dL (7-17) H 03/10/19 04:48 1.0 mg/dL (0.7-1.2) 03/10/19 04:48 Estimated GFR 54 ml/min 03/10/19 04:48 24 % 03/10/19 04:48 Glucose 105 mg/dL (65-100) H 03/10/19 04:48 Calcium 10.4 mg/dL (8.4-10.2) H 03/10/19 04:48 0.40 mg/dL (0.1-1.2) 03/10/19 04:48 AST 21 units/L (5-40) 03/10/19 04:48 ALT 10 units/L (7-56) 03/10/19 04:48 76 units/L (35-129) 03/10/19 04:48 6.7 g/dL (6.3-8.2) 03/10/19 04:48 3.5 g/dL (3.9-5) L 03/10/19 04:48 1.1 % 03/10/19 04:48 TSH 8.500 mlU/mL (0.270-4.200) H 03/11/19 13:27 Free T4 1.21 ng/dL (0.76-1.46) 03/11/19 13:27 7.0 ug/dL (4.0-12.0) 03/11/19 13:27 Active Medications - Current Medications Current Medications: Generic Name Dose Route Start Last Admin Trade Name Freq PRN Reason Stop Dose Admin Acetaminophen 650 mg 03/09/19 15:37 Tylenol PO Q4H PRN Pain MILD(1-3)/Fever >100.5/GONZALES Acetaminophen/Hydrocodone Bitart 1 each 03/09/19 15:49 03/14/19 13:01 [place] 10/325 PO 1 each Q4H PRN Administration Pain, Moderate (4-6) Al Hydrox/Mg Hydrox/Simethicone 30 ml 03/09/19 15:37 Alum-Mag Hydrox-Simeth 409-740-49ez/5ml PO Q4H PRN Indigestion Albuterol 2.5 mg 03/09/19 15:49 Proventil IH Q4HRT PRN Shortness Of Breath Alprazolam 0.25 mg 03/09/19 15:49 03/13/19 22:08 Xanax PO 0.25 mg QPM PRN Administration Anxiety Amiodarone HCl 200 mg 03/10/19 10:00 03/13/19 09:20 Cordarone PO 200 mg DAILY [facility] Administration Amitriptyline HCl 10 mg 03/09/19 21:00 03/13/19 21:59 Elavil PO 10 mg QHS [facility] Administration Apixaban 5 mg 03/11/19 08:00 03/14/19 11:08 Eliquis PO Not Given Q12HR [facility] Protocol Arformoterol Tartrate 15 mcg 03/09/19 20:00 03/14/19 08:02 Brovana Nebu IH 15 mcg Q12HRT [facility] Administration Bisacodyl 10 mg 03/09/19 15:37 Dulcolax AR QDAY PRN Constipation unrelieved by MOM Budesonide 0.5 mg 03/09/19 20:00 03/14/19 08:02 Pulmicort IH 0.5 mg Q12HRT [facility] Administration Diltiazem HCl 60 mg 03/09/19 20:00 03/14/19 13:01 Cardizem PO 60 mg TID [facility] Administration Duloxetine HCl 60 mg 03/10/19 08:00 03/14/19 08:28 Cymbalta PO 60 mg QDAY [facility] Administration Gabapentin 300 mg 03/14/19 14:00 Neurontin PO BID [facility] Gabapentin 600 mg 03/14/19 21:00 Neurontin PO QHS [facility] Levothyroxine Sodium 100 mcg 03/12/19 06:00 03/14/19 05:41 Synthroid IV 100 mcg DAILY@0600 [facility] Administration Lisinopril 10 mg 03/10/19 08:00 03/14/19 08:28 Zestril PO 10 mg QDAY [facility] Administration Magnesium Hydroxide 30 ml 03/09/19 15:37 Milk Of Magnesia PO Q4H PRN Constipation Metoprolol Tartrate 25 mg 03/10/19 10:00 03/14/19 11:08 Lopressor PO Not Given DAILY [facility] Multivitamins 1 each 03/10/19 08:00 03/14/19 08:28 Theragran Tab PO 1 each QDAY [facility] Administration Ondansetron HCl 4 mg 03/09/19 15:49 Zofran IV Q8H PRN Nausea And Vomiting Pantoprazole Sodium 40 mg 03/10/19 08:00 03/14/19 08:28 Protonix PO 40 mg QDAY [facility] Administration Spironolactone 25 mg 03/09/19 22:00 03/14/19 08:28 Aldactone PO 25 mg BID [facility] Administration Sucralfate 1 gm 03/09/19 22:00 03/14/19 13:01 Carafate PO 1 gm ACHS [facility] Administration
[2019-03-14 14:51] LABS: Basophils % (Auto) 0.4 % (0.0-1.8); Eosinophils # (Auto) 0.1 K/mm3 (0.0-0.4); Eosinophils % (Auto) 1.7 % (0.0-4.3); Hematocrit 32.3 % (30.3-42.9); Hemoglobin 10.7 gm/dl (10.1-14.3); Lymphocytes # (Auto) 2.5 K/mm3 (1.2-5.4); Lymphocytes % (Auto) 30.5 % (13.4-35.0); Mean Corpuscular HGB Conc 33 % (30-34); Mean Corpuscular Volume 93 fl (79-97); Monocytes # (Auto) 0.9 K/mm3 (0.0-0.8); Monocytes % (Auto) 11.5 % (0.0-7.3); Platelet Count 448 K/mm3 (140-440); Red Blood Count 3.46 M/mm3 (3.65-5.03); Red Cell Distribution Width 15.1 % (13.2-15.2)
[2019-03-14 15:05] LABS: Calcium 9.8 mg/dL (8.4-10.2)
[2019-03-14] MEDS: CORDARONE PO SCH (15:05)
[2019-03-14] MEDS ORDERED: NACL 0.9% 1000 ML 1,000 ML IV SCH (16:00)
[2019-03-14] MEDS ORDERED: HumuLIN R IV ONE (16:00)
[2019-03-14] MEDS ORDERED: D50W (25GM) Syringe IV ONE (16:40)
[2019-03-14] MEDS: KIONEX PO SCH (17:58)
[2019-03-14] MEDS: ELAVIL PO SCH (21:26)
[2019-03-15] MEDS ORDERED: KIONEX PO SCH
[2019-03-15] MEDS: CARDIZEM PO SCH ×4 (00:25→20:56)
[2019-03-15] MEDS: ALDACTONE PO SCH ×3 (00:26→21:44)
[2019-03-15] MEDS: NORCO 10/325 PO PRN ×5 (04:39→22:39)
[2019-03-15] MEDS: KIONEX PO SCH (06:11)
[2019-03-15] MEDS: SYNTHROID IV SCH (06:17)
[2019-03-15] MEDS: PULMICORT IH SCH ×2 (08:11→20:10)
[2019-03-15] MEDS: BROVANA NEBU IH SCH ×2 (08:11→20:10)
[2019-03-15] MEDS: LOPRESSOR PO SCH ×2 (08:33→12:52)
[2019-03-15] MEDS: CYMBALTA PO SCH (08:34)
[2019-03-15] MEDS: NEURONTIN PO SCH ×3 (08:34→21:44)
[2019-03-15] MEDS: CARAFATE PO SCH ×4 (08:36→21:43)
[2019-03-15] MEDS: CORDARONE PO SCH ×2 (08:36→12:48)
[2019-03-15] MEDS: THERAGRAN Tab PO SCH (08:36)
[2019-03-15] MEDS: ELIQUIS PO SCH ×3 (08:37→21:43)
[2019-03-15] MEDS: PROTONIX PO SCH (08:37)
[2019-03-15 11:09] LABS: Calcium 9.9 mg/dL (8.4-10.2)
[2019-03-15] MEDS: ELAVIL PO SCH (21:43)
[2019-03-16] MEDS: NORCO 10/325 PO PRN ×5 (02:19→22:01)
[2019-03-16] MEDS: SYNTHROID IV SCH (06:23)
--- NOTE | 2019-03-16 08:07 | Progress Note ---
Assessment and Plan Assessment and plan: s/p Right BKA Patient in Rehab Unit Dr. Ring is Attending PT ongoing Hyperkalemia Now resolved after kayexalate, Insulin Hypertension Monitor BP Hypothyroidism Cont Levothyroxine Full code status. History Interval history: s/p right BKA no pain currently Hospitalist Physical - Physical exam Narrative exam: Gen: Not in acute distress, lying in bed, HEENT: Normocephalic, atraumatic Neck: supple, no JVD Heart: S1 and S2 reg, no murmurs, rubs or gallop Lungs: Clear, no crackles, no wheeze Abd: soft, non tender, non distended, normal BS Ext: s/p right BKA Neuro: Awake,alert, oriented x 3, moves all ext, non focal Psych:Normal mood - Constitutional Vitals: Temp Pulse Resp BP Pulse Ox 98.3 F 84 18 145/67 96 03/16/19 04:44 03/16/19 04:44 03/16/19 06:22 03/16/19 04:44 03/16/19 04:44 Results - Labs CBC & Chem 7: 03/14/19 14:36 03/15/19 10:30 Labs: Laboratory Last Values WBC 8.2 K/mm3 (4.5-11.0) 03/14/19 14:36 RBC 3.46 M/mm3 (3.65-5.03) L 03/14/19 14:36 Hgb 10.7 gm/dl (10.1-14.3) 03/14/19 14:36 Hct 32.3 % (30.3-42.9) 03/14/19 14:36 MCV 93 fl (79-97) 03/14/19 14:36 MCH 31 pg (28-32) 03/14/19 14:36 MCHC 33 % (30-34) 03/14/19 14:36 RDW 15.1 % (13.2-15.2) 03/14/19 14:36 Plt Count 448 K/mm3 (140-440) H 03/14/19 14:36 Lymph % (Auto) 30.5 % (13.4-35.0) 03/14/19 14:36 [place] % (Auto) 11.5 % (0.0-7.3) H 03/14/19 14:36 Eos % (Auto) 1.7 % (0.0-4.3) 03/14/19 14:36 Baso % (Auto) 0.4 % (0.0-1.8) 03/14/19 14:36 Lymph # 2.5 K/mm3 (1.2-5.4) 03/14/19 14:36 [place] # 0.9 K/mm3 (0.0-0.8) H 03/14/19 14:36 Eos # 0.1 K/mm3 (0.0-0.4) 03/14/19 14:36 Baso # 0.0 K/mm3 (0.0-0.1) 03/14/19 14:36 Seg Neutrophils % 55.9 % (40.0-70.0) 03/14/19 14:36 Seg Neutrophils # 4.6 K/mm3 (1.8-7.7) 03/14/19 14:36 Sodium 140 mmol/L (137-145) D 03/15/19 10:30 Potassium 4.6 mmol/L (3.6-5.0) 03/15/19 10:30 Chloride 102.1 mmol/L (98-107) 03/15/19 10:30 Carbon Dioxide 22 mmol/L (22-30) 03/15/19 10:30 21 mmol/L 03/15/19 10:30 BUN 27 mg/dL (7-17) H 03/15/19 10:30 1.0 mg/dL (0.7-1.2) 03/15/19 10:30 Estimated GFR 54 ml/min 03/15/19 10:30 27 % 03/15/19 10:30 Glucose 100 mg/dL (65-100) 03/15/19 10:30 Calcium 9.9 mg/dL (8.4-10.2) 03/15/19 10:30 0.40 mg/dL (0.1-1.2) 03/10/19 04:48 AST 21 units/L (5-40) 03/10/19 04:48 ALT 10 units/L (7-56) 03/10/19 04:48 76 units/L (35-129) 03/10/19 04:48 6.7 g/dL (6.3-8.2) 03/10/19 04:48 3.5 g/dL (3.9-5) L 03/10/19 04:48 1.1 % 03/10/19 04:48 TSH 8.500 mlU/mL (0.270-4.200) H 03/11/19 13:27 Free T4 1.21 ng/dL (0.76-1.46) 03/11/19 13:27 7.0 ug/dL (4.0-12.0) 03/11/19 13:27 Active Medications - Current Medications Current Medications: Generic Name Dose Route Start Last Admin Trade Name Freq PRN Reason Stop Dose Admin Acetaminophen 650 mg 03/09/19 15:37 Tylenol PO Q4H PRN Pain MILD(1-3)/Fever >100.5/GONZALES Acetaminophen/Hydrocodone Bitart 1 each 03/09/19 15:49 03/16/19 06:22 [place] 10/325 PO 1 each Q4H PRN Administration Pain, Moderate (4-6) Al Hydrox/Mg Hydrox/Simethicone 30 ml 03/09/19 15:37 Alum-Mag Hydrox-Simeth 267-903-44rs/5ml PO Q4H PRN Indigestion Albuterol 2.5 mg 03/09/19 15:49 Proventil IH Q4HRT PRN Shortness Of Breath Alprazolam 0.25 mg 03/09/19 15:49 03/13/19 22:08 Xanax PO 0.25 mg QPM PRN Administration Anxiety Amiodarone HCl 200 mg 03/10/19 10:00 03/15/19 12:48 Cordarone PO Not Given DAILY [facility] Amitriptyline HCl 10 mg 03/09/19 21:00 03/15/19 21:43 Elavil PO 10 mg QHS [facility] Administration Apixaban 5 mg 03/11/19 08:00 03/15/19 21:43 Eliquis PO 5 mg Q12HR [facility] Administration Protocol Arformoterol Tartrate 15 mcg 03/09/19 20:00 03/15/19 20:10 Brojim Nebu IH 15 mcg Q12HRT [facility] Administration Bisacodyl 10 mg 03/09/19 15:37 Dulcolax [place] QDAY PRN Constipation unrelieved by MOM Budesonide 0.5 mg 03/09/19 20:00 03/15/19 20:10 Pulmicort IH 0.5 mg Q12HRT [facility] Administration Diltiazem HCl 60 mg 03/09/19 20:00 03/15/19 20:56 Cardizem PO Not Given TID [facility] Duloxetine HCl 60 mg 03/10/19 08:00 03/15/19 08:34 Cymbalta PO 60 mg QDAY [facility] Administration Gabapentin 600 mg 03/14/19 21:00 03/15/19 21:44 Neurontin PO 600 mg QHS [facility] Administration Gabapentin 300 mg 03/15/19 08:00 03/15/19 14:30 Neurontin PO 300 mg 0800,1400 [facility] Administration Sodium Chloride 1,000 mls @ 75 mls/hr 03/14/19 16:00 03/14/19 17:58 Nacl 0.9% 1000 Ml IV 75 mls/hr DIRECT [facility] Administration Levothyroxine Sodium 100 mcg 03/12/19 06:00 03/16/19 06:23 Synthroid IV 100 mcg DAILY@0600 [facility] Administration Magnesium Hydroxide 30 ml 03/09/19 15:37 Milk Of Magnesia PO Q4H PRN Constipation Metoprolol Tartrate 25 mg 03/10/19 10:00 03/15/19 12:52 Lopressor PO Not Given DAILY [facility] Multivitamins 1 each 03/10/19 08:00 03/15/19 08:36 Theragran Tab PO 1 each QDAY [facility] Administration Ondansetron HCl 4 mg 03/09/19 15:49 Zofran IV Q8H PRN Nausea And Vomiting Pantoprazole Sodium 40 mg 03/10/19 08:00 03/15/19 08:37 Protonix PO 40 mg QDAY [facility] Administration Spironolactone 25 mg 03/09/19 22:00 03/15/19 21:44 Aldactone PO Not Given BID [facility] Sucralfate 1 gm 03/09/19 22:00 03/15/19 21:43 Carafate PO 1 gm ACHS [facility] Administration
[2019-03-16] MEDS: CORDARONE PO SCH ×2 (08:57→17:33)
[2019-03-16] MEDS: CARDIZEM PO SCH ×3 (08:58→21:25)
[2019-03-16] MEDS: ALDACTONE PO SCH ×2 (08:59→21:24)
[2019-03-16] MEDS: THERAGRAN Tab PO SCH (08:59)
[2019-03-16] MEDS: CARAFATE PO SCH ×4 (09:01→21:24)
[2019-03-16] MEDS: CYMBALTA PO SCH (09:01)
[2019-03-16] MEDS: LOPRESSOR PO SCH (09:01)
[2019-03-16] MEDS: NEURONTIN PO SCH ×3 (09:02→21:25)
[2019-03-16] MEDS: PROTONIX PO SCH (09:02)
[2019-03-16] MEDS: ELIQUIS PO SCH ×2 (09:03→21:24)
--- NOTE | 2019-03-16 09:45 | Progress Note ---
Subjective Date of service: 03/16/19 Principal diagnosis: R BKA Interval history: 78 yo female admitted with worsening RLE ischemia. Hx of PAD and multiple past interventions. Attempt made to salvage the limb but was unsuccessful. 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 Pain has been fairly controlled. She is experiencing some phantom sensation and phantom pain. She has AFib and is currently rate controlled but is off her OAC due to previous GIB. [employer] [employer] has seen her and she has a residual limb protector on. She states increased pain with dressing changes - which was done earlier today. I will view her wound on another day with her scheduled dressing change. Patient has recommendation from cardiology to resume oral anticoagulation as soon as possible from a surgical standpoint. I contacted surgery today and they are okay with her resuming this however they state their understanding was that she was taking off of anticoagulation by GI due to the GI bleed in September 2018. GI consulted and is OK with restarting Eliquis. Discussed with patient. Will monitor closely for any signs of GIB. Patient is participating in therapy and making reasonable progress. Taking rest breaks as needed. +BM. Denies palpitations, dyspnea, cough, N/V, weakness, or joint pain. Continues to have right leg pain. Describes the pain as neuropathic in nature including numbness tingling and shocks but it is better than previous. Doesn't sound like it's so much incisional pain as it is neuropathic referred pain as a goes up the leg into the knee area and higher. She does still have some phantom sensation and occasional phantom pain. more awake today than previously. Heart rate and blood pressure improved. Surgical wound looks good. All records, vitals, labs and medications were reviewed. No other issues per patient, nursing or therapy. Objective - Exam Narrative Exam: MUSCULOSKELETAL SPECIALTY EXAM CONSTITUTIONAL: Well developed, well nourished, appropriately groomed EENT: EOMI Hearing intact to soft voice RESPIRATORY: Clear to auscultation bilaterally, distant, no increased work of breathing CARDIOVASCULAR: Regular Rate/ Rhythm, no swelling, edema or tenderness in BUE or BLE. All extrem ities warm. GI: + bowel sounds, soft, NTTP, nondistended. INTEGUMENTARY: Normal, no lesion, rash, masses or bruising noted in extremities except for surgical wound on R BKA, healing well no signs of infection. MUSCULOSKELETAL: BUE and BLE normal without defect, crepitus, subluxation, effusion, arthritic changes or TTP except for R BKA which has small appropriate amount of tenderness to palpation BUE 4+/5, good ROM, with normal tone. BLE 4+/5 good ROM, with normal tone NEURO: CN 2-12 grossly intact. Sensation intact in all extremities. No tremor noted in 4 extremities. POSTURE and GAIT: Sitting posture good. Balance and Gait reasonable, RW and short hops. PSYCH: Drowsy, orientated x3, affect appears normal. Insight appears intact. - Constitutional Vitals: Vital Signs - 12hr 03/15/19 03/16/19 03/16/19 22:39 02:19 04:44 Temperature 36.8 C Pulse Rate 84 Respiratory 18 18 18 Rate Blood Pressure Blood Pressure 145/67 [Right] O2 Sat by Pulse 96 Oximetry 03/16/19 03/16/19 03/16/19 06:22 08:00 08:58 Temperature 36.6 C Pulse Rate 72 72 Respiratory 18 18 Rate Blood Pressure 134/56 Blood Pressure 134/56 [Right] O2 Sat by Pulse Oximetry 03/16/19 08:59 Temperature Pulse Rate 72 Respiratory Rate Blood Pressure 134/56 Blood Pressure [Right] O2 Sat by Pulse Oximetry - Allied health notes Allied health notes reviewed: nursing, PT, OT FIMS assessment as documented by PT/OT/ST: Grooming Patient cleans teeth/dentures: Yes Patient ahmadi/brushes hair: Yes Patient washes, rinses and Yes dries face: Patient washes, rinses and Yes dries hands: Patient shaves: No Patient applies make-up: Yes Patient performs (no make-up/ /4 (100%) shaving): Patient performs (w/ make-up/ 5/5 (100%) shaving): Grooming FIM Score 5. Supervision ([place] applies toothpaste or opens containers.) Toileting Toileting Device Grab Bar Patient able to: Adjust clothes before,Clean self,Adjust clothes after Patient able to perform: 3/3 (100%) Toileting FIM Score 4. Minimal Assistance (Patient = 75% or more. Needs touching.) Social interaction/Memory/Problem solving Social Interaction FIM Score 5. Supervision (Needs supv. <10%. Needs encouragement to participate.) Memory FIM Score 5. Supervision (Needs cueing <10%, stressful/ unfamiliar situations.) Problem Solving FIM Score 5. Supervision (Needs cueing <10% to solve routine problems.) Transfers Mode of Locomotion: Wheelchair Bed/Chair/Wheelchair Transfers 4. Minimal Assistance (Patient = 75% or more. FIM Score Needs touching.) Toilet Transfers FIM Score 3. Moderate Assistance (Patient = 50% or more. Some lifting.) Patient transferred to: Shower Shower Transfers FIM Score 3. Moderate Assistance (Patient = 50% or more. Some lifting.) Locomotion- Stairs Device used on Stairs Handrail/s Number of Stairs Ascended/ 4 Descended Patient used handrail/support: Yes Stairs FIM Score 2. Maximal Assistance (Patient = 25% or more, 4- 6 stairs.) Locomotion- walk/wheelchair Most Frequent Mode of Wheelchair Locomotion: Ambulation Distance 55 Walking FIM Score 2. Maximal Assistance (Patient = 25% or more. Minimum of 50 ft.) Wheelchair Propulsion Distance 300 Wheelchair FIM Score 5. Supervision (Minimum 150 ft. supv./cues or 50 ft. independently.) Eating Eating FIM Score 6. Modified Crane (Special consistency or uses device.) Dressing-Upper body Upper Body Dressing Device Button Hook Patient retrieves clothing No items: Patient applies/removes UE n/a prosthesis or orthosis: Upper Body Dressing FIM Score 4. Minimal Assistance (Patient = 75% or more. Needs touching.) Dressing-lower body Patient retrieves clothing No items: Patient applies/removes LE No prosthesis or orthosis: Lower Body Dressing FIM Score 4. Minimal Assistance (Patient = 75% or more. Needs touching.) - Labs CBC & Chem 7: 03/14/19 14:36 03/15/19 10:30 Labs: Laboratory Results - last 72 hr 03/14/19 03/14/19 03/15/19 14:36 14:36 10:30 WBC 8.2 RBC 3.46 L Hgb 10.7 Hct 32.3 MCV 93 MCH 31 MCHC 33 RDW 15.1 Plt Count 448 H Lymph % (Auto) 30.5 [place] % (Auto) 11.5 H Eos % (Auto) 1.7 Baso % (Auto) 0.4 Lymph # 2.5 [place] # 0.9 H Eos # 0.1 Baso # 0.0 Seg Neutrophils % 55.9 Seg Neutrophils # 4.6 Sodium 132 L 140 D Potassium 5.7 H D 4.6 Chloride 96.3 L 102.1 Carbon Dioxide 23 22 Anion Gap 18 21 BUN 31 H 27 H Creatinine 1.2 1.0 Estimated GFR 44 54 BUN/Creatinine Ratio 26 27 Glucose 79 100 Calcium 9.8 9.9 Assessment and Plan Right BKA: Monitor the wound closely for any signs of infection. We'll maintain stump protector and wrapping in order shape residual limb for proper prosthesis fit. [employer] [employer]'s are revisited the patient given her information on prosthesis. Discussed with the patient to not to get up out of bed in the middle the night due to concerns for fall. Will address fall recovery prior to discharge. Continue to work on balance and mobility skills with walker. Once we are able to use a value analyst will work on independence of care for right BKA. Discussed with patient need for maintaining her cardiovascular conditioning due to increased demand of energy with BKA. Discussed range of motion maintenance. Will moved to independence with all maintenance and therapeutic interventions prior to discharge. She will need follow-up with therapy after being fitted with prosthesis. Phantom sensation and phantom pain: Continue neuropathic pain control, residual limb to remain in stump protector, will start desensitization as soon as able. Cont gabapentin at current dose, may increase early next week. Atrial fibrillation: Continue regular control monitor for any symptoms. Restart Eliquis per cardiology rec. Discussed with surgeon and GI. Hypothyroidism: Continue medication Hypertension: Continue medications and adjust for normotension GI bleed with peptic ulcer: Continue Protonix and Carafate. COPD: Continue nebulizers, supplemental O2 Z73.6 ADL dysfunction: OT will work on improving ability to perform ADLs (including assistive devices) to increase independence and decrease caregiver burden and improve functional transfers and mobility training. R26.2 Difficulty walking: PT will work on gait training and proper use of a ssistive devices and advance as appropriate to use of stairs and outside ambulation on uneven surfaces. R26.81 Unsteadiness on feet: PT will work on improving static and dynamic sitting and standing balance as well as proper use of assistive devices to decrease risk of falls. R26.89 Abnormality of gait: PT will work to improve safety and efficiency of gait through neuromotor training and gait training along with instruction on proper use of assistive devices. M62.81 Muscle weakness: PT & OT will work on strengthening exercises to improve functional strength including mixture of closed and open kinetic chain exercises. R53.81 Debility: PT & OT will work on improving overall functional status to improve participation with ADLs, mobility and social involvement. R53.83 Fatigue: PT & OT will work on improving endurance through aerobic exercises and therapeutic activity while monitoring patients tolerance for activity and vital signs as needed. DVT ppx: Eliquis Pain: Continue physical modalities in therapy and pain medications as needed to achieve functional pain control. Sleep: Monitor and address as needed. Bowel: Monitor and address as needed. Appetite: Monitor and address as needed. Discharge planning: Tentative discharge plan for the first part of the week of March 30. Will continue discussion with therapy team, SW, patient and family. Restrictions/ Precautions: Falls WB status: NWB on RLE Functional Hx: ADLs: Independent Cognition: Independent Mobility: No AD Barriers to Discharge: Decreased mobility and ability to perform self care, balance deficits, weakness Estimated Length of Stay: 14-18 days Discharge Destination: Home with family
[2019-03-16] MEDS: PULMICORT IH SCH ×2 (15:30→20:27)
[2019-03-16] MEDS: BROVANA NEBU IH SCH ×2 (15:30→20:27)
--- NOTE | 2019-03-16 18:20 | Progress Note ---
Assessment and Plan Assessment and plan: s/p Right BKA Patient in Rehab Unit Dr. Ring is Attending PT ongoing Hyperkalemia Now resolved after kayexalate, Insulin Recheck in am Hypertension Monitor BP Hypothyroidism Cont Levothyroxine Hyponatremia. Now resolved. Will dc iv fluid Full code status. History Interval history: s/p right BKA no pain currently Hospitalist Physical - Physical exam Narrative exam: Gen: Not in acute distress, lying in bed, HEENT: Normocephalic, atraumatic Neck: supple, no JVD Heart: S1 and S2 reg, no murmurs, rubs or gallop Lungs: Clear, no crackles, no wheeze Abd: soft, non tender, non distended, normal BS Ext: s/p right BKA Neuro: Awake,alert, oriented x 3, moves all ext, non focal Psych:Normal mood - Constitutional Vitals: Temp Pulse Resp BP Pulse Ox 97.9 F 66 18 135/52 97 03/16/19 15:00 03/16/19 15:00 03/16/19 15:00 03/16/19 15:00 03/16/19 15:00 Results - Labs CBC & Chem 7: 03/14/19 14:36 03/15/19 10:30 Labs: Laboratory Last Values WBC 8.2 K/mm3 (4.5-11.0) 03/14/19 14:36 RBC 3.46 M/mm3 (3.65-5.03) L 03/14/19 14:36 Hgb 10.7 gm/dl (10.1-14.3) 03/14/19 14:36 Hct 32.3 % (30.3-42.9) 03/14/19 14:36 MCV 93 fl (79-97) 03/14/19 14:36 MCH 31 pg (28-32) 03/14/19 14:36 MCHC 33 % (30-34) 03/14/19 14:36 RDW 15.1 % (13.2-15.2) 03/14/19 14:36 Plt Count 448 K/mm3 (140-440) H 03/14/19 14:36 Lymph % (Auto) 30.5 % (13.4-35.0) 03/14/19 14:36 [place] % (Auto) 11.5 % (0.0-7.3) H 03/14/19 14:36 Eos % (Auto) 1.7 % (0.0-4.3) 03/14/19 14:36 Baso % (Auto) 0.4 % (0.0-1.8) 03/14/19 14:36 Lymph # 2.5 K/mm3 (1.2-5.4) 03/14/19 14:36 [place] # 0.9 K/mm3 (0.0-0.8) H 03/14/19 14:36 Eos # 0.1 K/mm3 (0.0-0.4) 03/14/19 14:36 Baso # 0.0 K/mm3 (0.0-0.1) 03/14/19 14:36 Seg Neutrophils % 55.9 % (40.0-70.0) 03/14/19 14:36 Seg Neutrophils # 4.6 K/mm3 (1.8-7.7) 03/14/19 14:36 Sodium 140 mmol/L (137-145) D 03/15/19 10:30 Potassium 4.6 mmol/L (3.6-5.0) 03/15/19 10:30 Chloride 102.1 mmol/L (98-107) 03/15/19 10:30 Carbon Dioxide 22 mmol/L (22-30) 03/15/19 10:30 21 mmol/L 03/15/19 10:30 BUN 27 mg/dL (7-17) H 03/15/19 10:30 1.0 mg/dL (0.7-1.2) 03/15/19 10:30 Estimated GFR 54 ml/min 03/15/19 10:30 27 % 03/15/19 10:30 Glucose 100 mg/dL (65-100) 03/15/19 10:30 Calcium 9.9 mg/dL (8.4-10.2) 03/15/19 10:30 0.40 mg/dL (0.1-1.2) 03/10/19 04:48 AST 21 units/L (5-40) 03/10/19 04:48 ALT 10 units/L (7-56) 03/10/19 04:48 76 units/L (35-129) 03/10/19 04:48 6.7 g/dL (6.3-8.2) 03/10/19 04:48 3.5 g/dL (3.9-5) L 03/10/19 04:48 1.1 % 03/10/19 04:48 TSH 8.500 mlU/mL (0.270-4.200) H 03/11/19 13:27 Free T4 1.21 ng/dL (0.76-1.46) 03/11/19 13:27 7.0 ug/dL (4.0-12.0) 03/11/19 13:27 Active Medications - Current Medications Current Medications: Generic Name Dose Route Start Last Admin Trade Name Freq PRN Reason Stop Dose Admin Acetaminophen 650 mg 03/09/19 15:37 Tylenol PO Q4H PRN Pain MILD(1-3)/Fever >100.5/GONZALES Acetaminophen/Hydrocodone Bitart 1 each 03/09/19 15:49 03/16/19 17:46 [place] 10/325 PO 1 each Q4H PRN Administration Pain, Moderate (4-6) Al Hydrox/Mg Hydrox/Simethicone 30 ml 03/09/19 15:37 Alum-Mag Hydrox-Simeth 141-645-20gm/5ml PO Q4H PRN Indigestion Albuterol 2.5 mg 03/09/19 15:49 Proventil IH Q4HRT PRN Shortness Of Breath Alprazolam 0.25 mg 03/09/19 15:49 03/13/19 22:08 Xanax PO 0.25 mg QPM PRN Administration Anxiety Amiodarone HCl 200 mg 03/10/19 10:00 03/16/19 17:33 Cordarone PO Not Given DAILY KLEVER Amitriptyline HCl 10 mg 03/09/19 21:00 03/15/19 21:43 Elavil PO 10 mg QHS KLEVER Administration Apixaban 5 mg 03/11/19 08:00 03/16/19 09:03 Eliquis PO 5 mg Q12HR KLEVER Administration Protocol Arformoterol Tartrate 15 mcg 03/09/19 20:00 03/16/19 15:30 Brovana Nebu IH 15 mcg Q12HRT KLEVER Administration Bisacodyl 10 mg 03/09/19 15:37 03/16/19 14:17 Dulcolax [place] 10 mg QDAY PRN Administration Constipation unrelieved by MOM Budesonide 0.5 mg 03/09/19 20:00 03/16/19 15:30 Pulmicort IH 0.5 mg Q12HRT KLEVER Administration Diltiazem HCl 60 mg 03/09/19 20:00 03/16/19 14:20 Cardizem PO Not Given TID KLEVER Duloxetine HCl 60 mg 03/10/19 08:00 03/16/19 09:01 Cymbalta PO 60 mg QDAY KLEVER Administration Gabapentin 600 mg 03/14/19 21:00 03/15/19 21:44 Neurontin PO 600 mg QHS KLEVER Administration Gabapentin 300 mg 03/15/19 08:00 03/16/19 13:41 Neurontin PO 300 mg 0800,1400 KLEVER Administration Sodium Chloride 1,000 mls @ 75 mls/hr 03/14/19 16:00 03/14/19 17:58 Nacl 0.9% 1000 Ml IV 75 mls/hr DIRECT KLEVER Administration Levothyroxine Sodium 100 mcg 03/12/19 06:00 03/16/19 06:23 Synthroid IV 100 mcg DAILY@0600 KLEVER Administration Magnesium Hydroxide 30 ml 03/09/19 15:37 Milk Of Magnesia PO Q4H PRN Constipation Metoprolol Tartrate 25 mg 03/10/19 10:00 03/16/19 09:01 Lopressor PO Not Given DAILY [facility] Multivitamins 1 each 03/10/19 08:00 03/16/19 08:59 Theragran Tab PO 1 each QDAY KLEVER Administration Ondansetron HCl 4 mg 03/09/19 15:49 Zofran IV Q8H PRN Nausea And Vomiting Pantoprazole Sodium 40 mg 03/10/19 08:00 03/16/19 09:02 Protonix PO 40 mg QDAY KLEVER Administration Spironolactone 25 mg 03/09/19 22:00 03/16/19 08:59 Aldactone PO 25 mg BID KLEVER Administration Sucralfate 1 gm 03/09/19 22:00 03/16/19 17:47 Carafate PO 1 gm ACHS KLEVER Administration Nutrition/Malnutrition Assess - Dietary Evaluation Nutrition/Malnutrition Findings: Nutrition Notes Start: 03/16/19 15:47 Freq: Status: Active Protocol: Document 03/16/19 15:47 RM (Rec: 03/16/19 15:48 RM [id number]) Nutrition Notes Need for Assessment generated from: LOS Initial or Follow up Brief Note Height 5 ft 4 in Weight 58.[address] Body Weight (kg) 54.54 BMI 22.1 Subjective/Other Information Screened for LOS. Recorded PO intake 75% X 3 meals. Nutrition Intervention Revisit per MD consult or patient Sign Off request:
[2019-03-16] MEDS: ELAVIL PO SCH (21:25)
[2019-03-16] MEDS: XANAX PO PRN (21:31)
[2019-03-17] MEDS: NORCO 10/325 PO PRN ×4 (04:13→18:51)
[2019-03-17] MEDS: SYNTHROID IV SCH (06:21)
[2019-03-17] MEDS: CARAFATE PO SCH ×4 (07:38→22:16)
[2019-03-17] MEDS: ALDACTONE PO SCH ×2 (07:40→22:19)
[2019-03-17] MEDS: BROVANA NEBU IH SCH ×2 (07:48→19:44)
[2019-03-17] MEDS: PULMICORT IH SCH ×2 (07:49→19:44)
[2019-03-17] MEDS: CARDIZEM PO SCH ×3 (08:01→22:17)
[2019-03-17] MEDS: CYMBALTA PO SCH (08:38)
[2019-03-17] MEDS: NEURONTIN PO SCH ×3 (08:39→22:16)
[2019-03-17] MEDS: PROTONIX PO SCH (08:40)
[2019-03-17] MEDS: LOPRESSOR PO SCH (10:06)
[2019-03-17] MEDS: ELIQUIS PO SCH ×2 (10:41→22:20)
[2019-03-17] MEDS: THERAGRAN Tab PO SCH (10:41)
[2019-03-17] MEDS: CORDARONE PO SCH (11:07)
--- NOTE | 2019-03-17 12:16 | Progress Note ---
Assessment and Plan Assessment and plan: s/p Right BKA Patient in Rehab Unit Dr. Ring is Attending PT ongoing Hyperkalemia Now resolved after kayexalate, Insulin Hypertension Monitor BP BP stable Hypothyroidism Cont Levothyroxine Hyponatremia. Now resolved. Will dc iv fluid Full code status. History Interval history: s/p right BKA no pain currently Hospitalist Physical - Physical exam Narrative exam: Gen: Not in acute distress, lying in bed, HEENT: Normocephalic, atraumatic Neck: supple, no JVD Heart: S1 and S2 reg, no murmurs, rubs or gallop Lungs: Clear, no crackles, no wheeze Abd: soft, non tender, non distended, normal BS Ext: s/p right BKA Neuro: Awake,alert, oriented x 3, moves all ext, non focal Psych:Normal mood - Constitutional Vitals: Temp Pulse Resp BP Pulse Ox 98.5 F 77 19 125/52 93 03/17/19 03:41 03/17/19 07:50 03/17/19 07:50 03/17/19 03:41 03/17/19 07:50 Results - Labs CBC & Chem 7: 03/14/19 14:36 03/17/19 12:32 Labs: Laboratory Last Values WBC 8.2 K/mm3 (4.5-11.0) 03/14/19 14:36 RBC 3.46 M/mm3 (3.65-5.03) L 03/14/19 14:36 Hgb 10.7 gm/dl (10.1-14.3) 03/14/19 14:36 Hct 32.3 % (30.3-42.9) 03/14/19 14:36 MCV 93 fl (79-97) 03/14/19 14:36 MCH 31 pg (28-32) 03/14/19 14:36 MCHC 33 % (30-34) 03/14/19 14:36 RDW 15.1 % (13.2-15.2) 03/14/19 14:36 Plt Count 448 K/mm3 (140-440) H 03/14/19 14:36 Lymph % (Auto) 30.5 % (13.4-35.0) 03/14/19 14:36 [place] % (Auto) 11.5 % (0.0-7.3) H 03/14/19 14:36 Eos % (Auto) 1.7 % (0.0-4.3) 03/14/19 14:36 Baso % (Auto) 0.4 % (0.0-1.8) 03/14/19 14:36 Lymph # 2.5 K/mm3 (1.2-5.4) 03/14/19 14:36 [place] # 0.9 K/mm3 (0.0-0.8) H 03/14/19 14:36 Eos # 0.1 K/mm3 (0.0-0.4) 03/14/19 14:36 Baso # 0.0 K/mm3 (0.0-0.1) 03/14/19 14:36 Seg Neutrophils % 55.9 % (40.0-70.0) 03/14/19 14:36 Seg Neutrophils # 4.6 K/mm3 (1.8-7.7) 03/14/19 14:36 Sodium 140 mmol/L (137-145) D 03/15/19 10:30 Potassium 4.6 mmol/L (3.6-5.0) 03/15/19 10:30 Chloride 102.1 mmol/L (98-107) 03/15/19 10:30 Carbon Dioxide 22 mmol/L (22-30) 03/15/19 10:30 21 mmol/L 03/15/19 10:30 BUN 27 mg/dL (7-17) H 03/15/19 10:30 1.0 mg/dL (0.7-1.2) 03/15/19 10:30 Estimated GFR 54 ml/min 03/15/19 10:30 27 % 03/15/19 10:30 Glucose 100 mg/dL (65-100) 03/15/19 10:30 Calcium 9.9 mg/dL (8.4-10.2) 03/15/19 10:30 0.40 mg/dL (0.1-1.2) 03/10/19 04:48 AST 21 units/L (5-40) 03/10/19 04:48 ALT 10 units/L (7-56) 03/10/19 04:48 76 units/L (35-129) 03/10/19 04:48 6.7 g/dL (6.3-8.2) 03/10/19 04:48 3.5 g/dL (3.9-5) L 03/10/19 04:48 1.1 % 03/10/19 04:48 TSH 8.500 mlU/mL (0.270-4.200) H 03/11/19 13:27 Free T4 1.21 ng/dL (0.76-1.46) 03/11/19 13:27 7.0 ug/dL (4.0-12.0) 03/11/19 13:27 Active Medications - Current Medications Current Medications: Generic Name Dose Route Start Last Admin Trade Name Freq PRN Reason Stop Dose Admin Acetaminophen 650 mg 03/09/19 15:37 Tylenol PO Q4H PRN Pain MILD(1-3)/Fever >100.5/GONZALES Acetaminophen/Hydrocodone Bitart 1 each 03/09/19 15:49 03/17/19 09:08 [place] 10/325 PO 1 each Q4H PRN Administration Pain, Moderate (4-6) Al Hydrox/Mg Hydrox/Simethicone 30 ml 03/09/19 15:37 Alum-Mag Hydrox-Simeth 556-192-07ud/5ml PO Q4H PRN Indigestion Albuterol 2.5 mg 03/09/19 15:49 Proventil IH Q4HRT PRN Shortness Of Breath Alprazolam 0.25 mg 03/09/19 15:49 03/16/19 21:31 Xanax PO 0.25 mg QPM PRN Administration Anxiety Amiodarone HCl 200 mg 03/10/19 10:00 03/17/19 11:07 Cordarone PO Not Given DAILY KLEVER Amitriptyline HCl 10 mg 03/09/19 21:00 03/16/19 21:25 Elavil PO 10 mg QHS KLEVER Administration Apixaban 5 mg 03/11/19 08:00 03/17/19 10:41 Eliquis PO 5 mg Q12HR KLEVER Administration Protocol Arformoterol Tartrate 15 mcg 03/09/19 20:00 03/17/19 07:48 Brovana Nebu IH 15 mcg Q12HRT KLEVER Administration Bisacodyl 10 mg 03/09/19 15:37 03/16/19 14:17 Dulcolax [place] 10 mg QDAY PRN Administration Constipation unrelieved by MOM Budesonide 0.5 mg 03/09/19 20:00 03/17/19 07:49 Pulmicort IH 0.5 mg Q12HRT KLEVER Administration Diltiazem HCl 60 mg 03/09/19 20:00 03/17/19 08:01 Cardizem PO 60 mg TID KLEVER Administration Duloxetine HCl 60 mg 03/10/19 08:00 03/17/19 08:38 Cymbalta PO 60 mg QDAY KLEEVR Administration Gabapentin 600 mg 03/14/19 21:00 03/16/19 21:25 Neurontin PO 600 mg QHS KLEVER Administration Gabapentin 300 mg 03/15/19 08:00 03/17/19 08:39 Neurontin PO 300 mg 0800,1400 KLEVER Administration Levothyroxine Sodium 100 mcg 03/12/19 06:00 03/17/19 06:21 Synthroid IV 100 mcg DAILY@0600 KLEVER Administration Magnesium Hydroxide 30 ml 03/09/19 15:37 Milk Of Magnesia PO Q4H PRN Constipation Metoprolol Tartrate 25 mg 03/10/19 10:00 03/16/19 09:01 Lopressor PO Not Given DAILY [facility] Multivitamins 1 each 03/10/19 08:00 03/17/19 10:41 Theragran Tab PO 1 each QDAY [facility] Administration Ondansetron HCl 4 mg 03/09/19 15:49 Zofran IV Q8H PRN Nausea And Vomiting Pantoprazole Sodium 40 mg 03/10/19 08:00 03/17/19 08:40 Protonix PO 40 mg QDAY [facility] Administration Spironolactone 25 mg 03/09/19 22:00 03/17/19 07:40 Aldactone PO 25 mg BID [facility] Administration Sucralfate 1 gm 03/09/19 22:00 03/17/19 07:38 Carafate PO 1 gm ACHS KLEVER Administration Nutrition/Malnutrition Assess - Dietary Evaluation Nutrition/Malnutrition Findings: Nutrition Notes Start: 03/16/19 15:47 Freq: Status: Active Protocol: Document 03/16/19 15:47 RM (Rec: 03/16/19 15:48 RM [id number]) Nutrition Notes Need for Assessment generated from: LOS Initial or Follow up Brief Note Height 5 ft 4 in Weight 58.5 kg [place] Body Weight (kg) 54.54 BMI 22.1 Subjective/Other Information Screened for LOS. Recorded PO intake 75% X 3 meals. Nutrition Intervention Revisit per MD consult or patient Sign Off request:
[2019-03-17 14:02] LABS: Calcium 10.2 mg/dL (8.4-10.2)
[2019-03-17] MEDS: XANAX PO PRN (22:15)
[2019-03-17] MEDS: ELAVIL PO SCH (22:19)
[2019-03-18] MEDS: NORCO 10/325 PO PRN ×4 (06:04→19:02)
[2019-03-18] MEDS: SYNTHROID IV SCH (06:08)
[2019-03-18] MEDS: BROVANA NEBU IH SCH ×2 (07:51→19:47)
[2019-03-18] MEDS: PULMICORT IH SCH ×2 (07:51→19:47)
[2019-03-18] MEDS: ALDACTONE PO SCH ×2 (08:00→20:00)
[2019-03-18] MEDS: ELIQUIS PO SCH ×2 (09:37→21:18)
[2019-03-18] MEDS: CYMBALTA PO SCH (09:38)
[2019-03-18] MEDS: THERAGRAN Tab PO SCH (09:38)
[2019-03-18] MEDS: PROTONIX PO SCH (09:42)
[2019-03-18] MEDS: NEURONTIN PO SCH ×3 (09:42→21:22)
[2019-03-18] MEDS: CORDARONE PO SCH (09:42)
[2019-03-18] MEDS: CARDIZEM PO SCH ×3 (09:43→21:15)
[2019-03-18] MEDS: CARAFATE PO SCH ×4 (09:43→21:23)
[2019-03-18] MEDS: LOPRESSOR PO SCH (10:20)
--- NOTE | 2019-03-18 10:30 | Progress Note ---
Subjective Date of service: 03/18/19 Principal diagnosis: R BKA Interval history: 78 yo female admitted with worsening RLE ischemia. Hx of PAD and multiple past interventions. Attempt made to salvage the limb but was unsuccessful. 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 Pain has been fairly controlled. She is experiencing some phantom sensation and phantom pain. She has AFib and is currently rate controlled but is off her OAC due to previous GIB. [facility] has seen her and she has a residual limb protector on. She states increased pain with dressing changes - which was done earlier today. I will view her wound on another day with her scheduled dressing change. Patient has recommendation from cardiology to resume oral anticoagulation as soon as possible from a surgical standpoint. I contacted surgery today and they are okay with her resuming this however they state their understanding was that she was taking off of anticoagulation by GI due to the GI bleed in September 2018. GI consulted and is OK with restarting Eliquis. Discussed with patient. Will monitor closely for any signs of GIB. Patient is participating in therapy and making reasonable progress. Taking rest breaks as needed. +BM. Denies palpitations, dyspnea, cough, N/V, weakness, or joint pain. Continues to have right leg pain. Describes the pain as neuropathic in nature including numbness tingling and shocks but it is better than previous and she is tolerating the increased dose of gabapentin at night. We will hold at this dose until we see a need to increase due to increased pain. Visualized the incision site which looks good, healing well, no signs of infection. We'll discuss was vascular surgeon timing for staple removal. She does still have some phantom sensation and occasional phantom pain. Discussed with her again the efficacy of desensitization and had her perform this while the bandages were removed. Heart rate and blood pressure improved. She has had wide fluctuations in her BMP values, likely lab error but we will continue to monitor. No signs of bleeding, we'll continue to monitor CBC as well. I have noticed on several occasions that she tends to repeat topics that we have already discussed and questioned things in a way that makes me concerned about her memory. She does state that her mother had dementia and she does have some issues with forgetfulness around the home. Will ask speech to assess her memory to ensure that we have a safe discharge home with appropriate supervision level. All records, vitals, labs and medications were reviewed. No other issues per patient, nursing or therapy. Objective - Exam Narrative Exam: MUSCULOSKELETAL SPECIALTY EXAM CONSTITUTIONAL: Well developed, well nourished, appropriately groomed EENT: EOMI Hearing intact to soft voice RESPIRATORY: Clear to auscultation bilaterally, distant, no increased work of breathing CARDIOVASCULAR: Regular Rate/ Rhythm, no swelling, edema or tenderness in BUE or BLE. All extremities warm. GI: + bowel sounds, soft, NTTP, nondistended. INTEGUMENTARY: Normal, no lesion, rash, masses or bruising noted in extremities except for surgical wound on R BKA, healing well no signs of infection. MUSCULOSKELETAL: BUE and BLE normal without defect, crepitus, subluxation, effusion, arthritic changes or TTP except for R BKA which has small appropriate amount of tenderness to palpation BUE 4+/5, good ROM, with normal tone. BLE 4+/5 good ROM, with normal tone NEURO: CN 2-12 grossly intact. Sensation intact in all extremities. No tremor noted in 4 extremities. POSTURE and GAIT: Sitting posture good. Balance and Gait reasonable, RW and short hops. PSYCH: Drowsy, orientated x3, affect appears normal. Insight appears intact. - Constitutional Vitals: Vital Signs - 12hr 03/18/19 03/18/19 03/18/19 05:03 05:04 07:40 Temperature 36.7 C 36.7 C Pulse Rate 65 63 Respiratory 17 Rate Blood Pressure 133/53 136/50 O2 Sat by Pulse 96 98 Oximetry 03/18/19 03/18/19 08:00 09:43 Temperature Pulse Rate 72 72 Respiratory 18 Rate Blood Pressure 136/50 O2 Sat by Pulse 98 Oximetry - Allied health notes Allied health notes reviewed: nursing, PT, OT FIMS assessment as documented by PT/OT/ST: Grooming Patient cleans teeth/dentures: Yes Patient ahmadi/brushes hair: Yes Patient washes, rinses and Yes dries face: Patient washes, rinses and Yes dries hands: Patient shaves: No Patient applies make-up: No Patient performs (no make-up/ / (100%) shaving): Patient performs (w/ make-up/ 5/5 (100%) shaving): Grooming FIM Score 6. Modified Gilchrist (Needs equipment/device . Extra time.) Toileting Toileting Device Grab Bar Patient able to: Adjust clothes before,Clean self,Adjust clothes after Patient able to perform: 3/3 (100%) Toileting FIM Score 4. Minimal Assistance (Patient = 75% or more. Needs touching.) Social interaction/Memory/Problem solving Social Interaction FIM Score 5. Supervision (Needs supv. <10%. Needs encouragement to participate.) Memory FIM Score 5. Supervision (Needs cueing <10%, stressful/ unfamiliar situations.) Problem Solving FIM Score 5. Supervision (Needs cueing <10% to solve routine problems.) Transfers Mode of Locomotion: Wheelchair Bed/Chair/Wheelchair Transfers 4. Minimal Assistance (Patient = 75% or more. FIM Score Needs touching.) Toilet Transfers FIM Score 3. Moderate Assistance (Patient = 50% or more. Some lifting.) Patient transferred to: Shower Shower Transfers FIM Score 3. Moderate Assistance (Patient = 50% or more. Some lifting.) Locomotion- Stairs Device used on Stairs Handrail/s Number of Stairs Ascended/ 4 Descended Patient used handrail/support: Yes Stairs FIM Score 2. Maximal Assistance (Patient = 25% or more, 4- 6 stairs.) Locomotion- walk/wheelchair Most Frequent Mode of Wheelchair Locomotion: Ambulation Distance 90 Walking FIM Score 2. Maximal Assistance (Patient = 25% or more. Minimum of 50 ft.) Wheelchair Propulsion Distance 200 Wheelchair FIM Score 5. Supervision (Minimum 150 ft. supv./cues or 50 ft. independently.) Eating Eating FIM Score 6. Modified [place]christ (Special consistency or uses device.) Dressing-Upper body Upper Body Dressing Device Button Hook Patient retrieves clothing No items: Patient applies/removes UE n/a prosthesis or orthosis: Upper Body Dressing FIM Score 4. Minimal Assistance (Patient = 75% or more. Needs touching.) Dressing-lower body Patient retrieves clothing No items: Patient applies/removes LE No prosthesis or orthosis: Lower Body Dressing FIM Score 4. Minimal Assistance (Patient = 75% or more. Needs touching.) - Labs CBC & Chem 7: 03/14/19 14:36 03/17/19 12:32 Labs: Laboratory Results - last 72 hr 03/15/19 03/17/19 10:30 12:32 Sodium 140 D 135 L Potassium 4.6 4.7 Chloride 102.1 98.6 Carbon Dioxide 22 22 Anion Gap 21 19 BUN 27 H 31 H Creatinine 1.0 1.0 Estimated GFR 54 54 BUN/Creatinine Ratio 27 31 Glucose 100 97 Calcium 9.9 10.2 Assessment and Plan Right BKA: Monitor the wound closely for any signs of infection. We'll maintain stump protector and wrapping in order shape residual limb for proper prosthesis fit. [facility]'s are revisited the patient given her information on prosthesis. Discussed with the patient to not to get up out of bed in the middle the night due to concerns for fall. Will address fall recovery prior to discharge. Continue to work on balance and mobility skills with walker. Once we are able to use a internet marketing specialist will work on independence of care for right BKA. Discussed with patient need for maintaining her cardiovascular conditioning due to increased demand of energy with BKA. Discussed range of motion maintenance. Will moved to independence with all maintenance and therapeutic interventions prior to discharge. She will need follow-up with therapy after being fitted with prosthesis. Contact surgeon for timing of staple removal. Phantom sensation and phantom pain: Continue neuropathic pain control, residual limb to remain in stump protector, will start desensitization as soon as able. Cont gabapentin at current dose, may increase early next week. Atrial fibrillation: Continue regular control monitor for any symptoms. Restart Eliquis per cardiology rec. Discussed with surgeon and GI. Hypothyroidism: Continue medication Hypertension: Continue medications and adjust for normotension GI bleed with peptic ulcer: Continue Protonix and Carafate. COPD: Continue nebulizers, supplemental O2 Z73.6 ADL dysfunction: OT will work on improving ability to perform ADLs (including assistive devices) to increase independence and decrease caregiver burden and improve functional transfers and mobility training. R26.2 Difficulty walking: PT will work on gait training and proper use of assistive devices and advance as appropriate to use of stairs and outside ambulation on uneven surfaces. R26.81 Unsteadiness on feet: PT will work on improving static and dynamic sitting and standing balance as well as proper use of assistive devices to decrease risk of falls. R26.89 Abnormality of gait: PT will work to improve safety and efficiency of gait through neuromotor training and gait training along with instruction on proper use of assistive devices. M62.81 Muscle weakness: PT & OT will work on strengthening exercises to improve functional strength including mixture of closed and open kinetic chain exercises. R53.81 Debility: PT & OT will work on improving overall functional status to improve participation with ADLs, mobility and social involvement. R53.83 Fatigue: PT & OT will work on improving endurance through aerobic exercises and therapeutic activity while monitoring patients tolerance for activity and vital signs as needed. Decreased memory with possible early signs of dementia - TOBACCO CLASSER eval for cognitive eval with SLUMs or other testing as appropriate DVT ppx: Eliquis Pain: Continue physical modalities in therapy and pain medications as needed to achieve functional pain control. Sleep: Monitor and address as needed. Bowel: Monitor and address as needed. Appetite: Monitor and address as needed. Discharge planning: Tentative discharge plan for the first part of the week of March 30. Will continue discussion with therapy team, SW, patient and family. Restrictions/ Precautions: Falls WB status: NWB on RLE Functional Hx: ADLs: Independent Cognition: Independent Mobility: No AD Barriers to Discharge: Decreased mobility and ability to perform self care, balance deficits, weakness Estimated Length of Stay: 14-18 days Discharge Destination: Home with family
--- NOTE | 2019-03-18 13:25 | Progress Note ---
Assessment and Plan Assessment and plan: s/p Right BKA Patient in Rehab Unit Dr. Ring is Attending PT ongoing Hyperkalemia Now resolved after kayexalate, Insulin Repeat every few days Hypertension Monitor BP BP stable Hyponatremia. Recheck BMP in am Hypothyroidism Cont Levothyroxine Full code status. History Interval history: s/p right BKA no pain currently Hospitalist Physical - Physical exam Narrative exam: Gen: Not in acute distress, lying in bed, HEENT: Normocephalic, atraumatic Neck: supple, no JVD Heart: S1 and S2 reg, no murmurs, rubs or gallop Lungs: Clear, no crackles, no wheeze Abd: soft, non tender, non distended, normal BS Ext: s/p right BKA Neuro: Awake,alert, oriented x 3, moves all ext, non focal Psych:Normal mood - Constitutional Vitals: Temp Pulse Resp BP Pulse Ox 98.0 F 72 18 136/50 98 03/18/19 07:40 03/18/19 09:43 03/18/19 08:00 03/18/19 09:43 03/18/19 08:00 Results - Labs CBC & Chem 7: 03/18/19 15:00 03/17/19 12:32 Labs: Laboratory Last Values WBC 8.2 K/mm3 (4.5-11.0) 03/14/19 14:36 RBC 3.46 M/mm3 (3.65-5.03) L 03/14/19 14:36 Hgb 10.7 gm/dl (10.1-14.3) 03/14/19 14:36 Hct 32.3 % (30.3-42.9) 03/14/19 14:36 MCV 93 fl (79-97) 03/14/19 14:36 MCH 31 pg (28-32) 03/14/19 14:36 MCHC 33 % (30-34) 03/14/19 14:36 RDW 15.1 % (13.2-15.2) 03/14/19 14:36 Plt Count 448 K/mm3 (140-440) H 03/14/19 14:36 Lymph % (Auto) 30.5 % (13.4-35.0) 03/14/19 14:36 [place] % (Auto) 11.5 % (0.0-7.3) H 03/14/19 14:36 Eos % (Auto) 1.7 % (0.0-4.3) 03/14/19 14:36 Baso % (Auto) 0.4 % (0.0-1.8) 03/14/19 14:36 Lymph # 2.5 K/mm3 (1.2-5.4) 03/14/19 14:36 [place] # 0.9 K/mm3 (0.0-0.8) H 03/14/19 14:36 Eos # 0.1 K/mm3 (0.0-0.4) 03/14/19 14:36 Baso # 0.0 K/mm3 (0.0-0.1) 03/14/19 14:36 Seg Neutrophils % 55.9 % (40.0-70.0) 03/14/19 14:36 Seg Neutrophils # 4.6 K/mm3 (1.8-7.7) 03/14/19 14:36 Sodium 135 mmol/L (137-145) L 03/17/19 12:32 Potassium 4.7 mmol/L (3.6-5.0) 03/17/19 12:32 Chloride 98.6 mmol/L (98-107) 03/17/19 12:32 Carbon Dioxide 22 mmol/L (22-30) 03/17/19 12:32 19 mmol/L 03/17/19 12:32 BUN 31 mg/dL (7-17) H 03/17/19 12:32 1.0 mg/dL (0.7-1.2) 03/17/19 12:32 Estimated GFR 54 ml/min 03/17/19 12:32 31 % 03/17/19 12:32 Glucose 97 mg/dL (65-100) 03/17/19 12:32 Calcium 10.2 mg/dL (8.4-10.2) 03/17/19 12:32 0.40 mg/dL (0.1-1.2) 03/10/19 04:48 AST 21 units/L (5-40) 03/10/19 04:48 ALT 10 units/L (7-56) 03/10/19 04:48 76 units/L (35-129) 03/10/19 04:48 6.7 g/dL (6.3-8.2) 03/10/19 04:48 3.5 g/dL (3.9-5) L 03/10/19 04:48 1.1 % 03/10/19 04:48 TSH 8.500 mlU/mL (0.270-4.200) H 03/11/19 13:27 Free T4 1.21 ng/dL (0.76-1.46) 03/11/19 13:27 7.0 ug/dL (4.0-12.0) 03/11/19 13:27 Active Medications - Current Medications Current Medications: Generic Name Dose Route Start Last Admin Trade Name Freq PRN Reason Stop Dose Admin Acetaminophen 650 mg 03/09/19 15:37 Tylenol PO Q4H PRN Pain MILD(1-3)/Fever >100.5/GONZALES Acetaminophen/Hydrocodone Bitart 1 each 03/09/19 15:49 03/18/19 10:01 [place] 10/325 PO 1 each Q4H PRN Administration Pain, Moderate (4-6) Al Hydrox/Mg Hydrox/Simethicone 30 ml 03/09/19 15:37 Alum-Mag Hydrox-Simeth [phone]/5ml PO Q4H PRN Indigestion Albuterol 2.5 mg 03/09/19 15:49 Proventil IH Q4HRT PRN Shortness Of Breath Alprazolam 0.25 mg 03/09/19 15:49 03/17/19 22:15 Xanax PO 0.25 mg QPM PRN Administration Anxiety Amiodarone HCl 200 mg 03/10/19 10:00 03/18/19 09:42 Cordarone PO 200 mg DAILY KLEVER Administration Amitriptyline HCl 10 mg 03/09/19 21:00 03/17/19 22:19 Elavil PO 10 mg QHS KLEVER Administration Apixaban 5 mg 03/11/19 08:00 03/18/19 09:37 Eliquis PO 5 mg Q12HR KLEVER Administration Protocol Arformoterol Tartrate 15 mcg 03/09/19 20:00 03/18/19 07:51 Brovana Nebu IH 15 mcg Q12HRT KLEVER Administration Bisacodyl 10 mg 03/09/19 15:37 03/16/19 14:17 Dulcolax DE 10 mg QDAY PRN Administration Constipation unrelieved by MOM Budesonide 0.5 mg 03/09/19 20:00 03/18/19 07:51 Pulmicort IH 0.5 mg Q12HRT KLEVER Administration Diltiazem HCl 60 mg 03/09/19 20:00 03/18/19 09:43 Cardizem PO 60 mg TID KLEVER Administration Duloxetine HCl 60 mg 03/10/19 08:00 03/18/19 09:38 Cymbalta PO 60 mg QDAY KLEVER Administration Gabapentin 600 mg 03/14/19 21:00 03/17/19 22:16 Neurontin PO 600 mg QHS KLEVER Administration Gabapentin 300 mg 03/15/19 08:00 03/18/19 09:42 Neurontin PO 300 mg 0800,1400 KLEVER Administration Levothyroxine Sodium 100 mcg 03/12/19 06:00 03/18/19 06:08 Synthroid IV 100 mcg DAILY@0600 KLEVER Administration Magnesium Hydroxide 30 ml 03/09/19 15:37 Milk Of Magnesia PO Q4H PRN Constipation Metoprolol Tartrate 25 mg 03/10/19 10:00 03/17/19 10:06 Lopressor PO 25 mg DAILY KLEVER Administration Multivitamins 1 each 03/10/19 08:00 03/18/19 09:38 Theragran Tab PO 1 each QDAY KLEVER Administration Ondansetron HCl 4 mg 03/09/19 15:49 Zofran IV Q8H PRN Nausea And Vomiting Pantoprazole Sodium 40 mg 03/10/19 08:00 03/18/19 09:42 Protonix PO 40 mg QDAY KLEVER Administration Spironolactone 25 mg 03/09/19 22:00 03/17/19 22:19 Aldactone PO 25 mg BID KLEVER Administration Sucralfate 1 gm 03/09/19 22:00 03/18/19 09:43 Carafate PO 1 gm ACHS KLEVER Administration Nutrition/Malnutrition Assess - Dietary Evaluation Nutrition/Malnutrition Findings: Nutrition Notes Start: 03/16/19 15:47 Freq: Status: Active Protocol: Document 03/16/19 15:47 RM (Rec: 03/16/19 15:48 RM [id number]) Nutrition Notes Need for Assessment generated from: LOS Initial or Follow up Brief Note Height 5 ft 4 in Weight 58.5 kg [place] Body Weight (kg) 54.54 BMI 22.1 Subjective/Other Information Screened for LOS. Recorded PO intake 75% X 3 meals. Nutrition Intervention Revisit per MD consult or patient Sign Off request:
[2019-03-18 15:28] LABS: Hematocrit 27.7 % (30.3-42.9); Hemoglobin 9.3 gm/dl (10.1-14.3); Mean Corpuscular HGB Conc 34 % (30-34); Mean Corpuscular Volume 92 fl (79-97); Platelet Count 406 K/mm3 (140-440); Red Blood Count 3.02 M/mm3 (3.65-5.03); Red Cell Distribution Width 14.7 % (13.2-15.2)
[2019-03-18] MEDS: ELAVIL PO SCH (21:17)
[2019-03-19] MEDS: NORCO 10/325 PO PRN ×5 (04:47→22:48)
[2019-03-19] MEDS: SYNTHROID IV SCH (06:11)
[2019-03-19] MEDS: XANAX PO PRN (06:16)
[2019-03-19] MEDS: THERAGRAN Tab PO SCH (08:51)
[2019-03-19] MEDS: CORDARONE PO SCH ×2 (08:51→10:00)
[2019-03-19] MEDS: PROTONIX PO SCH (08:51)
[2019-03-19] MEDS: CARAFATE PO SCH ×4 (08:51→22:48)
[2019-03-19] MEDS: CYMBALTA PO SCH (08:52)
[2019-03-19] MEDS: NEURONTIN PO SCH ×3 (08:52→22:47)
[2019-03-19] MEDS: CARDIZEM PO SCH ×3 (08:52→22:48)
[2019-03-19] MEDS: LOPRESSOR PO SCH ×2 (08:53→10:00)
[2019-03-19] MEDS: ELIQUIS PO SCH ×3 (08:53→22:06)
[2019-03-19] MEDS: ALDACTONE PO SCH ×2 (08:54→22:47)
[2019-03-19] MEDS: PULMICORT IH SCH ×2 (08:58→20:00)
[2019-03-19] MEDS: BROVANA NEBU IH SCH ×2 (08:58→20:00)
--- NOTE | 2019-03-19 12:13 | Progress Note ---
Assessment and Plan Assessment and plan: s/p Right BKA Patient in Rehab Unit Dr. Ring is Attending PT ongoing patient states pain meds not enough Increase [place] to 2 pills q 4 prn Hyperkalemia Now resolved after kayexalate, Insulin Repeat every few days Hypertension Monitor BP BP stable Hyponatremia. Recheck BMP in am Hypothyroidism Cont Levothyroxine Full code status. History Interval history: s/p right BKA patient says pain meds not enough Hospitalist Physical - Physical exam Narrative exam: Gen: Not in acute distress, lying in bed, HEENT: Normocephalic, atraumatic Neck: supple, no JVD Heart: S1 and S2 reg, no murmurs, rubs or gallop Lungs: Clear, no crackles, no wheeze Abd: soft, non tender, non distended, normal BS Ext: s/p right BKA, dressing, bandage over stump Neuro: Awake,alert, oriented x 3, moves all ext, non focal Psych:Normal mood - Constitutional Vitals: Temp Pulse Resp BP Pulse Ox 97.8 F 89 18 104/50 98 03/18/19 19:00 03/19/19 09:14 03/19/19 09:14 03/19/19 08:53 03/19/19 09:03 Results - Labs CBC & Chem 7: 03/18/19 15:00 03/17/19 12:32 Labs: Laboratory Last Values WBC 8.2 K/mm3 (4.5-11.0) 03/18/19 15:00 RBC 3.02 M/mm3 (3.65-5.03) L 03/18/19 15:00 Hgb 9.3 gm/dl (10.1-14.3) L 03/18/19 15:00 Hct 27.7 % (30.3-42.9) L 03/18/19 15:00 MCV 92 fl (79-97) 03/18/19 15:00 MCH 31 pg (28-32) 03/18/19 15:00 MCHC 34 % (30-34) 03/18/19 15:00 RDW 14.7 % (13.2-15.2) 03/18/19 15:00 Plt Count 406 K/mm3 (140-440) 03/18/19 15:00 Lymph % (Auto) 30.5 % (13.4-35.0) 03/14/19 14:36 [place] % (Auto) 11.5 % (0.0-7.3) H 03/14/19 14:36 Eos % (Auto) 1.7 % (0.0-4.3) 03/14/19 14:36 Baso % (Auto) 0.4 % (0.0-1.8) 03/14/19 14:36 Lymph # 2.5 K/mm3 (1.2-5.4) 03/14/19 14:36 [place] # 0.9 K/mm3 (0.0-0.8) H 03/14/19 14:36 Eos # 0.1 K/mm3 (0.0-0.4) 03/14/19 14:36 Baso # 0.0 K/mm3 (0.0-0.1) 03/14/19 14:36 Seg Neutrophils % 55.9 % (40.0-70.0) 03/14/19 14:36 Seg Neutrophils # 4.6 K/mm3 (1.8-7.7) 03/14/19 14:36 Sodium 135 mmol/L (137-145) L 03/17/19 12:32 Potassium 4.7 mmol/L (3.6-5.0) 03/17/19 12:32 Chloride 98.6 mmol/L (98-107) 03/17/19 12:32 Carbon Dioxide 22 mmol/L (22-30) 03/17/19 12:32 19 mmol/L 03/17/19 12:32 BUN 31 mg/dL (7-17) H 03/17/19 12:32 1.0 mg/dL (0.7-1.2) 03/17/19 12:32 Estimated GFR 54 ml/min 03/17/19 12:32 31 % 03/17/19 12:32 Glucose 97 mg/dL (65-100) 03/17/19 12:32 Calcium 10.2 mg/dL (8.4-10.2) 03/17/19 12:32 0.40 mg/dL (0.1-1.2) 03/10/19 04:48 AST 21 units/L (5-40) 03/10/19 04:48 ALT 10 units/L (7-56) 03/10/19 04:48 76 units/L (35-129) 03/10/19 04:48 6.7 g/dL (6.3-8.2) 03/10/19 04:48 3.5 g/dL (3.9-5) L 03/10/19 04:48 1.1 % 03/10/19 04:48 TSH 8.500 mlU/mL (0.270-4.200) H 03/11/19 13:27 Free T4 1.21 ng/dL (0.76-1.46) 03/11/19 13:27 7.0 ug/dL (4.0-12.0) 03/11/19 13:27 Active Medications - Current Medications Current Medications: Generic Name Dose Route Start Last Admin Trade Name Freq PRN Reason Stop Dose Admin Acetaminophen 650 mg 03/09/19 15:37 Tylenol PO Q4H PRN Pain MILD(1-3)/Fever >100.5/GONZALES Acetaminophen/Hydrocodone Bitart 2 each 03/19/19 11:02 [place] 10/325 PO Q4H PRN Pain, Moderate (4-6) Al Hydrox/Mg Hydrox/Simethicone 30 ml 03/09/19 15:37 Alum-Mag Hydrox-Simeth [phone]/5ml PO Q4H PRN Indigestion Albuterol 2.5 mg 03/09/19 15:49 Proventil IH Q4HRT PRN Shortness Of Breath Alprazolam 0.25 mg 03/09/19 15:49 03/19/19 06:16 Xanax PO 0.25 mg QPM PRN Administration Anxiety Amiodarone HCl 200 mg 03/10/19 10:00 03/19/19 08:51 Cordarone PO 200 mg DAILY KLEVER Administration Amitriptyline HCl 10 mg 03/09/19 21:00 03/18/19 21:17 Elavil PO 10 mg QHS KLEVER Administration Apixaban 5 mg 03/11/19 08:00 03/19/19 08:53 Eliquis PO 5 mg Q12HR KLEVER Administration Protocol Arformoterol Tartrate 15 mcg 03/09/19 20:00 03/19/19 08:58 Brovana Nebu IH 15 mcg Q12HRT KLEVER Administration Bisacodyl 10 mg 03/09/19 15:37 03/16/19 14:17 Dulcolax [place] 10 mg QDAY PRN Administration Constipation unrelieved by MOM Budesonide 0.5 mg 03/09/19 20:00 03/19/19 08:58 Pulmicort IH 0.5 mg Q12HRT KLEVER Administration Diltiazem HCl 60 mg 03/09/19 20:00 03/19/19 08:52 Cardizem PO 60 mg TID KLEVER Administration Duloxetine HCl 60 mg 03/10/19 08:00 03/19/19 08:52 Cymbalta PO 60 mg QDAY KLEVER Administration Gabapentin 600 mg 03/14/19 21:00 03/18/19 21:22 Neurontin PO 600 mg QHS KLEVER Administration Gabapentin 300 mg 03/15/19 08:00 03/19/19 08:52 Neurontin PO 300 mg 0800,1400 KLEVER Administration Levothyroxine Sodium 100 mcg 03/12/19 06:00 03/19/19 06:11 Synthroid IV 100 mcg DAILY@0600 KLEVER Administration Magnesium Hydroxide 30 ml 03/09/19 15:37 Milk Of Magnesia PO Q4H PRN Constipation Metoprolol Tartrate 25 mg 03/10/19 10:00 03/19/19 08:53 Lopressor PO 25 mg DAILY KLEVER Administration Multivitamins 1 each 03/10/19 08:00 03/19/19 08:51 Theragran Tab PO 1 each QDAY KLEVER Administration Ondansetron HCl 4 mg 03/09/19 15:49 Zofran IV Q8H PRN Nausea And Vomiting Pantoprazole Sodium 40 mg 03/10/19 08:00 03/19/19 08:51 Protonix PO 40 mg QDAY KLEVER Administration Spironolactone 25 mg 03/09/19 22:00 03/18/19 20:00 Aldactone PO 25 mg BID KLEVER Administration Sucralfate 1 gm 03/09/19 22:00 03/19/19 08:51 Carafate PO 1 gm ACHS KLEVER Administration Nutrition/Malnutrition Assess - Dietary Evaluation Nutrition/Malnutrition Findings: Nutrition Notes Start: 03/16/19 15:47 Freq: Status: Active Protocol: Document 03/16/19 15:47 RM (Rec: 03/16/19 15:48 RM [id number]) Nutrition Notes Need for Assessment generated from: LOS Initial or Follow up Brief Note Height 5 ft 4 in Weight 58.5 kg [place] Body Weight (kg) 54.54 BMI 22.1 Subjective/Other Information Screened for LOS. Recorded PO intake 75% X 3 meals. Nutrition Intervention Revisit per MD consult or patient Sign Off request:
[2019-03-19] MEDS: ELAVIL PO SCH (22:47)
[2019-03-20] MEDS: NORCO 10/325 PO PRN ×4 (04:39→22:32)
[2019-03-20 05:04] LABS: Calcium 10.1 mg/dL (8.4-10.2)
[2019-03-20] MEDS: SYNTHROID IV SCH (06:14)
[2019-03-20] MEDS: ELIQUIS PO SCH ×2 (09:28→22:31)
[2019-03-20] MEDS: CARDIZEM PO SCH ×3 (09:29→22:31)
[2019-03-20] MEDS: ALDACTONE PO SCH ×2 (09:29→22:31)
[2019-03-20] MEDS: CYMBALTA PO SCH (09:29)
[2019-03-20] MEDS: NEURONTIN PO SCH ×3 (09:30→22:31)
[2019-03-20] MEDS: LOPRESSOR PO SCH (09:30)
[2019-03-20] MEDS: CARAFATE PO SCH ×4 (09:30→22:30)
[2019-03-20] MEDS: THERAGRAN Tab PO SCH (09:30)
[2019-03-20] MEDS: PROTONIX PO SCH (09:30)
[2019-03-20] MEDS: CORDARONE PO SCH (09:31)
[2019-03-20] MEDS: PULMICORT IH SCH ×2 (09:58→22:09)
[2019-03-20] MEDS: BROVANA NEBU IH SCH ×2 (09:58→22:09)
--- NOTE | 2019-03-20 19:47 | Progress Note ---
Assessment and Plan - Patient Problems (1) HTN (hypertension) Current Visit: Yes Status: Acute Qualifiers: Hypertension type: essential hypertension Qualified Code(s): I10 - Essential (primary) hypertension Plan to address problem: Patient blood pressure maintains optimal control. Continue present medical management. (2) Status post below knee amputation of right lower extremity Current Visit: No Status: Chronic Plan to address problem: Patient status post BKA. Pain medications appear to be fairly well controlled since increased to 2 pills yesterday. We'll follow-up tomorrow. History Interval history: 78-year-old status post BKA. Seem to be doing rather well. Pain she states is better controlled since increasing medication yesterday. Hospitalist Physical - Constitutional Vitals: Temp Pulse Resp BP Pulse Ox 97.5 F L 66 20 143/78 96 03/20/19 09:00 03/20/19 10:08 03/20/19 10:08 03/20/19 09:00 03/20/19 09:58 General appearance: Present: mild distress - EENT Eyes: Present: PERRL, EOM intact ENT: hearing intact, clear oral mucosa, dentition normal - Neck Neck: Present: supple, normal ROM - Respiratory Respiratory effort: normal Respiratory: bilateral: CTA - Cardiovascular Rhythm: regular Heart Sounds: Present: S1 & S2 - Extremities Extremities: no ischemia, pulses intact, No edema, normal temperature, normal color Peripheral Pulses: within normal limits - Abdominal General gastrointestinal: soft, non-tender, non-distended - Integumentary Integumentary: Present: clear, warm, dry - Psychiatric Psychiatric: appropriate mood/affect, cooperative - Neurologic Neurologic: CNII-XII intact, focal deficits, moves all extremities Results - Labs CBC & Chem 7: 03/18/19 15:00 03/20/19 04:32 Labs: Laboratory Last Values WBC 8.2 K/mm3 (4.5-11.0) 03/18/19 15:00 RBC 3.02 M/mm3 (3.65-5.03) L 03/18/19 15:00 Hgb 9.3 gm/dl (10.1-14.3) L 03/18/19 15:00 Hct 27.7 % (30.3-42.9) L 03/18/19 15:00 MCV 92 fl (79-97) 03/18/19 15:00 MCH 31 pg (28-32) 03/18/19 15:00 MCHC 34 % (30-34) 03/18/19 15:00 RDW 14.7 % (13.2-15.2) 03/18/19 15:00 Plt Count 406 K/mm3 (140-440) 03/18/19 15:00 Lymph % (Auto) 30.5 % (13.4-35.0) 03/14/19 14:36 Bonner % (Auto) 11.5 % (0.0-7.3) H 03/14/19 14:36 Eos % (Auto) 1.7 % (0.0-4.3) 03/14/19 14:36 Baso % (Auto) 0.4 % (0.0-1.8) 03/14/19 14:36 Lymph # 2.5 K/mm3 (1.2-5.4) 03/14/19 14:36 Bonner # 0.9 K/mm3 (0.0-0.8) H 03/14/19 14:36 Eos # 0.1 K/mm3 (0.0-0.4) 03/14/19 14:36 Baso # 0.0 K/mm3 (0.0-0.1) 03/14/19 14:36 Seg Neutrophils % 55.9 % (40.0-70.0) 03/14/19 14:36 Seg Neutrophils # 4.6 K/mm3 (1.8-7.7) 03/14/19 14:36 Sodium 139 mmol/L (137-145) 03/20/19 04:32 Potassium 4.5 mmol/L (3.6-5.0) 03/20/19 04:32 Chloride 104.1 mmol/L (98-107) 03/20/19 04:32 Carbon Dioxide 27 mmol/L (22-30) 03/20/19 04:32 12 mmol/L 03/20/19 04:32 BUN 30 mg/dL (7-17) H 03/20/19 04:32 1.1 mg/dL (0.7-1.2) 03/20/19 04:32 Estimated GFR 48 ml/min 03/20/19 04:32 27 % 03/20/19 04:32 Glucose 108 mg/dL (65-100) H 03/20/19 04:32 Calcium 10.1 mg/dL (8.4-10.2) 03/20/19 04:32 0.40 mg/dL (0.1-1.2) 03/10/19 04:48 AST 21 units/L (5-40) 03/10/19 04:48 ALT 10 units/L (7-56) 03/10/19 04:48 76 units/L (35-129) 03/10/19 04:48 6.7 g/dL (6.3-8.2) 03/10/19 04:48 3.5 g/dL (3.9-5) L 03/10/19 04:48 1.1 % 03/10/19 04:48 TSH 8.500 mlU/mL (0.270-4.200) H 03/11/19 13:27 Free T4 1.21 ng/dL (0.76-1.46) 03/11/19 13:27 7.0 ug/dL (4.0-12.0) 03/11/19 13:27 Active Medications - Current Medications Current Medications: Generic Name Dose Route Start Last Admin Trade Name Freq PRN Reason Stop Dose Admin Acetaminophen 650 mg 03/09/19 15:37 Tylenol PO Q4H PRN Pain MILD(1-3)/Fever >100.5/GONZALES Acetaminophen/Hydrocodone Bitart 2 each 03/19/19 11:02 03/20/19 17:48 [place] 10/325 PO 2 each Q4H PRN Administration Pain, Moderate (4-6) Al Hydrox/Mg Hydrox/Simethicone 30 ml 03/09/19 15:37 Alum-Mag Hydrox-Simeth [phone]/5ml PO Q4H PRN Indigestion Albuterol 2.5 mg 03/09/19 15:49 Proventil IH Q4HRT PRN Shortness Of Breath Alprazolam 0.25 mg 03/09/19 15:49 03/19/19 06:16 Xanax PO 0.25 mg QPM PRN Administration Anxiety Amiodarone HCl 200 mg 03/10/19 10:00 03/20/19 09:31 Cordarone PO 200 mg DAILY KLEVER Administration Amitriptyline HCl 10 mg 03/09/19 21:00 03/19/19 22:47 Elavil PO 10 mg QHS KLEVER Administration Apixaban 5 mg 03/11/19 08:00 03/20/19 09:28 Eliquis PO 5 mg Q12HR KLEVER Administration Protocol Arformoterol Tartrate 15 mcg 03/09/19 20:00 03/20/19 09:58 Brovana Nebu IH 15 mcg Q12HRT KLEVER Administration Bisacodyl 10 mg 03/09/19 15:37 03/16/19 14:17 Dulcolax MD 10 mg QDAY PRN Administration Constipation unrelieved by MOM Budesonide 0.5 mg 03/09/19 20:00 03/20/19 09:58 Pulmicort IH 0.5 mg Q12HRT KLVEER Administration Diltiazem HCl 60 mg 03/09/19 20:00 03/20/19 14:01 Cardizem PO 60 mg TID KLEVER Administration Duloxetine HCl 60 mg 03/10/19 08:00 03/20/19 09:29 Cymbalta PO 60 mg QDAY KLEVER Administration Gabapentin 600 mg 03/14/19 21:00 03/19/19 22:47 Neurontin PO 600 mg QHS KLEVER Administration Gabapentin 300 mg 03/15/19 08:00 03/20/19 13:55 Neurontin PO 300 mg 0800,1400 KLEVER Administration Levothyroxine Sodium 100 mcg 03/12/19 06:00 03/20/19 06:14 Synthroid IV 100 mcg DAILY@0600 KLEVER Administration Magnesium Hydroxide 30 ml 03/09/19 15:37 Milk Of Magnesia PO Q4H PRN Constipation Metoprolol Tartrate 25 mg 03/10/19 10:00 03/20/19 09:30 Lopressor PO 25 mg DAILY KLEVER Administration Multivitamins 1 each 03/10/19 08:00 03/20/19 09:30 Theragran Tab PO 1 each QDAY KLEVER Administration Ondansetron HCl 4 mg 03/09/19 15:49 Zofran IV Q8H PRN Nausea And Vomiting Pantoprazole Sodium 40 mg 03/10/19 08:00 03/20/19 09:30 Protonix PO 40 mg QDAY KLEVER Administration Spironolactone 25 mg 03/09/19 22:00 06/24/19 09:29 Aldactone PO 25 mg BID KLEVER Administration Sucralfate 1 gm 03/09/19 22:00 03/20/19 17:49 Carafate PO 1 gm ACHS KLEVER Administration Nutrition/Malnutrition Assess - Dietary Evaluation Nutrition/Malnutrition Findings: Nutrition Notes Start: 03/16/19 15:47 Freq: Status: Active Protocol: Document 03/16/19 15:47 RM (Rec: 03/16/19 15:48 RM [id number]) Nutrition Notes Need for Assessment generated from: LOS Initial or Follow up Brief Note Height 5 ft 4 in Weight 58.5 kg [place] Body Weight (kg) 54.54 BMI 22.1 Subjective/Other Information Screened for LOS. Recorded PO intake 75% X 3 meals. Nutrition Intervention Revisit per MD consult or patient Sign Off request:
[2019-03-20] MEDS: ELAVIL PO SCH (22:31)
[2019-03-20] MEDS: XANAX PO PRN (22:37)
[2019-03-21] MEDS: NORCO 10/325 PO PRN ×4 (05:23→21:16)
[2019-03-21] MEDS: SYNTHROID IV SCH (05:30)
[2019-03-21] MEDS: ALDACTONE PO SCH ×2 (08:35→21:11)
[2019-03-21] MEDS: CARAFATE PO SCH ×4 (08:35→21:10)
[2019-03-21] MEDS: NEURONTIN PO SCH ×3 (08:35→21:10)
[2019-03-21] MEDS: THERAGRAN Tab PO SCH (08:35)
[2019-03-21] MEDS: PROTONIX PO SCH (08:35)
[2019-03-21] MEDS: CYMBALTA PO SCH (08:35)
--- NOTE | 2019-03-21 09:58 | Progress Note ---
Subjective Date of service: 03/21/19 Principal diagnosis: R BKA Interval history: 78 yo female admitted with worsening RLE ischemia. Hx of PAD and multiple past interventions. Attempt made to salvage the limb but was unsuccessful. 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 Pain has been fairly controlled. She is experiencing some phantom sensation and phantom pain. She has AFib and is currently rate controlled but is off her OAC due to previous GIB. [facility] has seen her and she has a residual limb protector on. She states increased pain with dressing changes - which was done earlier today. I will view her wound on another day with her scheduled dressing change. Patient has recommendation from cardiology to resume oral anticoagulation as soon as possible from a surgical standpoint. I contacted surgery today and they are okay with her resuming this however they state their understanding was that she was taking off of anticoagulation by GI due to the GI bleed in September 2018. GI consulted and is OK with restarting Eliquis. Discussed with patient. Will monitor closely for any signs of GIB. Patient is participating in therapy and making reasonable progress. Taking rest breaks as needed. +BM. Denies palpitations, dyspnea, cough, N/V, weakness, or joint pain. Continues to have right leg pain. Describes the pain as neuropathic in nature including numbness tingling and shocks above the surgical area into the knee but it is better than previous. [place] doubled over the weekend, discussed with patient. She is adamant that the pain is neuropathic in nature based on description and location. Preparing to d/c next week and will not send home on 120MME/day. Patient states she feels the gabapentin relieves the pain better. Will increase gabapentin and decrease [place]. She does still have some phantom sensation and occasional phantom pain. Discussed with her again the efficacy of desensitization. No signs of bleeding, we'll check H&H today. She continues to repeat topics that we have already discussed and is now saying she thinks it is due to medication which is possible. Discussed staple removal with surgeon - 6-8 weeks at office. Family Services Assistant after that. Will call if there is any change in wound condition. Discussed in team conference. Making good progress. Needs to work on stairs and fall recovery. She performed well on HOSPITAL HOUSEKEEPER testing for cognition and memory but everyone agrees she seems to have issues with recall of common things. May be personality somewhat - she does cut up quite a bit. Could also be her way of covering for memory deficits if this is early stages of dementia like she was worried about. On track for discharge next week. All records, vitals, labs and medications were reviewed. No other issues per patient, nursing or therapy. Objective - Exam Narrative Exam: MUSCULOSKELETAL SPECIALTY EXAM CONSTITUTIONAL: Well developed, well nourished, appropriately groomed EENT: EOMI Hearing intact to soft voice RESPIRATORY: Clear to auscultation bilaterally, distant, no increased work of breathing CARDIOVASCULAR: Regular Rate/ Rhythm, no swelling, edema or tenderness in BUE or BLE. All extremities warm. GI: + bowel sounds, soft, NTTP, nondistended. INTEGUMENTARY: Normal, no lesion, rash, masses or bruising noted in extremities except for surgical wound on R BKA, healing well no signs of infection. MUSCULOSKELETAL: BUE and BLE normal without defect, crepitus, subluxation, effusion, arthritic changes or TTP except for R BKA which has small appropriate amount of tenderness to palpation BUE 4+/5, good ROM, with normal tone. BLE 4+/5 good ROM, with normal tone NEURO: CN 2-12 grossly intact. Sensation intact in all extremities. No tremor noted in 4 extremities. POSTURE and GAIT: Sitting posture good. Balance and Gait reasonable, RW and short hops. PSYCH: Alert, orientated x3, affect appears normal. Insight appears intact. - Constitutional Vitals: Vital Signs - 12hr 03/20/19 03/20/19 03/21/19 22:00 22:10 00:55 Temperature 36.4 C Pulse Rate 66 Pulse Rate [ 68 Bilateral Throughout] Respiratory 18 Rate Respiratory 16 Rate [Bilateral Throughout] Blood Pressure 114/47 O2 Sat by Pulse 96 96 Oximetry 03/21/19 07:56 Temperature 36.6 C Pulse Rate 66 Pulse Rate [ Bilateral Throughout] Respiratory 18 Rate Respiratory Rate [Bilateral Throughout] Blood Pressure 124/27 O2 Sat by Pulse 98 Oximetry - Allied health notes Allied health notes reviewed: nursing, PT, ST, OT FIMS assessment as documented by PT/OT/ST: Grooming Patient cleans teeth/dentures: Yes Patient ahmadi/brushes hair: Yes Patient washes, rinses and Yes dries face: Patient washes, rinses and Yes dries hands: Patient shaves: No Patient applies make-up: No Patient performs (no make-up/ 4/4 (100%) shaving): Patient performs (w/ make-up/ 5/5 (100%) shaving): Grooming FIM Score 6. Modified Cottle (Needs equipment/ device . Extra time.) Toileting Toileting Device Grab Bar Patient able to: Adjust clothes before,Clean self,Adjust clothes after Patient able to perform: 3/3 (100%) Toileting FIM Score 4. Minimal Assistance (Patient = 75% or more. Needs touching.) Social interaction/Memory/Problem solving Social Interaction FIM Score 6. Mod. Cottle (Mostly appropriate. May need meds. No supv.) Memory FIM Score 6. Modified Cottle(Mild difficulty remembering people/routines.) Problem Solving FIM Score 5. Supervision (Needs cueing <10% to solve routine problems.) Transfers Mode of Locomotion: Wheelchair Bed/Chair/Wheelchair Transfers 5. Supervision (Needs supv. or set-up for FIM Score sliding board, foot rests.) Toilet Transfers FIM Score 3. Moderate Assistance (Patient = 50% or more. Some lifting.) Patient transferred to: Shower Shower Transfers FIM Score 3. Moderate Assistance (Patient = 50% or more. Some lifting.) Locomotion- Stairs Device used on Stairs Handrail/s Number of Stairs Ascended/ 4 Descended Patient used handrail/support: Yes Stairs FIM Score 2. Maximal Assistance (Patient = 25% or more, 4- 6 stairs.) Locomotion- walk/wheelchair Most Frequent Mode of Wheelchair Locomotion: Ambulation Distance 110 Walking FIM Score 2. Maximal Assistance (Patient = 25% or more. Minimum of 50 ft.) Wheelchair Propulsion Distance 150 Wheelchair FIM Score 5. Supervision (Minimum 150 ft. supv./cues or 50 ft. independently.) Eating Eating FIM Score 6. Modified Cottle (Special consistency or uses device.) Dressing-Upper body Upper Body Dressing Device Button Hook Patient retrieves clothing No items: Patient applies/removes UE n/a prosthesis or orthosis: Upper Body Dressing FIM Score 4. Minimal Assistance (Patient = 75% or more. Needs touching.) Dressing-lower body Patient retrieves clothing No items: Patient applies/removes LE No prosthesis or orthosis: Lower Body Dressing FIM Score 4. Minimal Assistance (Patient = 75% or more. Needs touching.) - Labs CBC & Chem 7: 03/18/19 15:00 03/20/19 04:32 Labs: Laboratory Results - last 72 hr 03/18/19 03/20/19 15:00 04:32 WBC 8.2 RBC 3.02 L Hgb 9.3 L Hct 27.7 L MCV 92 MCH 31 MCHC 34 RDW 14.7 Plt Count 406 Sodium 139 Potassium 4.5 Chloride 104.1 Carbon Dioxide 27 Anion Gap 12 BUN 30 H Creatinine 1.1 Estimated GFR 48 BUN/Creatinine Ratio 27 Glucose 108 H Calcium 10.1 Assessment and Plan Right BKA: Monitor the wound closely for any signs of infection. We'll maintain stump protector and wrapping in order shape residual limb for proper prosthesis fit. [facility] have visited the patient given her information on prosthesis. Discussed with the patient to not to get up out of bed in the middle the night due to concerns for fall. Will address fall recovery prior to discharge. Continue to work on balance and mobility skills with walker. Work on independence of care for right BKA. Discussed with patient need for maintaining her cardiovascular conditioning due to increased demand of energy with BKA. Discussed range of motion maintenance. Will moved to independence with all maintenance and therapeutic interventions prior to discharge. She will need follow-up with therapy after being fitted with prosthesis. Surgeon wants follow up 6-8 weeks after surgery for staple removal. Phantom sensation and phantom pain: Continue neuropathic pain control, residual limb to remain in stump protector, cont desensitization. Cont gabapentin at increased dose, monitor. Atrial fibrillation: Continue regular control monitor for any symptoms. Restart Eliquis per cardiology rec. Discussed with surgeon and GI. Hypothyroidism: Continue medication Hypertension: Continue medications and adjust for normotension GI bleed with peptic ulcer: Continue Protonix and Carafate. COPD: Continue nebulizers, supplemental O2 Z73.6 ADL dysfunction: OT will work on improving ability to perform ADLs (including assistive devices) to increase independence and decrease caregiver burden and improve functional transfers and mobility training. R26.2 Difficulty walking: PT will work on gait training and proper use of assistive devices and advance as appropriate to use of stairs and outside ambulation on uneven surfaces. R26.81 Unsteadiness on feet: PT will work on improving static and dynamic sitting and standing balance as well as proper use of assistive devices to decrease risk of falls. R26.89 Abnormality of gait: PT will work to improve safety and efficiency of gait through neuromotor training and gait training along with instruction on proper use of assistive devices. M62.81 Muscle weakness: PT & OT will work on strengthening exercises to improve functional strength including mixture of closed and open kinetic chain exercises. R53.81 Debility: PT & OT will work on improving overall functional status to improve participation with ADLs, mobility and social involvement. R53.83 Fatigue: PT & OT will work on improving endurance through aerobic exercises and therapeutic activity while monitoring patients tolerance for activity and vital signs as needed. Passed prolonged HOSPITAL HOUSEKEEPER cognition and memory testing. Likely medication related and/or personality. DVT ppx: Eliquis Pain: Continue physical modalities in therapy and pain medications as needed to achieve functional pain control. Sleep: Monitor and address as needed. Bowel: Monitor and address as needed. Appetite: Monitor and address as needed. Discharge planning: Tentative discharge plan for the first part of the week of March 30. Will continue discussion with therapy team, SW, patient and family. Restrictions/ Precautions: Falls WB status: NWB on RLE Functional Hx: ADLs: Independent Cognition: Independent Mobility: No AD Barriers to Discharge: Decreased mobility and ability to perform self care, balance deficits, weakness Estimated Length of Stay: 14-18 days Discharge Destination: Home with family
[2019-03-21] MEDS: LOPRESSOR PO SCH (10:50)
[2019-03-21] MEDS: CORDARONE PO SCH (10:50)
[2019-03-21] MEDS: ELIQUIS PO SCH ×2 (10:50→21:10)
[2019-03-21] MEDS: CARDIZEM PO SCH ×3 (10:50→21:11)
[2019-03-21] MEDS: BROVANA NEBU IH SCH ×2 (11:12→21:20)
[2019-03-21] MEDS: PULMICORT IH SCH ×2 (11:12→21:20)
[2019-03-21] MEDS: ELAVIL PO SCH (21:10)
[2019-03-21 21:19] LABS: Hematocrit 25.8 % (30.3-42.9); Hemoglobin 8.5 gm/dl (10.1-14.3)
[2019-03-21] MEDS: XANAX PO PRN (22:14)
[2019-03-22] MEDS: NORCO 10/325 PO PRN ×5 (02:42→22:13)
[2019-03-22] MEDS: SYNTHROID IV SCH (05:44)
[2019-03-22] MEDS: CARDIZEM PO SCH ×3 (08:15→22:13)
[2019-03-22] MEDS: NEURONTIN PO SCH ×3 (08:45→22:13)
[2019-03-22] MEDS: CARAFATE PO SCH ×4 (08:45→22:13)
[2019-03-22] MEDS: CYMBALTA PO SCH (12:02)
[2019-03-22] MEDS: THERAGRAN Tab PO SCH (12:04)
[2019-03-22] MEDS: PROTONIX PO SCH (12:04)
[2019-03-22] MEDS: LOPRESSOR PO SCH (12:05)
[2019-03-22] MEDS: ALDACTONE PO SCH ×2 (12:05→22:22)
--- NOTE | 2019-03-22 12:15 | Progress Note ---
Assessment and Plan Assessment and plan: s/p Right BKA Continue PT/OT Hyperkalemia Now resolved after kayexalate, Insulin Repeat every few days Hypertension Monitor BP BP stable Hyponatremia. Recheck BMP in am Hypothyroidism Cont Levothyroxine Full code status. History Interval history: No new issues overnight. Hospitalist Physical - Constitutional Vitals: Temp Pulse Resp BP Pulse Ox 98.0 F 83 20 140/70 96 03/22/19 07:36 03/22/19 12:05 03/22/19 07:36 03/22/19 12:05 03/22/19 07:36 General appearance: Present: no acute distress - EENT Eyes: Present: PERRL, EOM intact ENT: hearing intact, clear oral mucosa, dentition normal - Neck Neck: Present: supple, normal ROM - Respiratory Respiratory effort: normal Respiratory: bilateral: CTA - Cardiovascular Rhythm: regular Heart Sounds: Present: S1 & S2. Absent: gallop, rub - Extremities Extremities: no ischemia, No edema, Full ROM - Abdominal General gastrointestinal: soft, non-tender, non-distended, normal bowel sounds - Integumentary Integumentary: Present: clear, warm, dry - Neurologic Neurologic: CNII-XII intact, moves all extremities Results - Labs CBC & Chem 7: 03/21/19 20:46 03/20/19 04:32 Labs: Laboratory Last Values WBC 8.2 K/mm3 (4.5-11.0) 03/18/19 15:00 RBC 3.02 M/mm3 (3.65-5.03) L 03/18/19 15:00 Hgb 8.5 gm/dl (10.1-14.3) L 03/21/19 20:46 Hct 25.8 % (30.3-42.9) L 03/21/19 20:46 MCV 92 fl (79-97) 03/18/19 15:00 MCH 31 pg (28-32) 03/18/19 15:00 MCHC 34 % (30-34) 03/18/19 15:00 RDW 14.7 % (13.2-15.2) 03/18/19 15:00 Plt Count 406 K/mm3 (140-440) 03/18/19 15:00 Lymph % (Auto) 30.5 % (13.4-35.0) 03/14/19 14:36 [place] % (Auto) 11.5 % (0.0-7.3) H 03/14/19 14:36 Eos % (Auto) 1.7 % (0.0-4.3) 03/14/19 14:36 Baso % (Auto) 0.4 % (0.0-1.8) 03/14/19 14:36 Lymph # 2.5 K/mm3 (1.2-5.4) 03/14/19 14:36 [place] # 0.9 K/mm3 (0.0-0.8) H 03/14/19 14:36 Eos # 0.1 K/mm3 (0.0-0.4) 03/14/19 14:36 Baso # 0.0 K/mm3 (0.0-0.1) 03/14/19 14:36 Seg Neutrophils % 55.9 % (40.0-70.0) 03/14/19 14:36 Seg Neutrophils # 4.6 K/mm3 (1.8-7.7) 03/14/19 14:36 Sodium 139 mmol/L (137-145) 03/20/19 04:32 Potassium 4.5 mmol/L (3.6-5.0) 03/20/19 04:32 Chloride 104.1 mmol/L (98-107) 03/20/19 04:32 Carbon Dioxide 27 mmol/L (22-30) 03/20/19 04:32 12 mmol/L 03/20/19 04:32 BUN 30 mg/dL (7-17) H 03/20/19 04:32 1.1 mg/dL (0.7-1.2) 03/20/19 04:32 Estimated GFR 48 ml/min 03/20/19 04:32 27 % 03/20/19 04:32 Glucose 108 mg/dL (65-100) H 03/20/19 04:32 Calcium 10.1 mg/dL (8.4-10.2) 03/20/19 04:32 0.40 mg/dL (0.1-1.2) 03/10/19 04:48 AST 21 units/L (5-40) 03/10/19 04:48 ALT 10 units/L (7-56) 03/10/19 04:48 76 units/L (35-129) 03/10/19 04:48 6.7 g/dL (6.3-8.2) 03/10/19 04:48 3.5 g/dL (3.9-5) L 03/10/19 04:48 1.1 % 03/10/19 04:48 TSH 8.500 mlU/mL (0.270-4.200) H 03/11/19 13:27 Free T4 1.21 ng/dL (0.76-1.46) 03/11/19 13:27 7.0 ug/dL (4.0-12.0) 03/11/19 13:27 Active Medications - Current Medications Current Medications: Generic Name Dose Route Start Last Admin Trade Name Freq PRN Reason Stop Dose Admin Acetaminophen 650 mg 03/09/19 15:37 Tylenol PO Q4H PRN Pain MILD(1-3)/Fever >100.5/GONZALES Acetaminophen/Hydrocodone Bitart 1 each 03/21/19 10:49 03/22/19 12:04 [place] 10/325 PO 1 each Q4H PRN Administration Pain, Moderate (4-6) Al Hydrox/Mg Hydrox/Simethicone 30 ml 03/09/19 15:37 Alum-Mag Hydrox-Simeth [phone]/5ml PO Q4H PRN Indigestion Albuterol 2.5 mg 03/09/19 15:49 Proventil IH Q4HRT PRN Shortness Of Breath Alprazolam 0.25 mg 03/09/19 15:49 03/21/19 22:14 Xanax PO 0.25 mg QPM PRN Administration Anxiety Amiodarone HCl 200 mg 03/10/19 10:00 03/21/19 10:50 Cordarone PO 200 mg DAILY KLEVER Administration Amitriptyline HCl 10 mg 03/09/19 21:00 03/21/19 21:10 Elavil PO 10 mg QHS KLEVER Administration Apixaban 5 mg 03/11/19 08:00 03/21/19 21:10 Eliquis PO 5 mg Q12HR KLEVER Administration Protocol Arformoterol Tartrate 15 mcg 03/09/19 20:00 03/21/19 21:20 Brovana Nebu IH Not Given Q12HRT KLEVER Bisacodyl 10 mg 03/09/19 15:37 03/16/19 14:17 Dulcolax [place] 10 mg QDAY PRN Administration Constipation unrelieved by MOM Budesonide 0.5 mg 03/09/19 20:00 03/21/19 21:20 Pulmicort IH Not Given Q12HRT KLEVER Diltiazem HCl 60 mg 03/09/19 20:00 03/21/19 21:11 Cardizem PO Not Given TID KLEVER Duloxetine HCl 60 mg 03/10/19 08:00 03/22/19 12:02 Cymbalta PO 60 mg QDAY KLEVER Administration Gabapentin 600 mg 03/21/19 14:00 03/22/19 08:45 Neurontin PO 600 mg TID [facility]ENDING [facility] TO [facility] Administration Levothyroxine Sodium 100 mcg 03/12/19 06:00 03/22/19 05:44 Synthroid IV 100 mcg DAILY@0600 [facility]ENDING [facility] TO [facility] Administration Magnesium Hydroxide 30 ml 03/09/19 15:37 Milk Of Magnesia PO Q4H PRN Constipation Metoprolol Tartrate 25 mg 03/10/19 10:00 03/22/19 12:05 Lopressor PO 25 mg DAILY [facility]ENDING [facility] TO [facility] Administration Multivitamins 1 each 03/10/19 08:00 03/22/19 12:04 Theragran Tab PO 1 each QDAY PENDING S[facility] TO [facility] Administration Ondansetron HCl 4 mg 03/09/19 15:49 Zofran IV Q8H PRN Nausea And Vomiting Pantoprazole Sodium 40 mg 03/10/19 08:00 03/22/19 12:04 Protonix PO 40 mg QDAY [facility]ENDING [facility] TO [facility] Administration Spironolactone 25 mg 03/09/19 22:00 03/22/19 12:05 Aldactone PO 25 mg BID [facility]ING [facility] TO [facility] Administration Sucralfate 1 gm 03/09/19 22:00 03/22/19 12:03 Carafate PO 1 gm ACHS PENDING SALE TO [facility] Administration Nutrition/Malnutrition Assess - Dietary Evaluation Nutrition/Malnutrition Findings: Nutrition Notes Start: 03/16/19 15:47 Freq: Status: Active Protocol: Document 03/16/19 15:47 RM (Rec: 03/16/19 15:48 RM [id number]) Nutrition Notes Need for Assessment generated from: LOS Initial or Follow up Brief Note Height 5 ft 4 in Weight 58.5 kg [place] Body Weight (kg) 54.54 BMI 22.1 Subjective/Other Information Screened for LOS. Recorded PO intake 75% X 3 meals. Nutrition Intervention Revisit per MD consult or patient Sign Off request:
--- NOTE | 2019-03-22 12:16 | Progress Note ---
Assessment and Plan Assessment and plan: s/p Right BKA Continue PT/OT Hyperkalemia Now resolved after kayexalate, Insulin Repeat every few days Hypertension Monitor BP BP stable Hyponatremia. Recheck BMP in am Hypothyroidism Cont Levothyroxine Full code status. History Interval history: No new issues overnight. Hospitalist Physical - Constitutional Vitals: Temp Pulse Resp BP Pulse Ox 98.0 F 83 20 140/70 96 03/22/19 07:36 03/22/19 12:05 03/22/19 07:36 03/22/19 12:05 03/22/19 07:36 General appearance: Present: no acute distress - EENT Eyes: Present: PERRL, EOM intact ENT: hearing intact, clear oral mucosa, dentition normal - Neck Neck: Present: supple, normal ROM - Respiratory Respiratory effort: normal Respiratory: bilateral: CTA - Cardiovascular Rhythm: regular Heart Sounds: Present: S1 & S2. Absent: gallop, rub - Extremities Extremities: no ischemia, No edema, Full ROM - Abdominal General gastrointestinal: soft, non-tender, non-distended, normal bowel sounds - Integumentary Integumentary: Present: clear, warm, dry - Neurologic Neurologic: CNII-XII intact, moves all extremities Results - Labs CBC & Chem 7: 03/21/19 20:46 03/20/19 04:32 Labs: Laboratory Last Values WBC 8.2 K/mm3 (4.5-11.0) 03/18/19 15:00 RBC 3.02 M/mm3 (3.65-5.03) L 03/18/19 15:00 Hgb 8.5 gm/dl (10.1-14.3) L 03/21/19 20:46 Hct 25.8 % (30.3-42.9) L 03/21/19 20:46 MCV 92 fl (79-97) 03/18/19 15:00 MCH 31 pg (28-32) 03/18/19 15:00 MCHC 34 % (30-34) 03/18/19 15:00 RDW 14.7 % (13.2-15.2) 03/18/19 15:00 Plt Count 406 K/mm3 (140-440) 03/18/19 15:00 Lymph % (Auto) 30.5 % (13.4-35.0) 03/14/19 14:36 [place] % (Auto) 11.5 % (0.0-7.3) H 03/14/19 14:36 Eos % (Auto) 1.7 % (0.0-4.3) 03/14/19 14:36 Baso % (Auto) 0.4 % (0.0-1.8) 03/14/19 14:36 Lymph # 2.5 K/mm3 (1.2-5.4) 03/14/19 14:36 [place] # 0.9 K/mm3 (0.0-0.8) H 03/14/19 14:36 Eos # 0.1 K/mm3 (0.0-0.4) 03/14/19 14:36 Baso # 0.0 K/mm3 (0.0-0.1) 03/14/19 14:36 Seg Neutrophils % 55.9 % (40.0-70.0) 03/14/19 14:36 Seg Neutrophils # 4.6 K/mm3 (1.8-7.7) 03/14/19 14:36 Sodium 139 mmol/L (137-145) 03/20/19 04:32 Potassium 4.5 mmol/L (3.6-5.0) 03/20/19 04:32 Chloride 104.1 mmol/L (98-107) 03/20/19 04:32 Carbon Dioxide 27 mmol/L (22-30) 03/20/19 04:32 12 mmol/L 03/20/19 04:32 BUN 30 mg/dL (7-17) H 03/20/19 04:32 1.1 mg/dL (0.7-1.2) 03/20/19 04:32 Estimated GFR 48 ml/min 03/20/19 04:32 27 % 03/20/19 04:32 Glucose 108 mg/dL (65-100) H 03/20/19 04:32 Calcium 10.1 mg/dL (8.4-10.2) 03/20/19 04:32 0.40 mg/dL (0.1-1.2) 03/10/19 04:48 AST 21 units/L (5-40) 03/10/19 04:48 ALT 10 units/L (7-56) 03/10/19 04:48 76 units/L (35-129) 03/10/19 04:48 6.7 g/dL (6.3-8.2) 03/10/19 04:48 3.5 g/dL (3.9-5) L 03/10/19 04:48 1.1 % 03/10/19 04:48 TSH 8.500 mlU/mL (0.270-4.200) H 03/11/19 13:27 Free T4 1.21 ng/dL (0.76-1.46) 03/11/19 13:27 7.0 ug/dL (4.0-12.0) 03/11/19 13:27 Active Medications - Current Medications Current Medications: Generic Name Dose Route Start Last Admin Trade Name Freq PRN Reason Stop Dose Admin Acetaminophen 650 mg 03/09/19 15:37 Tylenol PO Q4H PRN Pain MILD(1-3)/Fever >100.5/GONZALES Acetaminophen/Hydrocodone Bitart 1 each 03/21/19 10:49 03/22/19 12:04 [place] 10/325 PO 1 each Q4H PRN Administration Pain, Moderate (4-6) Al Hydrox/Mg Hydrox/Simethicone 30 ml 03/09/19 15:37 Alum-Mag Hydrox-Simeth 177-660-80ny/5ml PO Q4H PRN Indigestion Albuterol 2.5 mg 03/09/19 15:49 Proventil IH Q4HRT PRN Shortness Of Breath Alprazolam 0.25 mg 03/09/19 15:49 03/21/19 22:14 Xanax PO 0.25 mg QPM PRN Administration Anxiety Amiodarone HCl 200 mg 03/10/19 10:00 03/21/19 10:50 Cordarone PO 200 mg DAILY [facility] Administration Amitriptyline HCl 10 mg 03/09/19 21:00 03/21/19 21:10 Elavil PO 10 mg QHS [facility] Administration Apixaban 5 mg 03/11/19 08:00 03/21/19 21:10 Eliquis PO 5 mg Q12HR [facility] Administration Protocol Arformoterol Tartrate 15 mcg 03/09/19 20:00 03/21/19 21:20 Brovana Nebu IH Not Given Q12HRT [facility] Bisacodyl 10 mg 03/09/19 15:37 03/16/19 14:17 Dulcolax [place] 10 mg QDAY PRN Administration Constipation unrelieved by MOM Budesonide 0.5 mg 03/09/19 20:00 03/21/19 21:20 Pulmicort IH Not Given Q12HRT [facility] Diltiazem HCl 60 mg 03/09/19 20:00 03/21/19 21:11 Cardizem PO Not Given TID [facility] Duloxetine HCl 60 mg 03/10/19 08:00 03/22/19 12:02 Cymbalta PO 60 mg QDAY [facility] Administration Gabapentin 600 mg 03/21/19 14:00 03/22/19 08:45 Neurontin PO 600 mg TID ON LICENSE OF [facility] Administration Levothyroxine Sodium 100 mcg 03/12/19 06:00 03/22/19 05:44 Synthroid IV 100 mcg DAILY@0600 ON LICENSE OF [facility] Administration Magnesium Hydroxide 30 ml 03/09/19 15:37 Milk Of Magnesia PO Q4H PRN Constipation Metoprolol Tartrate 25 mg 03/10/19 10:00 03/22/19 12:05 Lopressor PO 25 mg DAILY ON LICENSE OF [facility] Administration Multivitamins 1 each 03/10/19 08:00 03/22/19 12:04 Theragran Tab PO 1 each QDAY ON LICENSE OF [facility] Administration Ondansetron HCl 4 mg 03/09/19 15:49 Zofran IV Q8H PRN Nausea And Vomiting Pantoprazole Sodium 40 mg 03/10/19 08:00 03/22/19 12:04 Protonix PO 40 mg QDAY ON LICENSE OF [facility] Administration Spironolactone 25 mg 03/09/19 22:00 03/22/19 12:05 Aldactone PO 25 mg BID ON LICENSE OF [facility] Administration Sucralfate 1 gm 03/09/19 22:00 03/22/19 12:03 Carafate PO 1 gm ACHS ON LICENSE OF [facility] Administration Nutrition/Malnutrition Assess - Dietary Evaluation Nutrition/Malnutrition Findings: Nutrition Notes Start: 03/16/19 15:47 Freq: Status: Active Protocol: Document 03/16/19 15:47 RM (Rec: 03/16/19 15:48 RM [id number]) Nutrition Notes Need for Assessment generated from: LOS Initial or Follow up Brief Note Height 5 ft 4 in Weight 58.5 kg [place] Body Weight (kg) 54.54 BMI 22.1 Subjective/Other Information Screened for LOS. Recorded PO intake 75% X 3 meals. Nutrition Intervention Revisit per MD consult or patient Sign Off request:
[2019-03-22] MEDS: PULMICORT IH SCH (12:21)
[2019-03-22] MEDS: BROVANA NEBU IH SCH (12:21)
[2019-03-22] MEDS: ELIQUIS PO SCH ×2 (15:19→22:14)
[2019-03-22] MEDS: CORDARONE PO SCH (15:19)
[2019-03-22] MEDS: ELAVIL PO SCH (22:12)
[2019-03-22] MEDS: XANAX PO PRN (22:12)
[2019-03-23] MEDS: PULMICORT IH SCH ×3 (03:08→20:14)
[2019-03-23] MEDS: BROVANA NEBU IH SCH ×3 (03:08→20:14)
[2019-03-23] MEDS: NORCO 10/325 PO PRN ×3 (06:32→18:19)
[2019-03-23] MEDS: SYNTHROID IV SCH (06:33)
[2019-03-23] MEDS: CYMBALTA PO SCH (08:46)
[2019-03-23] MEDS: CARDIZEM PO SCH ×3 (08:46→21:49)
[2019-03-23] MEDS: CORDARONE PO SCH ×2 (08:46→13:26)
[2019-03-23] MEDS: PROTONIX PO SCH (08:46)
[2019-03-23] MEDS: NEURONTIN PO SCH ×3 (08:46→21:46)
[2019-03-23] MEDS: CARAFATE PO SCH ×4 (08:46→21:46)
[2019-03-23] MEDS: ELIQUIS PO SCH ×3 (08:46→21:48)
[2019-03-23] MEDS: THERAGRAN Tab PO SCH (08:46)
--- NOTE | 2019-03-23 10:28 | Progress Note ---
Subjective Date of service: 03/23/19 Principal diagnosis: R BKA Interval history: 78 yo female admitted with worsening RLE ischemia. Hx of PAD and multiple past interventions. Attempt made to salvage the limb but was unsuccessful. 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 Pain has been fairly controlled. She is experiencing some phantom sensation and phantom pain. She has AFib and is currently rate controlled but is off her OAC due to previous GIB. [employer] has seen her and she has a residual limb protector on. She states increased pain with dressing changes - which was done earlier today. I will view her wound on another day with her scheduled dressing change. Patient has recommendation from cardiology to resume oral anticoagulation as soon as possible from a surgical standpoint. I contacted surgery today and they are okay with her resuming this however they state their understanding was that she was taking off of anticoagulation by GI due to the GI bleed in September 2018. GI consulted and is OK with restarting Eliquis. Discussed with patient. Will monitor closely for any signs of GIB. Patient is participating in therapy and making reasonable progress. Taking rest breaks as needed. +BM. Denies palpitations, dyspnea, cough, N/V, weakness, or joint pain. Continues to have right leg pain. Describes the pain as neuropathic in nature including numbness tingling and shocks above the surgical area into the knee but it is better than previous. Therapy reported that she had a bad morning as far as pain was concerned and did not want to do therapy but it seemed less physiological. When I saw her she was calm and not in pain. Wound looks good. She is adamant that the pain is neuropathic in nature based on description and location. Patient states she feels the gabapentin relieves the pain better, tolerating increased dose. She does still have some phantom sensation and occasional phantom pain. Discussed with her again the efficacy of desensitization. No signs of bleeding, H&H stable. Limb protector in use now. Will call if there is any change in wound condition. All records, vitals, labs and medications were reviewed. No other issues per patient, nursing or therapy. Objective - Exam Narrative Exam: MUSCULOSKELETAL SPECIALTY EXAM CONSTITUTIONAL: Well developed, well nourished, appropriately groomed EENT: EOMI Hearing intact to soft voice RESPIRATORY: Clear to auscultation bilaterally, distant, no increased work of breathing CARDIOVASCULAR: Regular Rate/ Rhythm, no swelling, edema or tenderness in BUE or BLE. All extremities warm. GI: + bowel sounds, soft, NTTP, nondistended. INTEGUMENTARY: Normal, no lesion, rash, masses or bruising noted in extremities except for surgical wound on R BKA, healing well no signs of infection. MUSCULOSKELETAL: BUE and BLE normal without defect, crepitus, subluxation, effusion, arthritic changes or TTP except for R BKA which has small appropriate amount of tenderness to palpation BUE 4+/5, good ROM, with normal tone. BLE 4+/5 good ROM, with normal tone NEURO: CN 2-12 grossly intact. Sensation intact in all extremities. No tremor noted in 4 extremities. POSTURE and GAIT: Sitting posture good. Balance and Gait reasonable, RW and short hops. PSYCH: Alert, orientated x3, affect appears normal. Insight appears intact. - Constitutional Vitals: Vital Signs - 12hr 03/23/19 03/23/19 03/23/19 04:30 08:14 08:26 Temperature 36.3 C L 36.6 C Pulse Rate 63 67 Pulse Rate [ 70 Bilateral Throughout] Respiratory 18 18 Rate Respiratory 18 Rate [Bilateral Throughout] Blood Pressure 111/51 126/47 O2 Sat by Pulse 93 96 100 Oximetry - Allied health notes Allied health notes reviewed: nursing, PT, OT FIMS assessment as documented by PT/OT/ST: Grooming Patient cleans teeth/dentures: Yes Patient ahmadi/brushes hair: Yes Patient washes, rinses and Yes dries face: Patient washes, rinses and Yes dries hands: Patient shaves: No Patient applies make-up: Yes Patient performs (no make-up/ 4/4 (100%) shaving): Patient performs (w/ make-up/ 5/5 (100%) shaving): Grooming FIM Score 5. Supervision ([place] applies toothpaste or opens containers.) Toileting Toileting Device Grab Bar Patient able to: Adjust clothes before,Clean self,Adjust clothes after Patient able to perform: 3/3 (100%) Toileting FIM Score 4. Minimal Assistance (Patient = 75% or more. Needs touching.) Social interaction/Memory/Problem solving Social Interaction FIM Score 5. Supervision (Needs supv. <10%. Needs encouragement to participate.) Memory FIM Score 5. Supervision (Needs cueing <10%, stressful/ unfamiliar situations.) Problem Solving FIM Score 5. Supervision (Needs cueing <10% to solve routine problems.) Transfers Mode of Locomotion: Wheelchair Bed/Chair/Wheelchair Transfers 5. Supervision (Needs supv. or set-up for FIM Score sliding board, foot rests.) Toilet Transfers FIM Score 3. Moderate Assistance (Patient = 50% or more. Some lifting.) Patient transferred to: Shower Shower Transfers FIM Score 3. Moderate Assistance (Patient = 50% or more. Some lifting.) Locomotion- Stairs Device used on Stairs Handrail/s Number of Stairs Ascended/ 12 Descended Patient used handrail/support: Yes Stairs FIM Score 4. Minimal Assistance (Patient = 75% or more, touching. 12-14 stairs.) Locomotion- walk/wheelchair Most Frequent Mode of Wheelchair Locomotion: Ambulation Distance 110 Walking FIM Score 2. Maximal Assistance (Patient = 25% or more. Minimum of 50 ft.) Wheelchair Propulsion Distance 350 Wheelchair FIM Score 6. Modified [place] (Wheels a minimum of 150 ft.) Eating Eating FIM Score 6. Modified [place] (Special consistency or uses device.) Dressing-Upper body Upper Body Dressing Device Button Hook Patient retrieves clothing No items: Patient applies/removes UE n/a prosthesis or orthosis: Upper Body Dressing FIM Score 4. Minimal Assistance (Patient = 75% or more. Needs touching.) Dressing-lower body Patient retrieves clothing No items: Patient applies/removes LE No prosthesis or orthosis: Lower Body Dressing FIM Score 4. Minimal Assistance (Patient = 75% or more. Needs touching.) - Labs CBC & Chem 7: 03/23/19 10:59 03/23/19 10:59 Labs: Laboratory Results - last 72 hr 03/21/19 20:46 Hgb 8.5 L Hct 25.8 L Assessment and Plan Right BKA: Monitor the wound closely for any signs of infection. We'll maintain stump protector and wrapping in order shape residual limb for proper prosthesis fit. [employer] have visited the patient given her information on prosthesis. Discussed with the patient to not to get up out of bed in the middle the night due to concerns for fall. Will address fall recovery prior to discharge. Continue to work on balance and mobility skills with walker. Work on independence of care for right BKA. Discussed with patient need for maintaining her cardiovascular conditioning due to increased demand of energy with BKA. Discussed range of motion maintenance. Will moved to independence with all maintenance and therapeutic interventions prior to discharge. She will need follow-up with therapy after being fitted with prosthesis. Surgeon wants follow up 6-8 weeks after surgery for staple removal. Phantom sensation and phantom pain: Continue neuropathic pain control, residual limb to remain in stump protector, cont desensitization. Cont gabapentin at increased dose, monitor. Atrial fibrillation: Continue regular control monitor for any symptoms. Restart Eliquis per cardiology rec. Discussed with surgeon and GI. Hypothyroidism: Continue medication Hypertension: Continue medications and adjust for normotension GI bleed with peptic ulcer: Continue Protonix and Carafate. COPD: Continue nebulizers, supplemental O2 Z73.6 ADL dysfunction: OT will work on improving ability to perform ADLs (including assistive devices) to increase independence and decrease caregiver burden and improve functional transfers and mobility training. R26.2 Difficulty walking: PT will work on gait training and proper use of assistive devices and advance as appropriate to use of stairs and outside ambulation on uneven surfaces. R26.81 Unsteadiness on feet: PT will work on improving static and dynamic sitting and standing balance as well as proper use of assistive devices to de crease risk of falls. R26.89 Abnormality of gait: PT will work to improve safety and efficiency of g ait through neuromotor training and gait training along with instruction on proper use of assistive devices. M62.81 Muscle weakness: PT & OT will work on strengthening exercises to improve functional strength including mixture of closed and open kinetic chain exercises. R53.81 Debility: PT & OT will work on improving overall functional status to improve participation with ADLs, mobility and social involvement. R53.83 Fatigue: PT & OT will work on improving endurance through aerobic exercises and therapeutic activity while monitoring patients tolerance for activity and vital signs as needed. Passed prolonged PHYSICAL THERAPIST CLINIC DIRECTOR cognition and memory testing. Likely medication related and/or personality. DVT ppx: Eliquis Pain: Continue physical modalities in therapy and pain medications as needed to achieve functional pain control. Sleep: Monitor and address as needed. Bowel: Monitor and address as needed. Appetite: Monitor and address as needed. Discharge planning: Tentative discharge plan for the first part of the week of March 30. Will continue discussion with therapy team, SW, patient and family. Restrictions/ Precautions: Falls WB status: NWB on RLE Functional Hx: ADLs: Independent Cognition: Independent Mobility: No AD Barriers to Discharge: Decreased mobility and ability to perform self care, balance deficits, weakness Estimated Length of Stay: 14-18 days Discharge Destination: Home with family
--- NOTE | 2019-03-23 11:10 | Progress Note ---
Assessment and Plan Assessment and plan: s/p Right BKA Continue PT/OT Hyperkalemia Now resolved after kayexalate, Insulin Repeat every few days Hypertension Monitor BP BP stable Hyponatremia. Recheck BMP in am Hypothyroidism Cont Levothyroxine Full code status. History Interval history: No new issues overnight. Hospitalist Physical - Constitutional Vitals: Temp Pulse Resp BP Pulse Ox 97.8 F 67 18 126/47 100 03/23/19 08:26 03/23/19 08:26 03/23/19 08:26 03/23/19 08:26 03/23/19 08:26 General appearance: Present: no acute distress - EENT Eyes: Present: PERRL, EOM intact ENT: hearing intact, clear oral mucosa, dentition normal - Neck Neck: Present: supple, normal ROM - Respiratory Respiratory effort: normal Respiratory: bilateral: CTA - Cardiovascular Rhythm: regular Heart Sounds: Present: S1 & S2. Absent: gallop, rub - Extremities Extremities: no ischemia, No edema, Full ROM - Abdominal General gastrointestinal: soft, non-tender, non-distended, normal bowel sounds - Integumentary Integumentary: Present: clear, warm, dry - Neurologic Neurologic: CNII-XII intact, moves all extremities Results - Labs CBC & Chem 7: 03/21/19 20:46 03/20/19 04:32 Labs: Laboratory Last Values WBC 8.2 K/mm3 (4.5-11.0) 03/18/19 15:00 RBC 3.02 M/mm3 (3.65-5.03) L 03/18/19 15:00 Hgb 8.5 gm/dl (10.1-14.3) L 03/21/19 20:46 Hct 25.8 % (30.3-42.9) L 03/21/19 20:46 MCV 92 fl (79-97) 03/18/19 15:00 MCH 31 pg (28-32) 03/18/19 15:00 MCHC 34 % (30-34) 03/18/19 15:00 RDW 14.7 % (13.2-15.2) 03/18/19 15:00 Plt Count 406 K/mm3 (140-440) 03/18/19 15:00 Lymph % (Auto) 30.5 % (13.4-35.0) 03/14/19 14:36 [place] % (Auto) 11.5 % (0.0-7.3) H 03/14/19 14:36 Eos % (Auto) 1.7 % (0.0-4.3) 03/14/19 14:36 Baso % (Auto) 0.4 % (0.0-1.8) 03/14/19 14:36 Lymph # 2.5 K/mm3 (1.2-5.4) 03/14/19 14:36 [place] # 0.9 K/mm3 (0.0-0.8) H 03/14/19 14:36 Eos # 0.1 K/mm3 (0.0-0.4) 03/14/19 14:36 Baso # 0.0 K/mm3 (0.0-0.1) 03/14/19 14:36 Seg Neutrophils % 55.9 % (40.0-70.0) 03/14/19 14:36 Seg Neutrophils # 4.6 K/mm3 (1.8-7.7) 03/14/19 14:36 Sodium 139 mmol/L (137-145) 03/20/19 04:32 Potassium 4.5 mmol/L (3.6-5.0) 03/20/19 04:32 Chloride 104.1 mmol/L (98-107) 03/20/19 04:32 Carbon Dioxide 27 mmol/L (22-30) 03/20/19 04:32 12 mmol/L 03/20/19 04:32 BUN 30 mg/dL (7-17) H 03/20/19 04:32 1.1 mg/dL (0.7-1.2) 03/20/19 04:32 Estimated GFR 48 ml/min 03/20/19 04:32 27 % 03/20/19 04:32 Glucose 108 mg/dL (65-100) H 03/20/19 04:32 Calcium 10.1 mg/dL (8.4-10.2) 03/20/19 04:32 0.40 mg/dL (0.1-1.2) 03/10/19 04:48 AST 21 units/L (5-40) 03/10/19 04:48 ALT 10 units/L (7-56) 03/10/19 04:48 76 units/L (35-129) 03/10/19 04:48 6.7 g/dL (6.3-8.2) 03/10/19 04:48 3.5 g/dL (3.9-5) L 03/10/19 04:48 1.1 % 03/10/19 04:48 TSH 8.500 mlU/mL (0.270-4.200) H 03/11/19 13:27 Free T4 1.21 ng/dL (0.76-1.46) 03/11/19 13:27 7.0 ug/dL (4.0-12.0) 03/11/19 13:27 Active Medications - Current Medications Current Medications: Generic Name Dose Route Start Last Admin Trade Name Freq PRN Reason Stop Dose Admin Acetaminophen 650 mg 03/09/19 15:37 Tylenol PO Q4H PRN Pain MILD(1-3)/Fever >100.5/GONZALES Acetaminophen/Hydrocodone Bitart 1 each 03/21/19 10:49 03/23/19 06:32 [place] 10/325 PO 1 each Q4H PRN Administration Pain, Moderate (4-6) Al Hydrox/Mg Hydrox/Simethicone 30 ml 03/09/19 15:37 Alum-Mag Hydrox-Simeth 097-662-07tz/5ml PO Q4H PRN Indigestion Albuterol 2.5 mg 03/09/19 15:49 Proventil IH Q4HRT PRN Shortness Of Breath Alprazolam 0.25 mg 03/09/19 15:49 03/22/19 22:12 Xanax PO 0.25 mg QPM PRN Administration Anxiety Amiodarone HCl 200 mg 03/10/19 10:00 03/23/19 08:46 Cordarone PO 200 mg DAILY [facility] Administration Amitriptyline HCl 10 mg 03/09/19 21:00 03/22/19 22:12 Elavil PO 10 mg QHS [facility] Administration Apixaban 5 mg 03/11/19 08:00 03/23/19 08:46 Eliquis PO 5 mg Q12HR [facility] Administration Protocol Arformoterol Tartrate 15 mcg 03/09/19 20:00 03/23/19 08:11 Brovana Nebu IH 15 mcg Q12HRT [facility] Administration Bisacodyl 10 mg 03/09/19 15:37 03/16/19 14:17 Dulcolax [place] 10 mg QDAY PRN Administration Constipation unrelieved by MOM Budesonide 0.5 mg 03/09/19 20:00 03/23/19 08:11 Pulmicort IH 0.5 mg Q12HRT [facility] Administration Diltiazem HCl 60 mg 03/09/19 20:00 03/23/19 08:46 Cardizem PO 60 mg TID [facility] Administration Duloxetine HCl 60 mg 03/10/19 08:00 03/23/19 08:46 Cymbalta PO 60 mg QDAY [facility] Administration Gabapentin 600 mg 03/21/19 14:00 03/23/19 08:46 Neurontin PO 600 mg TID [facility] Administration Levothyroxine Sodium 100 mcg 03/12/19 06:00 03/23/19 06:33 Synthroid IV 100 mcg DAILY@0600 [facility] Administration Magnesium Hydroxide 30 ml 03/09/19 15:37 Milk Of Magnesia PO Q4H PRN Constipation Metoprolol Tartrate 25 mg 03/10/19 10:00 03/22/19 12:05 Lopressor PO 25 mg DAILY [facility] Administration Multivitamins 1 each 03/10/19 08:00 03/23/19 08:46 Theragran Tab PO 1 each QDAY [facility] Administration Ondansetron HCl 4 mg 03/09/19 15:49 Zofran IV Q8H PRN Nausea And Vomiting Pantoprazole Sodium 40 mg 03/10/19 08:00 03/23/19 08:46 Protonix PO 40 mg QDAY [facility] Administration Spironolactone 25 mg 03/09/19 22:00 03/22/19 22:22 Aldactone PO Not Given BID [facility] Sucralfate 1 gm 03/09/19 22:00 03/23/19 08:46 Carafate PO 1 gm ACHS [facility] Administration Nutrition/Malnutrition Assess - Dietary Evaluation Nutrition/Malnutrition Findings: Nutrition Notes Start: 03/16/19 15:47 Freq: Status: Active Protocol: Document 03/16/19 15:47 RM (Rec: 03/16/19 15:48 RM [id number]) Nutrition Notes Need for Assessment generated from: LOS Initial or Follow up Brief Note Height 5 ft 4 in Weight 58.5 kg [place] Body Weight (kg) 54.54 BMI 22.1 Subjective/Other Information Screened for LOS. Recorded PO intake 75% X 3 meals. Nutrition Intervention Revisit per MD consult or patient Sign Off request:
[2019-03-23 11:18] LABS: Hematocrit 26.8 % (30.3-42.9); Hemoglobin 8.8 gm/dl (10.1-14.3); Mean Corpuscular HGB Conc 33 % (30-34); Mean Corpuscular Volume 93 fl (79-97); Platelet Count 331 K/mm3 (140-440); Red Blood Count 2.89 M/mm3 (3.65-5.03)
[2019-03-23 11:46] LABS: Calcium 9.8 mg/dL (8.4-10.2)
[2019-03-23] MEDS: LOPRESSOR PO SCH (13:24)
[2019-03-23] MEDS: ALDACTONE PO SCH (13:25)
[2019-03-23] MEDS: ELAVIL PO SCH (21:47)
[2019-03-24] MEDS: NORCO 10/325 PO PRN ×5 (04:46→23:02)
[2019-03-24] MEDS: SYNTHROID IV SCH (06:46)
[2019-03-24 06:51] LABS: Hematocrit 26.6 % (30.3-42.9); Hemoglobin 8.9 gm/dl (10.1-14.3); Mean Corpuscular HGB Conc 34 % (30-34); Mean Corpuscular Volume 92 fl (79-97); Platelet Count 318 K/mm3 (140-440); Red Blood Count 2.91 M/mm3 (3.65-5.03); Red Cell Distribution Width 15.2 % (13.2-15.2)
[2019-03-24] MEDS: ALDACTONE PO SCH ×3 (06:56→22:01)
[2019-03-24] MEDS: CARAFATE PO SCH ×4 (07:14→21:58)
[2019-03-24] MEDS: NEURONTIN PO SCH ×3 (08:09→21:58)
[2019-03-24] MEDS: CARDIZEM PO SCH ×3 (08:11→21:59)
[2019-03-24] MEDS: PULMICORT IH SCH ×2 (08:19→21:00)
[2019-03-24] MEDS: BROVANA NEBU IH SCH ×2 (08:19→21:00)
[2019-03-24] MEDS: ELIQUIS PO SCH ×2 (11:07→21:58)
[2019-03-24] MEDS: CORDARONE PO SCH (11:07)
[2019-03-24] MEDS: CYMBALTA PO SCH (11:09)
[2019-03-24] MEDS: LOPRESSOR PO SCH (11:09)
[2019-03-24] MEDS: PROTONIX PO SCH (11:10)
[2019-03-24] MEDS: THERAGRAN Tab PO SCH (14:11)
--- NOTE | 2019-03-24 14:59 | Progress Note ---
Subjective Date of service: 03/24/19 Principal diagnosis: R BKA Interval history: 78 yo female admitted with worsening RLE ischemia. Hx of PAD and multiple past interventions. Attempt made to salvage the limb but was unsuccessful. 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 Pain has been fairly controlled. She is experiencing some phantom sensation and phantom pain. She has AFib and is currently rate controlled but is off her OAC due to previous GIB. [facility] has seen her and she has a residual limb protector on. She states increased pain with dressing changes - which was done earlier today. I will view her wound on another day with her scheduled dressing change. Patient has recommendation from cardiology to resume oral anticoagulation as soon as possible from a surgical standpoint. I contacted surgery today and they are okay with her resuming this however they state their understanding was that she was taking off of anticoagulation by GI due to the GI bleed in September 2018. GI consulted and is OK with restarting Eliquis. Discussed with patient. Will monitor closely for any signs of GIB. Patient is participating in therapy and making reasonable progress. Taking rest breaks as needed. +BM. Denies palpitations, dyspnea, cough, N/V, weakness, or joint pain. Continues to have right leg pain but seems much improved today. Neuropathic in nature including numbness tingling and shocks above the surgical area into the knee but it is better than previous. Patient states she feels the gabapentin relieves the pain better, tolerating increased dose. She does still have some phantom sensation and occasional phantom pain. No signs of bleeding, H&H stable. Limb protector in use now. Will call if there is any change in wound condition. All records, vitals, labs and medications were reviewed. No other issues per patient, nursing or therapy. Objective - Exam Narrative Exam: MUSCULOSKELETAL SPECIALTY EXAM CONSTITUTIONAL: Well developed, well nourished, appropriately groomed EENT: EOMI Hearing intact to soft voice RESPIRATORY: Clear to auscultation bilaterally, distant, no increased work of breathing CARDIOVASCULAR: Regular Rate/ Rhythm, no swelling, edema or tenderness in BUE or BLE. All extremities warm. GI: + bowel sounds, soft, NTTP, nondistended. INTEGUMENTARY: Normal, no lesion, rash, masses or bruising noted in extremities except for surgical wound on R BKA, healing well no signs of infection. MUSCULOSKELETAL: BUE and BLE normal without defect, crepitus, subluxation, effusion, arthritic changes or TTP except for R BKA which has small appropriate amount of tenderness to palpation BUE 4+/5, good ROM, with normal tone. BLE 4+/5 good ROM, with normal tone NEURO: CN 2-12 grossly intact. Sensation intact in all extremities. No tremor noted in 4 extremities. POSTURE and GAIT: Sitting posture good. Balance and Gait reasonable, RW and short hops. PSYCH: Alert, orientated x3, affect appears normal. Insight appears intact. - Constitutional Vitals: Vital Signs - 12hr 03/24/19 03/24/19 03/24/19 04:46 05:00 05:46 Temperature 36.9 C Pulse Rate 66 Pulse Rate [ Bilateral Throughout] Respiratory 17 20 17 Rate Respiratory Rate [Bilateral Throughout] Blood Pressure 111/50 O2 Sat by Pulse 97 Oximetry 03/24/19 03/24/19 03/24/19 08:15 08:28 08:49 Temperature 36.7 C Pulse Rate 70 Pulse Rate [ 65 66 Bilateral Throughout] Respiratory 18 Rate Respiratory 18 19 Rate [Bilateral Throughout] Blood Pressure 134/34 O2 Sat by Pulse 97 Oximetry 03/24/19 08:51 Temperature Pulse Rate Pulse Rate [ Bilateral Throughout] Respiratory Rate Respiratory Rate [Bilateral Throughout] Blood Pressure O2 Sat by Pulse 97 Oximetry - Allied health notes Allied health notes reviewed: nursing, PT, OT FIMS assessment as documented by PT/OT/ST: Grooming Patient cleans teeth/dentures: Yes Patient ahmadi/brushes hair: Yes Patient washes, rinses and Yes dries face: Patient washes, rinses and Yes dries hands: Patient shaves: No Patient applies make-up: Yes Patient performs (no make-up/ 12/29 (100%) shaving): Patient performs (w/ make-up/ 5/5 (100%) shaving): Grooming FIM Score 6. Modified [place] (Needs equipment/device . Extra time.) Toileting Toileting Device Commode over Toilet Patient able to: Adjust clothes before,Clean self,Adjust clothes after Patient able to perform: 3/3 (100%) Toileting FIM Score 5. Supv./Set-Up (Needs stand-by, set-up, applying prosth/orth.) Social interaction/Memory/Problem solving Social Interaction FIM Score 5. Supervision (Needs supv. <10%. Needs encouragement to participate.) Memory FIM Score 5. Supervision (Needs cueing <10%, stressful/ unfamiliar situations.) Problem Solving FIM Score 5. Supervision (Needs cueing <10% to solve routine problems.) Transfers Mode of Locomotion: Wheelchair Bed/Chair/Wheelchair Transfers 5. Supervision (Needs supv. or set-up for FIM Score sliding board, foot rests.) Toilet Transfers FIM Score 5. Supervision (Needs supervision or cueing.) Patient transferred to: Shower Shower Transfers FIM Score 3. Moderate Assistance (Patient = 50% or more. Some lifting.) Locomotion- Stairs Device used on Stairs Handrail/s Number of Stairs Ascended/ 12 Descended Patient used handrail/support: Yes Stairs FIM Score 4. Minimal Assistance (Patient = 75% or more, touching. 12-14 stairs.) Locomotion- walk/wheelchair Most Frequent Mode of Wheelchair Locomotion: Ambulation Distance 55 Walking FIM Score 2. Maximal Assistance (Patient = 25% or more. Minimum of 50 ft.) Wheelchair Propulsion Distance 350 Wheelchair FIM Score 6. Modified [place] (Wheels a minimum of 150 ft.) Eating Eating FIM Score 5. Supervision/Set-Up (Needs help w/ containers, cutting meat, etc.) Dressing-Upper body Upper Body Dressing Device Button Hook Patient retrieves clothing Yes items: Patient applies/removes UE n/a prosthesis or orthosis: Upper Body Dressing FIM Score 5. Supv./Set-Up (Cushman sets out clothes or applies pros./orth.) Dressing-lower body Patient retrieves clothing Yes items: Patient applies/removes LE No prosthesis or orthosis: Lower Body Dressing FIM Score 5. Supv./Set-Up (Cushman sets out clothes or applies pros./orth.) - Labs CBC & Chem 7: 03/24/19 06:42 03/24/19 06:42 Labs: Laboratory Results - last 72 hr 03/21/19 03/23/19 03/23/19 20:46 10:59 10:59 WBC 11.3 H RBC 2.89 L Hgb 8.5 L 8.8 L Hct 25.8 L 26.8 L MCV 93 MCH 30 MCHC 33 RDW 15.0 Plt Count 331 Sodium 137 Potassium 4.5 Chloride 101.5 Carbon Dioxide 22 Anion Gap 18 BUN 30 H Creatinine 1.1 Estimated GFR 48 BUN/Creatinine Ratio 27 Glucose 107 H Calcium 9.8 03/24/19 03/24/19 06:42 06:42 WBC 9.4 RBC 2.91 L Hgb 8.9 L Hct 26.6 L MCV 92 MCH 31 MCHC 34 RDW 15.2 Plt Count 318 Sodium 137 Potassium 4.1 Chloride 100.7 Carbon Dioxide 21 L Anion Gap 19 BUN 30 H Creatinine 1.1 Estimated GFR 48 BUN/Creatinine Ratio 27 Glucose 98 Calcium 10.0 Assessment and Plan Right BKA: Monitor the wound closely for any signs of infection. We'll maintain stump protector and wrapping in order shape residual limb for proper prosthesis fit. [facility] prosthetics have visited the patient given her information on prosthesis. Discussed with the patient to not to get up out of bed in the middle the night due to concerns for fall. Will address fall recovery prior to discharge. Continue to work on balance and mobility skills with walker. Work on independence of care for right BKA. Discussed with patient need for maintaining her cardiovascular conditioning due to increased demand of energy with BKA. Discussed range of motion maintenance. Will moved to independence with all maintenance and therapeutic interventions prior to discharge. She will need follow-up with therapy after being fitted with prosthesis. Surgeon wants follow up 6-8 weeks after surgery for staple removal. Phantom sensation and phantom pain: Continue neuropathic pain control, residual limb to remain in stump protector, cont desensitization. Cont gabapentin at increased dose, monitor. Atrial fibrillation: Continue regular control monitor for any symptoms. Restart Eliquis per cardiology rec. Discussed with surgeon and GI. Hypothyroidism: Continue medication Hypertension: Continue medications and adjust for normotension GI bleed with peptic ulcer: Continue Protonix and Carafate. No signs of drop in hemoglobin so far. Values have been within a range between 8 and 10 this admission but seem to have stabilized. COPD: Continue nebulizers, supplemental O2 Z73.6 ADL dysfunction: OT will work on improving ability to perform ADLs (including assistive devices) to increase independence and decrease caregiver burden and improve functional transfers and mobility training. R26.2 Difficulty walking: PT will work on gait training and proper use of assistive devices and advance as appropriate to use of stairs and outside ambulation on uneven surfaces. R26.81 Unsteadiness on feet: PT will work on improving static and dynamic sitting and standing balance as well as proper use of assistive devices to decrease risk of falls. R26.89 Abnormality of gait: PT will work to improve safety and efficiency of gait through neuromotor training and gait training along with instruction on proper use of assistive devices. M62.81 Muscle weakness: PT & OT will work on strengthening exercises to improve functional strength including mixture of closed and open kinetic chain exercises. R53.81 Debility: PT & OT will work on improving overall functional status to improve participation with ADLs, mobility and social involvement. R53.83 Fatigue: PT & OT will work on improving endurance through aerobic exercises and therapeutic activity while monitoring patients tolerance for activity and vital signs as needed. Passed prolonged EXPENSE ANALYST cognition and memory testing. Likely medication related and/or personality. DVT ppx: Eliquis Pain: Continue physical modalities in therapy and pain medications as needed to achieve functional pain control. Sleep: Monitor and address as needed. Bowel: Monitor and address as needed. Appetite: Monitor and address as needed. Discharge planning: Tentative discharge plan for the first part of the week of March 30. Will continue discussion with therapy team, SW, patient and family. Restrictions/ Precautions: Falls WB status: NWB on RLE Functional Hx: ADLs: Independent Cognition: Independent Mobility: No AD Barriers to Discharge: Decreased mobility and ability to perform self care, balance deficits, weakness Estimated Length of Stay: 14-18 days Discharge Destination: Home with family
--- NOTE | 2019-03-24 16:25 | Progress Note ---
Assessment and Plan Assessment and plan: s/p Right BKA Continue PT/OT Hyperkalemia Now resolved after kayexalate, Insulin Repeat every few days Hypertension Monitor BP BP stable Hyponatremia. Recheck BMP in am Hypothyroidism Cont Levothyroxine Full code status. History Interval history: No new issues overnight. Hospitalist Physical - Constitutional Vitals: Temp Pulse Resp BP Pulse Ox 98.0 F 66 19 134/34 97 03/24/19 08:28 03/24/19 08:49 03/24/19 08:49 03/24/19 08:28 03/24/19 08:51 General appearance: Present: no acute distress - EENT Eyes: Present: PERRL, EOM intact ENT: hearing intact, clear oral mucosa, dentition normal - Neck Neck: Present: supple, normal ROM - Respiratory Respiratory effort: normal Respiratory: bilateral: CTA - Cardiovascular Rhythm: regular Heart Sounds: Present: S1 & S2. Absent: gallop, rub - Extremities Extremities: no ischemia, No edema, Full ROM - Abdominal General gastrointestinal: soft, non-tender, non-distended, normal bowel sounds - Integumentary Integumentary: Present: clear, warm, dry - Neurologic Neurologic: CNII-XII intact, moves all extremities Results - Labs CBC & Chem 7: 03/24/19 06:42 03/24/19 06:42 Labs: Laboratory Last Values WBC 9.4 K/mm3 (4.5-11.0) 03/24/19 06:42 RBC 2.91 M/mm3 (3.65-5.03) L 03/24/19 06:42 Hgb 8.9 gm/dl (10.1-14.3) L 03/24/19 06:42 Hct 26.6 % (30.3-42.9) L 03/24/19 06:42 MCV 92 fl (79-97) 03/24/19 06:42 MCH 31 pg (28-32) 03/24/19 06:42 MCHC 34 % (30-34) 03/24/19 06:42 RDW 15.2 % (13.2-15.2) 03/24/19 06:42 Plt Count 318 K/mm3 (140-440) 03/24/19 06:42 Lymph % (Auto) 30.5 % (13.4-35.0) 03/14/19 14:36 [place] % (Auto) 11.5 % (0.0-7.3) H 03/14/19 14:36 Eos % (Auto) 1.7 % (0.0-4.3) 03/14/19 14:36 Baso % (Auto) 0.4 % (0.0-1.8) 03/14/19 14:36 Lymph # 2.5 K/mm3 (1.2-5.4) 03/14/19 14:36 [place] # 0.9 K/mm3 (0.0-0.8) H 03/14/19 14:36 Eos # 0.1 K/mm3 (0.0-0.4) 03/14/19 14:36 Baso # 0.0 K/mm3 (0.0-0.1) 03/14/19 14:36 Seg Neutrophils % 55.9 % (40.0-70.0) 03/14/19 14:36 Seg Neutrophils # 4.6 K/mm3 (1.8-7.7) 03/14/19 14:36 Sodium 137 mmol/L (137-145) 03/24/19 06:42 Potassium 4.1 mmol/L (3.6-5.0) 03/24/19 06:42 Chloride 100.7 mmol/L (98-107) 03/24/19 06:42 Carbon Dioxide 21 mmol/L (22-30) L 03/24/19 06:42 19 mmol/L 03/24/19 06:42 BUN 30 mg/dL (7-17) H 03/24/19 06:42 1.1 mg/dL (0.7-1.2) 03/24/19 06:42 Estimated GFR 48 ml/min 03/24/19 06:42 27 % 03/24/19 06:42 Glucose 98 mg/dL (65-100) 03/24/19 06:42 Calcium 10.0 mg/dL (8.4-10.2) 03/24/19 06:42 0.40 mg/dL (0.1-1.2) 03/10/19 04:48 AST 21 units/L (5-40) 03/10/19 04:48 ALT 10 units/L (7-56) 03/10/19 04:48 76 units/L (35-129) 03/10/19 04:48 6.7 g/dL (6.3-8.2) 03/10/19 04:48 3.5 g/dL (3.9-5) L 03/10/19 04:48 1.1 % 03/10/19 04:48 TSH 8.500 mlU/mL (0.270-4.200) H 03/11/19 13:27 Free T4 1.21 ng/dL (0.76-1.46) 03/11/19 13:27 7.0 ug/dL (4.0-12.0) 03/11/19 13:27 Active Medications - Current Medications Current Medications: Generic Name Dose Route Start Last Admin Trade Name Freq PRN Reason Stop Dose Admin Acetaminophen 650 mg 03/09/19 15:37 Tylenol PO Q4H PRN Pain MILD(1-3)/Fever >100.5/GONZALES Acetaminophen/Hydrocodone Bitart 1 each 03/21/19 10:49 03/24/19 14:06 Roper 10/325 PO 1 each Q4H PRN Administration Pain, Moderate (4-6) Al Hydrox/Mg Hydrox/Simethicone 30 ml 03/09/19 15:37 Alum-Mag Hydrox-Simeth [phone]/5ml PO Q4H PRN Indigestion Albuterol 2.5 mg 03/09/19 15:49 Proventil IH Q4HRT PRN Shortness Of Breath Alprazolam 0.25 mg 03/09/19 15:49 03/22/19 22:12 Xanax PO 0.25 mg QPM PRN Administration Anxiety Amiodarone HCl 200 mg 03/10/19 10:00 03/24/19 11:07 Cordarone PO 200 mg DAILY KLEVER Administration Amitriptyline HCl 10 mg 03/09/19 21:00 03/23/19 21:47 Elavil PO 10 mg QHS KLEVER Administration Apixaban 5 mg 03/11/19 08:00 03/24/19 11:07 Eliquis PO 5 mg Q12HR KLEVER Administration Protocol Arformoterol Tartrate 15 mcg 03/09/19 20:00 03/24/19 08:19 Brovana Nebu IH 15 mcg Q12HRT KLEVER Administration Bisacodyl 10 mg 03/09/19 15:37 03/16/19 14:17 Dulcolax ME 10 mg QDAY PRN Administration Constipation unrelieved by MOM Budesonide 0.5 mg 03/09/19 20:00 03/24/19 08:19 Pulmicort IH 0.5 mg Q12HRT KLEVER Administration Diltiazem HCl 60 mg 03/09/19 20:00 03/24/19 14:11 Cardizem PO 60 mg TID KLEVER Administration Duloxetine HCl 60 mg 03/10/19 08:00 03/24/19 11:09 Cymbalta PO 60 mg QDAY KLEVER Administration Gabapentin 600 mg 03/21/19 14:00 03/24/19 14:13 Neurontin PO 600 mg TID KLEVER Administration Levothyroxine Sodium 100 mcg 03/12/19 06:00 03/24/19 06:46 Synthroid IV 100 mcg DAILY@0600 KLEVER Administration Magnesium Hydroxide 30 ml 03/09/19 15:37 Milk Of Magnesia PO Q4H PRN Constipation Metoprolol Tartrate 25 mg 03/10/19 10:00 03/24/19 11:09 Lopressor PO 25 mg DAILY KLEVER Administration Multivitamins 1 each 03/10/19 08:00 03/24/19 14:11 Theragran Tab PO 1 each QDAY KLEVER Administration Ondansetron HCl 4 mg 03/09/19 15:49 Zofran IV Q8H PRN Nausea And Vomiting Pantoprazole Sodium 40 mg 03/10/19 08:00 03/24/19 11:10 Protonix PO 40 mg QDAY KLEVER Administration Spironolactone 25 mg 03/09/19 22:00 03/24/19 11:12 Aldactone PO 25 mg BID KLEVER Administration Sucralfate 1 gm 03/09/19 22:00 03/24/19 11:08 Carafate PO 1 gm ACHS KLEVER Administration Nutrition/Malnutrition Assess - Dietary Evaluation Nutrition/Malnutrition Findings: Nutrition Notes Start: 03/16/19 15:47 Freq: Status: Active Protocol: Document 03/16/19 15:47 RM (Rec: 03/16/19 15:48 RM [id number]) Nutrition Notes Need for Assessment generated from: LOS Initial or Follow up Brief Note Height 5 ft 4 in Weight 58.5 kg [place] Body Weight (kg) 54.54 BMI 22.1 Subjective/Other Information Screened for LOS. Recorded PO intake 75% X 3 meals. Nutrition Intervention Revisit per MD consult or patient Sign Off request:
[2019-03-24] MEDS: ELAVIL PO SCH (21:58)
[2019-03-25] MEDS: NORCO 10/325 PO PRN ×4 (04:31→20:48)
[2019-03-25] MEDS: SYNTHROID IV SCH (05:32)
[2019-03-25 08:17] LABS: Calcium 9.5 mg/dL (8.4-10.2)
--- NOTE | 2019-03-25 08:52 | Progress Note ---
Subjective Date of service: 03/25/19 Principal diagnosis: R BKA Interval history: 78 yo female admitted with worsening RLE ischemia. Hx of PAD and multiple past interventions. Attempt made to salvage the limb but was unsuccessful. 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 Pain has been fairly controlled. She is experiencing some phantom sensation and phantom pain. She has AFib and is currently rate controlled but is off her OAC due to previous GIB. [facility] has seen her and she has a residual limb protector on. She states increased pain with dressing changes - which was done earlier today. I will view her wound on another day with her scheduled dressing change. Patient is participating in therapy and making reasonable progress. Taking rest breaks as needed. +BM. Denies palpitations, dyspnea, cough, N/V, weakness, or joint pain. Renal function worse today - BRITTNEE on acute side. IVF x 1L today and recheck BMP tomorrow. Right leg pain much improved today. Neuropathic in nature including numbness tingling and shocks above the surgical area into the knee but it is better than previous. Patient states she feels the gabapentin relieves the pain better, tolerating increased dose. She does still have some phantom sensation and occasional phantom pain. No signs of bleeding, H&H stable, monitor. Limb protector in use now. Will call if there is any change in wound condition. All records, vitals, labs and medications were reviewed. No other issues per patient, nursing or therapy. Objective - Exam Narrative Exam: MUSCULOSKELETAL SPECIALTY EXAM CONSTITUTIONAL: Well developed, well nourished, appropriately groomed EENT: EOMI Hearing intact to soft voice RESPIRATORY: Clear to auscultation bilaterally, distant, no increased work of breathing CARDIOVASCULAR: Regular Rate/ Rhythm, no swelling, edema or tenderness in BUE or BLE. All extremities warm. GI: + bowel sounds, soft, NTTP, nondistended. INTEGUMENTARY: Normal, no lesion, rash, masses or bruising noted in extremities except for surgical wound on R BKA, healing well no signs of infection. MUSCULOSKELETAL: BUE and BLE normal without defect, crepitus, subluxation, effusion, arthritic changes or TTP except for R BKA which has small appropriate amount of tenderness to palpation BUE 4+/5, good ROM, with normal tone. BLE 4+/5 good ROM, with normal tone NEURO: CN 2-12 grossly intact. Sensation intact in all extremities. No tremor noted in 4 extremities. POSTURE and GAIT: Sitting posture good. Balance and Gait reasonable, RW and short hops. PSYCH: Alert, orientated x3, affect appears normal. Insight appears intact. - Constitutional Vitals: Vital Signs - 12hr 03/24/19 03/24/19 03/25/19 22:00 23:02 00:04 Temperature Pulse Rate 59 L Respiratory 18 Rate Respiratory 20 Rate [Rt residual limb] Blood Pressure [Right] O2 Sat by Pulse 95 Oximetry 03/25/19 03/25/19 03/25/19 00:19 04:31 04:43 Temperature 36.5 C Pulse Rate 58 L 70 Respiratory 18 18 Rate Respiratory Rate [Rt residual limb] Blood Pressure 99/39 [Right] O2 Sat by Pulse 96 97 Oximetry 03/25/19 04:58 Temperature 36.8 C Pulse Rate 72 Respiratory 17 Rate Respiratory Rate [Rt residual limb] Blood Pressure 122/52 [Right] O2 Sat by Pulse 96 Oximetry - Allied health notes Allied health notes reviewed: nursing, PT, OT FIMS assessment as documented by PT/OT/ST: Grooming Patient cleans teeth/dentures: Yes Patient ahmadi/brushes hair: Yes Patient washes, rinses and Yes dries face: Patient washes, rinses and Yes dries hands: Patient shaves: No Patient applies make-up: Yes Patient performs (no make-up/ /4 (100%) shaving): Patient performs (w/ make-up/ 5/5 (100%) shaving): Grooming FIM Score 5. Supervision ([place] applies toothpaste or opens containers.) Toileting Toileting Device Commode over Toilet Patient able to: Adjust clothes before,Clean self,Adjust clothes after Patient able to perform: 3/3 (100%) Toileting FIM Score 5. Supv./Set-Up (Needs stand-by, set-up, applying prosth/orth.) Social interaction/Memory/Problem solving Social Interaction FIM Score 5. Supervision (Needs supv. <10%. Needs encouragement to participate.) Memory FIM Score 4. Minimal Assistance (Recognizes and remembers 75-90%.) Problem Solving FIM Score 5. Supervision (Needs cueing <10% to solve routine problems.) Transfers Mode of Locomotion: Wheelchair Bed/Chair/Wheelchair Transfers 5. Supervision (Needs supv. or set-up for FIM Score sliding board, foot rests.) Toilet Transfers FIM Score 5. Supervision (Needs supervision or cueing.) Patient transferred to: Shower Shower Transfers FIM Score 3. Moderate Assistance (Patient = 50% or more. Some lifting.) Locomotion- Stairs Device used on Stairs Handrail/s Number of Stairs Ascended/ 12 Descended Patient used handrail/support: Yes Stairs FIM Score 4. Minimal Assistance (Patient = 75% or more, touching. 12-14 stairs.) Locomotion- walk/wheelchair Most Frequent Mode of Wheelchair Locomotion: Ambulation Distance 55 Walking FIM Score 2. Maximal Assistance (Patient = 25% or more. Minimum of 50 ft.) Wheelchair Propulsion Distance 350 Wheelchair FIM Score 6. Modified [place] (Wheels a minimum of 150 ft.) Eating Eating FIM Score 6. Modified [place] (Special consistency or uses device.) Dressing-Upper body Upper Body Dressing Device Button Hook Patient retrieves clothing Yes items: Patient applies/removes UE n/a prosthesis or orthosis: Upper Body Dressing FIM Score 5. Supv./Set-Up ([place] sets out clothes or applies pros./orth.) Dressing-lower body Patient retrieves clothing Yes items: Patient applies/removes LE No prosthesis or orthosis: Lower Body Dressing FIM Score 5. Supv./Set-Up ([place] sets out clothes or applies pros./orth.) - Labs CBC & Chem 7: 03/25/19 07:11 03/25/19 07:11 Labs: Laboratory Results - last 72 hr 03/23/19 03/23/19 03/24/19 10:59 10:59 06:42 WBC 11.3 H 9.4 RBC 2.89 L 2.91 L Hgb 8.8 L 8.9 L Hct 26.8 L 26.6 L MCV 93 92 MCH 30 31 MCHC 33 34 RDW 15.0 15.2 Plt Count 331 318 Sodium 137 Potassium 4.5 Chloride 101.5 Carbon Dioxide 22 Anion Gap 18 BUN 30 H Creatinine 1.1 Estimated GFR 48 BUN/Creatinine Ratio 27 Glucose 107 H Calcium 9.8 03/24/19 03/25/19 06:42 07:11 WBC RBC Hgb Hct MCV MCH MCHC RDW Plt Count Sodium 137 136 L Potassium 4.1 4.8 Chloride 100.7 100.4 Carbon Dioxide 21 L 24 Anion Gap 19 16 BUN 30 H 35 H Creatinine 1.1 1.3 H Estimated GFR 48 40 BUN/Creatinine Ratio 27 27 Glucose 98 96 Calcium 10.0 9.5 Assessment and Plan Right BKA: Monitor the wound closely for any signs of infection. We'll maintain stump protector and wrapping in order shape residual limb for proper prosthesis fit. [facility] have visited the patient given her information on prosthesis. Discussed with the patient to not to get up out of bed in the middle the night due to concerns for fall. Will address fall recovery prior to discharge. Continue to work on balance and mobility skills with walker. Work on independence of care for right BKA. Discussed with patient need for maintaining her cardiovascular conditioning due to increased demand of energy with BKA. Discussed range of motion maintenance. Will moved to independence with all maintenance and therapeutic interventions prior to discharge. She will need follow-up with therapy after being fitted with prosthesis. Surgeon wants follow up 6-8 weeks after surgery for staple removal. Phantom sensation and phantom pain: Continue neuropathic pain control, residual limb to remain in stump protector, cont desensitization. Cont gabapentin at increased dose, monitor. Atrial fibrillation: Continue regular control monitor for any symptoms. Restart Eliquis per cardiology rec. Discussed with surgeon and GI. Hypothyroidism: Continue medication Hypertension: Continue medications and adjust for normotension GI bleed with peptic ulcer: Continue Protonix and Carafate. No signs of drop in hemoglobin so far. Values have been within a range between 8 and 10 this admission but seem to have stabilized. COPD: Continue nebulizers, supplemental O2 BRITTNEE - IVF x 1L and monitor Z73.6 ADL dysfunction: OT will work on improving ability to perform ADLs (including assistive devices) to increase independence and decrease caregiver burden and improve functional transfers and mobility training. R26.2 Difficulty walking: PT will work on gait training and proper use of assistive devices and advance as appropriate to use of stairs and outside ambulation on uneven surfaces. R26.81 Unsteadiness on feet: PT will work on improving static and dynamic sitting and standing balance as well as proper use of assistive devices to decrease risk of falls. R26.89 Abnormality of gait: PT will work to improve safety and efficiency of gait through neuromotor training and gait training along with instruction on proper use of assistive devices. M62.81 Muscle weakness: PT & OT will work on strengthening exercises to improve functional strength including mixture of closed and open kinetic chain exercises. R53.81 Debility: PT & OT will work on improving overall functional status to improve participation with ADLs, mobility and social involvement. R53.83 Fatigue: PT & OT will work on improving endurance through aerobic exercises and therapeutic activity while monitoring patients tolerance for activity and vital signs as needed. Passed prolonged [employer] cognition and memory testing. Likely medication related and/or personality. DVT ppx: Eliquis Pain: Continue physical modalities in therapy and pain medications as needed to achieve functional pain control. Sleep: Monitor and address as needed. Bowel: Monitor and address as needed. Appetite: Monitor and address as needed. Discharge planning: Tentative discharge plan for the first part of the week of March 30. Will continue discussion with therapy team, SW, patient and family. Restrictions/ Precautions: Falls WB status: NWB on RLE Functional Hx: ADLs: Independent Cognition: Independent Mobility: No AD Barriers to Discharge: Decreased mobility and ability to perform self care, balance deficits, weakness Estimated Length of Stay: 14-18 days Discharge Destination: Home with family
[2019-03-25] MEDS ORDERED: NACL 0.9% 1000 ML 1,000 ML IV SCH (09:00)
[2019-03-25 09:01] LABS: Hematocrit 26.3 % (30.3-42.9); Hemoglobin 8.8 gm/dl (10.1-14.3); Mean Corpuscular HGB Conc 34 % (30-34); Mean Corpuscular Volume 93 fl (79-97); Platelet Count 316 K/mm3 (140-440); Red Blood Count 2.84 M/mm3 (3.65-5.03); Red Cell Distribution Width 15.3 % (13.2-15.2)
[2019-03-25] MEDS: CARAFATE PO SCH ×4 (09:54→22:46)
[2019-03-25] MEDS: CARDIZEM PO SCH ×3 (09:55→21:21)
[2019-03-25] MEDS: CORDARONE PO SCH (09:55)
[2019-03-25] MEDS: THERAGRAN Tab PO SCH (09:56)
[2019-03-25] MEDS: ELIQUIS PO SCH ×2 (09:56→21:31)
[2019-03-25] MEDS: PROTONIX PO SCH (09:56)
[2019-03-25] MEDS: CYMBALTA PO SCH (09:57)
[2019-03-25] MEDS: NEURONTIN PO SCH ×3 (10:18→21:21)
--- NOTE | 2019-03-25 13:01 | Progress Note ---
Assessment and Plan Assessment and plan: s/p Right BKA Continue PT/OT Hyperkalemia Now resolved after kayexalate, Insulin Repeat every few days Hypertension Monitor BP BP stable Hyponatremia. Recheck BMP in am Hypothyroidism Cont Levothyroxine Full code status. History Interval history: No new issues overnight. Hospitalist Physical - Constitutional Vitals: Temp Pulse Resp BP Pulse Ox 97.9 F 66 18 111/50 96 03/25/19 07:56 03/25/19 10:25 03/25/19 10:25 03/25/19 07:56 03/25/19 10:00 General appearance: Present: no acute distress - EENT Eyes: Present: PERRL, EOM intact ENT: hearing intact, clear oral mucosa, dentition normal - Neck Neck: Present: supple, normal ROM - Respiratory Respiratory effort: normal Respiratory: bilateral: CTA - Cardiovascular Rhythm: regular Heart Sounds: Present: S1 & S2. Absent: gallop, rub - Extremities Extremities: no ischemia, No edema, Full ROM - Abdominal General gastrointestinal: soft, non-tender, non-distended, normal bowel sounds - Integumentary Integumentary: Present: clear, warm, dry - Neurologic Neurologic: CNII-XII intact, moves all extremities Results - Labs CBC & Chem 7: 03/25/19 07:11 03/25/19 07:11 Labs: Laboratory Last Values WBC 7.6 K/mm3 (4.5-11.0) 03/25/19 07:11 RBC 2.84 M/mm3 (3.65-5.03) L 03/25/19 07:11 Hgb 8.8 gm/dl (10.1-14.3) L 03/25/19 07:11 Hct 26.3 % (30.3-42.9) L 03/25/19 07:11 MCV 93 fl (79-97) 03/25/19 07:11 MCH 31 pg (28-32) 03/25/19 07:11 MCHC 34 % (30-34) 03/25/19 07:11 RDW 15.3 % (13.2-15.2) H 03/25/19 07:11 Plt Count 316 K/mm3 (140-440) 03/25/19 07:11 Lymph % (Auto) 30.5 % (13.4-35.0) 03/14/19 14:36 [place] % (Auto) 11.5 % (0.0-7.3) H 03/14/19 14:36 Eos % (Auto) 1.7 % (0.0-4.3) 03/14/19 14:36 Baso % (Auto) 0.4 % (0.0-1.8) 03/14/19 14:36 Lymph # 2.5 K/mm3 (1.2-5.4) 03/14/19 14:36 [place] # 0.9 K/mm3 (0.0-0.8) H 03/14/19 14:36 Eos # 0.1 K/mm3 (0.0-0.4) 03/14/19 14:36 Baso # 0.0 K/mm3 (0.0-0.1) 03/14/19 14:36 Seg Neutrophils % 55.9 % (40.0-70.0) 03/14/19 14:36 Seg Neutrophils # 4.6 K/mm3 (1.8-7.7) 03/14/19 14:36 Sodium 136 mmol/L (137-145) L 03/25/19 07:11 Potassium 4.8 mmol/L (3.6-5.0) 03/25/19 07:11 Chloride 100.4 mmol/L (98-107) 03/25/19 07:11 Carbon Dioxide 24 mmol/L (22-30) 03/25/19 07:11 16 mmol/L 03/25/19 07:11 BUN 35 mg/dL (7-17) H 03/25/19 07:11 1.3 mg/dL (0.7-1.2) H 03/25/19 07:11 Estimated GFR 40 ml/min 03/25/19 07:11 27 % 03/25/19 07:11 Glucose 96 mg/dL (65-100) 03/25/19 07:11 Calcium 9.5 mg/dL (8.4-10.2) 03/25/19 07:11 0.40 mg/dL (0.1-1.2) 03/10/19 04:48 AST 21 units/L (5-40) 03/10/19 04:48 ALT 10 units/L (7-56) 03/10/19 04:48 76 units/L (35-129) 03/10/19 04:48 6.7 g/dL (6.3-8.2) 03/10/19 04:48 3.5 g/dL (3.9-5) L 03/10/19 04:48 1.1 % 03/10/19 04:48 TSH 8.500 mlU/mL (0.270-4.200) H 03/11/19 13:27 Free T4 1.21 ng/dL (0.76-1.46) 03/11/19 13:27 7.0 ug/dL (4.0-12.0) 03/11/19 13:27 Active Medications - Current Medications Current Medications: Generic Name Dose Route Start Last Admin Trade Name Freq PRN Reason Stop Dose Admin Acetaminophen 650 mg 03/09/19 15:37 Tylenol PO Q4H PRN Pain MILD(1-3)/Fever >100.5/GONZALES Acetaminophen/Hydrocodone Bitart 1 each 03/21/19 10:49 03/25/19 10:18 [place] 10/325 PO 1 each Q4H PRN Administration Pain, Moderate (4-6) Al Hydrox/Mg Hydrox/Simethicone 30 ml 03/09/19 15:37 Alum-Mag Hydrox-Simeth 565-260-68vb/5ml PO Q4H PRN Indigestion Albuterol 2.5 mg 03/09/19 15:49 Proventil IH Q4HRT PRN Shortness Of Breath Alprazolam 0.25 mg 03/09/19 15:49 03/22/19 22:12 Xanax PO 0.25 mg QPM PRN Administration Anxiety Amiodarone HCl 200 mg 03/10/19 10:00 03/25/19 09:55 Cordarone PO 200 mg DAILY KLEVER Administration Amitriptyline HCl 10 mg 03/09/19 21:00 03/24/19 21:58 Elavil PO 10 mg QHS KLEVER Administration Apixaban 5 mg 03/11/19 08:00 03/25/19 09:56 Eliquis PO 5 mg Q12HR KLEVER Administration Protocol Arformoterol Tartrate 15 mcg 03/09/19 20:00 03/24/19 08:19 Brovana Nebu IH 15 mcg Q12HRT KLEVER Administration Bisacodyl 10 mg 03/09/19 15:37 03/16/19 14:17 Dulcolax [place] 10 mg QDAY PRN Administration Constipation unrelieved by MOM Budesonide 0.5 mg 03/09/19 20:00 03/24/19 08:19 Pulmicort IH 0.5 mg Q12HRT KLEVER Administration Diltiazem HCl 60 mg 03/09/19 20:00 03/24/19 21:59 Cardizem PO Not Given TID KLEVER Duloxetine HCl 60 mg 03/10/19 08:00 03/25/19 09:57 Cymbalta PO 60 mg QDAY KLEVER Administration Gabapentin 600 mg 03/21/19 14:00 03/25/19 10:18 Neurontin PO 600 mg TID KLEVER Administration Sodium Chloride 1,000 mls @ 100 mls/hr 03/25/19 09:00 03/25/19 10:00 Nacl 0.9% 1000 Ml IV 03/25/19 18:59 100 mls/hr DIRECT KLEVER Administration Levothyroxine Sodium 100 mcg 03/12/19 06:00 03/25/19 05:32 Synthroid IV 100 mcg DAILY@0600 KLEVER Administration Magnesium Hydroxide 30 ml 03/09/19 15:37 Milk Of Magnesia PO Q4H PRN Constipation Metoprolol Tartrate 25 mg 03/10/19 10:00 03/24/19 11:09 Lopressor PO 25 mg DAILY KLEVER Administration Multivitamins 1 each 03/10/19 08:00 03/25/19 09:56 Theragran Tab PO 1 each QDAY KLEVER Administration Ondansetron HCl 4 mg 03/09/19 15:49 Zofran IV Q8H PRN Nausea And Vomiting Pantoprazole Sodium 40 mg 03/10/19 08:00 03/25/19 09:56 Protonix PO 40 mg QDAY KLEVER Administration Spironolactone 25 mg 03/09/19 22:00 03/24/19 22:01 Aldactone PO Not Given BID [facility] Sucralfate 1 gm 03/09/19 22:00 03/25/19 12:07 Carafate PO 1 gm ACHS KLEVER Administration Nutrition/Malnutrition Assess - Dietary Evaluation Nutrition/Malnutrition Findings: Nutrition Notes Start: 03/16/19 15:47 Freq: Status: Active Protocol: Document 03/16/19 15:47 RM (Rec: 03/16/19 15:48 RM [id number]) Nutrition Notes Need for Assessment generated from: LOS Initial or Follow up Brief Note Height 5 ft 4 in Weight 58.5 kg [place] Body Weight (kg) 54.54 BMI 22.1 Subjective/Other Information Screened for LOS. Recorded PO intake 75% X 3 meals. Nutrition Intervention Revisit per MD consult or patient Sign Off request:
[2019-03-25] MEDS: ALDACTONE PO SCH ×2 (17:49→21:22)
[2019-03-25] MEDS: LOPRESSOR PO SCH (17:53)
[2019-03-25] MEDS: PULMICORT IH SCH (19:08)
[2019-03-25] MEDS: BROVANA NEBU IH SCH (19:08)
[2019-03-25] MEDS: ELAVIL PO SCH (21:22)
[2019-03-25] MEDS: XANAX PO PRN (21:31)
[2019-03-26] MEDS: NORCO 10/325 PO PRN ×3 (04:00→19:06)
[2019-03-26] MEDS: SYNTHROID IV SCH (05:34)
[2019-03-26] MEDS: PULMICORT IH SCH ×3 (07:30→23:31)
[2019-03-26] MEDS: BROVANA NEBU IH SCH ×3 (07:31→23:30)
[2019-03-26 10:34] LABS: Hemoglobin 8.7 gm/dl (10.1-14.3); Mean Corpuscular HGB Conc 33 % (30-34); Mean Corpuscular Volume 93 fl (79-97); Platelet Count 293 K/mm3 (140-440); Red Cell Distribution Width 14.9 % (13.2-15.2)
[2019-03-26 10:50] LABS: Calcium 9.3 mg/dL (8.4-10.2)
[2019-03-26] MEDS: CYMBALTA PO SCH (10:52)
[2019-03-26] MEDS: THERAGRAN Tab PO SCH (10:53)
[2019-03-26] MEDS: NEURONTIN PO SCH ×3 (10:53→21:32)
[2019-03-26] MEDS: LOPRESSOR PO SCH (10:54)
[2019-03-26] MEDS: ALDACTONE PO SCH (10:54)
[2019-03-26] MEDS: CARAFATE PO SCH ×4 (10:54→21:39)
[2019-03-26] MEDS: PROTONIX PO SCH (10:55)
[2019-03-26] MEDS: ELIQUIS PO SCH ×2 (10:55→21:32)
[2019-03-26] MEDS: CORDARONE PO SCH (10:59)
[2019-03-26] MEDS: CARDIZEM PO SCH ×3 (11:00→21:33)
--- NOTE | 2019-03-26 18:06 | Progress Note ---
Assessment and Plan Assessment and plan: s/p Right BKA Continue PT/OT Hyperkalemia Now resolved after kayexalate, Insulin Repeat every few days Hypertension Monitor BP BP stable Hyponatremia. Recheck BMP in am Hypothyroidism Cont Levothyroxine Full code status. History Interval history: No new issues overnight. Hospitalist Physical - Constitutional Vitals: Temp Pulse Resp BP Pulse Ox 97.5 F L 54 L 16 106/39 94 03/26/19 09:05 03/26/19 09:05 03/26/19 09:05 03/26/19 09:05 03/26/19 09:05 General appearance: Present: no acute distress - EENT Eyes: Present: PERRL, EOM intact ENT: hearing intact, clear oral mucosa, dentition normal - Neck Neck: Present: supple, normal ROM - Respiratory Respiratory effort: normal Respiratory: bilateral: CTA - Cardiovascular Rhythm: regular Heart Sounds: Present: S1 & S2. Absent: gallop, rub - Extremities Extremities: no ischemia, No edema, Full ROM - Abdominal General gastrointestinal: soft, non-tender, non-distended, normal bowel sounds - Integumentary Integumentary: Present: clear, warm, dry - Neurologic Neurologic: CNII-XII intact, moves all extremities Results - Labs CBC & Chem 7: 03/26/19 10:09 03/26/19 10:09 Labs: Laboratory Last Values WBC 7.0 K/mm3 (4.5-11.0) 03/26/19 10:09 RBC 2.80 M/mm3 (3.65-5.03) L 03/26/19 10:09 Hgb 8.7 gm/dl (10.1-14.3) L 03/26/19 10:09 Hct 26.0 % (30.3-42.9) L 03/26/19 10:09 MCV 93 fl (79-97) 03/26/19 10:09 MCH 31 pg (28-32) 03/26/19 10:09 MCHC 33 % (30-34) 03/26/19 10:09 RDW 14.9 % (13.2-15.2) 03/26/19 10:09 Plt Count 293 K/mm3 (140-440) 03/26/19 10:09 Lymph % (Auto) 30.5 % (13.4-35.0) 03/14/19 14:36 [place] % (Auto) 11.5 % (0.0-7.3) H 03/14/19 14:36 Eos % (Auto) 1.7 % (0.0-4.3) 03/14/19 14:36 Baso % (Auto) 0.4 % (0.0-1.8) 03/14/19 14:36 Lymph # 2.5 K/mm3 (1.2-5.4) 03/14/19 14:36 [place] # 0.9 K/mm3 (0.0-0.8) H 03/14/19 14:36 Eos # 0.1 K/mm3 (0.0-0.4) 03/14/19 14:36 Baso # 0.0 K/mm3 (0.0-0.1) 03/14/19 14:36 Seg Neutrophils % 55.9 % (40.0-70.0) 03/14/19 14:36 Seg Neutrophils # 4.6 K/mm3 (1.8-7.7) 03/14/19 14:36 Sodium 136 mmol/L (137-145) L 03/26/19 10:09 Potassium 4.2 mmol/L (3.6-5.0) 03/26/19 10:09 Chloride 103.1 mmol/L (98-107) 03/26/19 10:09 Carbon Dioxide 22 mmol/L (22-30) 03/26/19 10:09 15 mmol/L 03/26/19 10:09 BUN 29 mg/dL (7-17) H 03/26/19 10:09 1.1 mg/dL (0.7-1.2) 03/26/19 10:09 Estimated GFR 48 ml/min 03/26/19 10:09 26 % 03/26/19 10:09 Glucose 108 mg/dL (65-100) H 03/26/19 10:09 Calcium 9.3 mg/dL (8.4-10.2) 03/26/19 10:09 0.40 mg/dL (0.1-1.2) 03/10/19 04:48 AST 21 units/L (5-40) 03/10/19 04:48 ALT 10 units/L (7-56) 03/10/19 04:48 76 units/L (35-129) 03/10/19 04:48 6.7 g/dL (6.3-8.2) 03/10/19 04:48 3.5 g/dL (3.9-5) L 03/10/19 04:48 1.1 % 03/10/19 04:48 TSH 8.500 mlU/mL (0.270-4.200) H 03/11/19 13:27 Free T4 1.21 ng/dL (0.76-1.46) 03/11/19 13:27 7.0 ug/dL (4.0-12.0) 03/11/19 13:27 Active Medications - Current Medications Current Medications: Generic Name Dose Route Start Last Admin Trade Name Freq PRN Reason Stop Dose Admin Acetaminophen 650 mg 03/09/19 15:37 Tylenol PO Q4H PRN Pain MILD(1-3)/Fever >100.5/GONZALES Acetaminophen/Hydrocodone Bitart 1 each 03/21/19 10:49 03/26/19 10:54 [place] 10/325 PO 1 each Q4H PRN Administration Pain, Moderate (4-6) Al Hydrox/Mg Hydrox/Simethicone 30 ml 03/09/19 15:37 Alum-Mag Hydrox-Simeth [id number]/5ml PO Q4H PRN Indigestion Albuterol 2.5 mg 03/09/19 15:49 Proventil IH Q4HRT PRN Shortness Of Breath Alprazolam 0.25 mg 03/09/19 15:49 03/25/19 21:31 Xanax PO 0.25 mg QPM PRN Administration Anxiety Amiodarone HCl 200 mg 03/10/19 10:00 03/26/19 10:59 Cordarone PO 200 mg DAILY KLEVER Administration Amitriptyline HCl 10 mg 03/09/19 21:00 03/25/19 21:22 Elavil PO 10 mg QHS KLEVER Administration Apixaban 5 mg 03/11/19 08:00 03/26/19 10:55 Eliquis PO 5 mg Q12HR KLEVER Administration Protocol Arformoterol Tartrate 15 mcg 03/09/19 20:00 03/26/19 07:31 Brovana Nebu IH 15 mcg Q12HRT KLEVER Administration Bisacodyl 10 mg 03/09/19 15:37 03/16/19 14:17 Dulcolax [place] 10 mg QDAY PRN Administration Constipation unrelieved by MOM Budesonide 0.5 mg 03/09/19 20:00 03/26/19 07:30 Pulmicort IH 0.5 mg Q12HRT KLEVER Administration Diltiazem HCl 60 mg 03/09/19 20:00 03/26/19 11:00 Cardizem PO Not Given TID KLEVER Duloxetine HCl 60 mg 03/10/19 08:00 03/26/19 10:52 Cymbalta PO 60 mg QDAY KLEVER Administration Gabapentin 600 mg 03/21/19 14:00 03/26/19 10:53 Neurontin PO 600 mg TID KLEVER Administration Levothyroxine Sodium 100 mcg 03/12/19 06:00 03/26/19 05:34 Synthroid IV 100 mcg DAILY@0600 KLEVER Administration Magnesium Hydroxide 30 ml 03/09/19 15:37 Milk Of Magnesia PO Q4H PRN Constipation Metoprolol Tartrate 25 mg 03/10/19 10:00 03/25/19 17:53 Lopressor PO 25 mg DAILY KLEVER Administration Multivitamins 1 each 03/10/19 08:00 03/26/19 10:53 Theragran Tab PO 1 each QDAY KLEVER Administration Ondansetron HCl 4 mg 03/09/19 15:49 Zofran IV Q8H PRN Nausea And Vomiting Pantoprazole Sodium 40 mg 03/10/19 08:00 03/26/19 10:55 Protonix PO 40 mg QDAY KLEVER Administration Spironolactone 25 mg 03/09/19 22:00 03/25/19 21:22 Aldactone PO 25 mg BID KLEVER Administration Sucralfate 1 gm 03/09/19 22:00 03/26/19 10:54 Carafate PO 1 gm ACHS KLEVER Administration Nutrition/Malnutrition Assess - Dietary Evaluation Nutrition/Malnutrition Findings: Nutrition Notes Start: 03/16/19 15:47 Freq: Status: Active Protocol: Document 03/16/19 15:47 RM (Rec: 03/16/19 15:48 RM [id number]) Nutrition Notes Need for Assessment generated from: LOS Initial or Follow up Brief Note Height 5 ft 4 in Weight 58.5 kg [place] Body Weight (kg) 54.54 BMI 22.1 Subjective/Other Information Screened for LOS. Recorded PO intake 75% X 3 meals. Nutrition Intervention Revisit per MD consult or patient Sign Off request:
[2019-03-26] MEDS: ELAVIL PO SCH (21:32)
[2019-03-27] MEDS: ALDACTONE PO SCH ×3 (01:34→21:42)
[2019-03-27] MEDS: NORCO 10/325 PO PRN ×5 (02:39→21:54)
[2019-03-27] MEDS: SYNTHROID IV SCH (06:45)
[2019-03-27] MEDS: BROVANA NEBU IH SCH (07:18)
[2019-03-27] MEDS: PULMICORT IH SCH (07:18)
[2019-03-27] MEDS: CYMBALTA PO SCH (08:30)
[2019-03-27] MEDS: ELIQUIS PO SCH ×3 (08:31→21:41)
[2019-03-27] MEDS: CARDIZEM PO SCH ×3 (08:31→21:43)
[2019-03-27] MEDS: CARAFATE PO SCH ×4 (08:31→21:41)
[2019-03-27] MEDS: THERAGRAN Tab PO SCH (08:31)
[2019-03-27] MEDS: LOPRESSOR PO SCH ×2 (08:31→10:11)
[2019-03-27] MEDS: NEURONTIN PO SCH ×3 (08:31→20:00)
[2019-03-27] MEDS: CORDARONE PO SCH ×2 (08:31→10:11)
[2019-03-27] MEDS: PROTONIX PO SCH (08:32)
[2019-03-27 09:07] LABS: Calcium 9.6 mg/dL (8.4-10.2)
[2019-03-27 09:28] LABS: Hematocrit 28.7 % (30.3-42.9); Hemoglobin 9.5 gm/dl (10.1-14.3); Mean Corpuscular HGB Conc 33 % (30-34); Mean Corpuscular Volume 92 fl (79-97); Platelet Count 311 K/mm3 (140-440); Red Blood Count 3.12 M/mm3 (3.65-5.03); Red Cell Distribution Width 14.8 % (13.2-15.2)
--- NOTE | 2019-03-27 12:58 | Progress Note ---
Subjective Date of service: 03/27/19 Principal diagnosis: R BKA Interval history: 78 yo female admitted with worsening RLE ischemia. Hx of PAD and multiple past interventions. Attempt made to salvage the limb but was unsuccessful. 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 Pain has been fairly controlled. She is experiencing some phantom sensation and phantom pain. She has AFib and is currently rate controlled but is off her OAC due to previous GIB. [employer] has seen her and she has a residual limb protector on. She states increased pain with dressing changes - which was done earlier today. I will view her wound on another day with her scheduled dressing change. Patient is participating in therapy and making reasonable progress. Taking rest breaks as needed. +BM. Denies palpitations, dyspnea, cough, N/V, weakness, or joint pain. Renal function improved after IVF. Cont to encourage PO intake. Neuropathic pain continues in RLE. Pain seems much improved from her initial presentation. Patient states she feels the gabapentin relieves the pain better, tolerating increased dose. She does still have some phantom sensation and occasional phantom pain. No signs of bleeding, H&H stable/improved, monitor. Limb protector in use now. Will call if there is any change in wound condition. All records, vitals, labs and medications were reviewed. No other issues per patient, nursing or therapy. Objective - Exam Narrative Exam: MUSCULOSKELETAL SPECIALTY EXAM CONSTITUTIONAL: Well developed, well nourished, appropriately groomed EENT: EOMI Hearing intact to soft voice RESPIRATORY: Clear to auscultation bilaterally, distant, no increased work of breathing CARDIOVASCULAR: Regular Rate/ Rhythm, no swelling, edema or tenderness in BUE or BLE. All extremities warm. GI: + bowel sounds, soft, NTTP, nondistended. INTEGUMENTARY: Normal, no lesion, rash, masses or bruising noted in extremities except for surgical wound on R BKA, healing well no signs of infection. MUSCULOSKELETAL: BUE and BLE normal without defect, crepitus, subluxation, effusion, arthritic changes or TTP except for R BKA which has small appropriate amount of tenderness to palpation BUE 4+/5, good ROM, with normal tone. BLE 4+/5 good ROM, with normal tone NEURO: CN 2-12 grossly intact. Sensation intact in all extremities. No tremor noted in 4 extremities. POSTURE and GAIT: Sitting posture good. Balance and Gait reasonable, RW and short hops. PSYCH: Alert, orientated x3, affect appears normal. Insight appears intact. - Constitutional Vitals: Vital Signs - 12hr 03/27/19 03/27/19 03/27/19 02:39 04:50 06:45 Temperature 36.2 C L Pulse Rate 83 Pulse Rate [ Bilateral Throughout] Respiratory 18 18 18 Rate Respiratory Rate [Bilateral Throughout] Blood Pressure 129/66 O2 Sat by Pulse 96 Oximetry 03/27/19 03/27/19 03/27/19 07:17 07:18 07:28 Temperature Pulse Rate Pulse Rate [ 90 77 Bilateral Throughout] Respiratory Rate Respiratory 16 16 Rate [Bilateral Throughout] Blood Pressure O2 Sat by Pulse 95 Oximetry 03/27/19 03/27/19 07:45 12:31 Temperature 36.8 C 37.1 C Pulse Rate 94 H 56 L Pulse Rate [ Bilateral Throughout] Respiratory 18 18 Rate Respiratory Rate [Bilateral Throughout] Blood Pressure 142/74 107/36 O2 Sat by Pulse 98 98 Oximetry - Allied health notes Allied health notes reviewed: PT, OT FIMS assessment as documented by PT/OT/ST: Grooming Patient cleans teeth/dentures: Yes Patient ahmadi/brushes hair: Yes Patient washes, rinses and Yes dries face: Patient washes, rinses and Yes dries hands: Patient shaves: No Patient applies make-up: Yes Patient performs (no make-up/ 4/4 (100%) shaving): Patient performs (w/ make-up/ 5/5 (100%) shaving): Grooming FIM Score 5. Supervision ([place] applies toothpaste or opens containers.) Toileting Toileting Device Commode over Toilet Patient able to: Adjust clothes before,Clean self,Adjust clothes after Patient able to perform: 3/3 (100%) Toileting FIM Score 5. Supv./Set-Up (Needs stand-by, set-up, applying prosth/orth.) Social interaction/Memory/Problem solving Social Interaction FIM Score 5. Supervision (Needs supv. <10%. Needs encouragement to participate.) Memory FIM Score 4. Minimal Assistance (Recognizes and remembers 75-90%.) Problem Solving FIM Score 5. Supervision (Needs cueing <10% to solve routine problems.) Transfers Mode of Locomotion: Wheelchair Bed/Chair/Wheelchair Transfers 5. Supervision (Needs supv. or set-up for FIM Score sliding board, foot rests.) Toilet Transfers FIM Score 5. Supervision (Needs supervision or cueing.) Patient transferred to: Shower Shower Transfers FIM Score 3. Moderate Assistance (Patient = 50% or more. Some lifting.) Locomotion- Stairs Device used on Stairs Handrail/s Number of Stairs Ascended/ 12 Descended Patient used handrail/support: Yes Stairs FIM Score 4. Minimal Assistance (Patient = 75% or more, touching. 12-14 stairs.) Locomotion- walk/wheelchair Most Frequent Mode of Wheelchair Locomotion: Ambulation Distance 55 Walking FIM Score 2. Maximal Assistance (Patient = 25% or more. Minimum of 50 ft.) Wheelchair Propulsion Distance 350 Wheelchair FIM Score 6. Modified [place] (Wheels a minimum of 150 ft.) Eating Eating FIM Score 6. Modified [place] (Special consistency or uses device.) Dressing-Upper body Upper Body Dressing Device Button Hook Patient retrieves clothing Yes items: Patient applies/removes UE n/a prosthesis or orthosis: Upper Body Dressing FIM Score 5. Supv./Set-Up ([place] sets out clothes or applies pros./orth.) Dressing-lower body Patient retrieves clothing Yes items: Patient applies/removes LE No prosthesis or orthosis: Lower Body Dressing FIM Score 5. Supv./Set-Up ([place] sets out clothes or applies pros./orth.) - Labs CBC & Chem 7: 03/27/19 07:46 03/27/19 07:46 Labs: Laboratory Results - last 72 hr 03/25/19 03/25/19 03/26/19 07:11 07:11 10:09 WBC 7.6 7.0 RBC 2.84 L 2.80 L Hgb 8.8 L 8.7 L Hct 26.3 L 26.0 L MCV 93 93 MCH 31 31 MCHC 34 33 RDW 15.3 H 14.9 Plt Count 316 293 Sodium 136 L Potassium 4.8 Chloride 100.4 Carbon Dioxide 24 Anion Gap 16 BUN 35 H Creatinine 1.3 H Estimated GFR 40 BUN/Creatinine Ratio 27 Glucose 96 Calcium 9.5 03/26/19 03/27/19 03/27/19 10:09 07:46 07:46 WBC 6.6 RBC 3.12 L Hgb 9.5 L Hct 28.7 L MCV 92 MCH 30 MCHC 33 RDW 14.8 Plt Count 311 Sodium 136 L 139 Potassium 4.2 4.8 Chloride 103.1 104.9 Carbon Dioxide 22 22 Anion Gap 15 17 BUN 29 H 23 H Creatinine 1.1 1.0 Estimated GFR 48 54 BUN/Creatinine Ratio 26 23 Glucose 108 H 91 Calcium 9.3 9.6 Assessment and Plan Right BKA: Monitor the wound closely for any signs of infection. We'll maintain stump protector and wrapping in order shape residual limb for proper prosthesis fit. [facility] prosthetics have visited the patient given her information on prosthesis. Discussed with the patient to not to get up out of bed in the middle the night due to concerns for fall. Will address fall recovery prior to discharge. Continue to work on balance and mobility skills with walker. Work on independence of care for right BKA. Discussed with patient need for maintaining her cardiovascular conditioning due to increased demand of energy with BKA. Discussed range of motion maintenance. Will moved to independence with all maintenance and therapeutic interventions prior to discharge. She will need follow-up with therapy after being fitted with prosthesis. Surgeon wants follow up 6-8 weeks after surgery for staple removal. Phantom sensation and phantom pain: Continue neuropathic pain control, residual limb to remain in stump protector, cont desensitization. Cont gabapentin at increased dose, monitor. Atrial fibrillation: Continue regular control monitor for any symptoms. Restart Eliquis per cardiology rec. Discussed with surgeon and GI. Hypothyroidism: Continue medication Hypertension: Continue medications and adjust for normotension GI bleed with peptic ulcer: Continue Protonix and Carafate. No signs of drop in hemoglobin so far. Values have been within a range between 8 and 10 this admission but seem to have stabilized. COPD: Continue nebulizers, supplemental O2 [place] - resolved, monitor. Encouraged PO intake Z73.6 ADL dysfunction: OT will work on improving ability to perform ADLs (including assistive devices) to increase independence and decrease caregiver burden and improve functional transfers and mobility training. R26.2 Difficulty walking: PT will work on gait training and proper use of assistive devices and advance as appropriate to use of stairs and outside ambulation on uneven surfaces. R26.81 Unsteadiness on feet: PT will work on improving static and dynamic sitting and standing balance as well as proper use of assistive devices to decrease risk of falls. R26.89 Abnormality of gait: PT will work to improve safety and efficiency of gait through neuromotor training and gait training along with instruction on proper use of assistive devices. M62.81 Muscle weakness: PT & OT will work on strengthening exercises to improve functional strength including mixture of closed and open kinetic chain exercises. R53.81 Debility: PT & OT will work on improving overall functional status to improve participation with ADLs, mobility and social involvement. R53.83 Fatigue: PT & OT will work on improving endurance through aerobic exercis es and therapeutic activity while monitoring patients tolerance for activity and vital signs as needed. Passed prolonged TE[employer] BLENDER cognition and memory testing. Likely medication related and/or personality. DVT ppx: Eliquis Pain: Continue physical modalities in therapy and pain medications as needed to achieve functional pain control. Sleep: Monitor and address as needed. Bowel: Monitor and address as needed. Appetite: Monitor and address as needed. Discharge planning: Tentative discharge plan for the first part of the week of March 30. Will continue discussion with therapy team, SW, patient and family. Restrictions/ Precautions: Falls WB status: NWB on RLE Functional Hx: ADLs: Independent Cognition: Independent Mobility: No AD Barriers to Discharge: Decreased mobility and ability to perform self care, balance deficits, weakness Estimated Length of Stay: 14-18 days Discharge Destination: Home with family
[2019-03-27] MEDS ORDERED: PROVENTIL IH PRN (14:49)
--- NOTE | 2019-03-27 15:16 | Progress Note ---
Assessment and Plan Assessment and plan: s/p Right BKA Continue PT/OT Hyperkalemia Now resolved after kayexalate, Insulin Repeat every few days Hypertension Monitor BP BP stable Hyponatremia. Recheck BMP in am Hypothyroidism Cont Levothyroxine Full code status. History Interval history: Patient was seen and evaluated this morning, patient complaining pain in her right leg. She has some phantom limb sensation. Hospitalist Physical - Physical exam Narrative exam: Not in cardiopulmonary distress. The patient appeared well nourished and normally developed. Vital signs as documented. Head exam is unremarkable. No scleral icterus . Neck is without jugular venous distension, thyromegaly, or carotid bruits. Lungs are clear to auscultation. Cardiac exam reveals regular rate and Rhythm. First and second heart sounds normal. No murmurs, rubs or gallops. Abdominal exam reveals normal bowel sounds, no masses, no organomegaly and no aortic enlargement. Extremities right leg BKA. 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 - Constitutional Vitals: Temp Pulse Resp BP Pulse Ox 98.7 F 56 L 18 107/36 98 03/27/19 12:31 03/27/19 13:00 03/27/19 12:58 03/27/19 13:00 03/27/19 14:47 General appearance: Present: no acute distress Results - Labs CBC & Chem 7: 03/27/19 07:46 03/27/19 07:46 Labs: Laboratory Last Values WBC 6.6 K/mm3 (4.5-11.0) 03/27/19 07:46 RBC 3.12 M/mm3 (3.65-5.03) L 03/27/19 07:46 Hgb 9.5 gm/dl (10.1-14.3) L 03/27/19 07:46 Hct 28.7 % (30.3-42.9) L 03/27/19 07:46 MCV 92 fl (79-97) 03/27/19 07:46 MCH 30 pg (28-32) 03/27/19 07:46 MCHC 33 % (30-34) 03/27/19 07:46 RDW 14.8 % (13.2-15.2) 03/27/19 07:46 Plt Count 311 K/mm3 (140-440) 03/27/19 07:46 Lymph % (Auto) 30.5 % (13.4-35.0) 03/14/19 14:36 [place] % (Auto) 11.5 % (0.0-7.3) H 03/14/19 14:36 Eos % (Auto) 1.7 % (0.0-4.3) 03/14/19 14:36 Baso % (Auto) 0.4 % (0.0-1.8) 03/14/19 14:36 Lymph # 2.5 K/mm3 (1.2-5.4) 03/14/19 14:36 [place] # 0.9 K/mm3 (0.0-0.8) H 03/14/19 14:36 Eos # 0.1 K/mm3 (0.0-0.4) 03/14/19 14:36 Baso # 0.0 K/mm3 (0.0-0.1) 03/14/19 14:36 Seg Neutrophils % 55.9 % (40.0-70.0) 03/14/19 14:36 Seg Neutrophils # 4.6 K/mm3 (1.8-7.7) 03/14/19 14:36 Sodium 139 mmol/L (137-145) 03/27/19 07:46 Potassium 4.8 mmol/L (3.6-5.0) 03/27/19 07:46 Chloride 104.9 mmol/L (98-107) 03/27/19 07:46 Carbon Dioxide 22 mmol/L (22-30) 03/27/19 07:46 17 mmol/L 03/27/19 07:46 BUN 23 mg/dL (7-17) H 03/27/19 07:46 1.0 mg/dL (0.7-1.2) 03/27/19 07:46 Estimated GFR 54 ml/min 03/27/19 07:46 23 % 03/27/19 07:46 Glucose 91 mg/dL (65-100) 03/27/19 07:46 Calcium 9.6 mg/dL (8.4-10.2) 03/27/19 07:46 0.40 mg/dL (0.1-1.2) 03/10/19 04:48 AST 21 units/L (5-40) 03/10/19 04:48 ALT 10 units/L (7-56) 03/10/19 04:48 76 units/L (35-129) 03/10/19 04:48 6.7 g/dL (6.3-8.2) 03/10/19 04:48 3.5 g/dL (3.9-5) L 03/10/19 04:48 1.1 % 03/10/19 04:48 TSH 8.500 mlU/mL (0.270-4.200) H 03/11/19 13:27 Free T4 1.21 ng/dL (0.76-1.46) 03/11/19 13:27 7.0 ug/dL (4.0-12.0) 03/11/19 13:27 Active Medications - Current Medications Current Medications: Generic Name Dose Route Start Last Admin Trade Name Freq PRN Reason Stop Dose Admin Acetaminophen 650 mg 03/09/19 15:37 Tylenol PO Q4H PRN Pain MILD(1-3)/Fever >100.5/GONZALES Acetaminophen/Hydrocodone Bitart 1 each 03/21/19 10:49 03/27/19 12:58 [place] 10/325 PO 1 each Q4H PRN Administration Pain, Moderate (4-6) Al Hydrox/Mg Hydrox/Simethicone 30 ml 03/09/19 15:37 Alum-Mag Hydrox-Simeth [phone]/5ml PO Q4H PRN Indigestion Albuterol 2.5 mg 03/27/19 14:49 Proventil IH Q4HRT PRN Shortness Of Breath Alprazolam 0.25 mg 03/09/19 15:49 03/25/19 21:31 Xanax PO 0.25 mg QPM PRN Administration Anxiety Amiodarone HCl 200 mg 03/10/19 10:00 03/27/19 10:11 Cordarone PO Not Given DAILY [facility] Amitriptyline HCl 10 mg 03/09/19 21:00 03/26/19 21:32 Elavil PO 10 mg QHS [facility] Administration Apixaban 5 mg 03/11/19 08:00 03/27/19 10:11 Eliquis PO Not Given Q12HR [facility] Protocol Bisacodyl 10 mg 03/09/19 15:37 03/16/19 14:17 Dulcolax IN 10 mg QDAY PRN Administration Constipation unrelieved by MOM Diltiazem HCl 60 mg 03/09/19 20:00 03/27/19 13:00 Cardizem PO Not Given TID [facility] Duloxetine HCl 60 mg 03/10/19 08:00 03/27/19 08:30 Cymbalta PO 60 mg QDAY [facility] Administration Gabapentin 600 mg 03/21/19 14:00 03/27/19 13:00 Neurontin PO 600 mg TID [facility] Administration Levothyroxine Sodium 100 mcg 03/12/19 06:00 03/27/19 06:45 Synthroid IV 100 mcg DAILY@0600 [facility] Administration Magnesium Hydroxide 30 ml 03/09/19 15:37 Milk Of Magnesia PO Q4H PRN Constipation Metoprolol Tartrate 25 mg 03/10/19 10:00 03/27/19 10:11 Lopressor PO Not Given DAILY [facility] Multivitamins 1 each 03/10/19 08:00 03/27/19 08:31 Theragran Tab PO 1 each QDAY [facility] Administration Ondansetron HCl 4 mg 03/09/19 15:49 Zofran IV Q8H PRN Nausea And Vomiting Pantoprazole Sodium 40 mg 03/10/19 08:00 03/27/19 08:32 Protonix PO 40 mg QDAY [facility] Administration Spironolactone 25 mg 03/09/19 22:00 03/27/19 08:31 Aldactone PO 25 mg BID [facility] Administration Sucralfate 1 gm 03/09/19 22:00 03/27/19 12:58 Carafate PO 1 gm ACHS [facility] Administration Nutrition/Malnutrition Assess - Dietary Evaluation Nutrition/Malnutrition Findings: Nutrition Notes Start: 03/16/19 15:47 Freq: Status: Active Protocol: Document 03/16/19 15:47 RM (Rec: 03/16/19 15:48 RM [email or web address]) Nutrition Notes Need for Assessment generated from: LOS Initial or Follow up Brief Note Height 5 ft 4 in Weight 58.5 kg [place] Body Weight (kg) 54.54 BMI 22.1 Subjective/Other Information Screened for LOS. Recorded PO intake 75% X 3 meals. Nutrition Intervention Revisit per MD consult or patient Sign Off request:
[2019-03-27] MEDS: ELAVIL PO SCH (21:43)
[2019-03-28] MEDS: NORCO 10/325 PO PRN ×2 (03:30→08:02)
[2019-03-28] MEDS: SYNTHROID IV SCH (06:30)
[2019-03-28 07:10] LABS: Hematocrit 25.1 % (30.3-42.9); Hemoglobin 8.5 gm/dl (10.1-14.3); Mean Corpuscular HGB Conc 34 % (30-34); Mean Corpuscular Volume 91 fl (79-97); Platelet Count 301 K/mm3 (140-440); Red Blood Count 2.75 M/mm3 (3.65-5.03); Red Cell Distribution Width 14.8 % (13.2-15.2)
[2019-03-28 07:33] LABS: Calcium 9.2 mg/dL (8.4-10.2)
[2019-03-28] MEDS: CARAFATE PO SCH ×4 (07:50→21:46)
[2019-03-28] MEDS: ELIQUIS PO SCH ×3 (07:50→21:46)
[2019-03-28] MEDS: CYMBALTA PO SCH (07:51)
[2019-03-28] MEDS: NEURONTIN PO SCH ×3 (07:51→20:06)
[2019-03-28] MEDS: THERAGRAN Tab PO SCH (07:52)
[2019-03-28] MEDS: PROTONIX PO SCH (07:52)
[2019-03-28] MEDS: CARDIZEM PO SCH ×3 (07:55→21:47)
[2019-03-28] MEDS: CORDARONE PO SCH ×2 (07:55→10:32)
[2019-03-28] MEDS: ALDACTONE PO SCH (07:56)
[2019-03-28] MEDS: LOPRESSOR PO SCH ×2 (07:56→10:33)
--- NOTE | 2019-03-28 10:26 | Progress Note ---
Subjective Date of service: 03/28/19 Principal diagnosis: R BKA Interval history: 78 yo female admitted with worsening RLE ischemia. Hx of PAD and multiple past interventions. Attempt made to salvage the limb but was unsuccessful. 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 Pain has been fairly controlled. She is experiencing some phantom sensation and phantom pain. She has AFib and is currently rate controlled but is off her OAC due to previous GIB. Sales Department Supervisor prosthetics has seen her and she has a residual limb protector on. She states increased pain with dressing changes - which was done earlier today. I will view her wound on another day with her scheduled dressing change. Patient is participating in therapy and making reasonable progress. She had a bad day today with increased pain, may or may not be some degree of self- limiting behavior as well. This reduced her participation today with therapy and her transfers and ambulation were also worse today than previous. Still describes the pain as primarily neuropathic and states gabapentin helps. Have increased gabapentin and decreased [place]. Patient does seem to be confused at times, again uncertain if this is her normal state or if this is somewhat induced by medications hence the reduction in [place]. Taking rest breaks as needed. +BM. Denies palpitations, dyspnea, cough, N/V, weakness, or joint pain. Cont to encourage PO intake. She does still have some phantom sensation and occasional phantom pain. No signs of bleeding, H&H stable/improved, monitor. Limb protector in use, wound looks good. Will call if there is any change in wound condition. Discussed in team conference. Patient does not have any assistance or transportation home until Wednesday. With the adjustment of her medications will need to monitor to make sure that she is improving both pain control and in her ability for mentation. I will need to call and get a scheduled follow-up for her with her surgeon. She is able to utilize steps and is doing fairly well overall. All records, vitals, labs and medications were reviewed. No other issues per patient, nursing or therapy. Objective - Exam Narrative Exam: MUSCULOSKELETAL SPECIALTY EXAM CONSTITUTIONAL: Well developed, well nourished, appropriately groomed EENT: EOMI Hearing intact to soft voice RESPIRATORY: Clear to auscultation bilaterally, distant, no increased work of breathing CARDIOVASCULAR: Regular Rate/ Rhythm, no swelling, edema or tenderness in BUE or BLE. All extremities warm. GI: + bowel sounds, soft, NTTP, nondistended. INTEGUMENTARY: Normal, no lesion, rash, masses or bruising noted in extremities except for surgical wound on R BKA, healing well no signs of infection. MUSCULOSKELETAL: BUE and BLE normal without defect, crepitus, subluxation, effusion, arthritic changes or TTP except for R BKA which has small appropriate amount of tenderness to palpation BUE 4+/5, good ROM, with normal tone. BLE 4+/5 good ROM, with normal tone NEURO: CN 2-12 grossly intact. Sensation intact in all extremities. No tremor noted in 4 extremities. POSTURE and GAIT: Sitting posture good. Balance and Gait reasonable, RW and short hops. PSYCH: Alert, orientated x3, affect appears normal. Insight appears intact. Confusion at times, really intermittent. - Constitutional Vitals: Vital Signs - 12hr 03/28/19 03/28/19 03/28/19 03:30 04:30 07:36 Temperature 36.8 C Pulse Rate 78 Respiratory 16 18 18 Rate Blood Pressure 118/49 O2 Sat by Pulse 99 Oximetry 03/28/19 03/28/19 07:55 07:56 Temperature Pulse Rate 78 78 Respiratory Rate Blood Pressure 118/49 118/49 O2 Sat by Pulse Oximetry - Allied health notes Allied health notes reviewed: nursing, PT, OT FIMS assessment as documented by PT/OT/ST: Grooming Patient cleans teeth/dentures: Yes Patient ahmadi/brushes hair: Yes Patient washes, rinses and Yes dries face: Patient washes, rinses and Yes dries hands: Patient shaves: No Patient applies make-up: Yes Patient performs (no make-up/ / (100%) shaving): Patient performs (w/ make-up/ 5/5 (100%) shaving): Grooming FIM Score 6. Modified [place] (Needs equipment/device . Extra time.) Toileting Toileting Device Commode over Toilet Patient able to: Adjust clothes before,Clean self,Adjust clothes after Patient able to perform: 3/3 (100%) Toileting FIM Score 5. Supv./Set-Up (Needs stand-by, set-up, applying prosth/orth.) Social interaction/Memory/Problem solving Social Interaction FIM Score 6. Mod. [place] (Mostly appropriate. May need meds. No supv.) Memory FIM Score 5. Supervision (Needs cueing <10%, stressful/ unfamiliar situations.) Problem Solving FIM Score 5. Supervision (Needs cueing <10% to solve routine problems.) Transfers Mode of Locomotion: Wheelchair Bed/Chair/Wheelchair Transfers 6. Modified [place] (Uses device, sliding FIM Score board, prosth./orth.) Toilet Transfers FIM Score 5. Supervision (Needs supervision or cueing.) Patient transferred to: Shower Shower Transfers FIM Score 3. Moderate Assistance (Patient = 50% or more. Some lifting.) Locomotion- Stairs Device used on Stairs Handrail/s Number of Stairs Ascended/ 12 Descended Patient used handrail/support: Yes Stairs FIM Score 4. Minimal Assistance (Patient = 75% or more, touching. 12-14 stairs.) Locomotion- walk/wheelchair Most Frequent Mode of Wheelchair Locomotion: Ambulation Distance 25 Walking FIM Score 2. Maximal Assistance (Patient = 25% or more. Minimum of 50 ft.) Wheelchair Propulsion Distance 350 Wheelchair FIM Score 6. Modified [place] (Wheels a minimum of 150 ft.) Eating Eating FIM Score 6. Modified [place] (Special consistency or uses device.) Dressing-Upper body Upper Body Dressing Device Button Hook Patient retrieves clothing Yes items: Patient applies/removes UE n/a prosthesis or orthosis: Upper Body Dressing FIM Score 5. Supv./Set-Up (Sanders sets out clothes or applies pros./orth.) Dressing-lower body Patient retrieves clothing Yes items: Patient applies/removes LE No prosthesis or orthosis: Lower Body Dressing FIM Score 5. Supv./Set-Up (Sanders sets out clothes or applies pros./orth.) - Labs CBC & Chem 7: 03/28/19 06:38 03/28/19 06:38 Labs: Laboratory Results - last 72 hr 03/26/19 03/26/19 03/27/19 10:09 10:09 07:46 WBC 7.0 6.6 RBC 2.80 L 3.12 L Hgb 8.7 L 9.5 L Hct 26.0 L 28.7 L MCV 93 92 MCH 31 30 MCHC 33 33 RDW 14.9 14.8 Plt Count 293 311 Sodium 136 L Potassium 4.2 Chloride 103.1 Carbon Dioxide 22 Anion Gap 15 BUN 29 H Creatinine 1.1 Estimated GFR 48 BUN/Creatinine Ratio 26 Glucose 108 H Calcium 9.3 03/27/19 03/28/19 03/28/19 07:46 06:38 06:38 WBC 5.6 RBC 2.75 L Hgb 8.5 L Hct 25.1 L MCV 91 MCH 31 MCHC 34 RDW 14.8 Plt Count 301 Sodium 139 138 Potassium 4.8 4.3 Chloride 104.9 102.8 Carbon Dioxide 22 23 Anion Gap 17 17 BUN 23 H 27 H Creatinine 1.0 1.0 Estimated GFR 54 54 BUN/Creatinine Ratio 23 27 Glucose 91 95 Calcium 9.6 9.2 Assessment and Plan Right BKA: Monitor the wound closely for any signs of infection. We'll maintain stump protector and wrapping in order shape residual limb for proper prosthesis fit. Sales Department Supervisor prosthetics have visited the patient given her information on prosthesis. Discussed with the patient to not to get up out of bed in the middle the night due to concerns for fall. Will address fall recovery prior to discharge. Continue to work on balance and mobility skills with walker. Work on independence of care for right BKA. Discussed with patient need for maintaining her cardiovascular conditioning due to increased demand of energy with BKA. Discussed range of motion maintenance. Will moved to independence with all maintenance and therapeutic interventions prior to discharge. She will need follow-up with therapy after being fitted with prosthesis. Surgeon wants follow up 6-8 weeks after surgery for staple removal. Phantom sensation and phantom pain: Continue neuropathic pain control, residual limb to remain in stump protector, cont desensitization. Increase gabapentin, decreased [place] and monitor. Atrial fibrillation: Continue regular control monitor for any symptoms. Restart Eliquis per cardiology rec. Discussed with surgeon and GI. Hypothyroidism: Continue medication Hypertension: Continue medications and adjust for normotension GI bleed with peptic ulcer: Continue Protonix and Carafate. No signs of drop in hemoglobin so far. Values have been within a range between 8 and 10 this admission but seem to have stabilized. COPD: Continue nebulizers, supplemental O2 [place] - resolved, monitor. Encouraged PO intake Z73.6 ADL dysfunction: OT will work on improving ability to perform ADLs (including assistive devices) to increase independence and decrease caregiver burden and improve functional transfers and mobility training. R26.2 Difficulty walking: PT will work on gait training and proper use of assistive devices and advance as appropriate to use of stairs and outside ambulation on uneven surfaces. R26.81 Unsteadiness on feet: PT will work on improving static and dynamic sitting and standing balance as well as proper use of assistive devices to decrease risk of falls. R26.89 Abnormality of gait: PT will work to improve safety and efficiency of gait through neuromotor training and gait training along with instruction on proper use of assistive devices. M62.81 Muscle weakness: PT & OT will work on strengthening exercises to improve functional strength including mixture of closed and open kinetic chain exercises. R53.81 Debility: PT & OT will work on improving overall functional status to improve participation with ADLs, mobility and social involvement. R53.83 Fatigue: PT & OT will work on improving endurance through aerobic exercises and therapeutic activity while monitoring patients tolerance for activity and vital signs as needed. Passed prolonged EDUCATIONAL INTERPRETER cognition and memory testing. Likely medication related and/or personality. DVT ppx: Eliquis Pain: Continue physical modalities in therapy and pain medications as needed to achieve functional pain control. Sleep: Monitor and address as needed. Bowel: Monitor and address as needed. Appetite: Monitor and address as needed. Discharge planning: Discharge plan for April 01. Will continue discussion with therapy team, SW, patient and family. Wheelchair, 3 in 1. Rolling walker and tub transfer bench recommended but will not be covered by insurance. Restrictions/ Precautions: Falls WB status: NWB on RLE Functional Hx: ADLs: Independent Cognition: Independent Mobility: No AD Barriers to Discharge: Decreased mobility and ability to perform self care, balance deficits, weakness, pain control Estimated Length of Stay: 14-18 days Discharge Destination: Home with family
--- NOTE | 2019-03-28 15:31 | Progress Note ---
Assessment and Plan Assessment and plan: s/p Right BKA Continue PT/OT Hyperkalemia Now resolved after kayexalate, Insulin Repeat every few days Hypertension Monitor BP BP stable Hyponatremia. Recheck BMP in am Hypothyroidism Cont Levothyroxine Full code status. History Interval history: Patient was seen and evaluated this morning, patient complaining pain in her right leg. She has some phantom limb sensation. Hospitalist Physical - Physical exam Narrative exam: Not in cardiopulmonary distress. The patient appeared well nourished and normally developed. Vital signs as documented. Head exam is unremarkable. No scleral icterus . Neck is without jugular venous distension, thyromegaly, or carotid bruits. Lungs are clear to auscultation. Cardiac exam reveals regular rate and Rhythm. First and second heart sounds normal. No murmurs, rubs or gallops. Abdominal exam reveals normal bowel sounds, no masses, no organomegaly and no aortic enlargement. Extremities right leg BKA. TIME MOTION ANALYST: Alert and oriented 3. - Constitutional Vitals: Temp Pulse Resp BP Pulse Ox 98.3 F 63 18 125/43 96 03/28/19 11:08 03/28/19 11:08 03/28/19 11:08 03/28/19 15:29 03/28/19 11:08 General appearance: Present: no acute distress Results - Labs CBC & Chem 7: 03/28/19 06:38 03/28/19 06:38 Labs: Laboratory Last Values WBC 5.6 K/mm3 (4.5-11.0) 03/28/19 06:38 RBC 2.75 M/mm3 (3.65-5.03) L 03/28/19 06:38 Hgb 8.5 gm/dl (10.1-14.3) L 03/28/19 06:38 Hct 25.1 % (30.3-42.9) L 03/28/19 06:38 MCV 91 fl (79-97) 03/28/19 06:38 MCH 31 pg (28-32) 03/28/19 06:38 MCHC 34 % (30-34) 03/28/19 06:38 RDW 14.8 % (13.2-15.2) 03/28/19 06:38 Plt Count 301 K/mm3 (140-440) 03/28/19 06:38 Lymph % (Auto) 30.5 % (13.4-35.0) 03/14/19 14:36 [place] % (Auto) 11.5 % (0.0-7.3) H 03/14/19 14:36 Eos % (Auto) 1.7 % (0.0-4.3) 03/14/19 14:36 Baso % (Auto) 0.4 % (0.0-1.8) 03/14/19 14:36 Lymph # 2.5 K/mm3 (1.2-5.4) 03/14/19 14:36 [place] # 0.9 K/mm3 (0.0-0.8) H 03/14/19 14:36 Eos # 0.1 K/mm3 (0.0-0.4) 03/14/19 14:36 Baso # 0.0 K/mm3 (0.0-0.1) 03/14/19 14:36 Seg Neutrophils % 55.9 % (40.0-70.0) 03/14/19 14:36 Seg Neutrophils # 4.6 K/mm3 (1.8-7.7) 03/14/19 14:36 Sodium 138 mmol/L (137-145) 03/28/19 06:38 Potassium 4.3 mmol/L (3.6-5.0) 03/28/19 06:38 Chloride 102.8 mmol/L (98-107) 03/28/19 06:38 Carbon Dioxide 23 mmol/L (22-30) 03/28/19 06:38 17 mmol/L 03/28/19 06:38 BUN 27 mg/dL (7-17) H 03/28/19 06:38 1.0 mg/dL (0.7-1.2) 03/28/19 06:38 Estimated GFR 54 ml/min 03/28/19 06:38 27 % 03/28/19 06:38 Glucose 95 mg/dL (65-100) 03/28/19 06:38 Calcium 9.2 mg/dL (8.4-10.2) 03/28/19 06:38 0.40 mg/dL (0.1-1.2) 03/10/19 04:48 AST 21 units/L (5-40) 03/10/19 04:48 ALT 10 units/L (7-56) 03/10/19 04:48 76 units/L (35-129) 03/10/19 04:48 6.7 g/dL (6.3-8.2) 03/10/19 04:48 3.5 g/dL (3.9-5) L 03/10/19 04:48 1.1 % 03/10/19 04:48 TSH 8.500 mlU/mL (0.270-4.200) H 03/11/19 13:27 Free T4 1.21 ng/dL (0.76-1.46) 03/11/19 13:27 7.0 ug/dL (4.0-12.0) 03/11/19 13:27 Active Medications - Current Medications Current Medications: Generic Name Dose Route Start Last Admin Trade Name Freq PRN Reason Stop Dose Admin Acetaminophen 650 mg 03/09/19 15:37 Tylenol PO Q4H PRN Pain MILD(1-3)/Fever >100.5/GONZALES Acetaminophen/Hydrocodone Bitart 1 each 03/28/19 13:15 [place] 5/325 PO Q4H PRN Pain, Moderate (4-6) Al Hydrox/Mg Hydrox/Simethicone 30 ml 03/09/19 15:37 Alum-Mag Hydrox-Simeth 531-142-34zw/5ml PO Q4H PRN Indigestion Albuterol 2.5 mg 03/27/19 14:49 Proventil IH Q4HRT PRN Shortness Of Breath Alprazolam 0.25 mg 03/09/19 15:49 03/25/19 21:31 Xanax PO 0.25 mg QPM PRN Administration Anxiety Amiodarone HCl 200 mg 03/10/19 10:00 03/28/19 10:32 Cordarone PO Not Given DAILY KLEVER Amitriptyline HCl 10 mg 03/09/19 21:00 03/27/19 21:43 Elavil PO 10 mg QHS KLEVER Administration Apixaban 5 mg 03/11/19 08:00 03/28/19 10:33 Eliquis PO Not Given Q12HR KLEVER Protocol Bisacodyl 10 mg 03/09/19 15:37 03/16/19 14:17 Dulcolax [place] 10 mg QDAY PRN Administration Constipation unrelieved by MOM Diltiazem HCl 60 mg 03/09/19 20:00 03/28/19 15:29 Cardizem PO 60 mg TID KLEVER Administration Duloxetine HCl 60 mg 03/10/19 08:00 03/28/19 07:51 Cymbalta PO 60 mg QDAY KLEEVR Administration Gabapentin 800 mg 03/28/19 14:00 03/28/19 15:27 Neurontin PO 800 mg TID KLEVER Administration Levothyroxine Sodium 100 mcg 03/12/19 06:00 03/28/19 06:30 Synthroid IV 100 mcg DAILY@0600 [facility] Administration Magnesium Hydroxide 30 ml 03/09/19 15:37 Milk Of Magnesia PO Q4H PRN Constipation Metoprolol Tartrate 25 mg 03/10/19 10:00 03/28/19 10:33 Lopressor PO Not Given DAILY [facility] Multivitamins 1 each 03/10/19 08:00 03/28/19 07:52 Theragran Tab PO 1 each QDAY [facility] Administration Ondansetron HCl 4 mg 03/09/19 15:49 Zofran IV Q8H PRN Nausea And Vomiting Pantoprazole Sodium 40 mg 03/10/19 08:00 03/28/19 07:52 Protonix PO 40 mg QDAY [facility] Administration Spironolactone 25 mg 03/09/19 22:00 03/28/19 07:56 Aldactone PO 25 mg BID KLEVER Administration Sucralfate 1 gm 03/09/19 22:00 03/28/19 07:50 Carafate PO 1 gm ACHS KLEVER Administration Nutrition/Malnutrition Assess - Dietary Evaluation Nutrition/Malnutrition Findings: Nutrition Notes Start: 03/16/19 15:47 Freq: Status: Active Protocol: Document 03/16/19 15:47 RM (Rec: 03/16/19 15:48 RM [id number]) Nutrition Notes Need for Assessment generated from: LOS Initial or Follow up Brief Note Height 5 ft 4 in Weight 58.5 kg [place] Body Weight (kg) 54.54 BMI 22.1 Subjective/Other Information Screened for LOS. Recorded PO intake 75% X 3 meals. Nutrition Intervention Revisit per MD consult or patient Sign Off request:
[2019-03-28] MEDS: NORCO 5/325 PO PRN (20:06)
[2019-03-28] MEDS: ELAVIL PO SCH (21:49)
[2019-03-29] MEDS: CARDIZEM PO SCH ×3 (00:28→14:00)
[2019-03-29] MEDS: ALDACTONE PO SCH ×3 (00:29→09:00)
[2019-03-29] MEDS: SYNTHROID IV SCH (05:47)
[2019-03-29] MEDS: NORCO 5/325 PO PRN ×4 (05:54→20:55)
[2019-03-29] MEDS: NEURONTIN PO SCH ×3 (09:13→20:00)
[2019-03-29] MEDS: CARAFATE PO SCH ×4 (09:13→22:00)
[2019-03-29] MEDS: PROTONIX PO SCH (09:13)
[2019-03-29] MEDS: LOPRESSOR PO SCH (09:13)
[2019-03-29] MEDS: THERAGRAN Tab PO SCH (09:14)
[2019-03-29] MEDS: CORDARONE PO SCH (09:15)
[2019-03-29] MEDS: CYMBALTA PO SCH (09:15)
[2019-03-29] MEDS: ELIQUIS PO SCH ×2 (09:15→22:00)
--- NOTE | 2019-03-29 12:30 | Progress Note ---
Subjective Date of service: 03/29/19 Principal diagnosis: R BKA Interval history: 78 yo female admitted with worsening RLE ischemia. Hx of PAD and multiple past interventions. Attempt made to salvage the limb but was unsuccessful. 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 Pain has been fairly controlled. She is experiencing some phantom sensation and phantom pain. She has AFib and is currently rate controlled but is off her OAC due to previous GIB. Physician [facility] prosthetics has seen her and she has a residual limb protector on. She states increased pain with dressing changes - which was done earlier today. I will view her wound on another day with her scheduled dressing change. Patient is participating in therapy and making reasonable progress. Pain better today. Still describes the pain as primarily neuropathic and states gabapentin helps. Patient does seem to be confused at times, slightly better today on reduced dose of norco. Taking rest breaks as needed. +BM. Denies palpitations, dyspnea, cough, N/V, weakness, or joint pain. Cont to encourage PO intake. She does still have some phantom sensation and occasional phantom pain. No signs of bleeding, H&H stable/improved, monitor. Limb protector in use, wound looks good. Will call if there is any change in wound condition. All records, vitals, labs and medications were reviewed. No other issues per patient, nursing or therapy. Objective - Exam Narrative Exam: MUSCULOSKELETAL SPECIALTY EXAM CONSTITUTIONAL: Well developed, well nourished, appropriately groomed EENT: EOMI Hearing intact to soft voice RESPIRATORY: Clear to auscultation bilaterally, distant, no increased work of breathing CARDIOVASCULAR: Regular Rate/ Rhythm, no swelling, edema or tenderness in BUE or BLE. All extremities warm. GI: + bowel sounds, soft, NTTP, nondistended. INTEGUMENTARY: Normal, no lesion, rash, masses or bruising noted in extremities except for surgical wound on R BKA, healing well no signs of infection. MUSCULOSKELETAL: BUE and BLE normal without defect, crepitus, subluxation, effusion, arthritic changes or TTP except for R BKA which has small appropriate amount of tenderness to palpation BUE 4+/5, good ROM, with normal tone. BLE 4+/5 good ROM, with normal tone NEURO: CN 2-12 grossly intact. Sensation intact in all extremities. No tremor noted in 4 extremities. POSTURE and GAIT: Sitting posture good. Balance and Gait reasonable, RW and short hops. PSYCH: Alert, orientated x3, affect appears normal. Insight appears intact. Confusion at times. - Constitutional Vitals: Vital Signs - 12hr 03/29/19 03/29/19 03/29/19 04:40 05:47 05:54 Temperature 36.7 C Pulse Rate 84 81 Respiratory 20 17 Rate Blood Pressure 167/62 146/79 Blood Pressure [Right] O2 Sat by Pulse 92 Oximetry 03/29/19 03/29/19 03/29/19 08:00 09:13 09:14 Temperature 36.6 C Pulse Rate 66 66 66 Respiratory 16 Rate Blood Pressure 133/54 133/54 Blood Pressure 133/54 [Right] O2 Sat by Pulse 98 Oximetry - Allied health notes Allied health notes reviewed: nursing, PT, OT FIMS assessment as documented by PT/OT/ST: Grooming Patient cleans teeth/dentures: Yes Patient ahmadi/brushes hair: Yes Patient washes, rinses and Yes dries face: Patient washes, rinses and Yes dries hands: Patient shaves: No Patient applies make-up: Yes Patient performs (no make-up/ 4/4 (100%) shaving): Patient performs (w/ make-up/ 5/5 (100%) shaving): Grooming FIM Score 6. Modified [place] (Needs equipment/device . Extra time.) Toileting Toileting Device Commode over Toilet Patient able to: Adjust clothes before,Clean self,Adjust clothes after Patient able to perform: 3/3 (100%) Toileting FIM Score 5. Supv./Set-Up (Needs stand-by, set-up, applying prosth/orth.) Social interaction/Memory/Problem solving Social Interaction FIM Score 5. Supervision (Needs supv. <10%. Needs encouragement to participate.) Memory FIM Score 5. Supervision (Needs cueing <10%, stressful/ unfamiliar situations.) Problem Solving FIM Score 5. Supervision (Needs cueing <10% to solve routine problems.) Transfers Mode of Locomotion: Wheelchair Bed/Chair/Wheelchair Transfers 5. Supervision (Needs supv. or set-up for FIM Score sliding board, foot rests.) Toilet Transfers FIM Score 5. Supervision (Needs supervision or cueing.) Patient transferred to: Shower Shower Transfers FIM Score 3. Moderate Assistance (Patient = 50% or more. Some lifting.) Locomotion- Stairs Device used on Stairs Handrail/s Number of Stairs Ascended/ 12 Descended Patient used handrail/support: Yes Stairs FIM Score 4. Minimal Assistance (Patient = 75% or more, touching. 12-14 stairs.) Locomotion- walk/wheelchair Most Frequent Mode of Wheelchair Locomotion: Ambulation Distance 25 Walking FIM Score 2. Maximal Assistance (Patient = 25% or more. Minimum of 50 ft.) Wheelchair Propulsion Distance 350 Wheelchair FIM Score 6. Modified [place] (Wheels a minimum of 150 ft.) Eating Eating FIM Score 6. Modified [place] (Special consistency or uses device.) Dressing-Upper body Upper Body Dressing Device Button Hook Patient retrieves clothing Yes items: Patient applies/removes UE n/a prosthesis or orthosis: Upper Body Dressing FIM Score 5. Supv./Set-Up (Kerrick sets out clothes or applies pros./orth.) Dressing-lower body Patient retrieves clothing Yes items: Patient applies/removes LE No prosthesis or orthosis: Lower Body Dressing FIM Score 5. Supv./Set-Up (Kerrick sets out clothes or applies pros./orth.) - Labs CBC & Chem 7: 03/28/19 06:38 03/28/19 06:38 Labs: Laboratory Results - last 72 hr 03/27/19 03/27/19 03/28/19 07:46 07:46 06:38 WBC 6.6 5.6 RBC 3.12 L 2.75 L Hgb 9.5 L 8.5 L Hct 28.7 L 25.1 L MCV 92 91 MCH 30 31 MCHC 33 34 RDW 14.8 14.8 Plt Count 311 301 Sodium 139 Potassium 4.8 Chloride 104.9 Carbon Dioxide 22 Anion Gap 17 BUN 23 H Creatinine 1.0 Estimated GFR 54 BUN/Creatinine Ratio 23 Glucose 91 Calcium 9.6 03/28/19 06:38 WBC RBC Hgb Hct MCV MCH MCHC RDW Plt Count Sodium 138 Potassium 4.3 Chloride 102.8 Carbon Dioxide 23 Anion Gap 17 BUN 27 H Creatinine 1.0 Estimated GFR 54 BUN/Creatinine Ratio 27 Glucose 95 Calcium 9.2 Assessment and Plan Right BKA: Monitor the wound closely for any signs of infection. We'll maintain stump protector and wrapping in order shape residual limb for proper prosthesis fit. [facility] prosthetics have visited the patient given her information on prosthesis. Discussed with the patient to not to get up out of bed in the middle the night due to concerns for fall. Will address fall recovery prior to discharge. Continue to work on balance and mobility skills with walker. Work on independence of care for right BKA. Discussed with patient need for maintaining her cardiovascular conditioning due to increased demand of energy with BKA. Discussed range of motion maintenance. Will moved to independence with all maintenance and therapeutic interventions prior to discharge. She will need follow-up with therapy after being fitted with prosthesis. Surgeon wants follow up 6-8 weeks after surgery for staple removal. Phantom sensation and phantom pain: Continue neuropathic pain control, residual limb to remain in stump protector, cont desensitization. monitor. Atrial fibrillation: Continue regular control monitor for any symptoms. Restart Eliquis per cardiology rec. Discussed with surgeon and GI. Hypothyroidism: Continue medication Hypertension: Continue medications and adjust for normotension GI bleed with peptic ulcer: Continue Protonix and Carafate. No signs of drop in hemoglobin so far. Values have been within a range between 8 and 10 this admission but seem to have stabilized. COPD: Continue nebulizers, supplemental O2 BRITTNEE - resolved, monitor. Encouraged PO intake Z73.6 ADL dysfunction: OT will work on improving ability to perform ADLs (including assistive devices) to increase independence and decrease caregiver burden and improve functional transfers and mobility training. R26.2 Difficulty walking: PT will work on gait training and proper use of [place] tive devices and advance as appropriate to use of stairs and outside ambulation on uneven surfaces. R26.81 Unsteadiness on feet: PT will work on improving static and dynamic sitting and standing balance as well as proper use of assistive devices to decrease risk of falls. R26.89 Abnormality of gait: PT will work to improve safety and efficiency of gait through neuromotor training and gait training along with instruction on proper use of assistive devices. M62.81 Muscle weakness: PT & OT will work on strengthening exercises to improve functional strength including mixture of closed and open kinetic chain exercises. R53.81 Debility: PT & OT will work on improving overall functional status to i mprove participation with ADLs, mobility and social involvement. R53.83 Fatigue: PT & OT will work on improving endurance through aerobic exercises and therapeutic activity while monitoring patients tolerance for activity and vital signs as needed. Passed prolonged HEEL SEWER cognition and memory testing. Likely medication related and/or personality. DVT ppx: Eliquis Pain: Continue physical modalities in therapy and pain medications as needed to achieve functional pain control. Sleep: Monitor and address as needed. Bowel: Monitor and address as needed. Appetite: Monitor and address as needed. Discharge planning: Discharge plan for April 01. Will continue discussion with therapy team, SW, patient and family. Wheelchair, 3 in 1. Rolling walker and tub transfer bench recommended but will not be covered by insurance. Restrictions/ Precautions: Falls WB status: NWB on RLE Functional Hx: ADLs: Independent Cognition: Independent Mobility: No AD Barriers to Discharge: Decreased mobility and ability to perform self care, balance deficits, weakness, pain control Estimated Length of Stay: 14-18 days Discharge Destination: Home with family
--- NOTE | 2019-03-29 12:56 | Progress Note ---
Assessment and Plan Assessment and plan: s/p Right BKA - Continue PT/OT Hyperkalemia - resolved Hypertension Monitor BP BP stable Hyponatremia. - resolved Hypothyroidism Cont Levothyroxine Full code status. History Interval history: Patient was seen and evaluated this morning, patient was doing rehab exercise this morning. patient didn't have any complaints. Hospitalist Physical - Physical exam Narrative exam: Not in cardiopulmonary distress. The patient appeared well nourished and normally developed. Vital signs as documented. Head exam is unremarkable. No scleral icterus . Neck is without jugular venous distension, thyromegaly, or carotid bruits. Lungs are clear to auscultation. Cardiac exam reveals regular rate and Rhythm. First and second heart sounds normal. No murmurs, rubs or gallops. Abdominal exam reveals normal bowel sounds, no masses, no organomegaly and no aortic enlargement. Extremities right leg BKA. CAST ASSOCIATE: Alert and oriented 3. - Constitutional Vitals: Temp Pulse Resp BP Pulse Ox 98.2 F 50 L 16 117/43 87 03/29/19 12:18 03/29/19 12:18 03/29/19 12:18 03/29/19 12:18 03/29/19 12:18 General appearance: Present: no acute distress Results - Labs CBC & Chem 7: 03/28/19 06:38 03/28/19 06:38 Labs: Laboratory Last Values WBC 5.6 K/mm3 (4.5-11.0) 03/28/19 06:38 RBC 2.75 M/mm3 (3.65-5.03) L 03/28/19 06:38 Hgb 8.5 gm/dl (10.1-14.3) L 03/28/19 06:38 Hct 25.1 % (30.3-42.9) L 03/28/19 06:38 MCV 91 fl (79-97) 03/28/19 06:38 MCH 31 pg (28-32) 03/28/19 06:38 MCHC 34 % (30-34) 03/28/19 06:38 RDW 14.8 % (13.2-15.2) 03/28/19 06:38 Plt Count 301 K/mm3 (140-440) 03/28/19 06:38 Lymph % (Auto) 30.5 % (13.4-35.0) 03/14/19 14:36 [place] % (Auto) 11.5 % (0.0-7.3) H 03/14/19 14:36 Eos % (Auto) 1.7 % (0.0-4.3) 03/14/19 14:36 Baso % (Auto) 0.4 % (0.0-1.8) 03/14/19 14:36 Lymph # 2.5 K/mm3 (1.2-5.4) 03/14/19 14:36 [place] # 0.9 K/mm3 (0.0-0.8) H 03/14/19 14:36 Eos # 0.1 K/mm3 (0.0-0.4) 03/14/19 14:36 Baso # 0.0 K/mm3 (0.0-0.1) 03/14/19 14:36 Seg Neutrophils % 55.9 % (40.0-70.0) 03/14/19 14:36 Seg Neutrophils # 4.6 K/mm3 (1.8-7.7) 03/14/19 14:36 Sodium 138 mmol/L (137-145) 03/28/19 06:38 Potassium 4.3 mmol/L (3.6-5.0) 03/28/19 06:38 Chloride 102.8 mmol/L (98-107) 03/28/19 06:38 Carbon Dioxide 23 mmol/L (22-30) 03/28/19 06:38 17 mmol/L 03/28/19 06:38 BUN 27 mg/dL (7-17) H 03/28/19 06:38 1.0 mg/dL (0.7-1.2) 03/28/19 06:38 Estimated GFR 54 ml/min 03/28/19 06:38 27 % 03/28/19 06:38 Glucose 95 mg/dL (65-100) 03/28/19 06:38 Calcium 9.2 mg/dL (8.4-10.2) 03/28/19 06:38 0.40 mg/dL (0.1-1.2) 03/10/19 04:48 AST 21 units/L (5-40) 03/10/19 04:48 ALT 10 units/L (7-56) 03/10/19 04:48 76 units/L (35-129) 03/10/19 04:48 6.7 g/dL (6.3-8.2) 03/10/19 04:48 3.5 g/dL (3.9-5) L 03/10/19 04:48 1.1 % 03/10/19 04:48 TSH 8.500 mlU/mL (0.270-4.200) H 03/11/19 13:27 Free T4 1.21 ng/dL (0.76-1.46) 03/11/19 13:27 7.0 ug/dL (4.0-12.0) 03/11/19 13:27 Active Medications - Current Medications Current Medications: Generic Name Dose Route Start Last Admin Trade Name Freq PRN Reason Stop Dose Admin Acetaminophen 650 mg 03/09/19 15:37 Tylenol PO Q4H PRN Pain MILD(1-3)/Fever >100.5/GONZALES Acetaminophen/Hydrocodone Bitart 1 each 03/28/19 13:15 03/29/19 05:54 [place] 5/325 PO 1 each Q4H PRN Administration Pain, Moderate (4-6) Al Hydrox/Mg Hydrox/Simethicone 30 ml 03/09/19 15:37 Alum-Mag Hydrox-Simeth 634-880-30hr/5ml PO Q4H PRN Indigestion Albuterol 2.5 mg 03/27/19 14:49 Proventil IH Q4HRT PRN Shortness Of Breath Alprazolam 0.25 mg 03/09/19 15:49 03/25/19 21:31 Xanax PO 0.25 mg QPM PRN Administration Anxiety Amiodarone HCl 200 mg 03/10/19 10:00 03/29/19 09:15 Cordarone PO 200 mg DAILY KLEVER Administration Amitriptyline HCl 10 mg 03/09/19 21:00 03/28/19 21:49 Elavil PO 10 mg QHS KLEVER Administration Apixaban 5 mg 03/11/19 08:00 03/29/19 09:15 Eliquis PO 5 mg Q12HR KLEVER Administration Protocol Bisacodyl 10 mg 03/09/19 15:37 03/16/19 14:17 Dulcolax [place] 10 mg QDAY PRN Administration Constipation unrelieved by MOM Diltiazem HCl 60 mg 03/09/19 20:00 03/29/19 09:14 Cardizem PO 60 mg TID KLEVER Administration Duloxetine HCl 60 mg 03/10/19 08:00 03/29/19 09:15 Cymbalta PO 60 mg QDAY KLEVER Administration Gabapentin 800 mg 03/28/19 14:00 03/29/19 09:13 Neurontin PO 800 mg TID KLEVER Administration Levothyroxine Sodium 100 mcg 03/12/19 06:00 03/29/19 05:47 Synthroid IV 100 mcg DAILY@0600 KLEVER Administration Magnesium Hydroxide 30 ml 03/09/19 15:37 Milk Of Magnesia PO Q4H PRN Constipation Metoprolol Tartrate 25 mg 03/10/19 10:00 03/29/19 09:13 Lopressor PO 25 mg DAILY KLEVER Administration Multivitamins 1 each 03/10/19 08:00 03/29/19 09:14 Theragran Tab PO 1 each QDAY [facility] Administration Ondansetron HCl 4 mg 03/09/19 15:49 Zofran IV Q8H PRN Nausea And Vomiting Pantoprazole Sodium 40 mg 03/10/19 08:00 03/29/19 09:13 Protonix PO 40 mg QDAY KLEVER Administration Spironolactone 25 mg 03/09/19 22:00 03/29/19 05:47 Aldactone PO 25 mg BID KLEVER Administration Sucralfate 1 gm 03/09/19 22:00 03/29/19 09:13 Carafate PO 1 gm ACHS KLEVER Administration Nutrition/Malnutrition Assess - Dietary Evaluation Nutrition/Malnutrition Findings: Nutrition Notes Start: 03/16/19 15:47 Freq: Status: Active Protocol: Document 03/16/19 15:47 RM (Rec: 03/16/19 15:48 RM [id number]) Nutrition Notes Need for Assessment generated from: LOS Initial or Follow up Brief Note Height 5 ft 4 in Weight 58.5 kg [place] Body Weight (kg) 54.54 BMI 22.1 Subjective/Other Information Screened for LOS. Recorded PO intake 75% X 3 meals. Nutrition Intervention Revisit per MD consult or patient Sign Off request:
[2019-03-29] MEDS: ELAVIL PO SCH (20:55)
[2019-03-29] MEDS: XANAX PO PRN (23:36)
[2019-03-30] MEDS: NORCO 5/325 PO PRN ×5 (02:48→22:15)
[2019-03-30] MEDS: SYNTHROID IV SCH (05:31)
[2019-03-30] MEDS: CYMBALTA PO SCH (08:09)
[2019-03-30] MEDS: NEURONTIN PO SCH ×3 (08:10→22:14)
[2019-03-30] MEDS: CARAFATE PO SCH ×4 (08:10→22:14)
[2019-03-30] MEDS: THERAGRAN Tab PO SCH (08:11)
[2019-03-30] MEDS: LOPRESSOR PO SCH ×2 (08:11→10:00)
[2019-03-30] MEDS: ALDACTONE PO SCH ×2 (08:12→22:16)
[2019-03-30] MEDS: PROTONIX PO SCH (08:14)
[2019-03-30] MEDS: CARDIZEM PO SCH ×3 (08:14→22:16)
[2019-03-30] MEDS: CORDARONE PO SCH ×2 (08:15→10:00)
[2019-03-30] MEDS: ELIQUIS PO SCH ×3 (08:15→22:14)
--- NOTE | 2019-03-30 10:03 | Progress Note ---
Assessment and Plan Assessment and plan: s/p Right BKA - Continue PT/OT Hyperkalemia - resolved Hypertension Monitor BP BP stable Hyponatremia. - resolved Hypothyroidism Cont Levothyroxine Full code status. History Interval history: Patient was seen and evaluated this morning, patient was doing rehab exercise this morning. patient didn't have any complaints. Hospitalist Physical - Physical exam Narrative exam: Not in cardiopulmonary distress. The patient appeared well nourished and normally developed. Vital signs as documented. Head exam is unremarkable. No scleral icterus . Neck is without jugular venous distension, thyromegaly, or carotid bruits. Lungs are clear to auscultation. Cardiac exam reveals regular rate and Rhythm. First and second heart sounds normal. No murmurs, rubs or gallops. Abdominal exam reveals normal bowel sounds, no masses, no organomegaly and no aortic enlargement. Extremities right leg BKA. INTERNAL GRINDER: Alert and oriented 3. - Constitutional Vitals: Temp Pulse Resp BP Pulse Ox 97.6 F 66 16 136/53 98 03/30/19 07:00 03/30/19 08:12 03/30/19 07:00 03/30/19 08:12 03/30/19 07:00 General appearance: Present: no acute distress Results - Labs CBC & Chem 7: 03/28/19 06:38 03/28/19 06:38 Labs: Laboratory Last Values WBC 5.6 K/mm3 (4.5-11.0) 03/28/19 06:38 RBC 2.75 M/mm3 (3.65-5.03) L 03/28/19 06:38 Hgb 8.5 gm/dl (10.1-14.3) L 03/28/19 06:38 Hct 25.1 % (30.3-42.9) L 03/28/19 06:38 MCV 91 fl (79-97) 03/28/19 06:38 MCH 31 pg (28-32) 03/28/19 06:38 MCHC 34 % (30-34) 03/28/19 06:38 RDW 14.8 % (13.2-15.2) 03/28/19 06:38 Plt Count 301 K/mm3 (140-440) 03/28/19 06:38 Lymph % (Auto) 30.5 % (13.4-35.0) 03/14/19 14:36 [place] % (Auto) 11.5 % (0.0-7.3) H 03/14/19 14:36 Eos % (Auto) 1.7 % (0.0-4.3) 03/14/19 14:36 Baso % (Auto) 0.4 % (0.0-1.8) 03/14/19 14:36 Lymph # 2.5 K/mm3 (1.2-5.4) 03/14/19 14:36 [place] # 0.9 K/mm3 (0.0-0.8) H 03/14/19 14:36 Eos # 0.1 K/mm3 (0.0-0.4) 03/14/19 14:36 Baso # 0.0 K/mm3 (0.0-0.1) 03/14/19 14:36 Seg Neutrophils % 55.9 % (40.0-70.0) 03/14/19 14:36 Seg Neutrophils # 4.6 K/mm3 (1.8-7.7) 03/14/19 14:36 Sodium 138 mmol/L (137-145) 03/28/19 06:38 Potassium 4.3 mmol/L (3.6-5.0) 03/28/19 06:38 Chloride 102.8 mmol/L (98-107) 03/28/19 06:38 Carbon Dioxide 23 mmol/L (22-30) 03/28/19 06:38 17 mmol/L 03/28/19 06:38 BUN 27 mg/dL (7-17) H 03/28/19 06:38 1.0 mg/dL (0.7-1.2) 03/28/19 06:38 Estimated GFR 54 ml/min 03/28/19 06:38 27 % 03/28/19 06:38 Glucose 95 mg/dL (65-100) 03/28/19 06:38 Calcium 9.2 mg/dL (8.4-10.2) 03/28/19 06:38 0.40 mg/dL (0.1-1.2) 03/10/19 04:48 AST 21 units/L (5-40) 03/10/19 04:48 ALT 10 units/L (7-56) 03/10/19 04:48 76 units/L (35-129) 03/10/19 04:48 6.7 g/dL (6.3-8.2) 03/10/19 04:48 3.5 g/dL (3.9-5) L 03/10/19 04:48 1.1 % 03/10/19 04:48 TSH 8.500 mlU/mL (0.270-4.200) H 03/11/19 13:27 Free T4 1.21 ng/dL (0.76-1.46) 03/11/19 13:27 7.0 ug/dL (4.0-12.0) 03/11/19 13:27 Active Medications - Current Medications Current Medications: Generic Name Dose Route Start Last Admin Trade Name Freq PRN Reason Stop Dose Admin Acetaminophen 650 mg 03/09/19 15:37 Tylenol PO Q4H PRN Pain MILD(1-3)/Fever >100.5/GOZNALES Acetaminophen/Hydrocodone Bitart 1 each 03/28/19 13:15 03/30/19 08:13 [place] 5/325 PO 1 each Q4H PRN Administration Pain, Moderate (4-6) Al Hydrox/Mg Hydrox/Simethicone 30 ml 03/09/19 15:37 Alum-Mag Hydrox-Simeth 578-123-37lw/5ml PO Q4H PRN Indigestion Albuterol 2.5 mg 03/27/19 14:49 Proventil IH Q4HRT PRN Shortness Of Breath Alprazolam 0.25 mg 03/09/19 15:49 03/29/19 23:36 Xanax PO 0.25 mg QPM PRN Administration Anxiety Amiodarone HCl 200 mg 03/10/19 10:00 03/30/19 08:15 Cordarone PO 200 mg DAILY KLEVER Administration Amitriptyline HCl 10 mg 03/09/19 21:00 03/29/19 20:55 Elavil PO 10 mg QHS KLEVER Administration Apixaban 5 mg 03/11/19 08:00 03/30/19 08:15 Eliquis PO 5 mg Q12HR KLEVER Administration Protocol Bisacodyl 10 mg 03/09/19 15:37 03/16/19 14:17 Dulcolax [place] 10 mg QDAY PRN Administration Constipation unrelieved by MOM Diltiazem HCl 60 mg 03/09/19 20:00 03/30/19 08:14 Cardizem PO 60 mg TID KLEVER Administration Duloxetine HCl 60 mg 03/10/19 08:00 03/30/19 08:09 Cymbalta PO 60 mg QDAY KLEVER Administration Gabapentin 800 mg 03/28/19 14:00 03/30/19 08:10 Neurontin PO 800 mg TID KLEVER Administration Levothyroxine Sodium 100 mcg 03/12/19 06:00 03/30/19 05:31 Synthroid IV 100 mcg DAILY@0600 KLEVER Administration Magnesium Hydroxide 30 ml 03/09/19 15:37 Milk Of Magnesia PO Q4H PRN Constipation Metoprolol Tartrate 25 mg 03/10/19 10:00 03/30/19 08:11 Lopressor PO 25 mg DAILY KLEVER Administration Multivitamins 1 each 03/10/19 08:00 03/30/19 08:11 Theragran Tab PO 1 each QDAY [facility] Administration Ondansetron HCl 4 mg 03/09/19 15:49 Zofran IV Q8H PRN Nausea And Vomiting Pantoprazole Sodium 40 mg 03/10/19 08:00 03/30/19 08:14 Protonix PO 40 mg QDAY KLEVER Administration Spironolactone 25 mg 03/09/19 22:00 03/30/19 08:12 Aldactone PO 25 mg BID KLEVER Administration Sucralfate 1 gm 03/09/19 22:00 03/30/19 08:10 Carafate PO 1 gm ACHS KLEVER Administration Nutrition/Malnutrition Assess - Dietary Evaluation Nutrition/Malnutrition Findings: Nutrition Notes Start: 03/16/19 15:47 Freq: Status: Active Protocol: Document 03/16/19 15:47 RM (Rec: 03/16/19 15:48 RM [id number]) Nutrition Notes Need for Assessment generated from: LOS Initial or Follow up Brief Note Height 5 ft 4 in Weight 58.5 kg [place] Body Weight (kg) 54.54 BMI 22.1 Subjective/Other Information Screened for LOS. Recorded PO intake 75% X 3 meals. Nutrition Intervention Revisit per MD consult or patient Sign Off request:
--- NOTE | 2019-03-30 15:41 | Progress Note ---
Subjective Date of service: 03/30/19 Principal diagnosis: R BKA Interval history: 78 yo female admitted with worsening RLE ischemia. Hx of PAD and multiple past interventions. Attempt made to salvage the limb but was unsuccessful. 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 Pain has been fairly controlled. She is experiencing some phantom sensation and phantom pain. She has AFib and is currently rate controlled but is off her OAC due to previous GIB. Fire Management Officer prosthetics has seen her and she has a residual limb protector on. She states increased pain with dressing changes - which was done earlier today. I will view her wound on another day with her scheduled dressing change. Patient is participating in therapy and making reasonable progress. Pain seems better today. Still describes the pain as primarily neuropathic and states gabapentin helps. Patient does seem to be confused at times, slightly better today on reduced dose of norco. Taking rest breaks as needed. +BM. Denies palpitations, dyspnea, cough, N/V, weakness, or joint pain. Cont to encourage PO intake. She does still have some phantom sensation and occasional phantom pain. No signs of bleeding, H&H stable/improved, monitor. Limb protector in use, wound looks good. Will call if there is any change in wound condition. All records, vitals, labs and medications were reviewed. No other issues per patient, nursing or therapy. Objective - Exam Narrative Exam: MUSCULOSKELETAL SPECIALTY EXAM CONSTITUTIONAL: Well developed, well nourished, appropriately groomed EENT: EOMI Hearing intact to soft voice RESPIRATORY: Clear to auscultation bilaterally, distant, no increased work of breathing CARDIOVASCULAR: Regular Rate/ Rhythm, no swelling, edema or tenderness in BUE or BLE. All extremities warm. GI: + bowel sounds, soft, NTTP, nondistended. INTEGUMENTARY: Normal, no lesion, rash, masses or bruising noted in extremities except for surgical wound on R BKA, healing well no signs of infection. MUSCULOSKELETAL: BUE and BLE normal without defect, crepitus, subluxation, effusion, arthritic changes or TTP except for R BKA which has small appropriate amount of tenderness to palpation BUE 4+/5, good ROM, with normal tone. BLE 4+/5 good ROM, with normal tone NEURO: CN 2-12 grossly intact. Sensation intact in all extremities. No tremor noted in 4 extremities. POSTURE and GAIT: Sitting posture good. Balance and Gait reasonable, RW and short hops. PSYCH: Alert, orientated x3, affect appears normal. Insight appears intact. Confusion at times. - Constitutional Vitals: Vital Signs - 12hr 03/30/19 03/30/19 03/30/19 05:10 07:00 08:11 Temperature 36.8 C 36.4 C Pulse Rate 83 66 66 Respiratory 20 16 Rate Blood Pressure 139/52 136/53 Blood Pressure 132/53 [Right] O2 Sat by Pulse 93 98 Oximetry 03/30/19 03/30/19 08:12 12:04 Temperature 36.1 C L Pulse Rate 66 49 L Respiratory 18 Rate Blood Pressure 136/53 133/53 Blood Pressure [Right] O2 Sat by Pulse 97 Oximetry - Allied health notes Allied health notes reviewed: nursing, PT, OT FIMS assessment as documented by PT/OT/ST: Grooming Patient cleans teeth/dentures: Yes Patient ahmadi/brushes hair: Yes Patient washes, rinses and Yes dries face: Patient washes, rinses and Yes dries hands: Patient shaves: No Patient applies make-up: Yes Patient performs (no make-up/ /4 (100%) shaving): Patient performs (w/ make-up/ 5/5 (100%) shaving): Grooming FIM Score 6. Modified Francis (Needs equipment/device . Extra time.) Toileting Toileting Device Commode over Toilet Patient able to: Adjust clothes before,Clean self,Adjust clothes after Patient able to perform: 3/3 (100%) Toileting FIM Score 5. Supv./Set-Up (Needs stand-by, set-up, applying prosth/orth.) Social interaction/Memory/Problem solving Social Interaction FIM Score 5. Supervision (Needs supv. <10%. Needs encouragement to participate.) Memory FIM Score 5. Supervision (Needs cueing <10%, stressful/ unfamiliar situations.) Problem Solving FIM Score 5. Supervision (Needs cueing <10% to solve routine problems.) Transfers Mode of Locomotion: Wheelchair Bed/Chair/Wheelchair Transfers 5. Supervision (Needs supv. or set-up for FIM Score sliding board, foot rests.) Toilet Transfers FIM Score 5. Supervision (Needs supervision or cueing.) Patient transferred to: Shower Shower Transfers FIM Score 3. Moderate Assistance (Patient = 50% or more. Some lifting.) Locomotion- Stairs Device used on Stairs Handrail/s Number of Stairs Ascended/ 12 Descended Patient used handrail/support: Yes Stairs FIM Score 4. Minimal Assistance (Patient = 75% or more, touching. 12-14 stairs.) Locomotion- walk/wheelchair Most Frequent Mode of Wheelchair Locomotion: Ambulation Distance 25 Walking FIM Score 5. Supervision (Minimum 150 ft. supv./cues or 50 ft. independently.) Wheelchair Propulsion Distance 350 Wheelchair FIM Score 6. Modified Francis (Wheels a minimum of 150 ft.) Eating Eating FIM Score 6. Modified Francis (Special consistency or uses device.) Dressing-Upper body Upper Body Dressing Device Button Hook Patient retrieves clothing Yes items: Patient applies/removes UE n/a prosthesis or orthosis: Upper Body Dressing FIM Score 5. Supv./Set-Up ([place] sets out clothes or applies pros./orth.) Dressing-lower body Patient retrieves clothing Yes items: Patient applies/removes LE No prosthesis or orthosis: Lower Body Dressing FIM Score 5. Supv./Set-Up ([place] sets out clothes or applies pros./orth.) - Labs CBC & Chem 7: 03/28/19 06:38 03/28/19 06:38 Labs: Laboratory Results - last 72 hr 03/28/19 03/28/19 06:38 06:38 WBC 5.6 RBC 2.75 L Hgb 8.5 L Hct 25.1 L MCV 91 MCH 31 MCHC 34 RDW 14.8 Plt Count 301 Sodium 138 Potassium 4.3 Chloride 102.8 Carbon Dioxide 23 Anion Gap 17 BUN 27 H Creatinine 1.0 Estimated GFR 54 BUN/Creatinine Ratio 27 Glucose 95 Calcium 9.2 Assessment and Plan Right BKA: Monitor the wound closely for any signs of infection. We'll maintain stump protector and wrapping in order shape residual limb for proper prosthesis fit. Fire Management Officer prosthetics have visited the patient given her information on prosthesis. Discussed with the patient to not to get up out of bed in the middle the night due to concerns for fall. Will address fall recovery prior to discharge. Continue to work on balance and mobility skills with walker. Work on independence of care for right BKA. Discussed with patient need for ma intaining her cardiovascular conditioning due to increased demand of energy with BKA. Discussed range of motion maintenance. Will moved to independence with all maintenance and therapeutic interventions prior to discharge. She will need follow-up with therapy after being fitted with prosthesis. Surgeon wants follow up 6-8 weeks after surgery for staple removal. Phantom sensation and phantom pain: Continue neuropathic pain control, residual limb to remain in stump protector, cont desensitization. monitor. Atrial fibrillation: Continue regular control monitor for any symptoms. Restart Eliquis per cardiology rec. Discussed with surgeon and GI. Hypothyroidism: Continue medication Hypertension: Continue medications and adjust for normotension GI bleed with peptic ulcer: Continue Protonix and Carafate. No signs of drop in hemoglobin so far. Values have been within a range between 8 and 10 this admission but seem to have stabilized. COPD: Continue nebulizers, supplemental O2 [place] - resolved, monitor. Encouraged PO intake Z73.6 ADL dysfunction: OT will work on improving ability to perform ADLs (including assistive devices) to increase independence and decrease caregiver burden and improve functional transfers and mobility training. R26.2 Difficulty walking: PT will work on gait training and proper use of assistive devices and advance as appropriate to use of stairs and outside ambulation on uneven surfaces. R26.81 Unsteadiness on feet: PT will work on improving static and dynamic sitting and standing balance as well as proper use of assistive devices to decrease risk of falls. R26.89 Abnormality of gait: PT will work to improve safety and efficiency of gait through neuromotor training and gait training along with instruction on proper use of assistive devices. M62.81 Muscle weakness: PT & OT will work on strengthening exercises to improve functional strength including mixture of closed and open kinetic chain exercises. R53.81 Debility: PT & OT will work on improving overall functional status to improve participation with ADLs, mobility and social involvement. R53.83 Fatigue: PT & OT will work on improving endurance through aerobic exercises and therapeutic activity while monitoring patients tolerance for activity and vital signs as needed. Passed prolonged SINGLE WIRE SAW OPERATOR cognition and memory testing. Likely medication related and/or personality. DVT ppx: Eliquis Pain: Continue physical modalities in therapy and pain medications as needed to achieve functional pain control. Sleep: Monitor and address as needed. Bowel: Monitor and address as needed. Appetite: Monitor and address as needed. Discharge planning: Discharge plan for April 01. Will continue discussion with therapy team, SW, patient and family. Wheelchair, 3 in 1. Rolling walker and tub transfer bench recommended but will not be covered by insurance. Restrictions/ Precautions: Falls WB status: NWB on RLE Functional Hx: ADLs: Independent Cognition: Independent Mobility: No AD Barriers to Discharge: Decreased mobility and ability to perform self care, balance deficits, weakness, pain control Estimated Length of Stay: 14-18 days Discharge Destination: Home with family
[2019-03-30] MEDS: ELAVIL PO SCH (22:15)
[2019-03-31] MEDS: NORCO 5/325 PO PRN ×4 (02:54→20:28)
[2019-03-31] MEDS: SYNTHROID IV SCH (07:34)
[2019-03-31 09:02] LABS: Hematocrit 25.8 % (30.3-42.9); Hemoglobin 8.6 gm/dl (10.1-14.3); Mean Corpuscular HGB Conc 33 % (30-34); Mean Corpuscular Volume 91 fl (79-97); Platelet Count 276 K/mm3 (140-440); Red Blood Count 2.82 M/mm3 (3.65-5.03); Red Cell Distribution Width 14.8 % (13.2-15.2)
[2019-03-31 09:22] LABS: Calcium 9.4 mg/dL (8.4-10.2)
[2019-03-31] MEDS: ELIQUIS PO SCH ×2 (10:06→21:45)
[2019-03-31] MEDS: ALDACTONE PO SCH (10:20)
[2019-03-31] MEDS: CARAFATE PO SCH ×4 (10:20→21:45)
[2019-03-31] MEDS: PROTONIX PO SCH (10:20)
[2019-03-31] MEDS: LOPRESSOR PO SCH ×2 (10:21→10:25)
[2019-03-31] MEDS: THERAGRAN Tab PO SCH (10:21)
[2019-03-31] MEDS: NEURONTIN PO SCH ×3 (10:21→20:27)
[2019-03-31] MEDS: CORDARONE PO SCH (10:21)
[2019-03-31] MEDS: CARDIZEM PO SCH ×4 (10:22→21:45)
[2019-03-31] MEDS: CYMBALTA PO SCH (10:28)
--- NOTE | 2019-03-31 12:53 | Progress Note ---
Assessment and Plan Assessment and plan: s/p Right BKA - Continue PT/OT Hyperkalemia - resolved Hypertension Monitor BP BP stable Hyponatremia. - resolved Hypothyroidism Cont Levothyroxine Full code status. History Interval history: Patient was seen and evaluated this morning. patient didn't have any complaints. Hospitalist Physical - Physical exam Narrative exam: Not in cardiopulmonary distress. The patient appeared well nourished and normally developed. Vital signs as documented. Head exam is unremarkable. No scleral icterus . Neck is without jugular venous distension, thyromegaly, or carotid bruits. Lungs are clear to auscultation. Cardiac exam reveals regular rate and Rhythm. First and second heart sounds normal. No murmurs, rubs or gallops. Abdominal exam reveals normal bowel sounds, no masses, no organomegaly and no aortic enlargement. Extremities right leg BKA. PATCH SETTER: Alert and oriented 3. - Constitutional Vitals: Temp Pulse Resp BP Pulse Ox 98.1 F 59 L 18 127/42 98 03/31/19 08:24 03/31/19 08:24 03/31/19 08:24 03/31/19 08:24 03/31/19 08:24 General appearance: Present: no acute distress Results - Labs CBC & Chem 7: 03/31/19 08:07 03/31/19 08:07 Labs: Laboratory Last Values WBC 6.8 K/mm3 (4.5-11.0) 03/31/19 08:07 RBC 2.82 M/mm3 (3.65-5.03) L 03/31/19 08:07 Hgb 8.6 gm/dl (10.1-14.3) L 03/31/19 08:07 Hct 25.8 % (30.3-42.9) L 03/31/19 08:07 MCV 91 fl (79-97) 03/31/19 08:07 MCH 30 pg (28-32) 03/31/19 08:07 MCHC 33 % (30-34) 03/31/19 08:07 RDW 14.8 % (13.2-15.2) 03/31/19 08:07 Plt Count 276 K/mm3 (140-440) 03/31/19 08:07 Lymph % (Auto) 30.5 % (13.4-35.0) 03/14/19 14:36 [place] % (Auto) 11.5 % (0.0-7.3) H 03/14/19 14:36 Eos % (Auto) 1.7 % (0.0-4.3) 03/14/19 14:36 Baso % (Auto) 0.4 % (0.0-1.8) 03/14/19 14:36 Lymph # 2.5 K/mm3 (1.2-5.4) 03/14/19 14:36 [place] # 0.9 K/mm3 (0.0-0.8) H 03/14/19 14:36 Eos # 0.1 K/mm3 (0.0-0.4) 03/14/19 14:36 Baso # 0.0 K/mm3 (0.0-0.1) 03/14/19 14:36 Seg Neutrophils % 55.9 % (40.0-70.0) 03/14/19 14:36 Seg Neutrophils # 4.6 K/mm3 (1.8-7.7) 03/14/19 14:36 Sodium 137 mmol/L (137-145) 03/31/19 08:07 Potassium 4.1 mmol/L (3.6-5.0) 03/31/19 08:07 Chloride 102.4 mmol/L (98-107) 03/31/19 08:07 Carbon Dioxide 24 mmol/L (22-30) 03/31/19 08:07 15 mmol/L 03/31/19 08:07 BUN 27 mg/dL (7-17) H 03/31/19 08:07 1.1 mg/dL (0.7-1.2) 03/31/19 08:07 Estimated GFR 48 ml/min 03/31/19 08:07 25 % 03/31/19 08:07 Glucose 87 mg/dL (65-100) 03/31/19 08:07 Calcium 9.4 mg/dL (8.4-10.2) 03/31/19 08:07 0.40 mg/dL (0.1-1.2) 03/10/19 04:48 AST 21 units/L (5-40) 03/10/19 04:48 ALT 10 units/L (7-56) 03/10/19 04:48 76 units/L (35-129) 03/10/19 04:48 6.7 g/dL (6.3-8.2) 03/10/19 04:48 3.5 g/dL (3.9-5) L 03/10/19 04:48 1.1 % 03/10/19 04:48 TSH 8.500 mlU/mL (0.270-4.200) H 03/11/19 13:27 Free T4 1.21 ng/dL (0.76-1.46) 03/11/19 13:27 7.0 ug/dL (4.0-12.0) 03/11/19 13:27 Active Medications - Current Medications Current Medications: Generic Name Dose Route Start Last Admin Trade Name Freq PRN Reason Stop Dose Admin Acetaminophen 650 mg 03/09/19 15:37 Tylenol PO Q4H PRN Pain MILD(1-3)/Fever >100.5/GONZALES Acetaminophen/Hydrocodone Bitart 1 each 03/28/19 13:15 03/31/19 10:20 [place] 5/325 PO 1 each Q4H PRN Administration Pain, Moderate (4-6) Al Hydrox/Mg Hydrox/Simethicone 30 ml 03/09/19 15:37 Alum-Mag Hydrox-Simeth [id number] PO Q4H PRN Indigestion Albuterol 2.5 mg 03/27/19 14:49 Proventil IH Q4HRT PRN Shortness Of Breath Alprazolam 0.25 mg 03/09/19 15:49 03/29/19 23:36 Xanax PO 0.25 mg QPM PRN Administration Anxiety Amiodarone HCl 200 mg 03/10/19 10:00 03/31/19 10:21 Cordarone PO 200 mg DAILY KLEVER Administration Amitriptyline HCl 10 mg 03/09/19 21:00 03/30/19 22:15 Elavil PO 10 mg QHS KLEVER Administration Apixaban 5 mg 03/11/19 08:00 03/30/19 22:14 Eliquis PO 5 mg Q12HR KLEVER Administration Protocol Bisacodyl 10 mg 03/09/19 15:37 03/16/19 14:17 Dulcolax AR 10 mg QDAY PRN Administration Constipation unrelieved by MOM Diltiazem HCl 60 mg 03/09/19 20:00 03/31/19 10:22 Cardizem PO 60 mg TID KLEVER Administration Duloxetine HCl 60 mg 03/10/19 08:00 03/31/19 10:28 Cymbalta PO 60 mg QDAY KLEVER Administration Gabapentin 800 mg 03/28/19 14:00 03/31/19 10:21 Neurontin PO 800 mg TID KLEVER Administration Levothyroxine Sodium 100 mcg 03/12/19 06:00 03/31/19 07:34 Synthroid IV 100 mcg DAILY@0600 [facility] Administration Magnesium Hydroxide 30 ml 03/09/19 15:37 Milk Of Magnesia PO Q4H PRN Constipation Metoprolol Tartrate 25 mg 03/10/19 10:00 03/31/19 10:25 Lopressor PO Not Given DAILY [facility] Multivitamins 1 each 03/10/19 08:00 03/31/19 10:21 Theragran Tab PO 1 each QDAY [facility] Administration Ondansetron HCl 4 mg 03/09/19 15:49 Zofran IV Q8H PRN Nausea And Vomiting Pantoprazole Sodium 40 mg 03/10/19 08:00 03/31/19 10:20 Protonix PO 40 mg QDAY KLEVER Administration Spironolactone 25 mg 03/09/19 22:00 03/31/19 10:20 Aldactone PO 25 mg BID KLEVER Administration Sucralfate 1 gm 03/09/19 22:00 03/31/19 10:20 Carafate PO 1 gm ACHS KLEVER Administration Nutrition/Malnutrition Assess - Dietary Evaluation Nutrition/Malnutrition Findings: Nutrition Notes Start: 03/16/19 15:47 Freq: Status: Active Protocol: Document 03/16/19 15:47 RM (Rec: 03/16/19 15:48 RM [id number]) Nutrition Notes Need for Assessment generated from: LOS Initial or Follow up Brief Note Height 5 ft 4 in Weight 58.5 kg [place] Body Weight (kg) 54.54 BMI 22.1 Subjective/Other Information Screened for LOS. Recorded PO intake 75% X 3 meals. Nutrition Intervention Revisit per MD consult or patient Sign Off request:
[2019-03-31] MEDS: ELAVIL PO SCH (21:45)
[2019-04-01] MEDS: NORCO 5/325 PO PRN ×3 (04:19→09:06)
[2019-04-01] MEDS: ALDACTONE PO SCH ×2 (04:21→09:08)
[2019-04-01] MEDS: SYNTHROID IV SCH (05:25)
[2019-04-01] MEDS: CYMBALTA PO SCH (08:56)
[2019-04-01] MEDS: CORDARONE PO SCH ×2 (08:56→10:00)
[2019-04-01] MEDS: PROTONIX PO SCH (08:56)
[2019-04-01] MEDS: CARAFATE PO SCH ×2 (08:57→14:49)
[2019-04-01] MEDS: THERAGRAN Tab PO SCH (08:58)
[2019-04-01] MEDS: NEURONTIN PO SCH ×2 (08:58→14:49)
[2019-04-01] MEDS: CARDIZEM PO SCH ×2 (08:59→14:56)
[2019-04-01] MEDS: ELIQUIS PO SCH ×2 (08:59→10:00)
[2019-04-01] MEDS: LOPRESSOR PO SCH (09:07)
--- NOTE | 2019-04-01 12:06 | Discharge Summary ---
Providers - Providers Date of Admission: 03/09/19 16:42 Date of discharge: 04/01/19 Attending physician: LYNETTE ARMSTRONG III, MD 03/09/19 15:28 Occupational Therapy Evaluate and Treat [CONS] Routine Comment: Reason For Exam: ADL dysfunction Physical Therapy Evaluation and Treat [CONS] Routine Comment: Reason For Exam: Mobility Dysfunction 03/09/19 15:47 Consult to Case Management [CONS] Routine Services Needed at Discharge: Home Health Services Notified:: ENVIRONMENTAL SERVICES DIRECTOR 03/10/19 10:06 Consult to Physician [CONS] Routine Comment: COMPLETED - KELLEE Consulting Provider: OKSANA BETH Physician Instructions: Reason For Exam: Medical Management, HTN, COPD, Afib 03/10/19 10:07 Consult to Physician [CONS] Routine Comment: Cardiology rec restart due to Afib/COMPLETED Consulting Provider: VIRGINIA BLANCHARD Physician Instructions: Hx Peptic Ulcer - please assess restart AOC Reason For Exam: Opinion on Restart anticoagulation 03/18/19 11:36 Speech Therapy Evaluation and Treat [CONS] Routine Reason For Exam: Cognitive eval, possible early dementia signs [facility] Reason for admission: Right BKA Condition: Fair Hospital course: 78 yo female admitted with worsening RLE ischemia. Hx of PAD and multiple past interventions. Attempt made to salvage the limb but was unsuccessful. 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 Pain has been fairly controlled. She is experiencing some phantom sensation and phantom pain. She has AFib and is currently rate controlled but is off her OAC due to previous GIB. Software Development Intern prosthetics has seen her and she has a residual limb protector on. She states she has neuropathic pain and some degree of phantom sensation/phantom pain. Patient progressed well with therapy. At time of discharge she was modified independent with transfers, modified independent with short distances and a rolling walker for ambulation, supervision for bed mobility, supervision for toileting, and dressing. Pain seems to be much better controlled on gabapentin at current dosing level of 800 mg 3 times a day. Patient had issues with memory during her stay with us and we are uncertain if this is due to medication or if this is a long-standing issue with possible early stages of dementia. Patient was tested by speech therapy and did very well on cognitive and memory testing. She seems to have cleared up slightly with her decreased use of opioids for pain control. Would recommend continued monitoring as outpatient for cognitive decline. Wound is healing very well with no signs of infection or seromas. She tolerates manipulation and handling of the residual limb. Marco Antonio are in and will remain until she follows up with vascular surgery approximately 6 weeks from date of surgery. Shape is coming along but as soon as Kimball are removed she would benefit from a environmental property assessor for final shaping to accept prosthesis. Vital signs remained stable during her stay with no increase as needed and her medications for blood pressure or rate control. Levothyroxine was increased due to elevated TSH and should be followed up in 4-6 weeks. After consultation with cardiology, vascular surgery and GI, she was placed on Eliquis for paroxysmal atrial fibrillation with RVR. She was previously taken off this due to GI bleed. Hemoglobin has been stable since starting Eliquis. Disposition: DC/TX- HOME UNDER HOME HL Time spent for discharge: >30 mins - Discharge Diagnoses (1) Status post below knee amputation of right lower extremity Status: Acute (2) Paroxysmal atrial fibrillation with RVR Status: Chronic (3) On anticoagulant therapy Status: Chronic (4) History of GI bleed Status: Resolved Comment: Recent GI Bleed in which Eliquis was stopped. Conferred with GI, cardiology and surgeon on restarting due to AFib. (5) Renal insufficiency Status: Acute (6) HTN (hypertension) Status: Chronic Qualifiers: Hypertension type: essential hypertension Qualified Code(s): I10 - Essential (primary) hypertension Core Measure Documentation - Palliative Care Palliative Care/ Comfort Measures: Not Applicable - Core Measures Any of the following diagnoses?: none Exam - Physical Exam Narrative exam: MUSCULOSKELETAL SPECIALTY EXAM CONSTITUTIONAL: Well developed, well nourished, appropriately groomed EENT: EOMI Hearing intact to soft voice RESPIRATORY: Clear to auscultation bilaterally, no increased work of breathing CARDIOVASCULAR: Regular Rate/ Rhythm, no swelling, edema or tenderness in BUE or BLE. All extremities warm. GI: + bowel sounds, soft, NTTP, nondistended. INTEGUMENTARY: Normal, no lesion, rash, masses or bruising noted in extremities except for surgical wound on R BKA, healing well no signs of infection. MUSCULOSKELETAL: BUE and BLE normal without defect, crepitus, subluxation, effusion, arthritic changes or TTP except for R BKA which has small appropriate amount of tenderness to palpation BUE 4+/5, good ROM, with normal tone. BLE 4+/5 good ROM, with normal tone NEURO: CN 2-12 grossly intact. Sensation intact in all extremities. No tremor noted in 4 extremities. POSTURE and GAIT: Sitting posture good. Balance and Gait reasonable, RW and short hops. PSYCH: Alert, orientated x3, affect appears normal. Insight appears intact. Confusion at times. - Constitutional Vitals: Temp Pulse Resp BP Pulse Ox 36.6 C 69 16 152/58 98 04/01/19 08:06 04/01/19 09:08 04/01/19 08:06 04/01/19 09:08 04/01/19 08:06 - Allied Health Allied health notes reviewed: nursing, PT, OT Plan Activity: advance as tolerated, fall precautions Weight Bearing Status: Non-Weight Bearing (NWB RLE until cleared by vascular surgeon) Diet: regular Wound: keep clean and dry, change dressing (daily) Special Instructions: record daily BP diary, physical therapy, occupational therapy, home health RN Durable Medical Equipment Needed Upon Discharge: Walker-Rolling, Wheelchair, Bedside Commode Follow [facility] with: [facility] MD LIZ [Primary Care Provider] - 7 Days SHIRAZ PERRY MD [Staff Physician] - 04/17/19 (April 17, 2019 is six weeks from your surgery (right below the knee amputation) which was performed 03/06/2019. Please call Dr. Perry's office as soon as possible to schedule your follow up and have your marco antonio removed. After that, he will allow Software Development Intern to start a environmental property assessor for your prosthesis fitting.) Prescriptions: Amitriptyline [Elavil] 10 mg PO QHS #30 tablet Spironolactone [Aldactone] 25 mg PO BID #60 tablet Sucralfate [Carafate] 1 gm PO ACHS #120 tablet dilTIAZem [Cardizem] 60 mg PO TID #90 tablet Amiodarone [Cordarone 200 MG TAB] 200 mg PO DAILY #30 tablet DULoxetine [Cymbalta] 60 mg PO QDAY #60 capsule Apixaban [Eliquis] 5 mg PO Q12HR #60 tablet Ferrous Sulfate [Feosol 325 MG tab] 325 mg PO QDAY #30 tablet Metoprolol [Lopressor TAB] 25 mg PO DAILY #30 tablet Multivitamin Tab [Multiple Vitamin TAB (Theragran)] 1 each PO QDAY #30 tablet Gabapentin [Neurontin] 800 mg PO TID 30 Days capsule Pantoprazole [Protonix TAB] 40 mg PO QDAY #30 tablet Levothyroxine [Synthroid] 100 mcg PO QAM #30 tablet Cyanocobalamin [Vitamin B-12] 1,000 mcg PO QDAY #30 tablet
[2019-04-01] MEDS ORDERED: VITAMIN B-12 PO SCH (13:00)
[2019-04-01] MEDS ORDERED: FEOSOL PO SCH (13:00)
[2019-04-01 13:33] VITALS: BP 138/72
== END 2019-04-01 16:25 | disposition home health service (06) | DRG 556 ==
LOC: UNDOADMIN 14:02 → 3A 14:02 → 3B 16:42
PROVIDERS: ADMIT Physical Medicine & Rehabilitation; ATTEND Physical Medicine & Rehabilitation
DX: R26.2 Difficulty in walking, not elsewhere classified (principal); N17.9 Acute kidney failure, unspecified; E87.1 Hypo-osmolality and hyponatremia; R53.81 Other malaise; I99.8 Other disorder of circulatory system; I48.0 Paroxysmal atrial fibrillation; M62.81 Muscle weakness (generalized); J44.9 Chronic obstructive pulmonary disease, unspecified; K21.9 Gastro-esophageal reflux disease without esophagitis; I10 Essential (primary) hypertension; E03.9 Hypothyroidism, unspecified; I73.9 Peripheral vascular disease, unspecified; E87.5 Hyperkalemia; Z90.49 Acquired absence of other specified parts of digestive tract; Z89.511 Acquired absence of right leg below knee; Z73.6 Limitation of activities due to disability; Z82.49 Family history of ischemic heart disease and other diseases of the circulatory system; Z87.11 Personal history of peptic ulcer disease; Z68.22 Body mass index [BMI] 22.0-22.9, adult
CPT/HCPCS: 36415; 80048; 80053; 84436; 84439; 84443; 85014; 85018; 85025; 85027; 94640; 94760; G0378; G0515; J1644; J1815; J7030